=== PATIENT | male | born 1985 | race Caucasian/White ===

== ENCOUNTER 2024-12-02 07:40 | Outpatient (OUT) | payer BC, SELFPAY ==
--- NOTE | 2024-12-02 07:50 | US_ITS ---
[facility] [id number] Patient Name: XAVIER GUERRA MRN: [id number] date: 1985 Sex: M Assigned Patient Location: [place] Current Patient Location: US Accession/Order Number: [id number] Exam Date: 12/02/2024 07:51 Report Date: 12/02/2024 10:15 At the request of: MARLON REILLY Procedure: US right upper quadrant EXAMINATION: US right upper quadrant HISTORY: Elevated Liver Enzymes COMPARISON: No relevant comparison available. TECHNIQUE: Transabdominal evaluation of the right upper quadrant. FINDINGS: LIVER: Slightly prominent, 20.7 cm in length. Slight increased echogenicity suggestive of fatty infiltration.. Color Doppler demonstrates patent hepatic veins. PORTAL VEIN: Duplex Doppler demonstrates normal hepatopetal flow pattern with flow velocity averaging 27 cm/s. GALLBLADDER: Small amount of dense sludge versus fine granular stones layering within the gallbladder. No wall thickening or pericholecystic free fluid. Negative sonographic Love's sign. BILIARY: Dilated common bile duct between 8 and 11 mm. No appreciable stones or mass. PANCREAS: No visible mass, abnormal atrophy, or duct dilation. KIDNEY: No hydronephrosis. No visible mass or stones. Size: 11.4 x 6.5 x 5.6 cm US/US right upper quadrant IMPRESSION: 1. Cholelithiasis without acute cholecystitis. Fine granular stones versus dense sludge layering within the gallbladder. The common bile duct is abnormally dilated, but no visible stone or mass. 2. Negative sonographic Love's sign. Consider follow-up. Electronically authenticated by: CECILY EASTON Date: 12/02/2024 10:15
== END 2024-12-02 07:41 | disposition home or self-care (01) ==
PROVIDERS: PCP Nurse Practitioner; Visit Provider Nurse Practitioner
DX: R74.01 Elevation of levels of liver transaminase levels (principal); R74.02 Elevation of levels of lactic acid dehydrogenase [LDH]
CPT/HCPCS: 76705

== ENCOUNTER 2024-12-16 13:41 | Emergency (ER) | payer BC, SELFPAY ==
[2024-12-16 13:52] VITALS: BP 94/52; PULSE 103; TEMP 36.4; O2SAT 100; BMI 29.2
--- OUTSIDE RECORDS SUMMARY | 2024-12-16 13:57 | XMS_ITS | CCD ---
Author Organization [facility] Care Team Providers Care Tray Room Worker Name Role Phone REQUEST, NONE LISTED Unavailable Unavailable ALE BURNETT Unavailable Unavailable PAVLOCK, MAX Unavailable Unavailable PAVLOCK, MAX Unavailable Unavailable JORDAN, ALEX Unavailable Unavailable CECILY FUNEZ Unavailable Unavailable HAYKATHERINE Unavailable Unavailable PAVLOCK, MAX Unavailable Unavailable EVAN, ALBERTO Unavailable Unavailable EVAN, ALBERTO Unavailable Unavailable MISC, DOCTOR Unavailable Unavailable EVAN, ALBERTO Unavailable Unavailable EVAN, ALBERTO Unavailable Unavailable EVAN, ALBERTO Unavailable Unavailable SELF, REFERRED Unavailable Unavailable SELF, REFERRED Unavailable Unavailable UNKNOWN, PROVIDER Unavailable Unavailable PAVLOCK, MAX DALJIT Unavailable Unavailable SELF, REFERRED Unavailable Unavailable ANA, DANIS Unavailable Unavailable [place] Unavailable Unavailable UNKNOWN, PROVIDER Unavailable Unavailable EVAN, ALBERTO Unavailable Unavailable EVAN, ALBERTO Unavailable Unavailable SELF, REFERRED Unavailable Unavailable SELF, REFERRED Unavailable Unavailable LazarusNohelia Primary Care Physician Nohelia Qiu Attending Unavailable Lazarus, Nohelia Houston Attending Unavailable Lazarus, Nohelia Houston Attending Unavailable Lazarus, Nohelia Houston Attending Unavailable Lazarus, Nohelia Houston Admitting Unavailable Lazarus, Nohelia Houston Attending Unavailable Lazarus, Nohelia [place] Attending Unavailable Lazarus, Nohelia L Attending Unavailable Lazarus, Nohelia L Attending Unavailable Lazarus, Nohelia L Attending Unavailable Lazarus, Nohelia L Attending Unavailable Lazarus, Nohelia L Attending Unavailable Lazarus, Nohelia L Attending Unavailable Lazarus, Nohelia L Attending Unavailable Lazarus, Nohelia L Admitting Unavailable Lazarus, Nohelia L Attending Unavailable Lazarus, Nohelia L Attending Unavailable Lazarus, Nohelia L Admitting Unavailable Lazarus, Nohelia L Attending Unavailable Lazarus, Nohelia L Admitting Unavailable Mary Vázquez Attending Unavailable Mary Vázquez Attending Unavailable Allergies Allergy Classification Reported Allergen(s) Allergy Type Date of Onset Reaction(s) Facility (3 sources) Sulfonamides (Antibiotic) Drug allergy (disorder) 8 AOF [facility] Repository (3 sources) No Known Medication Allergies; Translations: [No Known Medication Allergies] Propensity to adverse reactions (disorder) [facility] Repository Medications Current Medications Medication Drug Class(es) Dates Sig (Normalized) Sig (Original) amoxicillin 875 mg oral tablet (1 source) Penicillin-class Antibacterial Start: 11-24-19 End: 12-01-19 take 1 tablet by mouth twice daily amoxicillin 875 mg Tab 875 mg = 1 tab(s), Oral, BID, X 7 day(s), # 14 tab(s), Refills(s) 0, Pharmacy: [facility]/pharmacy #[id number], 182, cm, 11/24/24 14:45:00 EST, Height/Length Dosing, 97.8, kg, 11/24/24 14:45:00 EST, Weight Dosing Start Date: 11/24/24 Stop Date: 12/01/24 Status: Ordered ciprofloxacin 3 mg/ml / dexamethasone 1 mg/ml otic suspension (1 source) Corticosteroid, Quinolone Antimicrobial Start: 11-25-19 End: 12-02-19 Ciprodex 0.3%-0.1% Susp-Otic 4 drop(s), Otic, BID for 7 day(s), 7.5 mL, Refill(s) 0, [facility]/pharmacy #[id number], 182, cm, 11/24/24 14:45:00 EST, Height/Length Dosing, 97.8, kg, 11/24/24 14:45:00 EST, Weight Dosing Start Date: 11/25/24 Stop Date: 12/02/24 Status: Ordered hydroCHLOROthiazide 12.5 mg oral capsule (1 source) Thiazide Diuretic Start: 11-24-19 take 1 capsule by mouth once daily as needed for edema hydrochlorothiazide 12.5 mg Cap 12.5 mg = 1 cap(s), Oral, Daily, PRN Edema, # 30 cap(s), Refills(s) 4, Pharmacy: [facility]/pharmacy #[id number], 182, cm, 08/11/24 13:17:00 EDT, Height/Length Dosing, 96.3, kg, 08/11/24 13:17:00 EDT, Weight Dosing Start Date: 11/24/24 Status: Ordered hydroCHLOROthiazide 25 mg / metoprolol tartrate 100 mg oral tablet (1 source) Thiazide Diuretic, beta-Adrenergic Caroline Start: 03-21-20 hydrochlorothiazide-me toprolol 25 mg-100 mg oral tablet 1 tab(s), Oral, BID, 60 tab(s), Refill(s) 2, [facility]/pharmacy #[id number], 182, cm, 03/21/24 13:11:00 EDT, Height/Length Dosing, 97, kg, 03/21/24 13:11:00 EDT, Weight Dosing Start Date: 03/21/24 Status: Ordered losartan potassium 100 mg oral tablet (2 sources) Angiotensin 2 Receptor Caroline Start: 05-21-20 End: 05-16-20 take 1 tablet by mouth once daily losartan 100 mg Tab 100 mg = 1 tab(s), Oral, Daily, X 90 day(s), # 90 tab(s), Refills(s) 3, [id number], cm, 05/21/24 17:12:00 EDT, Height/Length Dosing, 92.1, kg, 05/21/24 17:12:00 EDT, Weight Dosing Start Date: 05/21/24 Stop Date: 05/16/25 Status: Ordered Potassium Chloride (2 sources) Start: 11-26-19 take 1 tablet by mouth twice daily Potassium Chloride (Wka-Kktl-Fek M20) 20 mEq oral tablet, extended release TAKE 1 TABLET BY MOUTH TWICE A DAY Start Date: 11/26/24 Status: Ordered Start: 06-30-2024 take 1 tablet by dolly twice daily Klor-Con M20 oral tablet, extended release See Instructions, TAKE 1 TABLET BY MOUTH TWICE A DAY, # 180 tab(s), Refills(s) 1, Pharmacy: [facility] STORE [id number], 182, cm, 05/26/24 10:41:00 EDT, Height/Length Dosing, 93.6, kg, 05/26/24 10:41:00 EDT, Weight Dosing Start Date: 06/30/24 Status: Ordered Problems Problem Classification Problem Date Documented Date Episodic/Chronic Alcohol-related disorders (1 source) Alcohol abuse, uncomplicated; Translations: [ALCOHOL ABUSE, UNCOMPLICATED] Onset: 08-27-2018 Chronic Biliary tract disease (1 source) Acute cholecystitis; Translations: [ACUTE CHOLECYSTITIS] Onset: 09-02-2018 Episodic Cardiac dysrhythmias (8 sources) Supraventricular tachycardia; Translations: [SUPRAVENTRICULAR TACHYCARDIA] Onset: 09-03-2018 Chronic Cardiac dysrhythmias (4 sources) Palpitations; Translations: [Tachycardia, unspecified] Onset: 08-27-2018 Episodic Conduction disorders (5 sources) Pre-excitation syndrome; Translations: [Dlriv-Aekxvfjma-Zjdlt pattern] Onset: 08-27-2018 03-21-2024 Chronic Essential hypertension (3 sources) Hypertensive disorder 03-21-2024 Chronic Fever of unknown origin (1 source) Fever 08-11-2024 Episodic Fluid and electrolyte disorders (3 sources) Dehydration; Translations: [Hypokalemia] Onset: 09-02-2018 04-11-2024 Episodic Malaise and fatigue (3 sources) Fatigue 03-21-2024 Episodic Nausea and vomiting (1 source) Nausea and vomiting 08-11-2024 Episodic Other ear and sense organ disorders (1 source) Pain of ear structure 11-26-2024 Episodic Other liver diseases (1 source) Abnormal levels of other serum enzymes; Translations: [ABNORMAL LEVELS OTHER SERUM ENZYMES] Onset: 09-02-2018 Episodic Other liver diseases (2 sources) ALT (SGPT) level raised 04-11-2024 Episodic Other liver diseases (2 sources) Elevated liver enzymes level 04-11-2024 Episodic Other lower respiratory disease (3 sources) Dyspnea 03-21-2024 Episodic Other nervous system disorders (2 sources) Numbness of lower limb 08-06-2024 Episodic Other nervous system disorders (1 source) Numbness of upper limb 11-26-2024 Episodic Other nutritional; endocrine; and metabolic disorders (1 source) Body mass index 25-29 - overweight 08-11-2024 Episodic Other nutritional; endocrine; and metabolic disorders (1 source) Overweight in adulthood with body mass index of 25 or more but less than 30 08-11-2024 Episodic Other upper respiratory infections (1 source) Sinusitis 11-24-2024 Chronic Other upper respiratory infections (3 sources) Streptococcal sore throat; Translations: [Sore throat symptom] 05-26-2024 Episodic Otitis media and related conditions (3 sources) Otitis media of left ear; Translations: [Otitis media of right ear] 05-26-2024 Episodic Violette-; endo-; and myocarditis; cardiomyopathy (except that caused by tuberculosis or sexually transmitted disease) (1 source) Dilated cardiomyopathy; Translations: [DILATED CARDIOMYOPATHY] Onset: 09-02-2018 Chronic Residual codes; unclassified (3 sources) Current drinker 03-21-2024 Episodic Residual codes; unclassified (3 sources) Edema of lower extremity 03-21-2024 Episodic Residual codes; unclassified (1 source) Generalized aches and pains 08-11-2024 Episodic Residual codes; unclassified (1 source) Tobacco user 11-24-2024 Episodic Substance-related disorders (4 sources) Nicotine dependence, cigarettes, uncomplicated; Translations: [Cocaine abuse, uncomplicated] Onset: 08-27-2018 Chronic Unclassified (2 sources) Unknown / UNK(Unknown) Onset: 09-03-2018 Unclassified (3 sources) Patient encounter status 03-21-2024 Results Test Name Value Interpretation Reference Range Facil ity .Interpretation:on HCV Ab IA Ql Comment Invalid Interpretation Code [facility] Comment on above: Result Comment: Not infected with HCV unless early or acute infection is suspected (which may be delayed in an immunocompromised individual), or other evidence exists to indicate HCV infection. Performed at: [facility] [id number] PhD Donna Love Performed By: #### 2 [id number] #### [facility] [address] [place] [address] Acute Hepatitis A B C Panelo n 11-28-2024 HAV IgM IA Ql Negative Invalid Interpretation Code Negative [facility] Comment on above: Result Comment: A ne gative anti-HAV IgM result suggests no recent or current HAV infection. Performed By: #### 3 [id number] #### [facility] [address] [place] [address] HBV core IgM IA Ql Negative Invalid Interpretation Code Negative [facility] Comment on above: Performed By: #### 3 [id number] #### [facility] [address] [place] [address] HBV surface Ag IA Ql Negative Invalid Interpretation Code Negative [facility] Comment on above: Performed By: #### 3 [id number] #### [facility] [address] [place] [address] HCV IgG IA Ql Non-Reactive Invalid Interpretation Code Non Reactive [facility] Comment on above: Result Comment: Perf ormed at: [facility] [address] [id number] PhD Donna Love Performed By: #### 3 [id number] #### [facility] [address] [place] [address] CBC w/ Auto Diffon 5 Basophils/100 WBC (Bld) 0.5 % Normal 0.0-2.0 [facility] Comment on above: Performed By: #### 2 [id number] #### [facility] [address] [place] [address] Basophils/Leukocyt es Auto (Bld) [Pure # fraction] 0.0 E9/L Normal 0.0-0.2 [facility] Comment on above: Performed By: #### 2 [id number] #### [facility] [address] [place] [address] Eosinophils (Bld) [#/Vol] 0.2 E9/L Normal 0.0-0.5 [facility] Comment on above: Performed By: #### 2 [id number] #### [facility] [address] [place] [address] Eosinophils/100 WBC (Bld) 3.3 % Normal 0.0-8.0 [facility] Comment on above: Performed By: #### 2 [id number] #### [facility] [address] [place] [address] Erythrocyte distribution width (RBC) [Ratio] 14.3 % High 10.9-14.2 [facility] Comment on above: Performed By: #### 2 [id number] #### [facility] [address] [place] [address] Hematocrit (Bld) [Volume fraction] 36.8 % Low 37.7-49.0 [facility] Comment on above: Performed By: #### 2 [id number] #### [facility] [address] [place] [address] Hemoglobin (Bld) [Mass/Vol] 12.7 g/dL Low 13.5-17.5 [facility] Comment on above: Performed By: #### 2 [id number] #### [facility] [address] [place] [address] Lymphocytes (Bld) [#/Vol] 1.9 E9/L Normal 1.0-4.0 [facility] Comment on above: Performed By: #### 2 [id number] #### [facility] [address] [place] [address] Lymphocytes/100 WBC (Bld) 29.0 % Normal 14.0-50.0 [facility] Comment on above: Performed By: #### 2 [id number] #### [facility] [address] [place] [address] MCH (RBC) [Entitic mass] 35.7 pg High 27.0-34.0 [facility] Comment on above: Performed By: #### 2 [id number] #### [facility] [address] [place] [address] MCHC (RBC) [Mass/Vol] 34.6 g/dL Normal 31.4-36.0 [facility] Comment on above: Performed By: #### 2 [id number] #### [facility] [address] [place] [address] MCV (RBC) [Entitic vol] 103.3 fL High 80.0-100.0 [facility] Comment on above: Performed By: #### 2 [id number] #### [facility] [address] [place] [address] Monocytes (Bld) [#/Vol] 0.5 E9/L Normal 0.2-1.0 [facility] Comment on above: Performed By: #### 2 [id number] #### [facility] [address] [place] [address] Neutrophils (Bld) [#/Vol] 3.9 E9/L Normal 2.0-7.5 [facility] Comment on above: Performed By: #### 2 [id number] #### [facility] [address] [place] [address] Neutrophils/100 WBC (Bld) 59.3 % Normal 36.0-75.0 [facility] Comment on above: Performed By: #### 2 [id number] #### [facility] [address] [place] [address] Platelet mean volume (Bld) [Entitic vol] 9.4 fL Normal 6.4-10.8 [facility] Comment on above: Performed By: #### 2 [id number] #### [facility] [address] [place] [address] Platelets (Bld) [#/Vol] 186.0 E9/L Normal 150.0-500.0 [facility] Comment on above: Performed By: #### 2 [id number] #### [facility] [address] [place] [address] RBC (Bld) [#/Vol] 3.6 E12/L Low 4.3-5.9 [facility] Comment on above: Performed By: #### 2 [id number] #### [facility] [address] [place] [address] WBC corrected for nucl RBC Auto (Bld) [#/Vol] 6.5 E9/L Normal 4.0-11.0 [facility] Comment on above: Performed By: #### 2 [id number] #### [facility] [address] [place] [address] CHEMISTRYOrdered By: SYSTEM SYSTEM on 11-26-2024 Albumin [Mass/Vol] 3.0 g/dL Low 3.3 - 5.0 gm/dL R emisol Chem Albumin/Globulin [Mass ratio] 0.7 {ratio} Low 1.1 - 2.2 Remisol Chem ALP [Catalytic activity/Vol] 184 [iU]/d High 21 - 98 Int._Unit/L Remisol Chem ALT No additional P-5'-P [Catalytic activity/Vol] 50 [iU]/d High 6 - 46 Int._Unit/L Remisol Chem Anion gap [Moles/Vol] 13 mmol/L Normal 6 - 16 mEq/L Remisol Chem AST [Catalytic activity/Vol] 191 [iU]/d High 5 - 43 Int._Unit/L Remisol Chem Bilirubin [Mass/Vol] 6.3 mg/dL High 0.0 - 1.1 mg/dL Remisol Chem Calcium [Mass/Vol] 8.4 mg/dL Low 8.9 - 11.1 mg/dL Remisol Chem Chloride [Moles/Vol] 102 mmol/L Normal 101 - 111 mmol/L Remisol Chem CO2 [Moles/Vol] 25 mmol/L Normal 21 - 31 mmol/L Remis ol Chem Creatinine [Mass/Vol] 0.9 mg/dL Normal 0.5 - 1.3 mg/dL Remisol Chem eGFR 112 mL/min/1.73 m2 Normal >=59mL/min/1.73 m 2 Remisol Chem Globulin (S) [Mass/Vol] 4.6 g/dL High 1.4 - 4.0 gm/dL Remisol Chem Glucose [Mass/Vol] 100 mg/dL Normal 55 - 199 mg/dL Re misol Chem Potassium [Moles/Vol] 3.5 mmol/L Normal 3.5 - 5.3 mmol/L Remisol Chem Protein [Mass/Vol] 7.6 g/dL Normal 6.0 - 7.8 gm/dL R emisol Chem Sodium [Moles/Vol] 136 mmol/L Normal 135 - 145 mmol/L Remisol Chem Urea nitrogen [Mass/Vol] 8 mg/dL Normal 5 - 21 mg/dL Remisol Chem Urea nitrogen/Creatinin e [Mass ratio] 9 mg/mg Low 10 - 20 Remisol Chem CMPon 11-26-2024 Albumin [Mass/Vol] 3.0 g/dL Low 3.3-5.0 [facility] Comment on above: Performed By: #### 2 [id number] #### [facility] [address] [place] [address] Albumin/Globulin (S) [Mass conc ratio] 0.7 Low 1.1-2.2 [facility] Comment on above: Performed By: #### 2 [id number] #### [facility] [address] [place] [address] ALP [Catalytic activity/Vol] 184 Int._Unit/L High 21-98 [facility] Comment on above: Performed By: #### 2 [id number] #### [facility] [address] [place] [address] ALT No additional P-5'-P [Catalytic activity/Vol] 50 Int._Unit/L High 6-46 [facility] Comment on above: Performed By: #### 2 [id number] #### [facility] [address] [place] [address] Anion gap [Moles/Vol] 13 mmol/L Normal 6-16 [facility] Comment on above: Performed By: #### 2 [id number] #### [facility] [address] [place] [address] AST [Catalytic activity/Vol] 191 Int._Unit/L High 5-43 [facility] Comment on above: Performed By: #### 2 [id number] #### [facility] [address] [place] [address] Bilirubin [Mass/Vol] 6.3 mg/dL High 0.0-1.1 [facility] Comment on above: Performed By: #### 2 [id number] #### [facility] [address] [place] [address] Calcium [Mass/Vol] 8.4 mg/dL Low 8.9-11.1 [facility] Comment on above: Performed By: #### 2 [id number] #### [facility] [address] [place] [address] Chloride [Moles/Vol] 102 mmol/L Normal 101-111 [facility] Comment on above: Performed By: #### 2 [id number] #### [facility] [address] [place] [address] CO2 [Moles/Vol] 25 mmol/L Normal 21-31 [facility] Comment on above: Performed By: #### 2 [id number] #### [facility] [address] [place] [address] Creatinine [Mass/Vol] 0.9 mg/dL Normal 0.5-1.3 [facility] Comment on above: Performed By: #### 2 [id number] #### [facility] [address] [place] [address] Globulin (S) [Mass/Vol] 4.6 g/dL High 1.4-4.0 [facility] Comment on above: Performed By: #### 2 [id number] #### [facility] [address] [place] [address] Glucose [Mass/Vol] 100 mg/dL Normal 55-199 [facility] Comment on above: Performed By: #### 2 [id number] #### [facility] [address] [place] [address] Potassium [Moles/Vol] 3.5 mmol/L Normal 3.5-5.3 [facility] Comment on above: Performed By: #### 2 [id number] #### [facility] [address] [place] [address] Protein [Mass/Vol] 7.6 g/dL Normal 6.0-7.8 [facility] Comment on above: Performed By: #### 2 [id number] #### [facility] [address] [place] [address] Sodium [Moles/Vol] 136 mmol/L Normal 135-145 [facility] Comment on above: Performed By: #### 2 [id number] #### [facility] [address] [place] [address] Urea nitrogen [Mass/Vol] 8 mg/dL Normal 5-21 [facility] Comment on above: Performed By: #### 2 [id number] #### [facility] [address] [place] [address] Urea nitrogen/Creatinin e [Mass ratio] 9 No Units Low 10-20 [facility] Comment on above: Performed By: #### 2 [id number] #### [facility] [address] [place] [address] Family Medicine Office/Clini c Noteon 11-26-2024 Family Medicine Office/Clinic Note Family Medicine Office/Clinic Note Chief Complaint Sick Visit HPI Staff Pt presents today for several reasons. Has been having dark urine for about a month. Arm has been flaccid. Ears seem to be getting worse. Still abx. Rt is worse than Lt. Pt was just seen in our office 2 days ago and was given script for amoxicillin BID x7days. NEG Covid test at that time. Pt was given note for work, was to return to work today. History of Present Illness pt presents again today with worsening ear pain and dark urine for a couple weeks Review of Systems PHQ Score Initial Depression Screen Score: 0 SCORE Physical Exam Vitals & Measurements T: 36.8 ???C(Tympanic) HR: 96(Peripheral) RR: 18 BP: 162/96 SpO2: 96% HT: 72 in HT: 182 cm WT: 97.6 kg WT: 215.171 lb BMI: 29.47 General: alert, no acute distress ENMT: oral mucosa moist, no pharyngeal erythema or exudate, right TM membrane bulging and red Cardiovascular: regular rate and rhythm, normal peripheral perfusion Respiratory: Lungs CTA, respirations non labored Extremities: no deformity, no trauma Neurological: oriented x 4, LOC appropriate for age, CN II-XII intact, motor strength equal & normal bilaterally, speech normal Assessment/Plan 1. Ear pain (H92.09: Otalgia, unspecified ear) pt states right ear is still hurting. started amoxicillin 2 days ago. encouraged him to continue taking antibiotics and ear drops. will give Kenalog injection in office today. return in 2 weeks to check ear and go over lab work Ordered: Acute Hepatitis A B C Panel CBC w/ Auto Diff Comprehensive Metabolic Panel Mononucleosis Screen 2. Dark urine (R82.998: Other abnormal findings in urine) pt c/o dark urine for 3-4 weeks. pt states that he drinks a lot of water. u/a negative except for bili. but the color of the urine is tea colored Ordered: Acute Hepatitis A B C Panel CBC w/ Auto Diff Comprehensive Metabolic Panel Mononucleosis Screen Urnls Dip Stick Auto w/o Microscopy POC 31392 3. Elevated liver enzymes (R74.8: Abnormal levels of other serum enzymes) will check labs today. pt's scleras are yellow tinged. Ordered: Acute Hepatitis A B C Panel CBC w/ Auto Diff Comprehensive Metabolic Panel Influenza Type A&B POC 77656 Mononucleosis Screen 4. Left arm numbness (R20.0: Anesthesia of skin) pt apparently fell asleep in a weird position on top of boxes of ammo. He is a heavy drinker and it is assumed that he passed out. neuro assessment WNL. hoping kenalog will help decrease inflammation and ease the numbness of his left lower arm. also discussed it could be carpal tunnel. encouraged pt and to go to ER immediately if he gets any other neurologic symptoms. 5. BMI 29.0-29.9,adult (Z68.29: Body mass index [BMI] 29.0-29.9, adult) BMI education given Follow-up No qualifying data available Problem List/Past Medical History Ongoing Alcohol use BMI 29.0-29.9,adult Body aches Ear pain Elevated ALT measurement Elevated liver enzymes Fatigue Fever Hypertension Hypokalemia Left arm numbness Left otitis media Lower extremity edema Lower extremity numbness Nausea and vomiting in adult Otitis media, right Overweight (BMI 25.0-29.9) Screening for hyperlipidemia Shortness of breath Sinusitis Sore throat Strep throat Hgiil-Puoqzpgft-Nrqvq syndrome Historical No qualifying data Procedure/Surgical History Nicola Parkinson White syndrome. Medications amoxicillin 875 mg Tab, 875 mg= 1 tab(s), Oral, BID Ciprodex 0.3%-0.1% Susp-Otic, 4 drop(s), Otic, BID hydrochlorothiazide 12.5 mg Cap, 12.5 mg= 1 cap(s), Oral, Daily, PRN, 4 refills losartan 100 mg Tab, 100 mg= 1 tab(s), Oral, Daily, 3 refills Potassium Chloride (Klu-Zbfm-Ouf M20) 20 mEq oral tablet, extended release Allergies No Known Medication Allergies Social History Alcohol Current. Liquor. Daily., 11/24/2024 Tobacco 10 or more cigarettes (1/2 pack or more)/day in last 30 days Tobacco Use:. Never Smokeless Tobacco Use:. Cigarettes, Household tobacco concerns: No. Yes, 11/26/2024 Family History Heart murmur: Mother. Hypertension: Father. Hyperthyroidism: Mother. Immunizations Vaccine Date Status influenza virus vaccine, inactivated 08/28/2022 Recorded SARSCoV2 mRNA(jxtixqpih-shvw-q delio) vac 02/01/2022 Recorded SARS-CoV-2 (COVID-19) mRNA BNT-162b2 vax 09/02/2021 Recorded SARS-CoV-2 (COVID-19) mRNA BNT-162b2 vax 08/12/2021 Recorded Lab Results Ambulatory Point of Care Results Bilirubin Urine Dipstick: 1+ Small (11/26/24 10:46:00) Blood Urine Dipstick: Negative (11/26/24 10:46:00) Glucose Urine Dipstick: Negative (11/26/24 10:46:00) Ketones Urine Dipstick: Negative (11/26/24 10:46:00) Leukocytes Urine Dipstick: Negative (11/26/24 10:46:00) Nitrite Urine Dipstick: Negative (11/26/24 10:46:00) Protein Urine Dipstick: Negative (11/26/24 10:46:00) Specific [place] Urine Dipstick: 1.020 (11/26/24 10:46:00) Urine Appearance Urine (more content not included)... Normal [facility] Comment on above: Result Comment: Elec tronically Signed By: Nohelia Pena\.br\Date and Time Signed: 11/26/24 11:22 EST HEMATOLOGYOrdered By: SYSTEM SYSTEM on 11-26-2024 Basophils/100 WBC (Bld) 0.5 % Normal 0.0 - 2.0 % Remisol Heme Basophils/Leukocyt es Auto (Bld) [Pure # fraction] 0.0 E9/L Normal 0.0 - 0.2 E9/L Remisol Heme Eosinophils (Bld) [#/Vol] 0.2 E9/L Normal 0.0 - 0.5 E9/L Remisol Heme Eosinophils/100 WBC (Bld) 3.3 % Normal 0.0 - 8.0 % Remisol Heme Erythrocyte distribution width (RBC) [Ratio] 14.3 % High 10.9 - 14.2 % Remisol Heme Hematocrit (Bld) [Volume fraction] 36.8 % Low 37.7 - 49.0 % Remisol Heme Hemoglobin (Bld) [Mass/Vol] 12.7 g/dL Low 13.5 - 17.5 gm/dL Remisol Heme Lymphocytes (Bld) [#/Vol] 1.9 E9/L Normal 1.0 - 4.0 E9/L Remisol Heme Lymphocytes/100 WBC (Bld) 29.0 % Normal 14.0 - 50.0 % Remisol Heme MCH (RBC) [Entitic mass] 35.7 pg High 27.0 - 34.0 pg Remisol Heme MCHC (RBC) [Mass/Vol] 34.6 g/dL Normal 31.4 - 36.0 gm/dL Remisol Heme MCV (RBC) [Entitic vol] 103.3 fL High 80.0 - 100.0 fL Remisol Heme Monocytes (Bld) [#/Vol] 0.5 E9/L Normal 0.2 - 1.0 E9/L Remisol Heme Monocytes/100 WBC (Bld) 7.9 % Normal 4.0 - 14.0 % Remisol Heme Neutrophils (Bld) [#/Vol] 3.9 E9/L Normal 2.0 - 7.5 E9/L Remisol Heme Neutrophils/100 WBC (Bld) 59.3 % Normal 36.0 - 75.0 % Remisol Heme Platelet mean volume (Bld) [Entitic vol] 9.4 fL Normal 6.4 - 10.8 fL Remisol Heme Platelets (Bld) [#/Vol] 186.0 E9/L Normal 150.0 - 500.0 E9/L Remisol Heme RBC (Bld) [#/Vol] 3.6 E12/L Low 4.3 - 5.9 E12/L Re misol Heme WBC corrected for nucl RBC Auto (Bld) [#/Vol] 6.5 E9/L Normal 4.0 - 11.0 E9/L Remisol Heme Garvin Screenon 11-26-2024 Heterophile Ab LA Ql (S) Negative Normal Negative [facility] Comment on above: Performed By: #### 2 [id number] #### [facility] [address] [place] [address] SEROLOGYOrdered By: Leeanne Hayward on 11-26-2024 Heterophile Ab LA Ql (S) Negative (11/26/24 11:29 AM) Normal Negative [facility] eGFRon 11-26-2024 eGFR 112 mL/min/1.73 m2 Normal >=59 [facility] Comment on above: Performed By: #### 1 [id number] #### [facility] [address] [place] [address] Provider Letteron 11-25-2024 Provider Letter Provider Letter November 25, 2024 JAMES DEL RIO [address] [facility] [place] [address] : 1985 To Whom It May Concern, Please excuse above patient from work, due to medical Date of Illness: From: _ 11-24-24 To: _ 11-25-24 May Return to Work On:11-26-24 Restrictions: _ Comments: _ Sincerely, [address] [address] Normal [facility] Ambulatory Visit Summaryon 0 11-24-2024 Ambulatory Visit Summary Ambulatory Visit Summary NASEEM DEL RIOEL :1985 Visit Date:11/24/2024 Ambulatory Visit Instructions Your Care Team Attending Physician - Nohelia Pena Primary Care Physician - Nohelia Pena This Is Your Medications List hydrochlorothiazide (hydrochlorothiazide 12.5 mg Cap) losartan (losartan 100 mg Tab) ondansetron (ondansetron 4 mg Dis Tab) Procedures Performed Nicola Parkinson White syndrome. Discharge Vitals Temperature (Oral) 36.8 ???C Heart Rate (Peripheral) 124 Respiratory Rate 18 Blood Pressure 124/84 Height 182.0 cm Height 72 in Weight 97.8 kg Weight 215.612 lb BMI 29.53 Medications What How Much When Why Instructions New ondansetron (ondansetron 4 mg Dis Tab) 1 Tablets By Mouth Every 6 hours Unchanged hydrochlorothiazide (hydrochlorothiazide 12.5 mg Cap) 1 Capsules By Mouth Every day as needed for Edema Unchanged losartan (losartan 100 mg Tab) 1 Tablets By Mouth Every day Hypertension Hypokalemia Elevated liver enzymes Elevated ALT measurement BMI 28.0-28.9,adult Smoker Duration: 90 Days Allergies No Known Medication Allergies Problems Ongoing - Any problem that you are currently receiving treatment for. Alcohol use BMI 29.0-29.9,adult Body aches Elevated ALT measurement Elevated liver enzymes Fatigue Fever Hypertension Hypokalemia Left otitis media Lower extremity edema Lower extremity numbness Nausea and vomiting in adult Overweight (BMI 25.0-29.9) Screening for hyperlipidemia Shortness of breath Strep throat Zsvuh-Rslmxwggy-Mwqmp syndrome Patient Survey You may receive a survey via text or e-mail asking about your office visit. Please share your experience with us by completing your survey. We appreciate your feedback and thank you for choosing us for your care. Normal [facility] Family Medicine Office/Clini c Noteon 11-24-2024 Family Medicine Office/Clinic Note Family Medicine Office/Clinic Note HPI Staff James is a 39 year old male presenting with ear and throat pain Onset: started a month ago just getting worse Fevers: no Sinus congestion: yes Sneezing: yes Ear pain: YES right ear both Ear itching, popping, fullness, ringing, muffled hearing: nothing pressure popped when he yawned last night Ear drainage: no Swollen nodes: Sore throat: YES.. Ear pain worse with chewing: no Itching: no Difficulty hearing: yes Tried: OTC ear drops... didn't seem to help at all History of Present Illness pt presents today for sore throat and ear pain Review of Systems PHQ Score Initial Depression Screen Score: 0 SCORE Physical Exam Vitals & Measurements T: 36.8 ???C(Oral) HR: 124(Peripheral) RR: 18 BP: 124/84 SpO2: 99% HT: 72 in HT: 182.0 cm WT: 97.8 kg WT: 215.612 lb BMI: 29.53 General: alert, no acute distress ENMT: oral mucosa moist, no pharyngeal erythema or exudate Cardiovascular: regular rate and rhythm, normal peripheral perfusion Respiratory: Lungs CTA, respirations non labored Extremities: no deformity, no trauma Neurological: oriented x 4, LOC appropriate for age, CN II-XII intact, motor strength equal & normal bilaterally, speech normal Assessment/Plan 1. Otitis media, right (H66.91: Otitis media, unspecified, right ear) Right TM is red and very swollen. canal is also red. will treat with amoxicillin. covid test is negative in office today. RTC as needed 2. Sinusitis (J32.9: Chronic sinusitis, unspecified) bloody nasal drainage, sinus pressure 3. Sore throat (J02.9: Acute pharyngitis, unspecified) throat is red, no exudate noted. 4. BMI 29.0-29.9,adult (Z68.29: Body mass index [BMI] 29.0-29.9, adult) bmi education Orders: amoxicillin, 875 mg = 1 tab(s), Oral, BID, X 7 day(s), # 14 tab(s), Refills(s) 0, [id number], cm, 11/24/24 14:45:00 EST, Height/Length Dosing, 97.8, kg, 11/24/24 14:45:00 EST, Weight Dosing hydrochlorothiazide, 12.5 mg = 1 cap(s), Oral, Daily, PRN Edema, # 30 cap(s), Refills(s) 4, [id number] 182, cm, 08/11/24 13:17:00 EDT, Height/Length Dosing, 96.3, kg, 08/11/24 13:17:00 EDT, Weight Dosing ondansetron, 4 mg = 1 tab(s), Oral, q6hr, PRN Nausea/Vomiting, # 20 tab(s), Refills(s) 0, [id number] 182, cm, 08/11/24 13:17:00 EDT, Height/Length Dosing, 96.3, kg, 08/11/24 13:17:00 EDT, Weight Dosing Follow-up No qualifying data available Problem List/Past Medical History Ongoing Alcohol use BMI 29.0-29.9,adult Body aches Elevated ALT measurement Elevated liver enzymes Fatigue Fever Hypertension Hypokalemia Left otitis media Lower extremity edema Lower extremity numbness Nausea and vomiting in adult Otitis media, right Overweight (BMI 25.0-29.9) Screening for hyperlipidemia Shortness of breath Sinusitis Sore throat Strep throat Nbaum-Koyrirjbm-Inmqz syndrome Historical No qualifying data Procedure/Surgical History Nicola Parkinson White syndrome. Medications amoxicillin 875 mg Tab, 875 mg= 1 tab(s), Oral, BID hydrochlorothiazide 12.5 mg Cap, 12.5 mg= 1 cap(s), Oral, Daily, PRN, 4 refills losartan 100 mg Tab, 100 mg= 1 tab(s), Oral, Daily, 3 refills ondansetron 4 mg Dis Tab, 1 tab(s), Oral, q6hr Allergies No Known Medication Allergies Social History Alcohol Current. Liquor. Daily., 11/24/2024 Tobacco 10 or more cigarettes (1/2 pack or more)/day in last 30 days Tobacco Use:., 11/24/2024 Family History Heart murmur: Mother. Hypertension: Father. Hyperthyroidism: Mother. Immunizations Vaccine Date Status influenza virus vaccine, inactivated 08/28/2022 Recorded SARSCoV2 mRNA(qbqpaaunl-sbbm-x ucros) vac 02/01/2022 Recorded SARS-CoV-2 (COVID-19) mRNA BNT-162b2 vax 09/02/2021 Recorded SARS-CoV-2 (COVID-19) mRNA BNT-162b2 vax 08/12/[address] [facility] Comment on above: Result Comment: Elec tronically Signed By: Nohelia Pena\.br\Date and Time Signed: 11/24/24 15:05 EST Ambulatory Visit Summaryon 0 08-11-2024 Ambulatory Visit Summary Ambulatory Visit Summary JAMES DEL RIO :1985 Visit Date:08/11/2024 Ambulatory Visit Instructions Your Diagnosis Fever Nausea and vomiting in adult Your Care Team Attending Physician - Nohelia Pena Primary Care Physician - Nohelia Pena This Is Your Medications List losartan (losartan 100 mg Tab) Procedures Performed Nicola Parkinson White syndrome. Discharge Vitals Temperature (Temporal Artery) 36.6 ?C Heart Rate (Peripheral) 111 Respiratory Rate 16 Blood Pressure 138/84 Height 182 cm Height 72 in Weight 96.3 kg Weight 211.86 lb BMI 29.07 Medications What How Much When Why Instructions Unchanged losartan (losartan 100 mg Tab) 1 Tablets By Mouth Every day Hypertension Hypokalemia Elevated liver enzymes Elevated ALT measurement BMI 28.0-28.9,adult Smoker Duration: 90 Days Allergies No Known Medication Allergies Problems Ongoing - Any problem that you are currently receiving treatment for. Alcohol use Elevated ALT measurement Elevated liver enzymes Fatigue Fever Hypertension Hypokalemia Left otitis media Lower extremity edema Lower extremity numbness Nausea and vomiting in adult Screening for hyperlipidemia Shortness of breath Strep throat Rddlj-Zyuxpekcs-Rcvcg syndrome Patient Survey You may receive a survey via text or e-mail asking about your office visit. Please share your experience with us by completing your survey. We appreciate your feedback and thank you for choosing us for your care. 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 History of Present Illness pt presents today for nausea, vomiting and fever Review of Systems PHQ Score Initial Depression Screen Score: 0 SCORE Physical Exam Vitals & Measurements T: 36.6 ?C(Temporal Artery) HR: 111(Peripheral) RR: 16 BP: 138/84 SpO2: 97% HT: 72 in HT: 182 cm WT: 96.3 kg WT: 211.86 lb BMI: 29.07 General: alert, no acute distress ENMT: oral mucosa moist, no pharyngeal erythema or exudate Cardiovascular: regular rate and rhythm, normal peripheral perfusion Respiratory: Lungs CTA, respirations non labored Extremities: no deformity, no trauma Neurological: oriented x 4, LOC appropriate for age, CN II-XII intact, motor strength equal & normal bilaterally, speech normal sweating weak Assessment/Plan 1. Fever (R50.9: Fever, unspecified) pt woke up with temp of 103.7. took tylenol then motrin. during visit pt is profusely sweating from his fever breaking. keep saying it is hot in here. has not been able to eat at all today. will send tamiflu and zofran. encouraged him to stay hydrated. RTC as needed Ordered: ondansetron, 4 mg = 1 tab(s), Oral, q6hr, PRN Nausea/Vomiting, # 20 tab(s), Refills(s) 0, Pharmacy: [facility]/pharmacy #[id number], 182, cm, 08/11/24 13:17:00 EDT, Height/Length Dosing, 96.3, kg, 08/11/24 13:17:00 EDT, Weight Dosing oseltamivir, 75 mg = 1 cap(s), Oral, BID, for treatment, X 5 day(s), # 10 cap(s), Refills(s) 0, [id number], cm, 08/11/24 13:17:00 EDT, Height/Length Dosing, 96.3, kg, 08/11/24 13:17:00 EDT, Weight Dosing 2. Nausea and vomiting in adult (R11.2: Nausea with vomiting, unspecified) nausea and vomiting since this morning. will send zofran. pt encouraged to stay hydrated Ordered: ondansetron, 4 mg = 1 tab(s), Oral, q6hr, PRN Nausea/Vomiting, # 20 tab(s), Refills(s) 0, [id number] 182, cm, 08/11/24 13:17:00 EDT, Height/Length Dosing, 96.3, kg, 08/11/24 13:17:00 EDT, Weight Dosing oseltamivir, 75 mg = 1 cap(s), Oral, BID, for treatment, X 5 day(s), # 10 cap(s), Refills(s) 0, [id number] 182, cm, 08/11/24 13:17:00 EDT, Height/Length Dosing, 96.3, kg, 08/11/24 13:17:00 EDT, Weight Dosing 3. Body aches (R52: Pain, unspecified) rotate tylenol and mortrin Ordered: ondansetron, 4 mg = 1 tab(s), Oral, q6hr, PRN Nausea/Vomiting, # 20 tab(s), Refills(s) 0, [id number] 182, cm, 08/11/24 13:17:00 EDT, Height/Length Dosing, 96.3, kg, 08/11/24 13:17:00 EDT, Weight Dosing oseltamivir, 75 mg = 1 cap(s), Oral, BID, for treatment, X 5 day(s), # 10 cap(s), Refills(s) 0, Pharmacy: [facility]/pharmacy #[id number], 182, cm, 08/11/24 13:17:00 EDT, Height/Length Dosing, 96.3, kg, 08/11/24 13:17:00 EDT, Weight Dosing 4. BMI 29.0-29.9,adult (Z68.29: Body mass index [BMI] 29.0-29.9, adult) BMI education given 5. Smoker (F17.200: Nicotine dependence, unspecified, uncomplicated) consider not smoking 6. Overweight (BMI 25.0-29.9) (E66.3: Overweight) see above Orders: potassium chloride, See Instructions, TAKE 1 TABLET BY MOUTH TWICE A DAY, # 180 tab(s), Refills(s) 1, Pharmacy: [id number], 182, cm, 05/26/24 10:41:00 EDT, Height/Length Dosing, 93.6, kg, 05/26/24 10:41:00 EDT, Weight Dosing Follow-up No qualifying data available Problem List/Past Medical History Ongoing Alcohol use BMI 29.0-29.9,adult Body aches Elevated ALT measurement Elevated liver enzymes Fatigue Fever Hypertension Hypokalemia Left otitis media Lower extremity edema Lower extremity numbness Nausea and vomiting in adult Overweight (BMI 25.0-29.9) Screening for hyperlipidemia Shortness of breath Strep throat Wfjws-Bvbatwldm-Rxjji syndrome Historical No qualifying data Procedure/Surgical History Nicola Parkinson White syndrome. Medications losartan 100 mg Tab, 100 mg= 1 tab(s), Oral, Daily, 3 refills ondansetron 4 mg Dis Tab, 4 mg= 1 tab(s), Oral, q6hr, PRN Tamiflu 75 mg Cap, 75 mg= 1 cap(s), Oral, BID Allergies No Known Medication Allergies Social History Alcohol Current, Beer, Daily, Previous treatment: None., 03/21/2024 Tobacco 10 or more cigarettes (1/2 pack or more)/day in last 30 days Tobacco Use:. Never Smokeless Tobacco Use:. Cigarettes, Previous treatment: None. Ready to change: No. Household tobacco concerns: No. Yes, 08/11/2024 Family History Heart murmur: Mother. Hypertension: Father. Hyperthyroidism: Mother. Immunizations Vaccine Date Status influenza virus vaccine, inactivated 08/28/2022 Recorded SARSCoV2 mRNA(el kebede) vac 02/01/2022 Recorded SARS-CoV-2 (COVID-19) mRNA BNT-162b2 vax 09/02/2021 Recorded SARS-CoV-2 (COVID-19) mRNA BNT-162b2 vax 08/12/[address] [facility] Comment on above: Result Comment: Elec tronically Signed By: Nohelia Pena.dionicio\Date and Time Signed: 08/11/24 14:12 EDT Family Medicine Office/Clini c Noteon 08-08-2024 Family Medicine Office/Clinic Note Family Medicine Office/Clinic Note HPI Staff James is a 39 year old male presenting with unable to feel his feet most and feels like his left big toenail is going to fall off If he lays down feet go numb He is wondering if it is the Losartan History of Present Illness pt presents today with c/o feeling numbness in his feet, fungus on left big toe Review of Systems PHQ Score Initial Depression Screen Score: 0 SCORE Physical Exam Vitals & Measurements T: 36.1 ?C(Temporal Artery) HR: 80(Peripheral) RR: 20 BP: 128/84 SpO2: 96% HT: 72 in HT: 182.0 cm WT: 95.2 kg WT: 209.44 lb BMI: 28.74 General: alert, no acute distress ENMT: oral mucosa moist, no pharyngeal erythema or exudate Cardiovascular: regular rate and rhythm, normal peripheral perfusion Respiratory: Lungs CTA, respirations non labored Extremities: no deformity, no trauma Neurological: oriented x 4, LOC appropriate for age, CN II-XII intact, motor strength equal & normal bilaterally, speech normal decreased sensation of left toe only, no swelling of feet, color is normal. pulses are normal Assessment/Plan 1. Hypertension (I10: Essential (primary) hypertension) BP at goal today. pt and myself are very excited about this. RTC 6 months . will check potassium today. if normal will d/c potassium Ordered: Comprehensive Metabolic Panel eGFR 2. Lower extremity numbness (R20.0: Anesthesia of skin) offered EMG pt declines at this time. pt feels this is from the losartan. Ordered: Comprehensive Metabolic Panel eGFR 3. Elevated liver enzymes (R74.8: Abnormal levels of other serum enzymes) CMP repeated today 4. Smoker (F17.200: Nicotine dependence, unspecified, uncomplicated) consider not smoking Ordered: Comprehensive Metabolic Panel eGFR 5. BMI 28.0-28.9,adult (Z68.28: Body mass index [BMI] 28.0-28.9, adult) BMI ecuation Ordered: Comprehensive Metabolic Panel eGFR 6. Excess weight (E66.3: Overweight) see above Ordered: Comprehensive Metabolic Panel eGFR Follow-up No qualifying data available Problem List/Past Medical History Ongoing Alcohol use Elevated ALT measurement Elevated liver enzymes Fatigue Hypertension Hypokalemia Left otitis media Lower extremity edema Lower extremity numbness Screening for hyperlipidemia Shortness of breath Strep throat Ebdxr-Kigbsmtrz-Mczjh syndrome Historical No qualifying data Procedure/Surgical History Nicola Parkinson White syndrome. Medications Klor-Con M20 oral tablet, extended release, See Instructions losartan 100 mg Tab, 100 mg= 1 tab(s), Oral, Daily, 3 refills Allergies No Known Medication Allergies Social History Alcohol Current, Beer, Daily, Previous treatment: None., 03/21/2024 Tobacco 10 or more cigarettes (1/2 pack or more)/day in last 30 days Tobacco Use:. Never Smokeless Tobacco Use:. Cigarettes, Previous treatment: None. Ready to change: No. Household tobacco concerns: No., 08/06/2024 Family History Heart murmur: Mother. Hypertension: Father. Hyperthyroidism: Mother. Immunizations Vaccine Date Status influenza virus vaccine, inactivated 08/28/2022 Recorded SARSCoV2 mRNA(el kebede) vac 02/01/2022 Recorded SARS-CoV-2 (COVID-19) mRNA BNT-162b2 vax 09/02/2021 Recorded SARS-CoV-2 (COVID-19) mRNA BNT-162b2 vax 08/12/2021 Recorded Normal [facility] Comment on above: Result Comment: Elec tronically Signed By: Nohelia Pena\eduarda\Date and Time Signed: 08/08/24 12:55 EDT CMPon 08-07-2024 Albumin [Mass/Vol] 4.3 g/dL Normal 3.3-5.0 [facility] Comment on above: Performed By: #### 2 [id number] #### [facility] [address] [place] [address] Albumin/Globulin (S) [Mass conc ratio] 1.2 Normal 1.1-2.2 [facility] Comment on above: Performed By: #### 2 [id number] #### [facility] [address] [place] [address] ALP [Catalytic activity/Vol] 102 Int._Unit/L High 21-98 [facility] Comment on above: Performed By: #### 2 [id number] #### [facility] [address] [place] [address] ALT No additional P-5'-P [Catalytic activity/Vol] 96 Int._Unit/L High 6-46 [facility] Comment on above: Performed By: #### 2 [id number] #### [facility] [address] [place] [address] Anion gap [Moles/Vol] 12 mmol/L Normal 6-16 [facility] Comment on above: Performed By: #### 2 [id number] #### [facility] [address] [place] [address] AST [Catalytic activity/Vol] 173 Int._Unit/L High 5-43 [facility] Comment on above: Performed By: #### 2 [id number] #### [facility] [address] [place] [address] Bilirubin [Mass/Vol] 2.1 mg/dL High 0.0-1.1 [facility] Comment on above: Performed By: #### 2 [id number] #### [facility] [address] [place] [address] Calcium [Mass/Vol] 9.4 mg/dL Normal 8.9-11.1 [facility] Comment on above: Performed By: #### 2 [id number] #### [facility] [address] [place] [address] Chloride [Moles/Vol] 100 mmol/L Low 101-111 [facility] Comment on above: Performed By: #### 2 [id number] #### [facility] [address] [place] [address] CO2 [Moles/Vol] 27 mmol/L Normal 21-31 [facility] Comment on above: Performed By: #### 2 [id number] #### [facility] [address] [place] [address] Creatinine [Mass/Vol] 0.9 mg/dL Normal 0.5-1.3 [facility] Comment on above: Performed By: #### 2 [id number] #### [facility] [address] [place] [address] Globulin (S) [Mass/Vol] 3.6 g/dL Normal 1.4-4.0 [facility] Comment on above: Performed By: #### 2 [id number] #### [facility] [address] [place] [address] Glucose [Mass/Vol] 100 mg/dL Normal 55-199 [facility] Comment on above: Performed By: #### 2 [id number] #### [facility] [address] [place] [address] Potassium [Moles/Vol] 4.0 mmol/L Normal 3.5-5.3 [facility] Comment on above: Performed By: #### 2 [id number] #### [facility] [address] [place] [address] Protein [Mass/Vol] 7.9 g/dL High 6.0-7.8 [facility] Comment on above: Performed By: #### 2 [id number] #### [facility] [address] [place] [address] Sodium [Moles/Vol] 135 mmol/L Normal 135-145 [facility] Comment on above: Performed By: #### 2 [id number] #### [facility] [address] [place] [address] Urea nitrogen [Mass/Vol] 7 mg/dL Normal 5-21 [facility] Comment on above: Performed By: #### 2 [id number] #### [facility] [address] [place] [address] Urea nitrogen/Creatinin e [Mass ratio] 8 No Units Low 10-20 [facility] Comment on above: Performed By: #### 2 [id number] #### [facility] [address] [place] [address] eGFRon 08-07-2024 eGFR 112 mL/min/1.73 m2 Normal >=59 [facility] Comment on above: Performed By: #### 1 [id number] #### [facility] [address] [place] [address] Ambulatory Visit Summaryon 0 05-26-2024 Ambulatory Visit Summary Ambulatory Visit Summary JAMES DEL RIO :1985 Visit Date:05/26/2024 Ambulatory Visit Instructions Your Diagnosis Left otitis media Strep throat BMI 37.0-37.9, adult Heavy smoker Alcohol use Your Care Team Attending Physician - Nohelia Pena Primary Care Physician - Nohelia Pena This Is Your Medications List amoxicillin (amoxicillin 875 mg Tab) losartan (losartan 100 mg Tab) potassium chloride (Potassium Chloride (Tak-Wyjb-Nac M20) 20 mEq oral tablet, extended release) Procedures Performed Nicola Parkinson White syndrome. Discharge Vitals Temperature (Tympanic) 37.1 ?C Heart Rate (Peripheral) 132 Respiratory Rate 18 Blood Pressure 152/90 Height 182.0 cm Height 72 in Weight 93.6 kg Weight 205.92 lb BMI 28.26 What to do next Scheduled Follow-Up Appointments Sunday 3:40 PM EDT With: Nohelia Pena Where: [facility] [place] Normal [facility] Family Medicine Office/Clini c Noteon 05-26-2024 Family Medicine Office/Clinic Note Family Medicine Office/Clinic Note HPI Staff James is a 39 year old presenting for acute sick visit C/O: Duration: 3 days Body aches: yes Chills: no Fatigue: yes Cough: yes Sore throat: yes Fever: no Headache: yes Nasal congestion: no Loss of taste: no Loss of smell: no Eye itching/watering: no Sneezing: no SOB: no Remedies tried: Tylenol, day quill, Amoxicillin they had left over 1 tablet , pt states back of throat if full of white spots and states if i swab him he will throw up. c/o of ear pain with swallowing History of Present Illness pt presents today with sore throat Review of Systems PHQ Score Initial Depression Screen Score: 0 SCORE Physical Exam Vitals & Measurements T: 37.1 ?C(Tympanic) HR: 132(Peripheral) RR: 18 BP: 152/90 SpO2: 94% HT: 72 in HT: 182.0 cm WT: 93.6 kg WT: 205.92 lb BMI: 28.26 General: alert, no acute distress ENMT: oral mucosa moist, no pharyngeal erythema or exudate Cardiovascular: regular rate and rhythm, normal peripheral perfusion Respiratory: Lungs CTA, respirations non labored Extremities: no deformity, no trauma Neurological: oriented x 4, LOC appropriate for age, CN II-XII intact, motor strength equal & normal bilaterally, speech normal exudate noted on both tonsils, throat is red, Left TM red and full of fluid Assessment/Plan 1. Left otitis media (H66.92: Otitis media, unspecified, left ear) left TM red and bulging with fluid. Ordered: amoxicillin, 875 mg = 1 tab(s), Oral, BID, X 10 day(s), # 20 tab(s), Refills(s) 0, Pharmacy: [facility]/pharmacy #[id number], 182, cm, 05/26/24 10:41:00 EDT, Height/Length Dosing, 93.6, kg, 05/26/24 10:41:00 EDT, Weight Dosing 2. Strep throat (J02.0: Streptococcal pharyngitis) exudate noted on both tonsils, tonsils red and swollen. amoxicillin sent Ordered: amoxicillin, 875 mg = 1 tab(s), Oral, BID, X 10 day(s), # 20 tab(s), Refills(s) 0, Pharmacy: [facility]/pharmacy #[id number], 182, cm, 05/26/24 10:41:00 EDT, Height/Length Dosing, 93.6, kg, 05/26/24 10:41:00 EDT, Weight Dosing 3. BMI 37.0-37.9, adult (Z68.37: Body mass index [BMI] 37.0-37.9, adult) BMI education given Ordered: amoxicillin, 875 mg = 1 tab(s), Oral, BID, X 10 day(s), # 20 tab(s), Refills(s) 0, Pharmacy: [facility]/pharmacy #[id number], 182, cm, 05/26/24 10:41:00 EDT, Height/Length Dosing, 93.6, kg, 05/26/24 10:41:00 EDT, Weight Dosing 4. Heavy smoker (F17.200: Nicotine dependence, unspecified, uncomplicated) consider not smoking Ordered: amoxicillin, 875 mg = 1 tab(s), Oral, BID, X 10 day(s), # 20 tab(s), Refills(s) 0, [id number], cm, 05/26/24 10:41:00 EDT, Height/Length Dosing, 93.6, kg, 05/26/24 10:41:00 EDT, Weight Dosing 5. Alcohol use (Z78.9: Other specified health status) consider not drinking Ordered: amoxicillin, 875 mg = 1 tab(s), Oral, BID, X 10 day(s), # 20 tab(s), Refills(s) 0, [id number], cm, 05/26/24 10:41:00 EDT, Height/Length Dosing, 93.6, kg, 05/26/24 10:41:00 EDT, Weight Dosing Follow-up No qualifying data available Problem List/Past Medical History Ongoing Alcohol use Elevated ALT measurement Elevated liver enzymes Fatigue Hypertension Hypokalemia Left otitis media Lower extremity edema Screening for hyperlipidemia Shortness of breath Strep throat Rehry-Jacwmwdxm-Mugsn syndrome Historical No qualifying data Procedure/Surgical History Nicola Parkinson White syndrome. Medications amoxicillin 875 mg Tab, 875 mg= 1 tab(s), Oral, BID losartan 100 mg Tab, 100 mg= 1 tab(s), Oral, Daily, 3 refills Potassium Chloride (Kcf-Fsxl-Lsz M20) 20 mEq oral tablet, extended release, 20 mEq= 1 tab(s), Oral, Daily, 1 refills Allergies No Known Medication Allergies Social History Alcohol Current, Beer, Daily, Previous treatment: None., 03/21/2024 Tobacco 10 or more cigarettes (1/2 pack or more)/day in last 30 days Tobacco Use:. Cigarettes, Previous treatment: None. Ready to change: No. Household tobacco concerns: No., 05/21/2024 Family History Heart murmur: Mother. Hypertension: Father. Hyperthyroidism: Mother. Immunizations Vaccine Date Status influenza virus vaccine, inactivated 08/28/2022 Recorded SARSCoV2 mRNA(ohkyuqecl-zpcz-z ucros) vac 02/01/2022 Recorded SARS-CoV-2 (COVID-19) mRNA BNT-162b2 vax 09/02/2021 Recorded SARS-CoV-2 (COVID-19) mRNA BNT-162b2 vax 08/12/[address] [facility] Comment on above: Result Comment: Elec tronically Signed By: Nohelia Pena\.br\Date and Time Signed: 05/26/24 11:29 EDT Family Medicine Office/Clini c Noteon 05-21-2024 Family Medicine Office/Clinic Note Family Medicine Office/Clinic Note HPI Staff James is a 39 year old male presenting for 2 week follow up SAUD 05/05/24 Lower extremity edema/HTN started HCTZ Continues to have swelling in his feet, he did stop taking the HCTZ due to not feeling well and would be completely out of it within an hour. History of Present Illness pt presents today for follow up on BP and LE swelling Review of Systems PHQ Score Initial Depression Screen Score: 0 SCORE Physical Exam Vitals & Measurements HR: 126(Peripheral) RR: 18 BP: 130/86 SpO2: 99% HT: 72 in HT: 182.0 cm WT: 92.1 kg WT: 202.62 lb BMI: 27.8 General: alert, no acute distress ENMT: oral mucosa moist, no pharyngeal erythema or exudate Cardiovascular: regular rate and rhythm, normal peripheral perfusion Respiratory: Lungs CTA, respirations non labored Extremities: no deformity, no trauma Neurological: oriented x 4, LOC appropriate for age, CN II-XII intact, motor strength equal & normal bilaterally, speech normal Assessment/Plan 1. Hypertension (I10: Essential (primary) hypertension) BP at goal today. will keep losartan dose the same. RTC 3 months Ordered: hydrochlorothiazide, 12.5 mg = 1 cap(s), Oral, Daily, # 30 cap(s), Refills(s) 1, [id number], cm, 05/05/24 15:29:00 EDT, Height/Length Dosing, 93, kg, 05/05/24 15:29:00 EDT, Weight Dosing losartan, 100 mg = 1 tab(s), Oral, Daily, X 90 day(s), # 90 tab(s), Refills(s) 3, [id number] 182, cm, 05/21/24 17:12:00 EDT, Height/Length Dosing, 92.1, kg, 05/21/24 17:12:00 EDT, Weight Dosing losartan, 100 mg = 1 tab(s), Oral, Daily, # 30 tab(s), Refills(s) 1, [id number] 182, cm, 04/11/24 13:50:00 EDT, Height/Length Dosing, 92.8, kg, 04/11/24 13:50:00 EDT, Weight Dosing potassium chloride, 20 mEq = 1 tab(s), Oral, Daily, # 60 tab(s), Refills(s) 1, [id number] 182, cm, 04/11/24 13:50:00 EDT, Height/Length Dosing, 92.8, kg, 04/11/24 13:50:00 EDT, Weight Dosing 2. Lower extremity edema (R60.0: Localized edema) pt is not taking HCTZ he does not like how it makes him feel. swelling is not bad today. will take it only as needed if swelling worsens again. Ordered: hydrochlorothiazide, 12.5 mg = 1 cap(s), Oral, Daily, # 30 cap(s), Refills(s) 1, [id number] 182, cm, 05/05/24 15:29:00 EDT, Height/Length Dosing, 93, kg, 05/05/24 15:29:00 EDT, Weight Dosing 3. Hypokalemia (E87.6: Hypokalemia) continue potassium Ordered: losartan, 100 mg = 1 tab(s), Oral, Daily, X 90 day(s), # 90 tab(s), Refills(s) 3, [id number] 182, cm, 05/21/24 17:12:00 EDT, Height/Length Dosing, 92.1, kg, 05/21/24 17:12:00 EDT, Weight Dosing losartan, 100 mg = 1 tab(s), Oral, Daily, # 30 tab(s), Refills(s) 1, [id number] 182, cm, 04/11/24 13:50:00 EDT, Height/Length Dosing, 92.8, kg, 04/11/24 13:50:00 EDT, Weight Dosing potassium chloride, 20 mEq = 1 tab(s), Oral, Daily, # 60 tab(s), Refills(s) 1, [id number] 182, cm, 04/11/24 13:50:00 EDT, Height/Length Dosing, 92.8, kg, 04/11/24 13:50:00 EDT, Weight Dosing 4. BMI 27.0-27.9,adult (Z68.27: Body mass index [BMI] 27.0-27.9, adult) BMI education 5. Smoker (F17.200: Nicotine dependence, unspecified, uncomplicated) consider not smoking Ordered: losartan, 100 mg = 1 tab(s), Oral, Daily, X 90 day(s), # 90 tab(s), Refills(s) 3, [id number] 182, cm, 05/21/24 17:12:00 EDT, Height/Length Dosing, 92.1, kg, 05/21/24 17:12:00 EDT, Weight Dosing losartan, 100 mg = 1 tab(s), Oral, Daily, # 30 tab(s), Refills(s) 1, [id number] 182, cm, 04/11/24 13:50:00 EDT, Height/Length Dosing, 92.8, kg, 04/11/24 13:50:00 EDT, Weight Dosing potassium chloride, 20 mEq = 1 tab(s), Oral, Daily, # 60 tab(s), Refills(s) 1, [id number] 182, cm, 04/11/24 13:50:00 EDT, Height/Length Dosing, 92.8, kg, 04/11/24 13:50:00 EDT, Weight Dosing Follow-up No qualifying data available Problem List/Past Medical History Ongoing Alcohol use Elevated ALT measurement Elevated liver enzymes Fatigue Hypertension Hypokalemia Lower extremity edema Screening for hyperlipidemia Shortness of breath Mxzjo-Wbjstjlrz-Gfopk syndrome Historical No qualifying data Procedure/Surgical History Nicola Parkinson White syndrome. Medications losartan 100 mg Tab, 100 mg= 1 tab(s), Oral, Daily, 3 refills Potassium Chloride (Dqu-Lrcl-Lim M20) 20 mEq oral tablet, extended release, 20 mEq= 1 tab(s), Oral, Daily, 1 refills Allergies No Known Medication Allergies Social History Alcohol Current, Beer, Daily, Previous treatment: None., 03/21/2024 Tobacco 10 or more cigarettes (1/2 pack or more)/day in last 30 days Tobacco Use:. Cigarettes, Previous treatment: None. Ready to change: No. Household tobacco concerns: No., 05/21/2024 Family History Heart murmur: Mother. Hypertension: Father. Hyperthyroidism: Mother. Immunizations Vaccine Date S (more content not included)... Normal [facility] Comment on above: Result Comment: Elec tronically Signed By: Nohelia Pena\.br\Date and Time Signed: 05/21/24 17:39 EDT Ambulatory Visit Summaryon 0 05-05-2024 Ambulatory Visit Summary JAMES DEL RIO :1985 Visit Date:05/05/2024 Ambulatory Visit Instructions Your Diagnosis Lower extremity edema Hypertension BMI 28.0-28.9,adult Alcohol use Your Care Team Attending Physician - Nohelia Pena Primary Care Physician - Nohelia Pena This Is Your Medications List hydrochlorothiazide (hydrochlorothiazide 12.5 mg Cap) losartan (losartan 100 mg Tab) potassium chloride (Potassium Chloride (Rqu-Bhsv-Iep M20) 20 mEq oral tablet, extended release) Procedures Performed Nicola Parkinson White syndrome. Discharge Vitals Heart Rate (Peripheral) 110 Respiratory Rate 18 Blood Pressure 148/96 Height 182.0 cm Height 72 in Weight 93.05 kg Weight 204.71 lb BMI 28.09 What to do next Scheduled Follow-Up Appointments Sunday 3:00 PM EDT With: Nohelia Pena Where: [facility] [address] [place] [address]- \.br\ Medications\.br\ What How Much When Why Instructions\.br\ New hydrochlorothiazide (hydrochlorothiazide 12.5 mg Cap) 1 Capsules By Mouth Every day Lower extremity edema Hypertension BMI 28.0-28.9,adult Alcohol use Refills: 1 Pickup at [facility]/pharmacy #[id number]\.br\ Unchanged losartan (losartan 100 mg Tab) 1 Tablets By Mouth Every day Hypertension Hypokalemia Elevated liver enzymes Elevated ALT measurement BMI 28.0-28.9,adult Smoker\.br\ Unchanged potassium chloride (Potassium Chloride (Psi-Iabe-Uzs M20) 20 mEq oral tablet, extended release) 1 Tablets By Mouth 2 times a day Hypertension Hypokalemia Elevated liver enzymes Elevated ALT measurement BMI 28.0-28.9,adult Smoker\.br\ Pharmacy Information\.br\ [facility]/pharmacy #[id number]: [address], [place] [id number] [phone]\.br\ Allergies\.br\ No Known Medication Allergies\.br\ Problems\.br\ Ongoing - Any problem that you are currently receiving treatment for.\.br\ Alcohol use\.br\ Elevated ALT measurement\.br\ Elevated liver enzymes\.br\ Fatigue\.br\ Hypertension\.br\ Hypokalemia\.br\ Lower extremity edema\.br\ Screening for hyperlipidemia\.br\ Shortness of breath\.br\ Onngn-Uyyjulwdt-Zvht e syndrome\.br\ Patient Survey\.br\ You may receive a survey via text or e-mail asking about your office visit. Please share your experience with us by completing your survey. We appreciate your feedback and thank you for choosing us for your care.\.br\ \.br\ [facility] Family Medicine Office/Clini c Noteon 05-05-2024 Family Medicine Office/Clinic Note HPI Staff Ramirez is a 39 year old male presenting for acute visit Onset: 1 week ago Location: BLE Characteristics: Retaining fluid Questions/Concerns: Pt blood pressures continue to run high at home 180's/90's, within the last 2-3 days he has noticed his vision will have black spots and unable to see and eyes are very sensitive to light. Pt did go and see eye doctor Sunday. History of Present Illness pt presents today with lower leg swelling Review of Systems PHQ Score Initial Depression Screen Score: 0 SCORE Physical Exam Vitals & Measurements HR: 110(Peripheral) RR: 18 BP: 148/96 HT: 72 in HT: 182.0 cm WT: 93.05 kg WT: 204.71 lb BMI: 28.09 General: alert, no acute distress ENMT: oral mucosa moist, no pharyngeal erythema or exudate Cardiovascular: regular rate and rhythm, normal peripheral perfusion Respiratory: Lungs CTA, respirations non labored Extremities: no deformity, no trauma Neurological: oriented x 4, LOC appropriate for age, CN II-XII intact, motor strength equal & normal bilaterally, speech normal Assessment/Plan 1. Lower extremity edema (R60.0: Localized edema) will start HCTZ 12.5mg. stressed the importance of taking potassium. pt and girlfriend verbalize understanding. pt works outside in the heat. encouraged him to drink plenty of water and elevate feet when he gets home. RTC 2 weeks Ordered: hydrochlorothiazide, 12.5 mg = 1 cap(s), Oral, Daily, # 30 cap(s), Refills(s) 1, Pharmacy: [facility]/pharmacy #[id number], 182, cm, 05/05/24 15:29:00 EDT, Height/Length Dosing, 93, kg, 05/05/24 15:29:00 EDT, Weight Dosing 2. Hypertension (I10: Essential (primary) hypertension) BP running high at home still. he didn't remember his meds the last 2 days. Ordered: hydrochlorothiazide, 12.5 mg = 1 cap(s), Oral, Daily, # 30 cap(s), Refills(s) 1, Pharmacy: [facility]/pharmacy #[id number], 182, cm, 05/05/24 15:29:00 EDT, Height/Length Dosing, 93, kg, 05/05/24 15:29:00 EDT, Weight Dosing hydrochlorothiazide-m etoprolol, 1 tab(s), Oral, BID, 60 tab(s), Refill(s) 2, [facility]/pharmacy #[id number], 182, cm, 03/21/24 13:11:00 EDT, Height/Length Dosing, 97, kg, 03/21/24 13:11:00 EDT, Weight Dosing 3. BMI 28.0-28.9,adult (Z68.28: Body mass index [BMI] 28.0-28.9, adult) BMI education given Ordered: hydrochlorothiazide, 12.5 mg = 1 cap(s), Oral, Daily, # 30 cap(s), Refills(s) 1, Pharmacy: [facility]/pharmacy #[id number], 182, cm, 05/05/24 15:29:00 EDT, Height/Length Dosing, 93, kg, 05/05/24 15:29:00 EDT, Weight Dosing 4. Alcohol use (Z78.9: Other specified health status) consider decreasing alcohol intake Ordered: hydrochlorothiazide, 12.5 mg = 1 cap(s), Oral, Daily, # 30 cap(s), Refills(s) 1, Pharmacy: [facility]/pharmacy #[id number], 182, cm, 05/05/24 15:29:00 EDT, Height/Length Dosing, 93, kg, 05/05/24 15:29:00 EDT, Weight Dosing Follow-up No qualifying data available Problem List/Past Medical History Ongoing Alcohol use Elevated ALT measurement Elevated liver enzymes Fatigue Hypertension Hypokalemia Lower extremity edema Screening for hyperlipidemia Shortness of breath Hliro-Taceczxbl-Uyrvw syndrome Historical No qualifying data Procedure/Surgical History Nicola Parkinson White syndrome. Medications hydrochlorothiazide 12.5 mg Cap, 12.5 mg= 1 cap(s), Oral, Daily, 1 refills losartan 100 mg Tab, 100 mg= 1 tab(s), Oral, Daily, 1 refills, Not taking: pt has forgot to take his medicine the last 2 days Potassium Chloride (Rco-Dtdp-Aoj M20) 20 mEq oral tablet, extended release, 20 mEq= 1 tab(s), Oral, BID, 1 refills, Not taking Allergies No Known Medication Allergies Social History Alcohol Current, Beer, Daily, Previous treatment: None., 03/21/2024 Tobacco 10 or more cigarettes (1/2 pack or more)/day in last 30 days Tobacco Use:. Cigarettes, Previous treatment: None. Ready to change: No. Household tobacco concerns: No., 05/05/2024 Family History Heart murmur: Mother. Hypertension: Father. Hyperthyroidism: Mother. Immunizations Vaccine Date Status influenza virus vaccine, inactivated 08/28/2022 Recorded SARSCoV2 mRNA(el kebede) vac 02/01/2022 Recorded SARS-CoV-2 (COVID-19) mRNA BNT-162b2 vax 09/02/2021 Recorded SARS-CoV-2 (COVID-19) mRNA BNT-162b2 vax 08/12/[address] [facility] Comment on above: Result Comment: Elec tronically Signed By: Nohelia Pena\.br\Date and Time Signed: 05/05/24 15:50 EDT Family Medicine Office/Clini c Noteon 04-11-2024 Family Medicine Office/Clinic Note HPI Staff James is a 38 year old male presenting for 3 week follow up SAUD 03/21/24 HTN started Metoprolol-HCTZ Patient is here for follow up on hypertension. How often are you checking your blood pressure? 135/77 What are your average readings? _ Pt would like to change medication having numbness, tingling in fingers and legs, getting light headed and dizzy also unable to get an erection History of Present Illness pt presents today for BP follow up Review of Systems PHQ Score Initial Depression Screen Score: 0 SCORE Physical Exam Vitals & Measurements HR: 86(Peripheral) RR: 18 BP: 140/92 SpO2: 99% HT: 72 in HT: 182.0 cm WT: 92.8 kg WT: 204.16 lb BMI: 28.02 General: alert, no acute distress ENMT: oral mucosa moist, no pharyngeal erythema or exudate Cardiovascular: regular rate and rhythm, normal peripheral perfusion Respiratory: Lungs CTA, respirations non labored Extremities: no deformity, no trauma Neurological: oriented x 4, LOC appropriate for age, CN II-XII intact, motor strength equal & normal bilaterally, speech normal Assessment/Plan 1. Hypertension (I10: Essential (primary) hypertension) BP much improved. swelling in feet is also improved. but pt is having spells of dizziness, ED, muscle cramps. will stop HCTZ/metoprolol and start Losartan. continue checking BP. RTC 4 weeks Ordered: losartan, 100 mg = 1 tab(s), Oral, Daily, # 30 tab(s), Refills(s) 1, [id number] 182, cm, 04/11/24 13:50:00 EDT, Height/Length Dosing, 92.8, kg, 04/11/24 13:50:00 EDT, Weight Dosing potassium chloride, 20 mEq = 1 tab(s), Oral, BID, # 60 tab(s), Refills(s) 1, [id number] 182, cm, 04/11/24 13:50:00 EDT, Height/Length Dosing, 92.8, kg, 04/11/24 13:50:00 EDT, Weight Dosing 2. Hypokalemia (E87.6: Hypokalemia) will start potassium Ordered: losartan, 100 mg = 1 tab(s), Oral, Daily, # 30 tab(s), Refills(s) 1, [id number] 182, cm, 04/11/24 13:50:00 EDT, Height/Length Dosing, 92.8, kg, 04/11/24 13:50:00 EDT, Weight Dosing potassium chloride, 20 mEq = 1 tab(s), Oral, BID, # 60 tab(s), Refills(s) 1, [id number] 182, cm, 04/11/24 13:50:00 EDT, Height/Length Dosing, 92.8, kg, 04/11/24 13:50:00 EDT, Weight Dosing 3. Elevated liver enzymes (R74.8: Abnormal levels of other serum enzymes) discussed decreasing alcohol consumption Ordered: losartan, 100 mg = 1 tab(s), Oral, Daily, # 30 tab(s), Refills(s) 1, [id number] 182, cm, 04/11/24 13:50:00 EDT, Height/Length Dosing, 92.8, kg, 04/11/24 13:50:00 EDT, Weight Dosing potassium chloride, 20 mEq = 1 tab(s), Oral, BID, # 60 tab(s), Refills(s) 1, [id number] 182, cm, 04/11/24 13:50:00 EDT, Height/Length Dosing, 92.8, kg, 04/11/24 13:50:00 EDT, Weight Dosing 5. BMI 28.0-28.9,adult (Z68.28: Body mass index [BMI] 28.0-28.9, adult) BMI education complete Ordered: losartan, 100 mg = 1 tab(s), Oral, Daily, # 30 tab(s), Refills(s) 1, [id number] 182, cm, 04/11/24 13:50:00 EDT, Height/Length Dosing, 92.8, kg, 04/11/24 13:50:00 EDT, Weight Dosing potassium chloride, 20 mEq = 1 tab(s), Oral, BID, # 60 tab(s), Refills(s) 1, [id number] 182, cm, 04/11/24 13:50:00 EDT, Height/Length Dosing, 92.8, kg, 04/11/24 13:50:00 EDT, Weight Dosing 6. Smoker (F17.200: Nicotine dependence, unspecified, uncomplicated) consider not smoking Ordered: losartan, 100 mg = 1 tab(s), Oral, Daily, # 30 tab(s), Refills(s) 1, [id number] 182, cm, 04/11/24 13:50:00 EDT, Height/Length Dosing, 92.8, kg, 04/11/24 13:50:00 EDT, Weight Dosing potassium chloride, 20 mEq = 1 tab(s), Oral, BID, # 60 tab(s), Refills(s) 1, [id number] 182, cm, 04/11/24 13:50:00 EDT, Height/Length Dosing, 92.8, kg, 04/11/24 13:50:00 EDT, Weight Dosing Follow-up No qualifying data available Patient Education Hypertension, Adult Alcoholic Liver Disease, Ugac-dp-Lpun Problem List/Past Medical History Ongoing Alcohol use Elevated ALT measurement Elevated liver enzymes Fatigue Hypertension Hypokalemia Lower extremity edema Screening for hyperlipidemia Shortness of breath Zgcdd-Vebbcflhn-Jpjwg syndrome Historical No qualifying data Procedure/Surgical History Nicola Parkinson White syndrome. Medications hydrochlorothiazide-m etoprolol 25 mg-100 mg oral tablet, 1 tab(s), Oral, BID, 2 refills losartan 100 mg Tab, 100 mg= 1 tab(s), Oral, Daily, 1 refills Potassium Chloride (Ztl-Pjcu-Gsk M20) 20 mEq oral tablet, extended release, 20 mEq= 1 tab(s), Oral, BID, 1 refills Allergies No Known Medication Allergies Social History Alcohol Current, Beer, Daily, Previous treatment: None., 03/21/2024 Tobacco 10 or more cigarettes (1/2 pack or more)/day in last 30 days Tobacco Use:. Cigarettes, Previous treatment: None. Ready to change: No. Household tobacco concerns: No., 04/11/2024 Family History Heart murmur: Mother. Hypertension: Fa (more content not included)... Normal [facility] Comment on above: Result Comment: Elec tronically Signed By: Nohelia Pena\.br\Date and Time Signed: 04/11/24 14:12 EDT Patient Educationon 04-11-20 Patient Education Cardiovascular Hypertension, Adult High blood pressure (hypertension) is when the force of blood pumping through the arteries is too strong. The arteries are the blood vessels that carry blood from the heart throughout the body. Hypertension forces the heart to work harder to pump blood and may cause arteries to become narrow or stiff. Untreated or uncontrolled hypertension can lead to a heart attack, heart failure, a stroke, kidney disease, and other problems. A blood pressure reading consists of a higher number over a lower number. Ideally, your blood pressure should be below 120/80. The first ( top ) number is called the systolic pressure. It is a measure of the pressure in your arteries as your heart beats. The second ( bottom ) number is called the diastolic pressure. It is a measure of the pressure in your arteries as the heart relaxes. What are the causes? The exact cause of this condition is not known. There are some conditions that result in high blood pressure. What increases the risk? Certain factors may make you more likely to develop high blood pressure. Some of these risk factors are under your control, including: ? Smoking. ? Not getting enough exercise or physical activity. ? Being overweight. ? Having too much fat, sugar, calories, or salt (sodium) in your diet. ? Drinking too much alcohol. Other risk factors include: ? Having a personal history of heart disease, diabetes, high cholesterol, or kidney disease. ? Stress. ? Having a family history of high blood pressure and high cholesterol. ? Having obstructive sleep apnea. ? Age. The risk increases with age. What are the signs or symptoms? High blood pressure may not cause symptoms. Very high blood pressure (hypertensive crisis) may cause: ? Headache. ? Fast or irregular heartbeats (palpitations). ? Shortness of breath. ? Nosebleed. ? Nausea and vomiting. ? Vision changes. ? Severe chest pain, dizziness, and seizures. How is this diagnosed? This condition is diagnosed by measuring your blood pressure while you are seated, with your arm resting on a flat surface, your legs uncrossed, and your feet flat on the floor. The cuff of the blood pressure monitor will be placed directly against the skin of your upper arm at the level of your heart. Blood pressure should be measured at least twice using the same arm. Certain conditions can cause a difference in blood pressure between your right and left arms. If you have a high blood pressure reading during one visit or you have normal blood pressure with other risk factors, you may be asked to: ? Return on a different day to have your blood pressure checked again. ? Monitor your blood pressure at home for 1 week or longer. If you are diagnosed with hypertension, you may have other blood or imaging tests to help your health care provider understand your overall risk for other conditions. How is this treated? This condition is treated by making healthy lifestyle changes, such as eating healthy foods, exercising more, and reducing your alcohol intake. You may be referred for counseling on a healthy diet and physical activity. Your health care provider may prescribe medicine if lifestyle changes are not enough to get your blood pressure under control and if: ? Your systolic blood pressure is above 130. ? Your diastolic blood pressure is above 80. Your personal target blood pressure may vary depending on your medical conditions, your age, and other factors. Follow these instructions at home: Eating and drinking ? Eat a diet that is high in fiber and potassium, and low in sodium, added sugar, and fat. An example of this eating plan is called the DASH diet. DASH stands for Dietary Approaches to Stop Hypertension. To eat this way: ? Eat plenty of fresh fruits and vegetables. Try to fill one half of your plate at each meal with fruits and vegetables. ? Eat whole grains, such as whole-wheat pasta, brown rice, or whole-grain bread. Fill about one fourth of your plate with whole grains. ? Eat or drink low-fat dairy products, such as skim milk or low-fat yogurt. ? Avoid fatty cuts of meat, processed or cured meats, and poultry with skin. Fill about one fourth of your plate with lean proteins, such as fish, chicken without skin, beans, eggs, or tofu. ? Avoid pre-made and processed foods. These tend to be higher in sodium, added sugar, and fat. ? Reduce your daily sodium intake. Many people with hypertension should eat less than 1,500 mg of sodium a day. ? Do not drink alcohol if: ? Your health care provider tells you not to drink. ? You are , may be , or are planning to become . ? If you drink alcohol: ? Limit how much you have to: ? 0?1 drink a day for women. ? 0?2 drinks a day for men. ? Know how much alcohol is in your drink. In the [place] one drink equals one 12 oz bottle of beer (355 mL), one 5 oz glass of wine (148 mL), or one 1? oz glass (more content not included)... Normal [facility] Ambulatory Visit Summaryon 0 03-21-2024 Ambulatory Visit Summary JAMES DEL RIO :1985 Visit Date:03/21/2024 Ambulatory Visit Instructions Your Diagnosis Hypertension Screening for hyperlipidemia Fatigue Shortness of breath Alcohol use Your Care Team Attending Physician - Nohelia Pena Primary Care Physician - Nohelia Pena This Is Your Medications List hydrochlorothiazide-m etoprolol (hydrochlorothiazide- metoprolol 25 mg-100 mg oral tablet) Procedures Performed Nicola Parkinson White syndrome. Discharge Vitals Temperature (Temporal Artery) 36.8 ?C Heart Rate (Peripheral) 108 Respiratory Rate 16 Blood Pressure 180/118 Height 182 cm Height 72 in Weight 97.0 kg Weight 213.4 lb BMI 29.28 What to do next Scheduled Follow-Up Appointments Sunday 1:40 PM EDT With: Nohelia Pena Where: [facility] [place] Normal [facility] CBC w/ Auto Diffon 4 Basophils/100 WBC (Bld) 0.2 % Normal 0.0-2.0 [facility] Comment on above: Performed By: #### 1 [id number], 5060825, 1080181, 5148720, 9427761 ####[address] [address] Basophils/Leukocyt es Auto (Bld) [Pure # fraction] 0.0 E9/L Normal 0.0-0.2 [facility] Comment on above: Performed By: #### 1 3159429, 3988921, 0707223, 4326481, 2813101 ####[address] [address] Eosinophils (Bld) [#/Vol] 0.2 E9/L Normal 0.0-0.5 [facility] Comment on above: Performed By: #### 1 5757938, 0284256, 1010127, 5353219, 1091604 ####[address] [address] Eosinophils/100 WBC (Bld) 4.3 % Normal 0.0-8.0 [facility] Comment on above: Performed By: #### 1 0026350, 2671189, 2110458, 8937944, 7366620 ####[address] [address] Erythrocyte distribution width (RBC) [Ratio] 13.7 % Normal 10.9-14.2 [facility] Comment on above: Performed By: #### 1 2734235, 5131018, 8351732, 0751813, 4406278 ####[address] [address] Hematocrit (Bld) [Volume fraction] 46.0 % Normal 37.7-49.0 [facility] Comment on above: Performed By: #### 1 0888779, 9178333, 0416877, 6712101, 1368546 ####[address] [address] Hemoglobin (Bld) [Mass/Vol] 15.2 g/dL Normal 13.5-17.5 [facility] Comment on above: Performed By: #### 1 9475408, 8439281, 5495676, 3937860, 2294648 ####[facility] [address] [place] [address] Lymphocytes (Bld) [#/Vol] 1.6 E9/L Normal 1.0-4.0 [facility] Comment on above: Performed By: #### 1 8960810, 0009196, 0590511, 9676019, 3210046 ####[address] [place] [address] Lymphocytes/100 WBC (Bld) 29.2 % Normal 14.0-50.0 [facility] Comment on above: Performed By: #### 1 4587360, 3990774, 1727458, 2210296, 2297642 ####[address] [address] MCH (RBC) [Entitic mass] 36.3 pg High 27.0-34.0 [facility] Comment on above: Performed By: #### 1 5738216, 4142692, 5187342, 6803412, 4487558 ####[address] [address] MCHC (RBC) [Mass/Vol] 33.1 g/dL Normal 31.4-36.0 [facility] Comment on above: Performed By: #### 1 4772435, 9968794, 8038588, 7975677, 0355750 ####[facility] [address] [place] [address] MCV (RBC) [Entitic vol] 109.6 fL High 80.0-100.0 [facility] Comment on above: Performed By: #### 1 6272694, 5570628, 6332730, 6150440, 0759538 ####[address] [place] [address] Monocytes (Bld) [#/Vol] 0.6 E9/L Normal 0.2-1.0 [facility] Comment on above: Performed By: #### 1 0494430, 8352563, 2331181, 1084703, 2312014 ####[address] [place] [address] Neutrophils (Bld) [#/Vol] 3.0 E9/L Normal 2.0-7.5 [facility] Comment on above: Performed By: #### 1 5963997, 6860493, 1408840, 8967499, 9026727 ####[facility] [address] [place] [address] Neutrophils/100 WBC (Bld) 55.7 % Normal 36.0-75.0 [facility] Comment on above: Performed By: #### 1 6658206, 5308927, 7388914, 1158185, 0103726 ####[address] [address] Platelet 213.0 E9/L Normal 150.0-500.0 [facility] Comment on above: Performed By: #### 1 4965228, 0980648, 2828980, 9067886, 4884294 ####[facility] [address] [place] [address] Platelet mean volume (Bld) [Entitic vol] 8.2 fL Normal 6.4-10.8 [facility] Comment on above: Performed By: #### 1 0063211, 6881621, 8755673, 0964646, 7992202 ####[facility] [address] [place] [address] RBC (Bld) [#/Vol] 4.2 E12/L Low 4.3-5.9 [facility] Comment on above: Performed By: #### 1 8145964, 8457279, 1989580, 5207980, 4783928 ####[facility] [address] [place] [address] WBC corrected for nucl RBC Auto (Bld) [#/Vol] 5.3 E9/L Normal 4.0-11.0 [facility] Comment on above: Performed By: #### 1 9177213, 5116640, 3856728, 3119566, 6258844 ####[facility] [address] [place] [address] CHEMISTRYOrdered By: Jose shore on 03-21-2024 Albumin [Mass/Vol] 4.3 g/dL Normal 3.3 - 5.0 gm/dL R emisol Chem Albumin/Globulin [Mass ratio] 1.2 {ratio} Normal 1.1 - 2.2 Rem[facility] Chem ALP [Catalytic activity/Vol] 125 [iU]/d High 21 - 98 Int._Unit/L Remisol Chem ALT No additional P-5'-P [Catalytic activity/Vol] 115 [iU]/d High 6 - 46 Int._Unit/L [facility]isol Chem Anion gap [Moles/Vol] 13 mmol/L Normal 6 - 16 mEq/L [facility] AST [Catalytic activity/Vol] 192 [iU]/d High 5 - 43 Int._Unit/L [facility] Chem Bilirubin [Mass/Vol] 2.4 mg/dL High 0.0 - 1.1 mg/dL [facility] Calcium [Mass/Vol] 8.9 mg/dL Normal 8.9 - 11.1 mg/dL [facility] Chloride [Moles/Vol] 99 mmol/L Low 101 - 111 mmol/L [facility] Cholesterol [Mass/Vol] 184 mg/dL Normal 120 - 200 mg/dL [facility] Cholesterol in HDL [Mass/Vol] 36 mg/dL Invalid Interpretation Code [facility] Comment on above: Result Comment: '>= 60 LOW RISK' '<= 40 HIGH RISK' Cholesterol in LDL [Mass/Vol] 155 mg/dL High <=129mg/dL [facility] Cholesterol in VLDL [Mass/Vol] 15 mg/dL Normal 7 - 40 mg/dL [facility] CO2 [Moles/Vol] 27 mmol/L Normal 21 - 31 mmol/L Remis ol Chem Globulin (S) [Mass/Vol] 3.5 g/dL Normal 1.4 - 4.0 gm/dL [facility] Glucose [Mass/Vol] 91 mg/dL Normal 55 - 199 mg/dL Re misol Chem Potassium [Moles/Vol] 3.3 mmol/L Low 3.5 - 5.3 mmol/L Remisol Chem Protein [Mass/Vol] 7.8 g/dL Normal 6.0 - 7.8 gm/dL R emisol Chem Sodium [Moles/Vol] 136 mmol/L Normal 135 - 145 mmol/L [facility] Chem Triglyceride [Mass/Vol] 76 mg/dL Normal <=149mg/dL Rem[facility] Chem TSH Qn 1.72 m[IU]/L Normal 0.34 - 5.60 mcIU/mL Rem isol Chem Urea nitrogen [Mass/Vol] 8 mg/dL Normal 5 - 21 mg/dL [facility] CHEMISTRYOrdered By: SYSTEM SYSTEM on 03-21-2024 Creatinine [Mass/Vol] 0.7 mg/dL Normal 0.5 - 1.3 mg/dL [facility] Chem eGFR 121 mL/min/1.73 m2 Normal >=59mL/min/1.73 m 2 [facility] Urea nitrogen/Creatinin e [Mass ratio] 11 mg/mg Normal 10 - 20 [facility] Chem CMPon 03-21-2024 Creatinine [Mass/Vol] 0.7 mg/dL Normal 0.5-1.3 [facility] Comment on above: Performed By: #### 1 9106703, 0227853, 6499156, 6360464, 8664036 ####[facility] [address] [place] [address] Urea nitrogen/Creatinin e [Mass ratio] 11 No Units Normal 10-20 [facility] Comment on above: Performed By: #### 1 5139154, 9869448, 9322423, 5370393, 1453965 ####[facility] [address] [place] [address] Albumin [Mass/Vol] 4.3 g/dL Normal 3.3-5.0 [facility] Comment on above: Performed By: #### 1 2416860, 9059329, 5640900, 7225814, 8112705 ####[facility] [address] [place] [address] Albumin/Globulin (S) [Mass conc ratio] 1.2 Normal 1.1-2.2 [facility] Comment on above: Performed By: #### 1 3814890, 8357822, 8722901, 4548130, 8232138 ####[facility] [address] [place] [address] ALP [Catalytic activity/Vol] 125 Int._Unit/L High 21-98 [facility] Comment on above: Performed By: #### 1 9469959, 1689404, 9064133, 0296110, 1193367 ####[facility] [address] [place] [address] ALT No additional P-5'-P [Catalytic activity/Vol] 115 Int._Unit/L High 6-46 [facility] Comment on above: Performed By: #### 1 4749574, 3218645, 2268663, 0538571, 9001189 ####[facility] [address] [place] [address] Anion gap [Moles/Vol] 13 mmol/L Normal 6-16 [facility] Comment on above: Performed By: #### 1 0715053, 8867566, 6533658, 7441739, 5899254 ####[address] [place] [address] AST [Catalytic activity/Vol] 192 Int._Unit/L High 5-43 [facility] Comment on above: Performed By: #### 1 5556625, 0649800, 9771412, 8390142, 3796420 ####[address] [place] [address] Bilirubin [Mass/Vol] 2.4 mg/dL High 0.0-1.1 [facility] Comment on above: Performed By: #### 1 1955746, 8082892, 3017746, 9616441, 0268707 ####[facility] [address] [place] [address] Calcium [Mass/Vol] 8.9 mg/dL Normal 8.9-11.1 [facility] Comment on above: Performed By: #### 1 6130721, 5785111, 1122939, 1338661, 2154829 ####[facility] [address] [place] [address] Chloride [Moles/Vol] 99 mmol/L Low 101-111 [facility] Comment on above: Performed By: #### 1 8590289, 6316501, 2469308, 2413214, 9798026 ####[facility] [address] [place] [address] CO2 [Moles/Vol] 27 mmol/L Normal 21-31 [facility] Comment on above: Performed By: #### 1 8559389, 7273857, 3562431, 9931977, 7154289 ####[facility] [address] [place] [address] Globulin (S) [Mass/Vol] 3.5 g/dL Normal 1.4-4.0 [facility] Comment on above: Performed By: #### 1 3454348, 0159555, 3787690, 0126725, 0100380 ####[facility] [address] [place] [address] Glucose [Mass/Vol] 91 mg/dL Normal 55-199 [facility] Comment on above: Performed By: #### 1 3139310, 6283284, 0403719, 3772759, 9073360 ####[facility] [address] [place] [address] Potassium [Moles/Vol] 3.3 mmol/L Low 3.5-5.3 [facility] Comment on above: Performed By: #### 1 5959128, 7308141, 8723534, 0161687, 9338600 ####[facility] [address] [place] [address] Protein [Mass/Vol] 7.8 g/dL Normal 6.0-7.8 [facility] Comment on above: Performed By: #### 1 1713824, 3429916, 8339059, 0225237, 1969619 ####[facility] [address] [place] [address] Sodium [Moles/Vol] 136 mmol/L Normal 135-145 [facility] Comment on above: Performed By: #### 1 5201184, 4904324, 4347433, 4896410, 5782274 ####[facility] [address] [place] [address] Urea nitrogen [Mass/Vol] 8 mg/dL Normal 5-21 [facility] Comment on above: Performed By: #### 1 0440987, 1581291, 8230228, 7484837, 2813109 ####[facility] [address] [place] [address] Family Medicine Office/Clini c Noteon 03-21-2024 Family Medicine Office/Clinic Note Chief Complaint Establish care. HPI Staff Patient presents to establish care and HTN: Establish Care: History: Last provider: House Any recent labs: None Health Maintenance UTD: Colonoscopy: Never PSA: Never Acute: Current issues/complaints: High blood pressure. Patient is here for follow up on hypertension. How often are you checking your blood pressure? Sometimes What are your average readings? Really high Do you have any of the following symptoms? Chest Pain? no Palpitations? Yes TAYLOR/SOB? Yes Headache? no Peripheral Edema? Yes Light Headedness? No Yearly BMP: _ Refill needed?: _ History of Present Illness pt presents today for high blood pressure Review of Systems PHQ Score Initial Depression Screen Score: 0 SCORE Physical Exam Vitals & Measurements T: 36.8 ?C(Temporal Artery) HR: 108(Peripheral) RR: 16 BP: 170/120 SpO2: 97% HT: 72 in HT: 182 cm WT: 97.0 kg WT: 213.4 lb BMI: 29.28 General: alert, no acute distress ENMT: oral mucosa moist, no pharyngeal erythema or exudate Cardiovascular: regular rate and rhythm, normal peripheral perfusion Respiratory: Lungs CTA, respirations non labored Extremities: no deformity, no trauma Neurological: oriented x 4, LOC appropriate for age, CN II-XII intact, motor strength equal & normal bilaterally, speech normal Assessment/Plan 1. Hypertension (I10: Essential (primary) hypertension) BP is extremely high today. his girlfriend made him come to this appointment today. at start of visit patient is not really wanting to talk. girlfriend does most of the talking. but he finally opened up and talked half way through visit. his 80 year old neighbor make him check his blood pressure. it is reported that it is always 180-200/100's every time they take it. pt is extremely tired, has headaches and gets short of breath. will start on hctz and metoprolol. will check labs today. RTC 3 weeks. Ordered: hydrochlorothiazide-m etoprolol, 1 tab(s), Oral, BID, 60 tab(s), Refill(s) 2, [id number], 182, cm, 03/21/24 13:11:00 EDT, Height/Length Dosing, 97, kg, 03/21/24 13:11:00 EDT, Weight Dosing CBC w/ Auto Diff Comprehensive Metabolic Panel Lab Specimen Collect [address] Lipid Panel Thyroid Stimulating Hormone 2. Screening for hyperlipidemia (Z13.220: Encounter for screening for lipoid disorders) lipid panel in office today Ordered: hydrochlorothiazide-m etoprolol, 1 tab(s), Oral, BID, 60 tab(s), Refill(s) 2, [facility], 182, cm, 03/21/24 13:11:00 EDT, Height/Length Dosing, 97, kg, 03/21/24 13:11:00 EDT, Weight Dosing CBC w/ Auto Diff Comprehensive Metabolic Panel Lab Specimen Collect [id number] Lipid Panel Thyroid Stimulating Hormone 3. Fatigue (R53.83: Other fatigue) pt and his girlfriend admits that he just does not have the energy that he used to. he tires out pretty easily. 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 pt never followed up with cardiology after that. Ordered: hydrochlorothiazide-m etoprolol, 1 tab(s), Oral, BID, 60 tab(s), Refill(s) 2, [facility], 182, cm, 03/21/24 13:11:00 EDT, Height/Length Dosing, 97, kg, 03/21/24 13:11:00 EDT, Weight Dosing CBC w/ Auto Diff Comprehensive Metabolic Panel Lipid Panel Thyroid Stimulating Hormone 4. Shortness of breath (R06.02: Shortness of breath) pt is a heavy smoking. encouraged him to slow down Ordered: hydrochlorothiazide-m etoprolol, 1 tab(s), Oral, BID, 60 tab(s), Refill(s) 2, [facility], 182, cm, 03/21/24 13:11:00 EDT, Height/Length Dosing, 97, kg, 03/21/24 13:11:00 EDT, Weight Dosing CBC w/ Auto Diff Comprehensive Metabolic Panel Lipid Panel Thyroid Stimulating Hormone 5. Alcohol use (Z78.9: Other specified health status) pt is a heavy drinker. and has no desire to stop at this time. 6. Lower extremity edema (R60.0: Localized edema) feet slightly swollen no pitting noted today 7. 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 still has tachycardia. never had follow up with cardiology. Follow-up No qualifying data available Problem List/Past Medical History Ongoing Alcohol use Fatigue Hypertension Lower extremity edema Screening for hyperlipidemia Shortness of breath Wssfq-Ltbxghxud-Fpxvo syndrome Historical No qualifying data Procedure/Surgical History Nicola Parkinson White syndrome. Medications hydrochlorothiazide-m etoprolol 25 mg-100 mg oral tablet, 1 tab(s), Oral, BID, 2 refills Allergies No Known Medication Allergies Social History Alcohol Current, Beer, Daily, Previous treatment: None., 03/21/2024 Tobacco 10 or more cigarettes (1/2 pack or more)/day in last 30 days Tobacco Use:. Cigarettes, Previous treatment: None., 03/21/2024 Family History Heart murmur: Mother. Hypertension: Father. Hyperthyroidism: Mother. Immunizations Vaccine Date Status influenza virus vaccine, inactivated 08/28/2022 Recorded SARSCoV2 mRNA(toziname (more content not included)... Normal [facility] Comment on above: Result Comment: Elec tronically Signed By: Nohelia Pena\.br\Date and Time Signed: 03/21/24 14:45 EDT Formson 03-21-2024 Forms [id number] .[id number] [facility] HEMATOLOGYOrdered By: SYSTEM SYSTEM on 03-21-2024 Basophils/100 WBC (Bld) 0.2 % Normal 0.0 - 2.0 % Remisol Heme Basophils/Leukocyt es Auto (Bld) [Pure # fraction] 0.0 E9/L Normal 0.0 - 0.2 E9/L Remisol Heme Eosinophils (Bld) [#/Vol] 0.2 E9/L Normal 0.0 - 0.5 E9/L Remisol Heme Eosinophils/100 WBC (Bld) 4.3 % Normal 0.0 - 8.0 % Remisol Heme Erythrocyte distribution width (RBC) [Ratio] 13.7 % Normal 10.9 - 14.2 % Remisol Heme Hematocrit (Bld) [Volume fraction] 46.0 % Normal 37.7 - 49.0 % Remisol Heme Hemoglobin (Bld) [Mass/Vol] 15.2 g/dL Normal 13.5 - 17.5 gm/dL Remisol Heme Lymphocytes (Bld) [#/Vol] 1.6 E9/L Normal 1.0 - 4.0 E9/L Remisol Heme Lymphocytes/100 WBC (Bld) 29.2 % Normal 14.0 - 50.0 % Remisol Heme MCH (RBC) [Entitic mass] 36.3 pg High 27.0 - 34.0 pg Remisol Heme MCHC (RBC) [Mass/Vol] 33.1 g/dL Normal 31.4 - 36.0 gm/dL Remisol Heme MCV (RBC) [Entitic vol] 109.6 fL High 80.0 - 100.0 fL Remisol Heme Monocytes (Bld) [#/Vol] 0.6 E9/L Normal 0.2 - 1.0 E9/L Remisol Heme Monocytes/100 WBC (Bld) 10.6 % Normal 4.0 - 14.0 % Remisol Heme Neutrophils (Bld) [#/Vol] 3.0 E9/L Normal 2.0 - 7.5 E9/L Remisol Heme Neutrophils/100 WBC (Bld) 55.7 % Normal 36.0 - 75.0 % Remisol Heme Platelet 213.0 E9/L Normal 150.0 - 500.0 E9/L Remiso l Heme Platelet mean volume (Bld) [Entitic vol] 8.2 fL Normal 6.4 - 10.8 fL Remisol Heme RBC (Bld) [#/Vol] 4.2 E12/L Low 4.3 - 5.9 E12/L Re misol Heme WBC corrected for nucl RBC Auto (Bld) [#/Vol] 5.3 E9/L Normal 4.0 - 11.0 E9/L Remisol Heme Lipid Panelon 03-21-2024 Cholesterol [Mass/Vol] 184 mg/dL Normal 120-200 [facility] Comment on above: Performed By: #### 1 4155475, 1261074, 5381393, 4369712, 5908300 ####[facility] [address] [place] [address] Cholesterol in HDL [Mass/Vol] 36 mg/dL Invalid Interpretation Code [facility] Comment on above: Result Comment: '>= 60 LOW RISK' '<= 40 HIGH RISK' Performed By: #### 1 8941685, 8261186, 4315104, 5377328, 6855558 ####[facility] [address] [place] [address] Cholesterol in LDL [Mass/Vol] 155 mg/dL High <=129 [facility] Comment on above: Performed By: #### 1 7810024, 2834446, 1881067, 2445656, 1337250 ####[facility] [address] [place] [address] Cholesterol in VLDL [Mass/Vol] 15 mg/dL Normal 7-40 [facility] Comment on above: Performed By: #### 1 3715943, 5920287, 1619225, 5688507, 9648999 ####[facility] [address] [place] [address] Triglyceride [Mass/Vol] 76 mg/dL Normal <=149 [facility] Comment on above: Performed By: #### 1 9183666, 9841563, 7626379, 4900163, 3084448 ####[facility] [address] [place] [address] TSHon 03-21-2024 TSH Qn 1.72 m[IU]/L Normal 0.34-5.60 [facility] Comment on above: Performed By: #### 1 7748034, 8517821, 8936325, 9443690, 7459159 ####[facility] [address] [place] [address] eGFRon 03-21-2024 eGFR 121 mL/min/1.73 m2 Normal >=59 [facility] Comment on above: Order Comment: Order added by Discern Expert. Performed By: #### 1 4917694, 7576365, 6729185, 1460113, 6234471 ####[facility] [address] [place] [address] Cardiovascular Lab Reporton 10-24-2018 Cardiovascular Lab Report [facility] Patient Name: Eliane,[facility] James MR #: [id number] of Physician: Kali Cedeno M.D.Division of Service Date: 10/23/2018Cardiology Birthdate: 1985Adult Cardiovascular Room #: 3AB [id number] [facility]oken[address] [place], [place] [address]Kvfyz Fax Cardiovascular Laboratory ReportINDICATION: James Del Rio is a 33-year-old man with supraventriculararrhy thmia. He is undergoing catheter ablation by Dr. Alberto Martell. I wascalled to do a transseptal puncture in order to gain access to the leftatrium to perform left-sided arrhythmia ablation. Note that the patienthad been consented for the procedure prior to the start of the ablationprocedure, in particular the consent included transeptal puncture.PROCEDURE:1. Intracardiac echocardiography.2. Successful transseptal puncture performed.METHOD: The patient was on the medical lab specialist electrophysiology table. He hadaccess sheath placed in the right common femoral vein. I usedmicropuncture technique to gain additional venous access in the left commonfemoral vein and an 11-[place] x [address] sheath was advanced. AnAcuNav intracardiac echocardiography catheter was advanced through thatsheath to the right atrium and used to perform intracardiacechocardi ography for identification of the atrial septum.I exchanged the 8-[place] venous sheath in the right common femoral vein tothe SL-1 transseptal sheath over a wire and the sheath was advanced to thesuperior vena cava. The BRK1 transseptal needle was advanced through thesheath. The assembly was brought out back to the interatrial septum.Tenting of the interatrial septum was confirmed by intracardiacechocardi ography and fluoroscopy was performed to confirm adequateposition. The puncture was performed. Position in the left atrium wasconfirmed by intracardiac echocardiography and measurement of pressure inthe left atrium as well as measurement of blood saturation. Thetransseptal sheath was then advanced over the dilator. The needle wasretracted and the dilator and needle were removed. The transseptal sheathwas advanced in the left atrium. Additional confirmation of position inthe left atrium was performed using pressure measurement, measurement ofblood saturation, and intracardiac echocardiography. At this point, theprocedure continued with Dr. Alberto Martell to perform left-sided arrhythmiaablation. There was no evidence of pericardial effusion by intracardiacechocardi ography after the transseptal sheath, the patient was given fullheparinization to target and ACT of around 300.Electronically Signed by:Kali Cedeno M.D. 11/03/2018 07:00 A Geo jesusita Cedeno M.D.Date Dict: 10/23/2018/06:27 P/Kali Cedeno M.D.Date Trans: 10/24/2018 05:58 A/zairaoDN_JN:[id number]: Alberto Martell M.D. [address] [place] [address] Mailstop 1118 [facility] [address] Normal [facility] Cardiovascular Lab Report [facility] MR #: [id number] of Physician: Alberto Martell M.D.Medicine Service Date: 10/23/2018Division of Birthdate: 1985Cardiology Room #: 3AB [id number] CardiovascularServicMartha [place] [address] [place] [phone] Fax Cardiovascular Laboratory ReportELECTROPHYSIOLO GIC STUDY AND CATHETER ABLATION REPORT .INDICATIO NS FOR ELECTROPHYSIOLOGIC STUDY: The patient is a 50-bpnx-ntccvcajqrqz, who has recurrent episodes of supraventricular tachycardia atrates of 220 bpm.. His EKG shows delta wave activity indicating thepresence of an accessory pathway.DESCRIPTION OF PROCEDURE: After written informed consent was obtained, hewas brought to the electrophysiology laboratory in the fasting state. Theright and left groins were prepped and draped in the usual manner. A 1%Xylocaine solution infiltrated for local anesthesia. Utilizingpercutaneous technique, the right and left femoral veins were cannulatedunder fluoroscopic guidance. Catheters were advanced _to the level of thehigh right atrium across the tricuspid valve to the HIS bundle position andthe right ventricular apex in the coronary sinus. Spontaneous intervalswere measured and programmed electrical stimulation was performed. Thisdelineated the presence of left-sided accessory pathway. a transseptalpuncture was then performed. Thereafter a steerable ablation catheterpositioned across the atrial septum into the left atrium. 3-dimensionalnonconta ct and contact mapping.was employed to localize the position of theaccessory pathway. Then after a single radiofrequency ablative lesionaccessory pathway was destroyed and there were no inducible arrhythmias.This was considered a successful outcome the catheters were removed andhemostasis obtained by direct pressure over the puncture site areas.Conscious sedation was maintained throughout the case with intravenousmidazolam and fentanyl. He was returned to the holding area in stablehemodynamic condition.Results of electrophysiologic study: See enclosed data sheetsFINAL IMPRESSIONS:1. palpitations and near syncope..2. Supraventricular tachycardia.3. 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 comprehensive electrophysiologic study with coronary sinus catheters and induction.5. Successful catheter ablation as above.6. fluoroscopy7. Conscious sedation.Alberto Martell M.D.[facility] [employer] Flight Mechanicphysician gynecologist and PediatricsDirector: Cardiac Electrophysiology ProgrammElecparkview health y Signed by:Alberto Martell M.D. 11/15/2018 09:32 A Ponce Martell M.D.Date Dict: 10/23/2018/06:56 PJulio César Martell M.D.Date Trans: 10/24/2018 03:38 A/ChinN_JN:[id number] Normal [facility] CBC AUTO DIFFon 10-21-2018 Basophils Auto #/vol (Bld) 0.1 103/ul Normal 0.0-0.1 [facility] Comment on above: Performed By: #### C NEIL CROWLEY ####[facility] Qmvwdzcjwh4864 [place] [address]Gerken Jennifer Basophils/100 WBC Auto (Bld) 1.5 % Normal 0.2-2.0 [facility] Comment on above: Performed By: #### C CARLINE, NEIL ####[facility] Eoraw[address] [place], [place] [address]Gerken Jennifer Eosinophils Auto #/vol (Bld) 0.3 103/ul Normal 0.0-0.7 [facility] Comment on above: Performed By: #### C NEIL CROWLEY ####[facility] [address] [place], [place] [address]Gerken Jennifer Eosinophils/100 WBC Auto (Bld) 4.9 % Normal 0.9-7.0 [facility] Comment on above: Performed By: #### C CARLINE, CMADM ####[facility] [address] [place], [place] [address]Gerken Jennifer Erythrocyte distribution width Auto Ratio (RBC) 14.7 % Normal 11.0-15.0 [facility] Comment on above: Performed By: #### C CARLINE, CMASTEFANIE ####[facility] [address] [place], [place] [address]Gerken Jennifer Hematocrit Auto Volume Fraction (Bld) 47.9 % Normal 42.0-54.0 [facility] Comment on above: Performed By: #### C CARLINE, NEIL ####[facility] Fyspx[address] [place], [place] [address]Gerken Jennifer Hemoglobin mass conc (Bld) 16.0 g/dL Normal 14.0-18.0 [facility] Comment on above: Performed By: #### C CARLINE, CMADM ####[facility] Jxeirzgdbw5142 [address] Jennifer IG # 0.07 10e3/ul Critically high 0.00-0.03 [facility] Comment on above: Performed By: #### C CARLINE, CMADM ####[facility] Ctsshekcmd[address] Jennifer IG % 1.3 % Critically high 0.0-0.5 [facility] Comment on above: Performed By: #### C CARLINE, CMADM ####[facility] [address] [place] [address] Jennifer Lymphocytes Auto #/vol (Bld) 1.2 103/ul Normal 1.2-3.8 [facility] Comment on above: Performed By: #### C CARLINE, CMADM ####[facility] Xps[address] [place] [address] Jennifer Lymphocytes/100 WBC Auto (Bld) 21.8 % Normal 20.5-60.0 [facility] Comment on above: Performed By: #### C CARLINE, JORDONDM ####[facility] Wej[address] [place] [address] Jennifer MANUAL DIFF REQ NO Normal [facility] Comment on above: Performed By: #### C CARLINE, CMADM ####[facility] [address] [place] [address] Jennifer MCH Auto Entitic mass (RBC) 29.3 pg Normal 25.9-34.0 [facility] Comment on above: Performed By: #### C CARLINE, CMADM ####[facility] L[address] [place] [address] Jennifer MCHC Auto mass conc (RBC) 33.4 g/dL Normal 29.9-35.2 [facility] Comment on above: Performed By: #### C CARLINE, CMADM ####[facility] [address]osp[address] [place] [address] Jennifer MCV Auto Entitic volume (RBC) 87.7 fL Normal 80.0-94.0 [facility] Comment on above: Performed By: #### C CARLINE, NEIL ####[facility] Scsunfxjeb4100 [place], [place] [address]Cqfedi Jennifer Monocytes Auto #/vol (Bld) 0.6 103/ul Normal 0.3-0.8 [facility] Comment on above: Performed By: #### C CARLINE, CMADM ####[facility] [address] [place], [place] [address]Gerken Jennifer Monocytes/100 WBC Auto (Bld) 11.6 % Normal 1.7-12.0 [facility] Comment on above: Performed By: #### C CARLINE, CMASTEFANIE ####[facility] Ax[address] [place], [place] [address]Gerken Jennifer Neutrophils Auto #/vol (Bld) 3.1 103/ul Normal 1.4-6.5 [facility] Comment on above: Performed By: #### C CARLINE, NEIL ####[facility] Yuojgtan[address] [place], [place] [address]Gerken Jennifer Neutrophils/100 WBC Auto (Bld) 58.9 % Normal 43.0-75.0 [facility] Comment on above: Performed By: #### C CARLINE, CMADM ####[facility] [address] [place] [address]Njdcfy Jennifer Platelet mean volume Auto Entitic volume (Bld) 9.2 fL Critically low 9.5-13.5 [facility] Comment on above: Performed By: #### C CARLINE, CMADM ####[facility] [address] [place] [address]Vvyibb Jennifer Platelets Auto #/vol (Bld) 376 103/ul Normal 150-450 [facility] Comment on above: Performed By: #### C CARLINE, CMADM ####[facility] [address] [place] [address]Eqmydm Jennifer RBC Auto #/vol (Bld) 5.46 106/ul Normal 4.70-6.10 [facility] Comment on above: Performed By: #### C CARLINE, CMADM ####[facility] Jffatcfidi[address] Jennifer WBC Auto #/vol (Bld) 5.3 103/ul Normal 4.0-11.0 [facility] Comment on above: Performed By: #### C CARLINE, CMADM ####[facility] Rslnpawywi[address] Jennifer PROF CHEM 8 (BAS METB)on Anion gap 3 molar conc 12.0 mmol/L Normal [facility] Comment on above: Performed By: #### C CARLINE, CMADM ####[facility] [address] [place] [address] Jennifer Calcium mass conc 9.1 mg/dL Normal 8.4-10.2 [facility] Comment on above: Performed By: #### C CARLINE, CMADM ####[facility] [address] [place] [address] Jennifer Chloride molar conc 103 mmol/L Normal 98-107 [facility] Comment on above: Performed By: #### C CARLINE, CMADM ####[facility] [address] [place] [address] Jennifer CO2 molar conc 28.7 mmol/L Normal 22.0-30.0 [facility] Comment on above: Performed By: #### C CARLINE, CMADM ####[facility] [address] [place] [address] Jennifer Creatinine mass conc 0.97 mg/dL Normal 0.66-1.25 [facility] Comment on above: Performed By: #### C CARLINE, CMADM ####[facility] Neeym[address]cnw[address] Jennifer EGFR-AF SALVADOREAN >60 Normal >=60 [facility] Comment on above: Performed By: #### C CARLINE, CMADM ####[facility] [address] [place] [address] Jennifer EGFR-NON AF SALVADOREAN >60 Normal >=60 [facility] Comment on above: Performed By: #### C MP, CMADM ####[facility] S[address]jfcunt[address]57 [place], [place] [address]Rkdzqu Jennifer Glucose mass conc 106 mg/dL Normal 74-106 [facility] Comment on above: Performed By: #### C MP, CMADM ####[facility] B[address]xfzmcfz3905 [place], [place] [address]Vcsbyz Jennifer Potassium molar conc 3.7 mmol/L Normal 3.4-5.0 [facility] Comment on above: Performed By: #### C MP, CMADM ####[facility] Ixmhdpzzhs3308 [place], [place] [address]Azcsur Jennifer Sodium molar conc 140 mmol/L Normal 137-145 [facility] Comment on above: Performed By: #### C MP, CMADM ####[facility] Wjuczcgmuo6214 [place], [place] [address]Biuroa Jennifer Urea nitrogen mass conc 9.0 mg/dL Normal 9.0-20.0 [facility] Comment on above: Performed By: #### C MP, CMADM ####[facility] Ehzdmostio8571 [place], [place] [address]Tymiew Jennifer Urea nitrogen/Creatinin e mass ratio 9.3 mg/mg Normal [facility] Comment on above: Performed By: #### C MP, CMADM ####[facility] Opl[address]qvsmlp4937 [place], [place] [address]Qsfymg Jennifer Cardiovascular Lab Reporton 08-30-2018 Cardiovascular Lab Report [facility] James MR #: [id number] of Physician: Kali Cedeno M.D.Division of Service Date: 08/30/2018Cardiology Birthdate: 1985Adult Cardiovascular Room #: 5CD [id number] [place], [place] [address]Ehqmr Fax Cardiovascular Laboratory ReportINDICATION: James Del Rio is a 33-year-old man, who was admitted withcholecystitis. He was found to have severely reduced left ventricularsystolic function. 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 He was transferred to our center for further management. Hisfollowup echocardiogram showed normalization of his left ventricularsystolic function. He was planned to undergo a stress echocardiogramtoday, however, his baseline images showed again recurrence of his leftventricular systolic dysfunction. Therefore, he was referred for coronaryangiogram.PRO CEDURE: Bilateral selective coronary angiography from the right radialaccess.METHOD: Procedure was explained to the patient with risks and benefits.He signed informed consent. He was brought to medical lab specialist in a fasting state.The right wrist area was prepped and draped in usual fashion. Tato's testwas favorable. Access in the right radial artery was obtained usingmicropuncture technique, a 6-New Zealander x 11 cm Hydrophilic sheath wasadvanced. Verapamil was given through the sheath and heparin wasadministered intravenously. Bilateral selective coronary angiography wasthen performed using a 6-New Zealander Agustin radial catheter. Catheter wasremoved. Access sheath was removed and a compression dressing applied forhemostasis. He tolerated the procedure well. He was transferred back tohis room.TOTAL FLUORO TIME: 3.22 minutes.TOTAL AIR KERMA: 437 mGy.TOTAL CONTRAST VOLUME: 30 mL.HEMODYNAMICS: AO 117/82, mean 100.CORONARY ANGIOGRAPHY: This is a right dominant circulation.Left main. This arises from left coronary cusp. It trifurcates into leftanterior descending, ramus and circumflex vessels. The left main is freeof disease.Left anterior descending: This is angiographically normal.Ramus vessel. This is angiographically normal.Circumflex vessel. This is angiographically normal.Right coronary artery. This arises from the right aortic cusp. It is alarge and dominant vessel. It is angiographically normal.SUMMARY OF FINDINGS: Normal coronary angiogram.RECOMMENDAT IONS: Medical therapy for systolic heart failure and furtherrecommendation s per inpatient Cardiology service.Electronicall y Signed by:Kali Cedeno M.D. 08/31/2018 11:26 P Geo e Miller Cedeno M.D.Date Dict: 08/30/2018/10:19 Shubham/Kali Cedeno M.D.Date Trans: 08/30/2018 09:25 P/mmoDN_JN:[id number]: Ralf Matthews D.O. 1[address] [facility] [address] Normal [facility] LIVER BATTERYon 08-30-2018 Albumin mass conc 3.8 g/dL Normal 3.5-5.7 [facility] Comment on above: Order Comment: No: D o not add to previous draw Performed By: #### 1 0054 ####[facility] [place] [address], [facility] ALKALINE PHOSPH 32 IU/L Low 34-104 [facility] Comment on above: Order Comment: No: D o not add to previous draw Performed By: #### 1 0054 ####[facility] [place] [address], [place] ALT enzyme act/vol 629 U/L Critically high 7-52 T he [facility] Comment on above: Order Comment: No: D o not add to previous draw Performed By: #### 1 0054 ####[facility] [place] [address], [place] AST enzyme act/vol 257 U/L High 13-39 [facility] Comment on above: Order Comment: No: D o not add to previous draw Performed By: #### 1 0054 ####[facility] [place] [address], [place] Bilirubin mass conc 0.8 mg/dL Normal 0.3-1.0 [facility] Comment on above: Order Comment: No: D o not add to previous draw Performed By: #### 1 0054 ####[facility] [place] [address], [place] Bilirubin.direct mass conc 0.2 mg/dL Normal 0.0-0.2 [facility] Comment on above: Order Comment: No: D o not add to previous draw Performed By: #### 1 0054 ####[address] Protein mass conc 6.6 g/dL Normal 6.0-8.3 [facility] Comment on above: Order Comment: No: D o not add to previous draw Performed By: #### 1 0054 ####[address] NM HIDA GALLBLADDER WITH EJE CTION FRACTIONon 08-29-2018 NM HIDA GALLBLADDER WITH EJECTION FRACTION [facility] Hikdvxyjy[address] [place], [place] [address] Patient Name: JAMES DEL RIO : 1985Sex: MAge: Race: WhiteMRN: [id number]. Location: [id number] Status: IVisit #: [id number] Date: 08/28/2018 12:15:00 PMCompleted Date: 08/29/2018 03:24 PMRequesting Provider: EDWINA COLE Attending Provider: MICHELLE PELAYO Report Copy To: Signs & Symptoms: OTHERHistory: Patient history not availableComments: R/O Acute/chronic CholecystitisExam: NM HIDA GALLBLADDER WITH EJECTION FRACTIONAccession #: [id number] NM HIDA GALLBLADDER WITH EJECTION FRACTION 08/29/2018 3:24 PM EDT SIGNS AND SYMPTOMS: OTHER TECHNOLOGIST COMMENTS: RUQ pain 8.03 mCi Tc99m Mebrofenin with 8 oz boost plus to obtain EF QUESTION FOR THE RADIOLOGIST: R/O Acute/chronic Cholecystitis PROTOCOL: COMPARISON: None. RADIOPHARMACEUTICAL: CHOLETEC, 8.03 Millicuries, Intravenous FINDINGS: Prompt accumulation of radionuclide is noted in the liver parenchyma.Activity is seen in the biliary tree and small bowel within 20 minutes.Activity is present in the gallbladder within 30 minutes.CCK was administered 1 hour after injection of radionuclide.The gallbladder ejection fraction was calculated at 82%. IMPRESSION: Normal biliary scan with normal ejection fraction ruling against both cholecystitis and gallbladder dyskinesia. Electronically signed by:Lexi Calderon. Transcribed by: [id number], User Resident: Electronically Signed by: LEXI CALDERON @ 08/29/2018 04:22 PM Normal [facility] Comment on above: Order Comment: No: D o not add to previous draw BASIC METABOLIC PANELon 10-1 Calcium mass conc 8.3 mg/dL Low 8.6-10.3 [facility] Comment on above: Order Comment: No: D o not add to previous draw Performed By: #### 5 0103 ####[facility] [place] [address], [facility] Chloride molar conc 101 mmol/L Normal 98-107 [facility] Comment on above: Order Comment: No: D o not add to previous draw Performed By: #### 5 0103 ####[facility] [place] [address], [facility] CO2 molar conc 26 mmol/L Normal 21-31 [facility] Comment on above: Order Comment: No: D o not add to previous draw Performed By: #### 5 0103 ####[facility] [place] [address], [facility] Creatinine mass conc 1.01 mg/dL Normal 0.70-1.30 [facility] Comment on above: Order Comment: No: D o not add to previous draw Performed By: #### 5 0103 ####[facility] [place] [address], [facility] GFR/1.73 sq M predicted among blacks MDRD vol rate/area (S/P/Bld) mL/min/{1.73_m2} Normal >60 [facility] Comment on above: Order Comment: No: D o not add to previous draw Performed By: #### 5 0103 ####[facility] [place] [address], [facility] GFR/1.73 sq M predicted among non-blacks MDRD vol rate/area (S/P/Bld) mL/min/{1.73_m2} Normal >60 [facility] Comment on above: Order Comment: No: D o not add to previous draw Performed By: #### 5 0103 ####[facility] [facility] [address], [facility] Glucose mass conc 82 mg/dL Normal 70-100 [facility] Comment on above: Order Comment: No: D o not add to previous draw Performed By: #### 5 0103 ####[facility] [facility] [address], [facility] Potassium molar conc 4.1 mmol/L Normal 3.5-5.1 [facility] Comment on above: Order Comment: No: D o not add to previous draw Performed By: #### 5 0103 ####[facility] [place] [address], [facility] Sodium molar conc 133 mmol/L Low 136-145 [facility] Comment on above: Order Comment: No: D o not add to previous draw Performed By: #### 5 0103 ####[facility] [facility] [address], [facility] Urea nitrogen mass conc 10 mg/dL Normal 7-25 [facility] Comment on above: Order Comment: No: D o not add to previous draw Performed By: #### 5 3 ####[facility] CBC W/DIFFon 08-28-2018 ABS BASOPHILS 0.1 10*3/uL Normal 0.0-0.2 [facility] Comment on above: Order Comment: No: D o not add to previous draw Performed By: #### 5 0103 ####[facility] ABS IMM GRANS 0.0 10*3/uL Normal 0.0-0.2 [facility] Comment on above: Order Comment: No: D o not add to previous draw Performed By: #### 5 0103 ####[address] ABS NEUTROPHILS 8.6 10*3/uL High 1.6-7.6 [facility] Comment on above: Order Comment: No: D o not add to previous draw Performed By: #### 5 0103 ####[facility] Basophils Auto #/vol (Bld) 0.6 % Normal 0.0-1.0 [facility] Comment on above: Order Comment: No: D o not add to previous draw Performed By: #### 5 0103 ####[facility] [place] [address] Eosinophils Auto #/vol (Bld) 0.4 10*3/uL Normal 0.0-0.5 [facility] Comment on above: Order Comment: No: D o not add to previous draw Performed By: #### 5 0103 ####[facility] Eosinophils/100 WBC Auto (Bld) 3.5 % Normal 0.0-6.0 [facility] Comment on above: Order Comment: No: D o not add to previous draw Performed By: #### 5 0103 ####[facility] [facility].[address] Erythrocyte distribution width Auto Ratio (RBC) 13.4 % Normal 11.5-15.0 [facility] Comment on above: Order Comment: No: D o not add to previous draw Performed By: #### 5 0103 ####[facility] [facility].[address] Hematocrit Auto Volume Fraction (Bld) 44.5 % Normal 39.0-50.0 [facility] Comment on above: Order Comment: No: D o not add to previous draw Performed By: #### 5 3 ####[place] [address] [address] Hemoglobin mass conc (Bld) 15.2 g/dL Normal 13.0-17.0 [facility] Comment on above: Order Comment: No: D o not add to previous draw Performed By: #### 5 0103 ####[facility] IMMATURE GRANS 0.4 % Normal 0.0-1.0 [facility] Comment on above: Order Comment: No: D o not add to previous draw Performed By: #### 5 3 ####[place] [address] [facility].[address] Lymphocytes Auto #/vol (Bld) 0.9 10*3/uL Low 1.2-4.0 [facility] Comment on above: Order Comment: No: D o not add to previous draw Performed By: #### 5 0103 ####[facility] [facility].[address] Lymphocytes/100 WBC Auto (Bld) 8.7 % Low 20.0-45.0 [facility] Comment on above: Order Comment: No: D o not add to previous draw Performed By: #### 5 0103 ####[facility] [facility].[address] MCH Auto Entitic mass (RBC) 30.0 pg Normal 27.0-33.0 [facility] Comment on above: Order Comment: No: D o not add to previous draw Performed By: #### 5 0103 ####[facility] [facility].[address] MCHC Auto mass conc (RBC) 34.2 g/dL Normal 32.0-35.0 [facility] Comment on above: Order Comment: No: D o not add to previous draw Performed By: #### 5 0103 ####[facility] MCV Auto Entitic volume (RBC) 87.9 fL Normal 82.0-98.0 [facility] Comment on above: Order Comment: No: D o not add to previous draw Performed By: #### 5 3 ####[facility] [facility].[address] Monocytes Auto #/vol (Bld) 0.8 10*3/uL Normal 0.1-1.0 [facility] Comment on above: Order Comment: No: D o not add to previous draw Performed By: #### 5 3 ####[facility] [facility].[address] MONOS 7.4 % Normal 5.0-12.0 [facility] Comment on above: Order Comment: No: D o not add to previous draw Performed By: #### 5 3 ####[facility] [facility].[address] Neutrophils/100 WBC Auto (Bld) 79.4 % High 40.0-72.0 [facility] Comment on above: Order Comment: No: D o not add to previous draw Performed By: #### 5 3 ####[facility] [place] [address] [place] [address], [place] Nucleated RBC/100 WBC Ratio (Bld) 0 % Normal 0-0 [facility] Comment on above: Order Comment: No: D o not add to previous draw Performed By: #### 5 0103 ####[facility] [place] [address], [facility] PLAT CNT 203 10*3/uL Normal 150-400 [facility] Comment on above: Order Comment: No: D o not add to previous draw Performed By: #### 5 0103 ####[facility] [place] [address], [facility] RBC Auto #/vol (Bld) 5.06 10*6/uL Normal 4.20-5.70 [facility] Comment on above: Order Comment: No: D o not add to previous draw Performed By: #### 5 0103 ####[facility] [place] [address], [facility] WBC Auto #/vol (Bld) 10.78 10*3/uL High 4.00-10.60 [facility] Comment on above: Order Comment: No: D o not add to previous draw Performed By: #### 5 0103 ####[facility] [place] [address], [facility] LACTATE BLOODon 08-28-2018 Lactate molar conc 0.9 mmol/L Normal .5-2.2 [facility] Comment on above: Order Comment: No: D o not add to previous draw Performed By: #### 5 0103 ####[facility] [place] [address], [facility] MAGNESIUM BLOODon 08-28-2018 Magnesium mass conc 2.0 mg/dL Normal 1.9-2.7 [facility] Comment on above: Order Comment: No: D o not add to previous draw Performed By: #### 5 0103 ####[facility] [place] [address], [facility] PHOSPHORUS BLOODon 8 Phosphate mass conc 2.3 mg/dL Low 2.5-5.0 [facility] Comment on above: Order Comment: No: D o not add to previous draw Performed By: #### 5 0103 ####[facility] [place] [address], [facility] TROPONIN-Ion 08-28-2018 Troponin I.cardiac mass conc 0.01 ng/mL Normal 0.00-0.04 [facility] Comment on above: Order Comment: No: D o not add to previous draw Result Comment: REFE RENCE RANGES: 0.00 - 0.04 ng/ml NORMAL 0.05 - 0.50 ng/ml INDETERMINATE > 0.50 ng/ml CONSISTENT WITH AN M.I. Performed By: #### 5 0103 ####[facility] Troponin I.cardiac mass conc 0.02 ng/mL Normal 0.00-0.04 [facility] Comment on above: Result Comment: REFE RENCE RANGES: 0.00 - 0.04 ng/ml NORMAL 0.05 - 0.50 ng/ml INDETERMINATE > 0.50 ng/ml CONSISTENT WITH AN M.I. Performed By: #### 5 0103 ####[facility] Troponin I.cardiac mass conc 0.03 ng/mL Normal 0.00-0.04 [facility] Comment on above: Order Comment: No: D o not add to previous draw Result Comment: REFE RENCE RANGES: 0.00 - 0.04 ng/ml NORMAL 0.05 - 0.50 ng/ml INDETERMINATE > 0.50 ng/ml CONSISTENT WITH AN M.I. Performed By: #### 5 0103 ####[facility] *BLOOD CULTUREon 08-27-2018 Bacteria identified in Blood by Culture Clinical Report: (D) Specimen: BLOOD CULTURE Collected: 08/27/2018 20:56 Status: Final Last Updated: 09/02/2018 07:55 CULT RES (Final) No Growth Day 5 Normal [facility] Comment on above: Performed By: #### 5 0103 ####[facility] Performed By: #### 1 0054 ####[facility] [facility] [address], [facility] AMYLASEon 08-27-2018 Amylase enzyme act/vol 50 U/L Normal 31-110 [facility] Comment on above: Performed By: #### A FABIO SAMUEL ####[facility] By[address] [place], [place] [address]Syxnod Karen BASIC METABOLIC PANELon Calcium mass conc 8.3 mg/dL Low 8.6-10.3 [facility] Comment on above: Order Comment: No: D o not add to previous draw Performed By: #### 0 0071, 09135, 04229, 95681, 07563, 63791 ####[facility] [facility] [address], [facility] Chloride molar conc 100 mmol/L Normal 98-107 [facility] Comment on above: Order Comment: No: D o not add to previous draw Performed By: #### 0 0071, 97572, 22901, 90962, 17594, 42817 ####[facility] [place] [address], [facility] CO2 molar conc 26 mmol/L Normal 21-31 [facility] Comment on above: Order Comment: No: D o not add to previous draw Performed By: #### 0 0071, 67503, 01880, 91279, 03266, 01110 ####[facility] [place] [address], [facility] Creatinine mass conc 1.01 mg/dL Normal 0.70-1.30 [facility] Comment on above: Order Comment: No: D o not add to previous draw Performed By: #### 0 0071, 60167, 84224, 63564, 07877, 57463 ####[facility] [place] [address], [facility] GFR/1.73 sq M predicted among blacks MDRD vol rate/area (S/P/Bld) mL/min/{1.73_m2} Normal >60 [facility] Comment on above: Order Comment: No: D o not add to previous draw Performed By: #### 0 0071, 80342, 12194, 43710, 81218, 41269 ####[facility] [place] [address], [facility] GFR/1.73 sq M predicted among non-blacks MDRD vol rate/area (S/P/Bld) mL/min/{1.73_m2} Normal >60 [facility] Comment on above: Order Comment: No: D o not add to previous draw Performed By: #### 0 0071, 55386, 31029, 93997, 94796, 82391 ####[facility] [place] [address], [facility] Glucose mass conc 85 mg/dL Normal 70-100 [facility] Comment on above: Order Comment: No: D o not add to previous draw Performed By: #### 0 0071, 81575, 96470, 75586, 28244, 30162 ####[facility] [place] [address], [facility] Potassium molar conc 3.7 mmol/L Normal 3.5-5.1 [facility] Comment on above: Order Comment: No: D o not add to previous draw Performed By: #### 0 0071, 57664, 28347, 08035, 95938, 50947 ####[facility] [place] [address], [facility] Sodium molar conc 135 mmol/L Low 136-145 [facility] Comment on above: Order Comment: No: D o not add to previous draw Performed By: #### 0 0071, 41340, 35378, 43022, 17038, 80814 ####[facility] [place] [address], [facility] Urea nitrogen mass conc 11 mg/dL Normal 7-25 [facility] Comment on above: Order Comment: No: D o not add to previous draw Performed By: #### 0 0071, 68322, 33856, 74577, 26784, 18478 ####[facility] BILIRUBIN CONJUGATED (DIRECT )on 08-27-2018 BILI, CONJUGATED 0.6 mg/dL Critically high 0.0-0.3 [facility] Comment on above: Result Comment: TEST REPEATED, CRITICAL VALUE VERIFIED Performed By: #### C NEIL CROWLEY ####[facility] Ltyt[address] [place] [address] Jennifer CARDIAC ALE 3-6-9on 018 CK enzyme act/vol 270 U/L Critically high 55-170 Th e [facility] Comment on above: Result Comment: TEST REPEATED, CRITICAL VALUE VERIFIED Performed By: #### C NEIL CROWLEY ####[facility] [address] [place] [address] Jennifer CK.MB mass conc 2.42 ng/mL Critically high <=2.37 [facility] Comment on above: Result Comment: TEST REPEATED, CRITICAL VALUE VERIFIED Performed By: #### C NEIL CROWLEY ####[facility] [address] [place] [address] Jennifer INR Coag RelTime (Bld) SEE BELOW Normal [facility] Comment on above: Result Comment: <0.0 34 ng/ml NEGATIVE 0.034-0.119 INDETERMINATE 0.120 AMI CUT OFF Performed By: #### C NEIL CROWLEY ####[facility] Q[address] [place] [address] Jennifer TROP 0.078 ng/mL Critically high <=0.034 [facility] Comment on above: Result Comment: TEST REPEATED, CRITICAL VALUE VERIFIED Performed By: #### C CARLINE, CMADM ####[facility] [address] [place] [id number] Jennifer CK enzyme act/vol 292 U/L Critically high 55-170 Th [facility] Comment on above: Result Comment: TEST REPEATED CRITICAL VALUE VERIFIED Performed By: #### C CARLINE, CMADM ####[facility] V[address] Jennifer CK.MB mass conc 3.00 ng/mL Critically high <=2.37 [facility] Comment on above: Result Comment: TEST REPEATED CRITICAL VALUE VERIFIED Performed By: #### C CARLINE, NEIL ####[facility] [address] [place] [address] Jennifer INR Coag RelTime (Bld) SEE BELOW Normal [facility] Comment on above: Result Comment: <0.0 34 ng/ml NEGATIVE 0.034-0.119 INDETERMINATE 0.120 AMI CUT OFF Performed By: #### C NEIL CROWLEY ####[facility] [address] [place] [address] Jennifer TROP 0.103 ng/mL Critically high <=0.034 [facility] Comment on above: Result Comment: TEST REPEATED CRITICAL VALUE VERIFIED Performed By: #### C CARLINE, NEIL ####[facility] [address] [place] [address] Jennifer CK enzyme act/vol 288 U/L Critically high 55-170 Th [facility] Comment on above: Result Comment: TEST REPEATED, CRITICAL VALUE VERIFIED Performed By: #### C MREP ####[facility] [address] [place] [address] Jennifer CK.MB mass conc 2.67 ng/mL Critically high <=2.37 [facility] Comment on above: Result Comment: TEST REPEATED, CRITICAL VALUE VERIFIED Performed By: #### C MREP ####[facility] [address] [place] [address] Jennifer INR Coag RelTime (Bld) SEE BELOW Normal [facility] Comment on above: Result Comment: <0.0 34 ng/ml NEGATIVE 0.034-0.119 INDETERMINATE 0.120 AMI CUT OFF Performed By: #### C MREP ####[facility] Nazhosciqo40[address] Jennifer TROP 0.094 ng/mL Critically high <=0.034 [facility] Comment on above: Result Comment: TEST REPEATED, CRITICAL VALUE VERIFIED Performed By: #### C MREP ####[facility] Ymlfaydtra[address] Jennifer CARDIAC ALE ADMITon 018 CK enzyme act/vol 333 U/L Critically high 55-170 Th e [facility] Comment on above: Performed By: #### C NEIL CROWLEY ####[facility] [address] [place] [address] Jennifer CK.MB mass conc 2.85 ng/mL Critically high <=2.37 [facility] Comment on above: Performed By: #### C NEIL CROWLEY ####[facility] Hipbug[address] [place] [address] Jennifer INR Coag RelTime (Bld) SEE BELOW Normal [facility] Comment on above: Result Comment: <0.0 34 ng/ml NEGATIVE 0.034-0.119 INDETERMINATE 0.120 AMI CUT OFF Performed By: #### C NEIL CROWLEY ####[facility] [address] [place] [address] Jennifer ONEIDA 98.0 ng/mL Normal <=121.0 [facility] Comment on above: Performed By: #### C NEIL CROWLEY ####[facility] Qkjudwlmrv[address] Jennifer TROP 0.109 ng/mL Critically high <=0.034 [facility] Comment on above: Performed By: #### C NEIL CROWLEY ####[facility] Jmbtqem[address] Jennifer CBC AUTO DIFFon 08-27-2018 Basophils Auto #/vol (Bld) 0.1 103/ul Normal 0.0-0.1 [facility] Comment on above: Performed By: #### C BC ####[facility] Q[address] [place] [address] Jennifer Basophils/100 WBC Auto (Bld) 0.5 % Normal 0.2-2.0 [facility] Comment on above: Performed By: #### C BC ####[facility] [address] [place] [address] Jennifer Eosinophils Auto #/vol (Bld) 0.2 103/ul Normal 0.0-0.7 [facility] Comment on above: Performed By: #### C BC ####[facility] Ps[address] [place] [address] Jennifer Eosinophils/100 WBC Auto (Bld) 1.3 % Normal 0.9-7.0 [facility] Comment on above: Performed By: #### C BC ####[facility] V[address] [place] [address] Jennifer Erythrocyte distribution width Auto Ratio (RBC) 13.5 % Normal 11.0-15.0 [facility] Comment on above: Performed By: #### C BC ####[facility] Yax[address] [place] [address] Jennifer Hematocrit Auto Volume Fraction (Bld) 49.4 % Normal 42.0-54.0 [facility] Comment on above: Performed By: #### C BC ####[facility] [address] [place] [address] Jennifer Hemoglobin mass conc (Bld) 16.6 g/dL Normal 14.0-18.0 [facility] Comment on above: Performed By: #### C BC ####[facility] [address] [place] [address] Jennifer IG # 0.04 10e3/ul Critically high 0.00-0.03 [facility] Comment on above: Performed By: #### C BC ####[facility] O[address] [place] [address] Jennifer IG % 0.3 % Normal 0.0-0.5 [facility] Comment on above: Performed By: #### C BC ####[facility] Ujhfeeijfr2699 [address] Jennifer Lymphocytes Auto #/vol (Bld) 1.8 103/ul Normal 1.2-3.8 [facility] Comment on above: Performed By: #### C BC ####[facility] F[address] [place], [place] [address] Jennifer Lymphocytes/100 WBC Auto (Bld) 13.8 % Critically low 20.5-60.0 [facility] Comment on above: Performed By: #### C BC ####[facility] Clxeqmundu[address] [place] [address] Jennifer MANUAL DIFF REQ NO Normal [facility] Comment on above: Performed By: #### C BC ####[facility] Okufacplrc[address] [place] [address] Jennifer MCH Auto Entitic mass (RBC) 30.2 pg Normal 25.9-34.0 [facility] Comment on above: Performed By: #### C BC ####[facility] N[address] [place] [address] Jennifer MCHC Auto mass conc (RBC) 33.6 g/dL Normal 29.9-35.2 [facility] Comment on above: Performed By: #### C BC ####[facility] [address] [place] [address] Jennifer MCV Auto Entitic volume (RBC) 89.8 fL Normal 80.0-94.0 [facility] Comment on above: Performed By: #### C BC ####[facility] E[address] [place], [place] [address] Jennifer Monocytes Auto #/vol (Bld) 1.0 103/ul Critically high 0.3-0.8 [facility] Comment on above: Performed By: #### C BC ####[facility] A[address]sw[address] [place], [place] [address] Jennifer Monocytes/100 WBC Auto (Bld) 7.7 % Normal 1.7-12.0 [facility] Comment on above: Performed By: #### C BC ####[facility] [address] [place] [id number] Rodriguez Neutrophils Auto #/vol (Bld) 9.9 103/ul Critically high 1.4-6.5 [facility] Comment on above: Performed By: #### C BC ####[facility] [address] [place] [address]Mendez Dangen Neutrophils/100 WBC Auto (Bld) 76.4 % Critically high 43.0-75.0 [facility] Comment on above: Performed By: #### C BC ####[facility] [address] [place], [place] [address]Mendez Rodriguez Platelet mean volume Auto Entitic volume (Bld) 9.7 fL Normal 9.5-13.5 [facility] Comment on above: Performed By: #### C BC ####[facility] V[address] [place], [place] [address]Mendez Rodriguez Platelets Auto #/vol (Bld) 243 103/ul Normal 150-450 [facility] Comment on above: Performed By: #### C BC ####[facility] [address] [place], [place] [address]Mendez Dangen RBC Auto #/vol (Bld) 5.50 106/ul Normal 4.70-6.10 [facility] Comment on above: Performed By: #### C BC ####[facility] J[address] [place], [place] [address]Mendez Rodriguez WBC Auto #/vol (Bld) 13.0 103/ul Critically high 4.0-11.0 [facility] Comment on above: Performed By: #### C BC ####[facility] V[address] [place], [place] [address]Mendez Rodriguez CBC W/DIFFon 08-27-2018 ABS BASOPHILS 0.1 10*3/uL Normal 0.0-0.2 [facility] Comment on above: Performed By: #### 5 0103 ####[facility] ABS IMM GRANS 0.1 10*3/uL Normal 0.0-0.2 [facility] Comment on above: Performed By: #### 5 0103 ####[facility] ABS NEUTROPHILS 9.5 10*3/uL High 1.6-7.6 [facility] Comment on above: Performed By: #### 5 0103 ####[facility] Basophils Auto #/vol (Bld) 0.7 % Normal 0.0-1.0 [facility] Comment on above: Performed By: #### 5 0103 ####[address] Eosinophils Auto #/vol (Bld) 0.3 10*3/uL Normal 0.0-0.5 [facility] Comment on above: Performed By: #### 5 0103 ####[place] [address] [address] Eosinophils/100 WBC Auto (Bld) 2.5 % Normal 0.0-6.0 [facility] Comment on above: Performed By: #### 5 0103 ####[facility] Erythrocyte distribution width Auto Ratio (RBC) 13.3 % Normal 11.5-15.0 [facility] Comment on above: Performed By: #### 5 0103 ####[address] Hematocrit Auto Volume Fraction (Bld) 45.6 % Normal 39.0-50.0 [facility] Comment on above: Performed By: #### 5 0103 ####[address] [place] [address], [place] Hemoglobin mass conc (Bld) 15.7 g/dL Normal 13.0-17.0 [facility] Comment on above: Performed By: #### 5 0103 ####[facility] IMMATURE GRANS 0.5 % Normal 0.0-1.0 [facility] Comment on above: Performed By: #### 5 0103 ####[facility] Lymphocytes Auto #/vol (Bld) 1.5 10*3/uL Normal 1.2-4.0 [facility] Comment on above: Performed By: #### 5 3 ####[address] Lymphocytes/100 WBC Auto (Bld) 12.6 % Low 20.0-45.0 [facility] Comment on above: Performed By: #### 5 3 ####[place] [address] MCH Auto Entitic mass (RBC) 30.1 pg Normal 27.0-33.0 [facility] Comment on above: Performed By: #### 5 3 ####[facility] MCHC Auto mass conc (RBC) 34.4 g/dL Normal 32.0-35.0 [facility] Comment on above: Performed By: #### 5 3 ####[place] [address] MCV Auto Entitic volume (RBC) 87.4 fL Normal 82.0-98.0 [facility] Comment on above: Performed By: #### 5 3 ####[facility] Monocytes Auto #/vol (Bld) 0.8 10*3/uL Normal 0.1-1.0 [facility] Comment on above: Performed By: #### 5 0103 ####[facility] [place] [address], [facility] MONOS 6.2 % Normal 5.0-12.0 [facility] Comment on above: Performed By: #### 5 0103 ####[facility] [place] [address], [facility] Neutrophils/100 WBC Auto (Bld) 77.5 % High 40.0-72.0 [facility] Comment on above: Performed By: #### 5 102 ####[facility] [facility] Nucleated RBC/100 WBC Ratio (Bld) 0 % Normal 0-0 [facility] Comment on above: Performed By: #### 5 102 ####[facility]3000 [place] [address], [facility] PLAT CNT 224 10*3/uL Normal 150-400 [facility] Comment on above: Performed By: #### 5 102 ####[facility] [facility] RBC Auto #/vol (Bld) 5.22 10*6/uL Normal 4.20-5.70 [facility] Comment on above: Performed By: #### 3 ####[facility] [facility] [place] [address], [facility] WBC Auto #/vol (Bld) 12.18 10*3/uL High 4.00-10.60 [facility] Comment on above: Performed By: #### 102 ####[facility] CONSULTATIONon 08-27-2018 CONSULTATION Alex Ortega DO on 08/30/2018 08:10 AM EDT IFC Signed and Approved by: DR ALEX ORTEGA 08/30/2018 08:10:00 Normal [facility] CT ABD/PELVIS W CONon 2017 CT ABD/PELVIS W CON [address] [place] [address] Patient: JAMES DEL RIO Exam Date: 08/27/2018DOB: 1985 Gender:M : DR KATHERINE CABRERA . Admission #: [id number] : Order #: [id number] HERE TO VIEW EXAM RADIOLOGY REPORT PROCEDURE: CT ABDOMEN AND PELVIS WITH CONTRAST COMPARISON: None. INDICATIONS: Acute right upper quadrant pain, epigastric pain, elevated liver enzymes TECHNIQUE: CT images were created with IV contrast. Axial, Coronal, and Sagittal images. DOSE: 1257mGycm; 100cc Omnipaque 300 FINDINGS: LUNG BASES: No visible pulmonary or pleural disease. LIVER: No enlargement, atrophy, abnormal density, or significant focal lesion. BILIARY: Abnormal gallbladder wall thickening, 7 mm. No visible stones or abnormal duct dilation. Small amount of free fluid.PANCREAS: No lesion, fluid collection, ductal dilatation, or atrophy. SPLEEN: No enlargement or focal lesion. ADRENALS: No mass or enlargement. KIDNEYS: No mass, obstruction, or calcification. BOWEL/MESENTERY: No visible mass, obstruction, or bowel wall thickening. AORTA/VASCULAR: No aneurysm or dissection. RETROPERITONEUM: No mass or adenopathy. LYMPH NODES: No adenopathy. URINARY BLADDER: No visible focal wall thickening, lesion, or calculus. PELVIC ORGANS: No visible mass. Pelvic organs appropriate for patient age. ABDOMINAL WALL: No mass or hernia. BONES: No bony lesion or fracture. OTHER: Negative. CONCLUSION: 1. Acute cholecystitis. No visible stones or abnormal duct dilation. Normal-appearing pancreas. Dictated by: Cecily Funez M.D. on 08/27/2018 at 11:03 Approved by: Cecily Funez M.D. on 08/27/2018 at 11:10 Normal [facility] ECHOCARDIO M/2D COMPLETEon 1 ECHOCARDIO M/2D COMPLETE [address] [place] [address] Patient: JAMES DEL RIO Exam Date: 08/27/2018DOB: 1985 Gender:M : DR ALEX ORTEGA Admission #: [id number] : RALF Franki MATTHEWS Order #: [id number] HERE TO VIEW EXAM ECHOCARDIOGRAM REPORT PROCEDURE: CARDIO PULMONARY ECHOCARDIO M/2D COMP INDICATIONS: WPW COMPARISON: None. DESCRIPTION: COMPLETE ECHOCARDIOGRAM Real-time transthoracic echocardiography with 2D, M-mode, spectral and color flow Doppler performed. QUALITY: Technical quality was good. LEFT VENTRICLE: Mild dilatation. Mild concentric left ventricular hypertrophy. D-shaped septum is seen; consistent with right ventricular pressure and/or volume overload. LV EF: Moderately reduced left ventricular ejection fraction, (35-40%). Global hypokinesis. DIASTOLIC: Normal diastolic function. ATRIAL SEPTUM: Intact atrial septum. LEFT ATRIUM: Normal chamber size. RIGHT ATRIUM: Normal chamber size. RIGHT VENTRICLE: Appears enlarged with reduced systolic function. TRICUSPID VALVE: Normal mobility and thickness. Moderate regurgitation. Mildly elevated right ventricular systolic pressure MITRAL VALVE: Normal mobility and thickness. No evidence of mitral valve stenosis. There is no mitral annular calcification. Mild to moderate mitral regurgitation. AORTIC VALVE: Normal aortic valve. No visible sclerosis. Normal leaflet mobility. No evidence of aortic valve stenosis. AORTIC ROOT: Normal diameter and appearance. PULMONIC VALVE: Normal thickness and mobility. No stenosis. Trace regurgitation. PERICARDIUM: No evidence of pericardial effusion. IVC: Mild dilatation. PLEURA: No evidence of pleural effusion. CONCLUSION: Global left ventricular systolic function is moderately reduced. Ejection fraction is 35-40%. D-shaped septum is seen; consistent with right ventricular pressure and/or volume overload. The right ventricle is enlarged with reduced systolic function. Moderate tricuspid regurgitation. Mild elevated right ventricular systolic pressure. Qcnh-jp-suhwcjdi mitral regurgitation. Adult Echocardiography Procedure ReportLeft Ventricle LVEDD (3.7 - 5.6 cm): 5.23 cmLVESD (2.2 - 4.0 cm): 4.66 cmLVIVS thickness (0.6 - 1.2 cm): 1.32 cmLVPW thickness (0.5 - 1.0 cm): 1.28 cme': 8.33 cm/sE - e': 7.50LVOT Area (cm2): 3.80 uf2Iazu Velocity (LVOT): 59.40 cm/sMean Velocity (LVOT): 42.90 cm/sLVOT Diameter 2.20 cmLeft Ventricular Ejection Fraction: 23.70 %Left Ventricular Ejection Fraction (A2C): 38 %Left Ventricular Ejection Fraction (A4C): 35 %Left Atrium Left Atrium Systolic Dimension: 2.60 cmLeft Atrium Systolic Area(A4C): 17.70 lk7Fsst Atrium Systolic Volume(A4C): 24621 fh8Xtfckq Valve MV E to A Ratio: 1.50Mitral Valve A-Wave Peak Velocity: 38.00 cm/sMitral Valve E-Wave Peak Velocity: 61.20 cm/sMitral Valve A-Wave Peak Velocity: 41.00 cm/sMitral Valve E-Wave Peak Velocity: 62.20 cm/sDeceleration Time: 154 msRight Ventricle RV Peak Systolic Pressure: 40 mm[Hg]Aorta AO Root Diam: 3.30 cmAortic Valve Peak Velocity (Antegrade Flow): 103.00 cm/sAoV Area (Peak Gunnar): 2.32 cm2AoV Area (VTI): 2.41 nb2Nmyplp Valve Cusp Separation: 2.50 cmPeak Velocity(Antegrade Flow): 106.00 cm/sPeak Gradient(Antegrade Flow): 4 mm[Hg]Mean Velocity(Antegrade Flow): 77.50 cm/sMean Gradient(Antegrade Flow): 3 mm[Hg], 3 mm[Hg]Velocity Time Integral: 17.00 cmTricuspid Valve Peak Velocity (Regurgitant Flow): 214.00 cm/sPeak Velocity: 51.90 cm/sPulmonic Valve Mean Gradient: 2 mm[Hg]Mean Velocity: 57.20 cm/sPeak Velocity: 92.00 cm/sPeak Gradient: 3 mm[Hg]Right Atrium Right Atrium Systolic Pressure: 10 mm[Hg] Dictated by: Tarik Guadarrama M.D. on 08/28/2018 at 08:45 Approved by: Tarik Guadarrama M.D. on 08/28/2018 at 08:56 Normal [facility] ETHANOL (D ALC)on 08-27-20 18 ALC NOTE NOTE: 80 mg/dl is th e legal limit for a blood alcohol level Normal [facility] Comment on above: Performed By: #### E TH ####[facility] [address] [place], [place] [address]Oktrkm Jennifer Ethanol mass conc mg/dL Normal [facility] Comment on above: Performed By: #### E TH ####[facility] [address] [place], [place] [address]Auwevr Jennifer LACTATE BLOODon 08-27-2018 Lactate molar conc 1.0 mmol/L Normal .5-2.2 [facility] Comment on above: Order Comment: No: D o not add to previous draw Performed By: #### 1 0054 ####[facility] [place] [address], [facility] LIPASEon 08-27-2018 Lipase enzyme act/vol 178.0 U/L Normal 23.0-300.0 [facility] Comment on above: Performed By: #### A MY, LIPA ####[facility] [address] [place] [address]Gerken Jennifer LIPASE BLOODon 08-27-2018 Lipase enzyme act/vol 20 Units/L Normal 11-82 [facility] Comment on above: Performed By: #### 0 0071, 39972, 72377, 74436, 37651, 50406 ####[facility] [place] [address], [facility] LIVER BATTERYon 08-27-2018 Albumin mass conc 3.6 g/dL Normal 3.5-5.7 [facility] Comment on above: Performed By: #### 0 0071, 87164, 07674, 59453, 81266, 31665 ####[facility] [place] [address], [facility] ALKALINE PHOSPH 32 IU/L Low 34-104 [facility] Comment on above: Performed By: #### 0 0071, 17867, 16845, 08017, 38310, 93744 ####[facility] [place] [address], [facility] ALT enzyme act/vol 789 U/L Critically high 7-52 T he [facility] Comment on above: Performed By: #### 0 0071, 48605, 92435, 25821, 95795, 25759 ####[facility] AST enzyme act/vol 753 U/L High 13-39 [facility] Comment on above: Performed By: #### 0 0071, 42335, 06810, 07292, 69225, 20187 ####[facility] [place] [address], [facility] Bilirubin mass conc 2.2 mg/dL High 0.3-1.0 [facility] Comment on above: Performed By: #### 0 0071, 58649, 04866, 70833, 01935, 39646 ####[facility] Bilirubin.direct mass conc 0.5 mg/dL High 0.0-0.2 [facility] Comment on above: Performed By: #### 0 0071, 52282, 50193, 61835, 10882, 21397 ####[facility] [facility] [address], [facility] Protein mass conc 6.0 g/dL Normal 6.0-8.3 [facility] Comment on above: Performed By: #### 0 0071, 01072, 83980, 19161, 51922, 05397 ####[facility] [place] [address], [facility] MAGNESIUM BLOODon 08-27-2018 Magnesium mass conc 1.6 mg/dL Low 1.9-2.7 [facility] Comment on above: Order Comment: No: D o not add to previous draw Performed By: #### 0 0071, 52945, 72803, 49762, 95606, 79359 ####[facility] [place] [address], [facility] PHOSPHORUS BLOODon 8 Phosphate mass conc 3.6 mg/dL Normal 2.5-5.0 [facility] Comment on above: Order Comment: No: D o not add to previous draw Performed By: #### 0 0071, 78752, 45326, 55830, 99546, 38133 ####[facility] PORTABLE CHEST 1 VIEWon PORTABLE CHEST 1 VIEW [facility] E[address]rq[address] [place] [id number] Patient Name: JAMES DEL RIO : 1985Sex: MAge: Race: WhiteMRN: [id number]. Location: [id number] Status: IVisit #: [id number] Date: 08/27/2018 8:50:00 PMCompleted Date: 08/27/2018 09:20 PMRequesting Provider: GAETANO LEACH Attending Provider: MICHELLE PELAYO Report Copy To: Signs & Symptoms: Acute Respiratory DistressHistory: Patient history not availableComments: R/O AspirationExam: PORTABLE CHEST 1 VIEWAccession #: [id number] POR TABLE CHEST 1 VIEW 08/27/2018 9:20 PM EDT SIGNS AND SYMPTOMS: Acute Respiratory Distress TECHNOLOGIST COMMENTS: Left side chest pain. QUESTION FOR THE RADIOLOGIST: R/O Aspiration PROTOCOL: AP(PA) view was obtained. COMPARISON: None FINDINGS: Frontal view of the chest revealed magnified cardiac silhouette by the frontal technique. Lungs and costophrenic recesses are clear. Trachea is in the midline. Bony skeleton appears intact. There is no evidence of free air under the diaphragm. Contrast material is seen in the splenic flexure likely from prior GI study IMPRESSION: No evidence of acute cardiopulmonary pathology. Electronically signed by:Odalys Simpson. Transcribed by: [email or web address], User Resident: Electronically Signed by: ODALYS SIMPSON @ 08/28/2018 09:34 AM Normal [facility] Comment on above: Order Comment: R/O A spiration PROCALCITONINon 08-27-2018 Protein mass conc 0.08 ng/mL Normal 0.00-0.[address] [facility] Comment on above: Order Comment: No: D o not add to previous draw Result Comment: Susp ected Lower Respiratory Tract Infection:0.1-0.25ng/mL- Low likelihood for bacterial infection;Antibioticsdiscouraged.*>0.25ng/mL- Increased likelihood bacterial infection;Antibioticsencouraged. Suspected Sepsis: Strongly consider initiating antibiotics in allunstable patients.0.1-0.5ng/mL- Low likelihood for sepsis; Antibiotics discouraged.*>0.5ng/mL- Increased likelihood sepsis; Antibiotics encouraged.>2.0ng/mL- High risk of sepsis/septic shock; Antibiotics stronglyencouraged. *Recommend retesting PCT within 6-12hours if clinically indicated andinitial PCT<0.5ng/mL Performed By: #### 3 2598 ####[facility] PROF 14(COMP METB)on 018 Albumin mass conc 4.0 g/dL Normal 3.5-5.0 [facility] Comment on above: Performed By: #### C CARLINE, NEIL ####[facility] [address] [place], [place] [address]Nxpffl Jennifer Albumin/Globulin mass ratio 1.3 {ratio} Normal [facility] Comment on above: Performed By: #### C CARLINE, NEIL ####[facility] [address] [place], [place] [address]Ibujxb Ejnnifer ALP enzyme act/vol 47 U/L Normal 38-126 [facility] Comment on above: Performed By: #### C CARLINE, NELI ####[facility] [address] [place], [place] [address]Laejpm Jennifer ALT enzyme act/vol 1777 U/L Critically high 21-72 [facility] [place] [facility] Comment on above: Result Comment: test repeated, critical value verified Performed By: #### C CARLINE, NEIL ####[facility] [address] [place], [place] [address]Noijpm Jennifer Anion gap 3 molar conc 12.8 mmol/L Normal [facility] Comment on above: Performed By: #### C CARLINE, NEIL ####[facility] [address] [place], [place] [address]Bvhipa Jennifer AST enzyme act/vol 2222 U/L Critically high 17-59 [facility] [place] [facility] Comment on above: Result Comment: TEST REPEATED, CRITICAL VALUE VERIFIED Performed By: #### C NEIL CROWLEY ####[facility] [address] [place], [place] [address]Wccngd Jennifer Bilirubin Ql (U) 3.3 mg/dL Critically high 0.2-1.3 [facility] Comment on above: Performed By: #### C CARLINE, NEIL ####[facility] [address] [place], [place] [address]Egukbv Jennifer Calcium mass conc 8.8 mg/dL Normal 8.4-10.2 [facility] Comment on above: Performed By: #### C CARLINE, CMADM ####[facility] [address] [place], [place] [address]Lkyisl Jennifer Chloride molar conc 97 mmol/L Critically low 98-107 [facility] Comment on above: Performed By: #### C CARLINE, CMADM ####[facility] [address] [place] [address]Gerken Jennifer CO2 molar conc 29.5 mmol/L Normal 22.0-30.0 [facility] Comment on above: Performed By: #### C CARLINE, CMADM ####[facility] [address] [place] [address]Gerken Jennifer Creatinine mass conc 1.60 mg/dL Critically high 0.66-1.25 [facility] Comment on above: Performed By: #### C CARLINE, CMADM ####[facility] [address] [place] [address]Gerken Jennifer EGFR-AF SALVADOREAN >60 Normal >=60 [facility] Comment on above: Performed By: #### C CARLINE, CMADM ####[facility] [address] [place] [address]Gerken Jennifer EGFR-NON AF SALVADOREAN 50 mL/min/1.73m2 Critically low >=60 [facility] Comment on above: Performed By: #### C CARLINE, CMADM ####[facility] [address] [place] [address]Gerken Jennifer Globulin Calculated mass conc (S) 3.1 g/dL Normal [facility] Comment on above: Performed By: #### C CARLINE, CMADM ####[facility] [address] [place] [address]Gerken Jennifer Glucose mass conc 124 mg/dL Critically high 74-106 [facility] Comment on above: Performed By: #### C CARLINE, CMADM ####[facility] [address] [place] [address]Gerken Jennifer Potassium molar conc 4.3 mmol/L Normal 3.4-5.0 [facility] Comment on above: Performed By: #### C CARLINE, CMADM ####[facility] [address] [place], [place] [address]Zmrdmk Jennifer Protein mass conc 7.1 g/dL Normal 6.1-8.2 [facility] Comment on above: Performed By: #### C CARLINE, CMADM ####[facility] [address] [place], [place] [address]Txmrbp Jennifer Sodium molar conc 135 mmol/L Critically low 137-145 [facility] Comment on above: Performed By: #### C CARLINE, CMADM ####[facility] [address] [place], [place] [address]Ctmwqm Jennifer Urea nitrogen mass conc 17.0 mg/dL Normal 9.0-20.0 [facility] Comment on above: Performed By: #### C CARLINE, CMADM ####[facility] [address] [place], [place] [address]Deujlm Jennifer Urea nitrogen/Creatinin e mass ratio 10.6 mg/mg Normal [facility] Comment on above: Performed By: #### C CARLINE, CMADM ####[facility] [address] [place], [place] [address]Jfqdyd Jennifer TOX PANEL URINEon 08-27-2018 50 THC Negative Normal NEGATIVE [facility] Comment on above: Order Comment: No: D o not add to previous draw Performed By: #### 3 1079 ####[facility] [place] [address], [facility] BARBITURATES Negative Normal NEGATIVE [facility] Comment on above: Order Comment: No: D o not add to previous draw Performed By: #### 3 1079 ####[facility] [place] [address], [place] BENZODIAZEPINES Negative Normal NEGATIVE [facility] Comment on above: Order Comment: No: D o not add to previous draw Performed By: #### 3 1079 ####[facility] [place] [address], [facility] COCAINE Negative Normal NEGATIVE [facility] Comment on above: Order Comment: No: D o not add to previous draw Performed By: #### 3 1079 ####[facility] [place] [address], [facility] METHADONE Negative Normal NEGATIVE [facility] Comment on above: Order Comment: No: D o not add to previous draw Performed By: #### 3 1079 ####[facility] [facility] [address], [facility] MONO AMPHET Negative Normal NEGATIVE [facility] Comment on above: Order Comment: No: D o not add to previous draw Performed By: #### 3 1079 ####[facility] [facility] [address], [facility] OPIATES Negative Normal NEGATIVE [facility] Comment on above: Order Comment: No: D o not add to previous draw Performed By: #### 3 1079 ####[facility] [facility].[address] PHENCYCLIDINE Negative Normal NEGATIVE [facility] Comment on above: Order Comment: No: D o not add to previous draw Performed By: #### 3 1079 ####[facility] [place] [address], [facility] Protein mass conc Negative Normal NEGATIVE [facility] Comment on above: Order Comment: No: D o not add to previous draw Performed By: #### 3 1079 ####[facility] [facility].[address] TRICYCLICS Negative Normal NEGATIVE [facility] Comment on above: Order Comment: No: D o not add to previous draw Performed By: #### 3 1079 ####[facility] [facility].[address] TROPONIN-Ion 08-27-2018 Troponin I.cardiac mass conc 0.04 ng/mL Normal 0.00-0.04 [facility] Comment on above: Order Comment: No: D o not add to previous draw Result Comment: REFE RENCE RANGES: 0.00 - 0.04 ng/ml NORMAL 0.05 - 0.50 ng/ml INDETERMINATE > 0.50 ng/ml CONSISTENT WITH AN M.I. Performed By: #### 0 0071, 44343, 92065, 99409, 61816, 41056 ####[facility] US GALLBLADDERon 08-27-2018 US GALLBLADDER [address] [place] [address] Patient: JAMES DEL RIO Exam Date: 08/27/2018DOB: 1985 Gender:M : DR KATHERINE CABRERA . Admission #: [id number] : Order #: [id number] HERE TO VIEW EXAM RADIOLOGY REPORT PROCEDURE: ULTRASOUND GALLBLADDER COMPARISON: None. INDICATIONS: Acute loss of appetite; acute nausea, vomiting, and right upper quadrant pain TECHNIQUE: Sonographic evaluation of the right upper quadrant of the abdomen was performed. FINDINGS:GALLBLADDER: Positive sonographic Love's sign. Thickened wall up to 6 mm. Pericholecystic fluid and stranding.BILIARY: No abnormal dilatation or stones. Maximum common bile duct diameter: 5 mm. PANCREAS: Normal. No visible mass, abnormal atrophy, or ductal dilatation. OTHER: None. CONCLUSION: 1. Acalculous acute versus chronic cholecystitis. DICTATED BY: CECILY FUNEZ M.D. ON 08/27/2018 AT 08:21 APPROVED BY: CECILY FUNEZ M.D. ON 08/27/2018 AT 08:22 Normal [facility] XR CHEST 1 Von 08-27-2018 XR CHEST 1 V [address] [place] [address] Patient: JAMES DEL RIO Exam Date: 08/27/2018DOB: 1985 Gender:M : DR ALE BURNETT Admission #: [id number] : Order #: [id number] HERE TO VIEW EXAM RADIOLOGY REPORT PROCEDURE: RADIOGRAPH CHEST 1 VIEW COMPARISON: None. INDICATIONS: Acute cough and weakness FINDINGS: LUNGS: No significant pulmonary parenchymal abnormalities. VASCULATURE: No increased pulmonary vasculature. PLEURA: No pneumothorax, effusion, or pleural thickening. CARDIAC: No cardiomegaly or cardiac silhouette abnormality. MEDIASTINUM: No visible mass or adenopathy. BONES: No fracture or visible bone lesion. OTHER: Negative. CONCLUSION: 1. No acute cardiopulmonary process. Dictated by: Cecily Funez M.D. on 08/27/2018 at 08:11 Approved by: Cecily Funez M.D. on 08/27/2018 at 08:12 [facility] Encounters Encounter Date Encounter Type Care Provider Facility Start: 12-31-2024 ambulatory Mohbarneyd Luis Armando Vázquez Faci lity:[facility] Start: 12-15-2024 ambulatory Mary Vázquez Faci lity:[facility] Start: 11-28-2024 ambulatory Mohbarneyd Gurpreet Facilit y:[facility] Start: 11-26-2024 End: 11-26-2024 Lab Drop off Nohelia L Lazarus [facility] Start: 11-26-2024 End: 11-26-2024 ambulatory Nohelia L Lazarus Facility:[facility] Start: 11-24-2024 End: 11-24-2024 ambulatory Nohelia L Lazarus Facility:[facility] Start: 08-27-2024 ambulatory Nohelia L Lazarus Facility: [facility] Start: 08-11-2024 End: 08-11-2024 ambulatory Nohelia L Lazarus Facility:[facility] Start: 08-06-2024 End: 08-06-2024 Lab Drop off Nohelia L Lazarus [facility] Start: 08-06-2024 End: 08-06-2024 ambulatory Nohelia L Lazarus [facility] Start: 05-26-2024 End: 05-26-2024 ambulatory Nohelia L Lazarus Facility:[facility] Start: 05-21-2024 End: 05-21-2024 ambulatory Nohelia L Lazarus Facility:[facility] Start: 05-09-2024 End: 05-09-2024 ambulatory Nohelia L Lazarus Facility[facility] Start: 05-05-2024 End: 05-05-2024 ambulatory Nohelia L Lazarus Facility:[facility] Start: 04-11-2024 End: 04-11-2024 ambulatory Nohelia L Lazarus Facility:[facility] Start: 03-21-2024 End: 03-21-2024 Lab Drop off Nohelia L Lazarus [facility] Start: 03-21-2024 End: 03-21-2024 ambulatory Nohelia L Lazarus [facility] Start: 03-17-2024 ambulatory Nohelia Lazarus Facility:[facility] Start: 10-23-2018 End: 10-24-2018 Patient encounter procedure ALBERTO EVAN Facility:[facility] Start: 10-21-2018 End: 10-22-2018 Patient encounter procedure ALBERTO EVAN Facility: Start: 09-03-2018 End: 09-04-2018 Patient encounter procedure ALBERTO EVAN Facility:[facility] Start: 08-27-2018 End: 08-30-2018 Evaluation and management of inpatient PROVIDER UNKNOWN Facility:[facility] Start: 08-27-2018 End: 08-27-2018 Evaluation and management of inpatient NONE LISTED REQUEST Facility: Procedures Date Procedure Procedure Detail Performing Clinician Start: 08-30-2018 FLUOROSCOPY OF MULTI PLE CORONARY ARTERIES USING OTH CONTRAST KALI Petersen-ParkinsonJv burgos pattern (disorder) Nohelia Lazarus Immunizations Immunization Date Immunization Notes Care Provider Fa cili 08-28-2022 influenza virus vaccine, unspecified formulation Nohelia Lazarus [facility] 02-01-2022 SARS-CoV-2 mRNA (kdcvrttagya-zbnf-ysath se) vaccine Nohelia Lazarus [facility] 09-02-2021 SARS-CoV-2 (COVID-19 ) mRNA BNT-162b2 vax Nohelia Lazarus [facility] 08-12-2021 SARS-CoV-2 (COVID-19 ) mRNA BNT-162b2 jean carlos Qiu [facility] Payers Date Payer Category Payer Unknown [id number] 2.16.84 [id number] 1985 Unknown [id number] 2.16.84 0.1.360571.3.579.2.593 1985 Unknown [id number] 2.16.8 40.1.684824.3.579.2.647 1985 Unknown [id number] 2.16.8 40.1.905549.3.579.2.647 1985 Unknown [id number] 2.16.8 40.1.794092.3.579.2.647 1985 Unknown [id number] 2.16.8 40.1.315498.3.579.2.727 1985 Unknown [id number] 2.16.8 40.1.276376.3.579.2.727 1985 Unknown [id number] 2.16.8 40.1.563301.3.579.2.727 1985 Unknown [id number] 2.16.8 40.1.405833.3.579.2.727 1986 Unknown [id number] 2.16.8 40.1.118573.3.579.2.727 1986 Unknown [id number] 2.16.8 40.1.097871.3.579.2.727 1985 Unknown [id number] 2.16.8 40.1.209802.3.579.2.727 1985 Unknown [id number] 2.16.8 40.1.413949.3.579.2.727 1986 Unknown [id number] 2.16.8 40.1.616376.3.579.2.727 1986 Unknown [id number] 2.16.8 40.1.255404.3.579.2.727 1985 Unknown [id number] 2.16.8 40.1.088176.3.579.2.727 1985 Unknown [id number] 2.16.8 40.1.603625.3.579.2.727 1985 Unknown [id number] 2.16.8 [id number] 1985 Unknown [id number] 2.16.8 [id number] 1985 Unknown [id number] 2.16.8 [id number] 1985 Unknown [id number] 2.16.8 [id number] 1985 Unknown [id number] 2.16.8 [id number] 1958 Unknown [id number] Social History Date Type Detail Facility Start: 03-21-2024 End: 11-26-2024 Tobacco smoking status Heavy tobacco smoker (finding) [facility] Sex Assigned At Male [facility] Tobacco smoking status Never [facility] Evaluation + Plan note 11-26-2024 Note Date & Type Note Facility 11-26-2024 Evaluation + Plan note Diagnostic Tests PendingAcute Hepatitis A B C Panel 11/26/24 [facility] Evaluation + Plan note 08-06-2024 Note Date & Type Note Facility 08-06-2024 Evaluation + Plan note Diagnostic Tests PendingComprehensive Metabolic Panel 08/06/24 [facility] Evaluation + Plan note Note Date & Type Note Facility Evaluation + Plan note Future Appointments Appointment Date:04/11/2024 01:40:00 PM Scheduled Provider:Nohelia Pena Location:[facility] Appointment Type:[facility] Hospital course Narrative Note Date & Type Note Facility Hospital course Narrative No data available for this section [facility] Hospital Discharge instructions Note Date & Type Note Facility Hospital Discharge instructions No data available for this section [facility] Progress note Note Date & Type Note Facility Progress note No data available for this section [facility] Summary Purpose Family History No Family History Records FoundNo Family History Records Found No data available for this section No Family History Records Found No data available for this section No data available for this section No Family History Records FoundNo Family History Records FoundNo Family History Records FoundNo Family History Records FoundNo Family History Records FoundNo Family History Records FoundNo Family History Records FoundNo Family History Records Found Advance Directives No Advanced Directives Records FoundNo Advanced Directives Records FoundNo Advanced Directives Records FoundNo Advanced Directives Records FoundNo Advanced Directives Records FoundNo Advanced Directives Records FoundNo Advanced Directives Records FoundNo Advanced Directives Records FoundNo Advanced Directives Records FoundNo Advanced Directives Records FoundNo Advanced Directives Records Found Hospital Course Note [id number] Admitted: 08/27/2018 Discharged: 08/30/2018 Date of : 1985 Physician: Danis Martinez MD DISCHARGE SUMMARYPRIMARY CARE PHYSICIAN: None.CONSULTING PHYSICIAN:[facility]. [facility]. [facility].FINAL DIAGNOSES:1. Tachycardia with Kvwrh-Gqlkpcgql-Vudos changes on EKG. Evaluated by Cardiology with status post cardiac catheterization, negative for any obstructive coronary artery disease with low EF.2. Alcohol abuse, not in withdrawal now.3. Elevated LFTs related to alcohol abuse.4. Abdominal pain, resolved.HOSPITAL COURSE: This is a 33-year-old male with past medical history ofheavy alcohol abuse/polysubstance abuse who came to the hospital withnausea, vomiting, dizziness, lightheadedness. On EKG, initial evaluationrevealed Eaodr-Btgmqcwxs-Qdync syndrome, so the patient was admitted toICU, started on alcohol withdrawal protocol. Initial evaluation alsorevealed elevated LFTs. The (more content not included)... Additional Source Comments (unrecognized sect ion and content) No Status Records FoundNo Status Records FoundNo Status Records FoundNo Status Records FoundNo Status Records FoundNo Status Records FoundNo Status Records FoundNo Status Records FoundNo Status Records FoundNo Status Records FoundNo Status Records Found INFORMATION SOURCE (unrecogn ized section and content) DATE CREATED AUTHOR 10/29/2018 [facility] DATE CREATED AUTHOR AUTHOR'S ORGANIZ ATION 11/16/[address] [facility] DATE CREATED AUTHOR AUTHOR'S ORGANIZ ATION 08/10/2024 [facility] DATE CREATED AUTHOR AUTHOR'S ORGANIZ ATION 11/30/2024 [facility] DATE CREATED AUTHOR AUTHOR'S ORGANIZ ATION 12/01/2024 [facility] DATE CREATED AUTHOR AUTHOR'S ORGANIZ ATION 12/02/2024 [facility] DATE CREATED AUTHOR AUTHOR'S ORGANIZ ATION 12/03/2024 [facility] DATE CREATED AUTHOR AUTHOR'S ORGANIZ ATION 12/15/2024 [facility] Patient Care team informatio n (unrecognized section and content) Personnel Name: Nohelia Pena Address: Address: [address] [place] [address]- Personnel Name: Nohelia Pena Address: Address: [address] [place] [address]- Personnel Name: Nohelia Pena Address: Address: [address] [place] [address]- FOR RECORDS PERTAINING TO PATIENTS WHO ARE OR HAVE BEEN ENROLLED IN A CHEMICAL DEPENDENCY/SUBSTANCEABUSE PROGRAM, SOME INFORMATION MAY BE OMITTED. This clinical summary was aggregated from multiple sources. Caution should be exercised in using it in the provision of clinical care. This summary normalizes information from multiple sources, and as a consequence, information in this document may materially change the coding, format and clinical context of patient data. In addition, data may be omitted in some cases. CLINICAL DECISIONS SHOULD BE BASED ON THE PRIMARY CLINICAL RECORDS. [facility] [id number] [facility]. provides no warranty or guarantee of the accuracy or completeness of information in this document.
--- NOTE | 2024-12-16 14:04 | ECG_ITS ---
[facility] Test Date: 2024-12-16 Pat Name: XAVIER GUERRA Department: Room: - Gender: Male Health Information Director: : 1985 Requested By: Order Number: [id number] Reading MD: BABAR LOVE Measurements Intervals Olivia Rate: 83 P: 58 KS: 146 QRS: 48 QRSD: 94 T: 73 QT: 384 QTc: 424 Interpretive Statements 1100 Sinus rhythm 1102 Sinus arrhythmia 9110 normal ECG Compared to ECG 08/27/2018 12:37:20 Left ventricular hypertrophy no longer present Early repolarization no longer present Electronically Signed On 12-16-2024 19:51:07 EST by BABAR LOVE
--- NOTE | 2024-12-16 14:06 | ED.GENADUL1 ---
HPI HPI - General Adult General Chief complaint: Abdominal Pain Stated complaint: WEAKNESS - SENT BY DR REILLY Time Seen by Provider: 12/16/24 13:48 Source: patient and family History of Present Illness HPI narrative: Patient is a 39-year-old male who presents to the emergency department accompanied by his significant other for evaluation of a variety of complaints. They were referred over from the primary care office where the patient was seen just prior to arrival and had a near syncopal episode on standing. Patient has been vomiting for the last 3 days. Significant other states he has had intermittent nosebleeds for the last several weeks. In the last 3 days as he is vomiting, they have noted dark tarry emesis. Primary care provider was not sure if he may be vomiting up old blood from the nosebleeds or if he may be internally bleeding . He reports a fever of 101.0 Fahrenheit yesterday. He has also had cough, congestion and bodyaches. He reports epigastric abdominal pain that is not severe at this time. He denies diarrhea. He is a regular drinker of alcohol, he states he last drank about 8 hours ago and typically drinks at least half of a fifth of liquor daily. He had an outpatient gallbladder ultrasound showing gallbladder sludge/cholelithiasis with a dilated common bile duct, negative Love sign and no evidence of stones in the bile duct. Per family, the patient is being scheduled for a HIDA scan. Per primary care provider, the patient was scheduled for a GI appointment yesterday which they canceled. Related Data Home Medications ?Medication ?Instructions ?Recorded ?Confirmed hydrochlorothiazide 12.5 mg capsule 12.5 mg PO DAILY PRN edema 12/16/24 12/16/24 losartan 100 mg tablet 100 mg PO DAILY 12/16/24 12/16/24 potassium chloride 20 mEq 20 meq PO BID 12/16/24 12/16/24 tablet,extended release(part/cryst) Previous Rx's ?Medication ?Instructions ?Recorded ondansetron 4 mg disintegrating 4 mg PO Q6H PRN nausea and 12/16/24 tablet vomiting #12 tabs pantoprazole 40 mg tablet,delayed 40 mg PO DAILY #7 tabs 12/16/24 release (Protonix) Allergies Allergy/AdvReac Type Severity Reaction Status Date / Time No Known Drug Allergies Allergy Verified 12/16/24 13:58 Opioid HPI Opioid Management Most Recent Opioid Data: No Data to Display Review of Systems ROS Constitutional Reports: fever and chills Ears, nose, mouth, and throat Reports: nasal congestion and nose bleeds; Denies: throat pain Cardiovascular Denies: chest pain Respiratory Reports: cough; Denies: shortness of breath Gastrointestinal Reports: abdominal pain, nausea and vomiting; Denies: diarrhea Musculoskeletal Denies: back pain Integumentary/Breast Denies: rash Neurological Denies: numbness in extremities or weakness in extremities Hematologic/Lymphatic Denies: easy bruising or easy bleeding PFSH PFS Social History Little interest or pleasure in doing things: not at all Feeling down, depressed, or hopeless: not at all Exam Narrative Exam Narrative: Gen.: Awake, alert, in no distress Head: Normocephalic, atraumatic ENT: Moist mucous membranes, scleral icterus Respiratory: No respiratory distress, lungs clear bilaterally Cardio: Regular rate and rhythm Gastrointestinal: Abdomen is soft, nondistended and minimally tender to palpation in the epigastrium with no guarding or rebound Extremities: Moves extremities equally Psych: Normal mood and affect Neuro: No focal neuro deficit Skin: Warm, dry, intact; jaundice noted Constitutional Vital Signs, click to edit/add: Last Vital Signs Temp 97.6 F 12/16/24 13:52 Pulse 84 12/16/24 15:39 Resp 12/16/24 15:39 BP 130/64 12/16/24 15:39 Pulse Ox 98 12/16/24 15:39 O2 Del Method Room Air 12/16/24 13:52 Course Vital Signs Vital signs: Vital Signs Temperature 97.6 F 12/16/24 13:52 Pulse Rate 103 H 12/16/24 13:52 Respiratory Rate 12/16/24 13:52 Blood Pressure 94/52 12/16/24 13:52 Pulse Oximetry 100 12/16/24 13:52 Oxygen Delivery Method Room Air 12/16/24 13:52 Temperature 97.6 F 12/16/24 13:52 Pulse Rate 84 12/16/24 15:39 Respiratory Rate 20 12/16/24 15:39 Blood Pressure 130/64 12/16/24 15:39 Pulse Oximetry 98 12/16/24 15:39 Oxygen Delivery Method Room Air 12/16/24 13:52 Medical Decision Making MDM Narrative Medical decision making narrative: Patient was medicated with IV Zofran, Protonix and fluids. He is hemodynamically stable with vital signs improved after fluid administration. He had no appreciable ascites on abdominal exam. Laboratory studies show anemia, elevated INR, elevated bilirubin and stable mildly elevated LFTs. Chest x-ray is unremarkable and CT of the abdomen and pelvis shows the patient has cirrhosis. I discussed the case with Dr. Ronquillo for GI at [facility], he is familiar with the patient and recommended close follow-up with PCP and close GI follow-up if the patient is not willing to stay in the hospital. He is adamant that he does not need to be admitted and family is in agreement with treatment plan for outpatient management and close follow-up. He is placed on Zofran, Protonix. He had no episodes of emesis or coffee-ground emesis in the ER. He had no nosebleeds or active bleeding. He is hemodynamically stable with improved vital signs at discharge. In no distress on reevaluation by attending physician. SHARED APC VISIT, PHYSICIAN ATTESTATION: [id number] I performed a substantive part of the MDM during the patient?s E/M visit. I personally evaluated and examined the patient. I personally made or approved the documented management plan and acknowledge its risk of complications. Medical Records Medical records reviewed: Yes I reviewed the patient's medical records Lab Data Lab results reviewed: Yes I reviewed the patient's lab results Labs: Lab Results 12/16/24 12/16/24 Range/Units 14:11 14:15 WBC 13.0 H (4.0-11.0) 10^3/uL RBC 3.06 L (4.70-6.10) 10^6/uL Hgb 10.6 L (14.0-18.0) g/dL Hct 31.7 L (42.0-54.0) % MCV 103.6 H (80.0-94.0) fL MCH 34.6 H (25.9-34.0) pg MCHC 33.4 (29.9-35.2) g/dL RDW 13.2 (11.0-15.0) % Plt Count 239 (150-450) 10^3/uL MPV 10.5 (9.5-13.5) fL Neut % (Auto) 68.9 (43.0-75.0) % Lymph % (Auto) 17.2 L (20.5-60.0) % [place] % (Auto) 10.9 (1.7-12.0) % Eos % (Auto) 1.3 (0.9-7.0) % Baso % (Auto) 1.2 (0.2-2.0) % Neut # (Auto) 9.0 H (1.4-6.5) 10^3/uL Lymph # (Auto) 2.2 (1.2-3.8) 10^3/uL [place] # (Auto) 1.4 H (0.3-0.8) 10^3/uL Eos # (Auto) 0.2 (0.0-0.7) 10^3/uL Baso # (Auto) 0.2 H (0.0-0.1) 10^3/uL Abs Immat Gran (auto) 0.07 H (0.00-0.03) 10^3/uL Imm/Tot Granulo (auto) 0.5 (0.0-0.5) % PT 16.1 H (9.0-11.6) sec INR 1.59 APTT 31.0 (22.3-36.2) sec VBG pH 7.465 H (7.330-7.430) VBG pCO2 35.5 L (40.0-52.0) mmHg Sodium 132 L (136-145) mmol/L Potassium 4.2 (3.5-5.1) mmol/L Chloride 97 L (98-107) mmol/L Carbon Dioxide 28.0 (21.0-32.0) mmol/L Anion Gap 11.2 BUN 47.0 H (7.0-18.0) mg/dL Creatinine 1.53 H (0.70-1.30) mg/dL Est GFR ( Amer) >60 (>=60 mL/min/1.73m^2) Est GFR (Non-Af Amer) 51 L (>=60 mL/min/1.73m^2) BUN/Creatinine Ratio 30.7 Glucose 123 H (74-106) mg/dL Lactate 3.2 H* (0.4-2.0) mmol/L Calcium 8.6 (8.5-10.1) mg/dL Total Bilirubin 6.2 H (0.2-1.0) mg/dL Direct Bilirubin 2.4 H* (0.0-0.2) mg/dL AST 127 H (15-37) U/L ALT 59 (16-63) U/L Alkaline Phosphatase 127 H (46-116) U/L Troponin I High Sens 43.5 (4.0-76.1) pg/mL Total Protein 7.0 (6.4-8.2) g/dL Albumin 2.5 L (3.4-5.0) g/dL Globulin 4.5 g/dL Albumin/Globulin Ratio 0.6 Lipase 43.0 (16.0-77.0) U/L Ethanol Quant <3 mg/dL Influenza Type A Ag Negative Influenza Type B Ag Negative SARS-CoV-2 Ag (CV2AG) Negative (NEGATIVE) Blood Type O Positive Antibody Screen Negative Imaging Data CT scan - abdomen: Attestation: I have reviewed the pertinent imaging results. Radiologist's impression: ITS Impressions Abdomen/Pelvis CT 12/16/24 14:13 IMPRESSION: 1. No acute abnormality in the abdomen or pelvis. 2. Cirrhotic liver. No ascites. 3. Few low-density subcentimeter hepatic cysts. Electronically authenticated by: LORETA ASHBY Date: 12/16/2024 15:29 Chest X-Ray 12/16/24 14:13 IMPRESSION: No acute abnormality identified. Electronically authenticated by: Nadege HUMPHRIES Date: 12/16/2024 15:28 ECG Data Attestation: I personally reviewed and interpreted this ECG as follows: (Normal sinus rhythm at a rate of 83 with sinus arrhythmia, no acute ST elevation or ectopy. EKG reviewed by attending physician) Discharge Plan Discharge Chief Complaint: Abdominal Pain Clinical Impression: Abdominal pain, Nausea & vomiting, Acute on chronic alcoholic liver disease Patient Disposition: Home, Self-Care Time of Disposition Decision: 16:10 Condition: Good Prescriptions / Home Meds: New pantoprazole [Protonix] 40 mg tablet,delayed release (DR/EC) 40 mg PO DAILY Qty: 7 0RF ondansetron 4 mg tablet,disintegrating 4 mg PO Q6H PRN (Reason: nausea and vomiting) Qty: 12 0RF No Action potassium chloride 20 mEq tablet,ER particles/crystals 20 meq PO BID hydrochlorothiazide 12.5 mg capsule 12.5 mg PO DAILY PRN (Reason: edema) losartan 100 mg tablet 100 mg PO DAILY Print Language: Portuguese Instructions: Cirrhosis of the Liver (ED), Acute Nausea and Vomiting (ED) Additional Instructions: Please follow up with Dr. Ronquillo or other GI specialist at [facility] Referrals: MARLON REILLY [Primary Care Provider] - 1 week
--- NOTE | 2024-12-16 14:13 | XR_ITS ---
The [place] [id number] Patient Name: XAVIER GUERRA MRN: [id number] date: 1985 Sex: M Assigned Patient Location: ER Current Patient Location: ER Accession/Order Number: [id number] Exam Date: 12/16/2024 14:45 Report Date: 12/16/2024 15:28 At the request of: RAFAEL MCDONOUGH Procedure: XR chest 1V ONE-VIEW CHEST RADIOGRAPH, 12/16/2024 2:45 PM EST COMPARISON: None CLINICAL HISTORY: Weakness/weakness with nosebleeds on and off for 2 weeks. Vomiting blood yesterday. Complaint of fever, chills, temperature of 100 with congestion and right-sided abdominal pain. FINDINGS: No acute cardiopulmonary disease. No pulmonary edema, pneumothorax, or pleural effusion. Normal heart size. No acute osseous abnormality. XR/XR chest 1V IMPRESSION: No acute abnormality identified. Electronically authenticated by: Nadege HUMPHRIES Date: 12/16/2024 15:28
--- NOTE | 2024-12-16 14:13 | CT_ITS ---
[address] [address] Patient Name: XAVIER GUERRA MRN: [id number] date: 1985 Sex: M Assigned Patient Location: ER Current Patient Location: ER Accession/Order Number: [id number] Exam Date: 12/16/2024 14:51 Report Date: 12/16/2024 15:29 At the request of: RAFAEL MCDONOUGH Procedure: CT abdomen pelvis w con CT ABDOMEN/PELVIS WITH IV CONTRAST. INDICATION: Vomiting, abdominal pain. COMPARISON: There are no other studies available for comparison. TECHNIQUE: Contiguous axial images were obtained from the lung bases to the pelvic floor following the intravenous administration of contrast. Coronal and sagittal reformations are provided. FINDINGS: LOWER LUNGS: Clear. LIVER/BILIARY TREE: There is an 8 mm low-density lesion in the inferior right hepatic lobe. There is also a 7 mm low-density cystic lesion in the dome of the liver. No intrahepatic ductal dilatation. Cirrhotic liver. GALLBLADDER: Distended gallbladder. No radiopaque stone. CBD: Normal CBD. SPLEEN: Normal in size. PANCREAS: No acute findings. No peripancreatic fluid or inflammation. No pancreatic duct dilatation. No discrete mass. ADRENALS: Normal. KIDNEYS: No hydronephrosis. No radiopaque calculus. STOMACH AND BOWEL: Stomach is unremarkable. No dilated bowel loops. No bowel wall thickening. APPENDIX: Visualized portions appear unremarkable. PERITONEAL CAVITY: No fluid. No fat stranding. ABDOMINAL WALL: No subcutaneous stranding. No subcutaneous fluid collection. LYMPH NODES: There is a mildly enlarged periportal lymph node measuring 1.17 m in short axis, which is nonspecific. ABDOMINAL AORTA: No aneurysm. PELVIS: No acute abnormality. MUSCULOSKELETAL: No acute osseous abnormality. CT/CT abdomen pelvis w con IMPRESSION: 1. No acute abnormality in the abdomen or pelvis. 2. Cirrhotic liver. No ascites. 3. Few low-density subcentimeter hepatic cysts. Electronically authenticated by: LORETA ASHBY Date: 12/16/2024 15:29
[2024-12-16] MEDS: 0.9 % SODIUM CHLORIDE 1,000 ML 999 ML IV (14:29)
[2024-12-16] MEDS: ONDANSETRON PF 4 MG/2 ML VIAL IV (14:30)
[2024-12-16] MEDS: PANTOPRAZOLE SODIUM 40 MG VIAL IV (14:32)
[2024-12-16 14:36] LABS: Basophils Absolute Auto 0.2 10^3/uL (0.0-0.1); Basophils Percent Auto 1.2 % (0.2-2.0); Eosinophils Absolute Auto 0.2 10^3/uL (0.0-0.7); Eosinophils Percent Auto 1.3 % (0.9-7.0); Hematocrit 31.7 % (42.0-54.0); Hemoglobin 10.6 g/dL (14.0-18.0); Immature Granulocytes Abs Auto 0.07 10^3/uL (0.00-0.03); Immature Granulocytes Pct Auto 0.5 % (0.0-0.5); Lymphocytes Absolute Auto 2.2 10^3/uL (1.2-3.8); Lymphocytes Percent Auto 17.2 % (20.5-60.0); Mean Corpuscular HGB Conc 33.4 g/dL (29.9-35.2); Mean Corpuscular Hemoglobin 34.6 pg (25.9-34.0); Mean Corpuscular Volume 103.6 fL (80.0-94.0); Mean Platelet Volume 10.5 fL (9.5-13.5); Monocytes Absolute Auto 1.4 10^3/uL (0.3-0.8); Monocytes Percent Auto 10.9 % (1.7-12.0); Neutrophils Percent Auto 68.9 % (43.0-75.0); Platelet Count 239 10^3/uL (150-450); Red Blood Count 3.06 10^6/uL (4.70-6.10); Red Cell Distribution Width 13.2 % (11.0-15.0)
[2024-12-16 14:37] LABS: PCO2 VBG 35.5 mmHg (40.0-52.0); pH VBG 7.465 (7.330-7.430)
[2024-12-16 14:41] LABS: Influenza Virus A Antigen Negative; Influenza Virus B Antigen Negative; Internal Control Within Normal Limits; SARS-CoV-2 Ag NEGATIVE (NEGATIVE)
--- NOTE | 2024-12-16 14:46 | PC.NURSE ---
pt to imaging via wheelchair at this time.
[2024-12-16 14:49] LABS: Ethanol <3 mg/dL; INR 1.59; Prothrombin Time 16.1 sec (9.0-11.6)
[2024-12-16 14:56] LABS: Troponin I High Sensitivity 43.5 pg/mL (4.0-76.1)
[2024-12-16 15:08] LABS: Alanine Aminotransferase 59 U/L (16-63); Albumin Globulin Ratio 0.6; Albumin Level 2.5 g/dL (3.4-5.0); Alkaline Phosphatase 127 U/L (46-116); Anion Gap 11.2; Aspartate Amino Transferase 127 U/L (15-37); BUN Creatinine Ratio 30.7; Bilirubin Total 6.2 mg/dL (0.2-1.0); Calcium 8.6 mg/dL (8.5-10.1); Chloride 97 mmol/L (98-107); Estimated GFR (African America >60 (>=60 mL/min/1.73m^2); Estimated GFR (Non-African Ame 51 (>=60 mL/min/1.73m^2); Globulin 4.5 g/dL; Glucose 123 mg/dL (74-106); Potassium 4.2 mmol/L (3.5-5.1); Sodium 132 mmol/L (136-145)
[2024-12-16 15:11] LABS: Bilirubin Direct 2.4 mg/dL (0.0-0.2); Lactate/Lactic Acid 3.2 mmol/L (0.4-2.0)
[2024-12-16 15:39] VITALS: BP 130/64; PULSE 84; O2SAT 98
== END 2024-12-16 16:26 | disposition home or self-care (01) ==
PROVIDERS: Physician Assistant; Emergency Provider Emergency Medicine; PCP Nurse Practitioner
DX: K70.30 Alcoholic cirrhosis of liver without ascites (principal); R10.9 Unspecified abdominal pain; R11.2 Nausea with vomiting, unspecified
CPT/HCPCS: 36415; 71045; 74177; 80048; 80053; 80076; 80307; 80320; 81001; 82800; 83605; 83690; 84484; 85025; 85610; 85730; 86850; 86900; 86901; 87040; 87804; 87811; 93005; 96361; 96374; 96375; 99285; J2405; Q9967

== ENCOUNTER 2025-07-02 04:40 | Emergency (ER) | payer BC, SELFPAY ==
[2025-07-02] VITALS (36 sets, daily range): BP systolic 97–129; BP diastolic 50–70; PULSE 49–80; TEMP 36.4; O2SAT 92–100; BMI 269.8
--- OUTSIDE RECORDS SUMMARY | 2025-07-02 04:53 | XMS_ITS | CCD ---
Author Organization [facility] Care Team Providers Care Machine Stapler Name Role Phone REQUEST, NONE LISTED Unavailable Unavailable ALE BURNETT Unavailable Unavailable PAVLOCK, MAX Unavailable Unavailable PAVLOCK, MAX Unavailable Unavailable ALEX ORTEGA Unavailable Unavailable CECILY FUNEZ Unavailable Unavailable KATHERINE CABRERA Unavailable Unavailable PAVLOCK, MAX Unavailable Unavailable EVAN, ALBERTO Unavailable Unavailable EVAN, ALBERTO Unavailable Unavailable MISC, DOCTOR Unavailable Unavailable EVAN, ALBERTO Unavailable Unavailable EVAN, ALBERTO Unavailable Unavailable EVAN, ALBERTO Unavailable Unavailable SELF, REFERRED Unavailable Unavailable SELF, REFERRED Unavailable Unavailable UNKNOWN, PROVIDER Unavailable Unavailable PAVLOCK, MAX DALJIT Unavailable Unavailable SELF, REFERRED Unavailable Unavailable ANA, DANIS Unavailable Unavailable DC Unavailable Unavailable UNKNOWN, PROVIDER Unavailable Unavailable EVAN, [...] Attending Unavailable Lazarus, Nohelia Houston Admitting Unavailable Mary Vázquez Attending Unavailable Mouchli, Mohamad A. Admitting Unavailable Unavailable Primary Care Provider Unavailabl e Mary Vázquez A. Attending Unavailable Lazarus, Nohelia L Attending Unavailable Lazarus, Nohelia L Attending Unavailable Lazarus, Nohelia L Attending Unavailable Margo Vázquezd A. Attending Unavailable MouchLoida donaldamad A. Admitting Unavailable MouchLoida donaldamad A. Attending Unavailable MoMargo rubiod A. Attending Unavailable Margo Vázquezd A. Attending Unavailable MoLoida rubioamad A. Admitting Unavailable MouchLoida donaldamad A. Attending Unavailable MouchliLoidaamad A. Admitting Unavailable MoLoida rubioamad A. Attending Unavailable Loida Vázquezamad A. Admitting Unavailable Lazarus, BUMPER OPERATOR Nohelia L Attending Unavailable Lazarus, BUMPER OPERATOR Nohelia L Attending Unavailable Lazarus, BUMPER OPERATOR Nohelia L Attending Unavailable Lazarus, BUMPER OPERATOR Nohelia L Attending Unavailable Allergies Allergy Classification Reported Allergen(s) Allergy Type Date of Onset Reaction(s) Facility (3 sources) Sulfonamides (Antibiotic) Drug allergy (disorder) 8 [facility] Repository (5 sources) No Known Medication Allergies; Translations: [No Known Medication Allergies] Propensity to adverse reactions (disorder) [facility] Repository (7 sources) Sulfonamides (Antibiotic) Drug Allergy 8 Unknown [facility] Medications Current Medications Medication Drug Class(es) Dates Sig (Normalized) Sig (Original) amoxicillin 875 mg oral tablet (1 source) Penicillin-class Antibacterial Start: 11-24-2024 End: 12-01-2024 take 1 tablet by mouth twice daily amoxicillin 875 mg Tab 875 mg = 1 tab(s), Oral, BID, X 7 day(s), # 14 tab(s), Refills(s) 0, Pharmacy: [facility]/pharmacy #[id number], 182, cm, 11/24/24 14:45:00 EST, Height/Length Dosing, 97.8, kg, 11/24/24 14:45:00 EST, Weight Dosing Start Date: 11/24/24 Stop Date: 12/01/24 Status: Ordered amoxicillin 875 mg / clavulanate 125 mg oral tablet (3 sources) Penicillin-class Antibacterial Start: 12-29-2024 End: 01-28-2025 take 1 tablet by mouth every twelve hours Augmentin 875 mg oral tablet = 1 tab(s), Oral, q12hr, X 30 day(s), # 60 tab(s), Refills(s) 0, Pharmacy: [facility]/pharmacy #[id number], 182, cm, 12/29/24 15:38:00 EST, Height/Length Dosing, 94.5, kg, 12/29/24 15:38:00 EST, Weight Dosing Start Date: 12/29/24 Stop Date: 01/28/25 Status: Ordered 24 hr amphetamine aspartate 6.25 mg / amphetamine sulfate 6.25 mg / dextroamphetamine saccharate 6.25 mg / dextroamphetamine sulfate 6.25 mg extended release oral capsule (8 sources) Central Nervous System Stimulant Start: 12-29-2024 Adderall 10 mg oral tablet 10 mg, 1 tab(s), Oral, Noon, 30 tab(s), Refill(s) 0, [facility]/pharmacy #[id number], 182, cm, 12/29/24 15:38:00 EST, Height/Length Dosing, 94.5, kg, 12/29/24 15:38:00 EST, Weight Dosing Start Date: 12/29/24 Status: Ordered Start: 12-29-2024 Adderall XR 25 mg oral capsule, extended release 25 mg, 1 cap(s), Oral, qAM, 30 cap(s), Refill(s) 0, [facility]/pharmacy #[id number], 182, cm, 12/29/24 15:38:00 EST, Height/Length Dosing, 94.5, kg, 12/29/24 15:38:00 EST, Weight Dosing Start Date: 12/29/24 Status: Ordered ciprofloxacin 3 mg/ml / dexamethasone 1 mg/ml otic suspension (1 source) Corticosteroid, Quinolone Antimicrobial Start: 11-25-2024 End: 12-02-2024 Ciprodex 0.3%-0.1% Susp-Otic 4 drop(s), Otic, BID for 7 day(s), 7.5 mL, Refill(s) 0, [facility]/pharmacy #[id number], 182, cm, 11/24/24 14:45:00 EST, Height/Length Dosing, 97.8, kg, 11/24/24 14:45:00 EST, Weight Dosing Start Date: 11/25/24 Stop Date: 12/02/24 Status: Ordered hydroCHLOROthiazide 12.5 mg oral capsule (6 sources) Thiazide Diuretic Start: 11-24-2024 take 1 capsule by mouth once daily as needed for edema hydrochlorothiazide 12.5 mg Cap 12.5 mg = 1 cap(s), Oral, Daily, PRN Edema, # 30 cap(s), Refills(s) 4, [id number], cm, 08/11/24 13:17:00 EDT, Height/Length Dosing, 96.3, kg, 08/11/24 13:17:00 EDT, Weight Dosing Start Date: 11/24/24 Status: Ordered hydroCHLOROthiazide 25 mg / metoprolol tartrate 100 mg oral tablet (1 source) Thiazide Diuretic, beta-Adrenergic Petra Start: 03-21-2024 hydrochlorothiazide-me toprolol 25 mg-100 mg oral tablet 1 tab(s), Oral, BID, 60 tab(s), [facility](s) 2[id number], cm, 03/21/24 13:11:00 EDT, Height/Length Dosing, 97, kg, 03/21/24 13:11:00 EDT, Weight Dosing Start Date: 03/21/24 Status: Ordered losartan potassium 100 mg oral tablet (7 sources) Angiotensin 2 Receptor Petra Start: 05-21-2024 End: 05-16-2025 take 1 tablet by mouth once daily losartan 100 mg Tab 100 mg = 1 tab(s), Oral, Daily, X 90 day(s), # 90 tab(s), Refills(s) 3, [id number], cm, 05/21/24 17:12:00 EDT, Height/Length Dosing, 92.1, kg, 05/21/24 17:12:00 EDT, Weight Dosing Start Date: 05/21/24 Stop Date: 05/16/25 Status: Ordered Potassium Chloride (4 sources) Start: 01-22-2025 take 1 tablet by mouth twice daily Potassium Chloride (Sil-Fske-Jxv M20) 20 mEq oral tablet, extended release See Instructions, TAKE 1 TABLET BY MOUTH TWICE A DAY, # 60 tab(s), Refills(s) 5, Pharmacy: [facility] STORE [id number], 182, cm, 12/31/24 14:39:00 EST, Height/Length Dosing, 92.8, kg, 12/31/24 14:39:00 EST, Weight Dosing Start Date: 01/22/25 Status: Ordered Start: 11-26-2024 take 1 tablet by dolly th twice daily Potassium Chloride (Lcm-Pfmj-Gdk M20) 20 mEq oral tablet, extended release TAKE 1 TABLET BY MOUTH TWICE A DAY Start Date: 11/26/24 Status: Ordered Start: 06-30-2024 take 1 tablet by dolly th twice daily Klor-Con M20 oral tablet, extended release See Instructions, TAKE 1 TABLET BY MOUTH TWICE A DAY, # 180 tab(s), Refills(s) 1, Pharmacy: [id number], 182, cm, 05/26/24 10:41:00 EDT, Height/Length Dosing, 93.6, kg, 05/26/24 10:41:00 EDT, Weight Dosing Start Date: 06/30/24 Status: Ordered Problems Problem Classification Problem Date Documented Date Episodic/Chronic Alcohol-related disorders (4 sources) Alcohol abuse, uncomplicated; Translations: [Portal cirrhosis] Onset: 08-27-2018 01-15-2025 Chronic Attention-deficit, conduct, and disruptive behavior disorders (4 sources) Attention deficit hyperactivity disorder 12-29-2024 Chronic Biliary tract disease (5 sources) Disorder of biliary tract; Translations: [Other specified diseases of biliary tract] Onset: 12-31-2024 Chronic Biliary tract disease (6 sources) Acute cholecystitis; Translations: [Cholelithiasis without obstruction] Onset: 09-02-2018 Episodic Cardiac dysrhythmias (8 sources) Supraventricular tachycardia; Translations: [SUPRAVENTRICULAR TACHYCARDIA] Onset: 09-03-2018 Chronic Cardiac dysrhythmias (4 sources) Palpitations; Translations: [Tachycardia, unspecified] Onset: 08-27-2018 Episodic Conduction disorders (10 sources) Pre-excitation syndrome; Translations: [Edinv-Lrutzzssp-Vqged pattern] Onset: 08-27-2018 03-21-2024 Chronic Essential hypertension (8 sources) Hypertensive disorder 03-21-2024 Chronic Fever of unknown origin (6 sources) Fever 08-11-2024 Episodic Fluid and electrolyte disorders (8 sources) Dehydration; Translations: [Hypokalemia] Onset: 09-02-2018 04-11-2024 Episodic Headache; including migraine (4 sources) Headache 12-29-2024 Episodic Malaise and fatigue (8 sources) Fatigue 03-21-2024 Episodic Nausea and vomiting (10 sources) Nausea and vomiting; Translations: [Vomiting] 08-11-2024 Episodic Other ear and sense organ disorders (6 sources) Pain of ear structure 11-26-2024 Episodic Other eye disorders (5 sources) Scleral icterus 11-27-2024 Episodic Other liver diseases (5 sources) Cirrhosis of liver; Translations: [Unspecified cirrhosis of liver] Onset: 12-31-2024 Chronic Other liver diseases (1 source) Portal cirrhosis 01-15-2025 Chronic Other liver diseases (1 source) Abnormal levels of other serum enzymes; Translations: [ABNORMAL LEVELS OTHER SERUM ENZYMES] Onset: 09-02-2018 Episodic Other liver diseases (7 sources) ALT (SGPT) level raised 04-11-2024 Episodic Other liver diseases (7 sources) Elevated liver enzymes level 04-11-2024 Episodic Other liver diseases (1 source) Enzyme level - finding; Translations: [Abnormal levels of other serum enzymes] Onset: 12-30-2024 Episodic Other liver diseases (4 sources) Jaundice 12-16-2024 Episodic Other lower respiratory disease (8 sources) Dyspnea 03-21-2024 Episodic Other nervous system disorders (7 sources) Numbness of lower limb 08-06-2024 Episodic Other nervous system disorders (6 sources) Numbness of upper limb 11-26-2024 Episodic Other nutritional; endocrine; and metabolic disorders (6 sources) Body mass index 25-29 - overweight 08-11-2024 Episodic Other nutritional; endocrine; and metabolic disorders (6 sources) Overweight in adulthood with body mass index of 25 or more but less than 30 08-11-2024 Episodic Other nutritional; endocrine; and metabolic disorders (4 sources) Weight loss 12-16-2024 Episodic Other upper respiratory infections (6 sources) Sinusitis 11-24-2024 Chronic Other upper respiratory infections (13 sources) Streptococcal sore throat; Translations: [Sore throat symptom] 05-26-2024 Episodic Otitis media and related conditions (13 sources) Otitis media of left ear; Translations: [Otitis media of right ear] 05-26-2024 Episodic Violette-; endo-; and myocarditis; cardiomyopathy (except that caused by tuberculosis or sexually transmitted disease) (1 source) Dilated cardiomyopathy; Translations: [DILATED CARDIOMYOPATHY] Onset: 09-02-2018 Chronic Residual codes; unclassified (1 source) Awaiting transplantation of liver; Translations: [Awaiting organ transplant status] 01-30-2025 Chronic Residual codes; unclassified (8 sources) Current drinker 03-21-2024 Episodic Residual codes; unclassified (8 sources) Edema of lower extremity 03-21-2024 Episodic Residual codes; unclassified (6 sources) Generalized aches and pains 08-11-2024 Episodic Residual codes; unclassified (6 sources) Tobacco user 11-24-2024 Episodic Residual codes; unclassified (1 source) H/O: Disorder; Translations: [Personal history of other specified conditions] Onset: 12-31-2024 Episodic Residual codes; unclassified (1 source) Pain, unspecified; Translations: [Pain, unspecified] Onset: 02-03-2025 Episodic Substance-related disorders (4 sources) Nicotine dependence, cigarettes, uncomplicated; Translations: [Cocaine abuse, uncomplicated] Onset: 08-27-2018 Chronic Syncope (4 sources) Syncope 12-16-2024 Episodic Unclassified (2 sources) Unknown / UNK(Unknown) Onset: 09-03-2018 Unclassified (8 sources) Patient encounter status 03-21-2024 Unclassified (4 sources) History of clinical finding in subject 12-31-2024 Unclassified (1 source) Awaiting transplantation of liver 02-02-2025 Results Test Name Value Interpretation Reference Range Facil ity Family Medicine Office/Clini c Noteon 06-17-2025 Family Medicine Office/Clinic Note Family Medicine Office/Clinic Note HPI Staff pt presents today for 3 month med check ADHD will update me agreement today UDS up to date Has been on Adderall Sleeping well: yes Eating habits: Eating well, maintaining weight Side effects: Focused at home: Concerns/complaints: None OARRS reviewed with no concerns Last med refill: 06/12/25 Urine drug screen complete: yes 03/25/25 Medication agreement utd: yes Date: needs updated today History of Present Illness pt presents today for 3 mnth med check Review of Systems PHQ Score Initial Depression Screen Score: 0 SCORE Physical Exam Vitals & Measurements T: 36.5 ???C(Temporal Artery) HR: 76(Peripheral) RR: 18 BP: 116/68 SpO2: 100% HT: 182.0 cm HT: 72 in WT: 90.0 kg WT: 198.416 lb BMI: 27.17 General: alert, no acute distress ENMT: oral mucosa moist, no pharyngeal erythema or exudate Cardiovascular: regular rate and rhythm, normal peripheral perfusion Respiratory: Lungs CTA, respirations non labored Extremities: no deformity, no trauma Neurological: oriented x 4, LOC appropriate for age, CN II-XII intact, motor strength equal & normal bilaterally, speech normal Assessment/Plan 1. ADHD (F90.9: Attention-deficit hyperactivity disorder, unspecified type) pt presents today for 3 month med check. doing well on current dose. all questions answered. med agreement up to date as well as UDS.RTC 3 months 2. Tobacco use (Z72.0: Tobacco use) consider not smoking 3. BMI 27.0-27.9,adult (Z68.27: Body mass index [BMI] 27.0-27.9, adult) BMI education given 4. Overweight (BMI 25.0-29.9) (E66.3: Overweight) see above Follow-up No qualifying data available Problem List/Past Medical History Ongoing ADHD Alcohol use Body aches Cholelithiasis Cirrhosis of liver Common bile duct dilation Ear pain Elevated ALT measurement Elevated liver enzymes Fatigue Fever Headache History of alcohol use Hypertension Hypokalemia Jaundice Left arm numbness Left otitis media Lower extremity edema Lower extremity numbness Nausea and vomiting in adult Otitis media, right Right knee pain Screening for hyperlipidemia Shortness of breath Sinusitis Sore throat Strep throat Syncope Vomiting Weight loss Aohgo-Jyrlncfyz-Cpfy e syndrome Yellow eyes Historical No qualifying data Procedure/Surgical History Nicola Parkinson White syndrome. Medications Adderall 10 mg oral tablet, 10 mg= 1 tab(s), Oral, Noon Adderall XR 25 mg oral capsule, extended release, 25 mg= 1 cap(s), Oral, qAM hydrochlorothiazide 12.5 mg Cap, 12.5 mg= 1 cap(s), Oral, Daily, PRN losartan 100 mg Tab, 100 mg= 1 tab(s), Oral, Daily, 3 refills Potassium Chloride (Wml-Thfp-Egp M20) 20 mEq oral tablet, extended release, See Instructions Allergies No Known Medication Allergies Social History Alcohol Current. Liquor. Daily., 11/24/2024 Substance Abuse Never., 12/11/2024 Tobacco 10 or more cigarettes (1/2 pack or more)/day in last 30 days Tobacco Use:. Never Smokeless Tobacco Use:. Cigarettes, Household tobacco concerns: No. Yes, 06/17/2025 Family History Heart murmur: Mother. Hypertension: Father. Hyperthyroidism: Mother. Immunizations Vaccine Date Status Comments influenza virus vaccine, inactivated - Not Given Patient Refuses influenza virus vaccine, inactivated 08/28/2022 Recorded SARSCoV2 mRNA(tozinamer-kenn- sucros) vac 02/01/2022 Recorded SARS-CoV-2 (COVID-19) mRNA BNT-162b2 vax 09/02/2021 Recorded SARS-CoV-2 (COVID-19) mRNA BNT-162b2 vax 08/12/[address] [facility] Comment on above: Result Comment: Elec tronically Signed By: Nohelia Pena\.br\Date and Time Signed: 06/17/25 16:34 EDT Family Medicine Office/Clini c Noteon 05-27-2025 Family Medicine Office/Clinic Note Family Medicine Office/Clinic Note HPI Staff Patient is presenting for right knee pain Pain characteristics: Pain location: Right knee Intensity:_ Onset: Medication used: History of Present Illness pt presents today for right knee pain Review of Systems PHQ Score Initial Depression Screen Score: 0 SCORE Physical Exam Vitals & Measurements T: 36.5 ???C(Temporal Artery) HR: 78(Peripheral) RR: 20 BP: 130/84 SpO2: 99% HT: 72 in HT: 182.0 cm WT: 94.8 kg WT: 208.998 lb BMI: 28.62 General: alert, no acute distress ENMT: oral mucosa moist, no pharyngeal erythema or exudate Cardiovascular: regular rate and rhythm, normal peripheral perfusion Respiratory: Lungs CTA, respirations non labored Extremities: no deformity, no trauma Neurological: oriented x 4, LOC appropriate for age, CN II-XII intact, motor strength equal & normal bilaterally, speech normal tenderness of right medial aspect of knee Assessment/Plan 1. Right knee pain (M25.561: Pain in right knee) pt is c/o worsening right knee pain. it will swell up, be very painful and sometimes he feels like it gives out on him. no swelling noted today, but he does have some tenderness on medial aspect of right knee. will give 40mg Kenalog in office today. will order x ray. pt was provided at home exercises to do. RTC 6 weeks. if no improvement will order MRI Ordered: triamcinolone, 40 mg = 1 mL, Injection, IntraARTICULAR, Once, Stop date 05/27/25 14:28:00 EDT, Routine, Start date 05/27/25 14:28:00 EDT, 05/27/25 14:28:00 EDT XR Knee Complete 4+ Views Right 2. BMI 28.0-28.9,adult (Z68.28: Body mass index [BMI] 28.0-28.9, adult) BMI education 3. Tobacco use (Z72.0: Tobacco use) consider not smoking Follow-up No qualifying data available Problem List/Past Medical History Ongoing ADHD Alcohol use BMI 28.0-28.9,adult Body aches Cholelithiasis Cirrhosis of liver Common bile duct dilation Ear pain Elevated ALT measurement Elevated liver enzymes Fatigue Fever Headache History of alcohol use Hypertension Hypokalemia Jaundice Left arm numbness Left otitis media Lower extremity edema Lower extremity numbness Nausea and vomiting in adult Otitis media, right Right knee pain Screening for hyperlipidemia Shortness of breath Sinusitis Sore throat Strep throat Syncope Vomiting Weight loss Nlmbw-Tffripnpi-Mmre e syndrome Yellow eyes Historical No qualifying data Procedure/Surgical History Nicola Parkinson White syndrome. Medications Adderall 10 mg oral tablet, 10 mg= 1 tab(s), Oral, Noon Adderall XR 25 mg oral capsule, extended release, 25 mg= 1 cap(s), Oral, qAM hydrochlorothiazide 12.5 mg Cap, 12.5 mg= 1 cap(s), Oral, Daily, PRN, 4 refills losartan 100 mg Tab, 100 mg= 1 tab(s), Oral, Daily, 3 refills Potassium Chloride (Mtz-Sanh-Qsv M20) 20 mEq oral tablet, extended release, See Instructions Allergies No Known Medication Allergies Social History Alcohol Current. Liquor. Daily., 11/24/2024 Substance Abuse Never., 12/11/2024 Tobacco 10 or more cigarettes (1/2 pack or more)/day in last 30 days Tobacco Use:. Never Smokeless Tobacco Use:. Cigarettes, Household tobacco concerns: No. Yes, 05/27/2025 Family History Heart murmur: Mother. Hypertension: Father. Hyperthyroidism: Mother. Immunizations Vaccine Date Status Comments influenza virus vaccine, inactivated - Not Given Patient Refuses influenza virus vaccine, inactivated 08/28/2022 Recorded SARSCoV2 mRNA(tochinamer-kenn- sucros) vac 02/01/2022 Recorded SARS-CoV-2 (COVID-19) mRNA BNT-162b2 vax 09/02/2021 Recorded SARS-CoV-2 (COVID-19) mRNA BNT-162b2 vax 08/12/[address] [facility] Comment on above: Result Comment: Elec tronically Signed By: Nohelia Pena\.dionicio\Date and Time Signed: 05/27/25 15:42 EDT CNPNon 04-09-2025 CNPN Telephone ([facility]) CHARLIEJAMES ([id number]) 1985 M Date Time Provider Department 04/09/25 YULI TODD [facility] During your visit today, we recorded the following information about you: Yuli Todd RN 04/09/2025 10:47 AM Signed Attempted to call pt's again for f/u to see if he was still interested in coming to [facility] for txp evaluation. I left her a vm to return my call to let me know interest. Will send letter to pt as well. If I do not hear back by 04/17/25, will close referral. Yuli Todd RN Allergies As of Date: 04/09/2025 Noted Allergy Reaction SULFA (SULFONAMIDE ANTIBIOTICS) 08/28/2018 16 - Unknown Date Reviewed: Never Reviewed Reason for Visit: Follow Up [171] Cmt: unable to reach Problem List As Of Date: 04/09/2025 (None) Letter Text Encounter Status:Closed by YULI TODD on 04/09/25 [facility] 04-01-2025 CNPN Telephone ([facility]) JAMES DEL RIO ([id number]) 1985 M Date Time Provider Department 04/01/25 YULI TODD [facility] During your visit today, we recorded the following information about you: Yuli Todd RN 04/01/2025 11:07 AM Signed Call to pt's to f/u if pt wants to come to [facility] for eval. Had to leave a message with my contact information for return call. Yuli Todd RN Allergies As of Date: 04/01/2025 Noted Allergy Reaction SULFA (SULFONAMIDE ANTIBIOTICS) 08/28/2018 16 - Unknown Date Reviewed: Never Reviewed Reason for Visit: Follow Up [171] Problem List As Of Date: 04/01/2025 (None) Encounter Status:Closed by YULI TODD on 04/01/25 [facility] Family Medicine Office/Clini c Noteon 03-25-2025 Family Medicine Office/Clinic Note Family Medicine Office/Clinic Note Chief Complaint 3m follow up HPI Staff 3m follow up Has been on adderall Sleeping well: yes Eating habits: Eating well, maintaining weight Side effects: _ Focused at home: _ Concerns/complaints: None OARRS reviewed with no concerns Last med refill: _03/06/25 Urine drug screen complete: no DUE TODAY Medication agreement utd: yes Date: 12/29/24 [facility] given abx for ear pain. Possible referral to ENT if no improvement. Nurtec samples also given at [facility] for tx of headaches. Has quit drinking alcohol since [facility]. Has been following up with [facility] for cirrhosis. Is currently on Liver transplant list with [facility]. History of Present Illness pt presents today for 3 month med check Review of Systems PHQ Score Initial Depression Screen Score: 0 SCORE Physical Exam Vitals & Measurements T: 36.9 ???C(Tympanic) HR: 104(Peripheral) RR: 18 BP: 138/82 SpO2: 98% HT: 72 in HT: 182 cm WT: 94.8 kg WT: 208.998 lb BMI: 28.62 General: alert, no acute distress ENMT: oral mucosa moist, no pharyngeal erythema or exudate Cardiovascular: regular rate and rhythm, normal peripheral perfusion Respiratory: Lungs CTA, respirations non labored Extremities: no deformity, no trauma Neurological: oriented x 4, LOC appropriate for age, CN II-XII intact, motor strength equal & normal bilaterally, speech normal Assessment/Plan 1. ADHD (F90.9: Attention-deficit hyperactivity disorder, unspecified type) pt presents today for 3 month follow up. pt is doing well on current dose. medication agreement up to date. UDS obtained today. RTC 3 months Ordered: Drug Screen POC 44225 2. BMI 28.0-28.9,adult (Z68.28: Body mass index [BMI] 28.0-28.9, adult) BMI education 3. Overweight (BMI 25.0-29.9) (E66.3: Overweight) see above 4. Tobacco use (Z72.0: Tobacco use) consider not smoking Follow-up No qualifying data available Problem List/Past Medical History Ongoing ADHD Alcohol use BMI 28.0-28.9,adult Body aches Cholelithiasis Cirrhosis of liver Common bile duct dilation Ear pain Elevated ALT measurement Elevated liver enzymes Fatigue Fever Headache History of alcohol use Hypertension Hypokalemia Jaundice Left arm numbness Left otitis media Lower extremity edema Lower extremity numbness Nausea and vomiting in adult Otitis media, right Overweight (BMI 25.0-29.9) Screening for hyperlipidemia Shortness of breath Sinusitis Sore throat Strep throat Syncope Vomiting Weight loss Tjhnm-Ejdifqeip-Wpfj e syndrome Yellow eyes Historical No qualifying data Procedure/Surgical History Nicola Parkinson White syndrome. Medications Adderall 10 mg oral tablet, 10 mg= 1 tab(s), Oral, Noon Adderall XR 25 mg oral capsule, extended release, 25 mg= 1 cap(s), Oral, qAM hydrochlorothiazide 12.5 mg Cap, 12.5 mg= 1 cap(s), Oral, Daily, PRN, 4 refills losartan 100 mg Tab, 100 mg= 1 tab(s), Oral, Daily, 3 refills Potassium Chloride (Hlv-Ygdm-Vpp M20) 20 mEq oral tablet, extended release, See Instructions Allergies No Known Medication Allergies Social History Alcohol Current. Liquor. Daily., 11/24/2024 Substance Abuse Never., 12/11/2024 Tobacco 10 or more cigarettes (1/2 pack or more)/day in last 30 days Tobacco Use:. Never Smokeless Tobacco Use:. Cigarettes, Household tobacco concerns: No. Yes, 03/25/2025 Family History Heart murmur: Mother. Hypertension: Father. Hyperthyroidism: Mother. Immunizations Vaccine Date Status Comments influenza virus vaccine, inactivated - Not Given Patient Refuses influenza virus vaccine, inactivated 08/28/2022 Recorded SARSCoV2 mRNA(tozinamer-kenn- sucros) vac 02/01/2022 Recorded SARS-CoV-2 (COVID-19) mRNA BNT-162b2 vax 09/02/2021 Recorded SARS-CoV-2 (COVID-19) mRNA BNT-162b2 vax 08/12/2021 Recorded Lab Results Ambulatory Point of Care Results Cocaine Result: Negative (03/25/25 16:30:00) Amphetamines Result: Positive (03/25/25 16:30:00) Barbiturates Result: Negative (03/25/25 16:30:00) MDMA Result: Negative (03/25/25 16:30:00) Methadone Result: Negative (03/25/25 16:30:00) Opiates Result: Negative (03/25/25 16:30:00) Oxycodone Result: Negative (03/25/25 16:30:00) Phencyclidine (PCP) Result: Negative (03/25/25 16:30:00) Tricyclic Antidepressants Result: Negative (03/25/25 16:30:00) Benzodiazepines Quant: Negative (03/25/25 16:30:00) THC Result POC: Negative (03/25/25 16:30:00) Normal [facility] Comment on above: Result Comment: Elec tronically Signed By: Nohelia Pena\.br\Date and Time Signed: 03/25/25 18:02 EDT Naveed 03-18-2025 FANTASMAN Telephone (TXCTMN) JAMES DEL RIO ([id number]) 1985 M Date Time Provider Department 03/18/25 YULI TODDMN During your visit today, we recorded the following information about you: Yuli Todd RN 03/18/2025 1:03 PM Signed I called pt's , she states that they want to wait until after next set of labs to see if the MELD goes down. She states it went from 25 to 16 so they aren't sure if he will still need to come if it goes down further. He is getting labs beginning of March (03/25/25). She will call me back after labs to let me know decision. Yuli Todd RN Allergies As of Date: 03/18/2025 Noted Allergy Reaction SULFA (SULFONAMIDE ANTIBIOTICS) 08/28/2018 16 - Unknown Date Reviewed: Never Reviewed Reason for Visit: Referral - Liver Txp [[id number]] Follow Up [171] Problem List As Of Date: 03/18/2025 (None) Encounter Status:Closed by YULI TODD on 03/18/25 [facility] 03-09-2025 CNPN Telephone (TXCTMN) JAMES DEL RIO ([id number]) 1985 M Date Time Provider Department 03/09/25 MADI LEONARD TXCTMN During your visit today, we recorded the following information about you: Madi Leonard RN 03/09/2025 11:37 AM Signed I called patient again today for consent and to see if he was coming to appt on Sun. Had to leave message. I asked that he call our office back to confirm. Allergies As of Date: 03/09/2025 Noted Allergy Reaction SULFA (SULFONAMIDE ANTIBIOTICS) 08/28/2018 16 - Unknown Date Reviewed: Never Reviewed Reason for Visit: Patient Update [1234] Problem List As Of Date: 03/09/2025 (None) Encounter Status:Closed by [facility] Telephone (TXCTMN) JAMES DEL RIO ([id number]) 1985 Date Time Provider Department 03/05/25 MADI LEONARD TXCTMN During your visit today, we recorded the following information about you: Madi Leonard, RN 03/09/2025 11:40 AM Signed I called patient to consent him for his liver evaluation that was starting the following week. His answered- patient was in the background on the phone with someone else. She stated he couldn't talk and she didn't even know if he was going to come to [facility] next week- she will have him call me back. Allergies As of Date: 03/05/2025 Noted Allergy Reaction SULFA (SULFONAMIDE ANTIBIOTICS) 08/28/2018 16 - Unknown Date Reviewed: Never Reviewed Reason for Visit: Patient Update [1234] Problem List As Of Date: 03/05/2025 (None) Encounter Status:Closed by MADI LEONARD on 03/09/25 [facility]IO ([id number]) 1985 M Date Time Provider Department 03/04/25 LIVER TXP COORDINATOR TXCTMN During your visit today, we recorded the following information about you: Job Ledbetter II 03/04/2025 11:25 AM Signed Called patient regarding liver transplant evaluation appointment reminder, left message on voicemail Allergies As of Date: 03/04/2025 Noted Allergy Reaction SULFA (SULFONAMIDE ANTIBIOTICS) 08/28/2018 16 - Unknown Date Reviewed: Never Reviewed Reason for Visit: Reminder Call [0116] Liver Eval [[id number]] Problem List As Of Date: 03/04/2025 (None) Encounter Status:Closed by JOB LEDBETTER II on 03/04/25 [facility] 02-16-2025 CNPN Telephone (TXCTMN) JAMES DEL RIO ([id number]) 1985 M Date Time Provider Department 02/16/25 YULI TODD TXCTMN During your visit today, we recorded the following information about you: Yuli Todd RN 02/16/2025 1:56 PM Signed swathi code , pt had not signed up. I sent another email for him to sign up and also called his to let her know that another link was sent, had to leave for her. Yuli Todd RN Allergies As of Date: 02/16/2025 Noted Allergy Reaction SULFA (SULFONAMIDE ANTIBIOTICS) 08/28/2018 16 - Unknown Date Reviewed: Never Reviewed Reason for Visit: Follow Up [171] Cmt: brandiet Problem List As Of Date: 02/16/2025 (None) Encounter Status:Closed by YULI TODD on 02/16/25 [facility] AFP.tumor marker [Mass/Vol] 5.7 ng/mL Invalid Interpretation Code 0.0-6.9 [facility] Comment on above: Result Comment: [employer] Electrochemiluminescence Immunoassay (ECLIA) Values obtained with different assay methods or kits cannot be used interchangeably. Results cannot be interpreted as absolute evidence of the presence or absence of malignant disease. This test is not interpretable in females. Performed at: [facility] [id number] PhD Donna Love Performed By: #### 2 [id number] #### [facility] [address] [place] [address] Ambulatory Visit Summaryon 0 01-28-2025 Ambulatory Visit Summary Ambulatory Visit Summary JAMES DEL RIO :1985 Visit Date:01/28/2025 Ambulatory Visit Instructions Your Diagnosis Elevated liver enzymes Cirrhosis of liver Common bile duct dilation Cholelithiasis Tobacco use History of alcohol use Your Care Team Attending Physician - Gurpreet MCKNIGHT, Mary Durán Primary Care Physician - Nohelia Pena This Is Your Medications List Contact prescribing physician if questions or concerns amoxicillin-clavulan ate (Augmentin 875 mg oral tablet) amphetamine-dextroam phetamine (Adderall 10 mg oral tablet) amphetamine-dextroam phetamine (Adderall XR 25 mg oral capsule, extended release) hydrochlorothiazide (hydrochlorothiazide 12.5 mg Cap) losartan (losartan 100 mg Tab) potassium chloride (Potassium Chloride (Ing-Xyhk-Gze M20) 20 mEq oral tablet, extended release) Procedures Performed Nicola Parkinson White syndrome. Discharge Vitals Respiratory Rate 14 Height 182 cm Height 72 in Weight 93 kg Weight 205.03 lb BMI 28.08 What to do next Scheduled Follow-Up Appointments Sunday. 2024 4:00 PM EDT With: Nohelia Pena Where: [place] [id number]- You Need to Complete the Following Alpha Fetoprotein Tumor Marker, Blood, Routine collect, *Est. 01/28/25 +/- 28 day(s), Order for future visit, Lab Collect, Elevated liver enzymes Cirrhosis of liver Common bile duct dilation Cholelithiasis, Print Label By Order Location Alpha Fetoprotein Tumor Marker, Blood, Routine collect, *Est. 07/31/25 +/- 28 day(s), Order for future visit, Lab Collect, Elevated liver enzymes Cirrhosis of liver Common bile duct dilation Cholelithiasis, Print Label By Order Location CBC w/ Auto Diff, Blood, Routine collect, *Est. 01/28/25 +/- 28 day(s), Order for future visit, Lab Collect, Elevated liver enzymes Cirrhosis of liver Common bile duct dilation Cholelithiasis, Print Label By Order Location CBC w/ Auto Diff, Blood, Routine collect, *Est. 07/31/25 +/- 28 day(s), Order for future visit, Lab Collect, Elevated liver enzymes Cirrhosis of liver Common bile duct dilation Cholelithiasis, Print Label By Order Location Comprehensive Metabolic Panel, Blood, Routine collect, *Est. 01/28/25 +/- 28 day(s), Order for future visit, Lab Collect, Elevated liver enzymes Cirrhosis of liver Common bile duct dilation Cholelithiasis, Print Label By Order Location Comprehensive Metabolic Panel, Blood, Routine collect, *Est. 07/31/25 +/- 28 day(s), Order for future visit, Lab Collect, Elevated liver enzymes Cirrhosis of liver Common bile duct dilation Cholelithiasis, Print Label By Order Location PT, Blood, Routine collect, *Est. 01/28/25 +/- 28 day(s), Order for future visit, Lab Collect, Elevated liver enzymes Cirrhosis of liver Common bile duct dilation Cholelithiasis, Print Label By Order Location PT, Blood, Routine collect, *Est. 07/31/25 +/- 28 day(s), Order for future visit, Lab Collect, Elevated liver enzymes Cirrhosis of liver Common bile duct dilation Cholelithiasis, Print Label By Order Location Medications What How Much When Why Instructions Unchanged amoxicillin-clavulan ate (Augmentin 875 mg oral tablet) 1 Tablets By Mouth Every 12 hours Ear pain Headache ADHD BMI 28.0-28.9,adult Smoker Duration: 30 Days Contact prescribing physician if questions or concerns Unchanged amphetamine-dextroam phetamine (Adderall 10 mg oral tablet) 1 Tablets By Mouth At noon Ear pain Headache ADHD BMI 28.0-28.9,adult Smoker Contact prescribing physician if questions or concerns Unchanged amphetamine-dextroam phetamine (Adderall XR 25 mg oral capsule, extended release) 1 Capsules By Mouth Once a day (in the morning) Ear pain Headache ADHD BMI 28.0-28.9,adult Smoker Contact prescribing physician if questions or concerns Unchanged hydrochlorothiazide (hydrochlorothiazide 12.5 mg Cap) 1 Capsules By Mouth Every day as needed for Edema Contact prescribing physician if questions or concerns Unchanged losartan (losartan 100 mg Tab) 1 Tablets By Mouth Every day Hypertension Hypokalemia Elevated liver enzymes Elevated ALT measurement BMI 28.0-28.9,adult Smoker Duration: 90 Days Contact prescribing physician if questions or concerns Unchanged potassium chloride (Potassium Chloride (Goa-Vntd-Hyb M20) 20 mEq oral tablet, extended release) See instructions TAKE 1 TABLET BY MOUTH TWICE A DAY Contact prescribing physician if questions or concerns Allergies No Known Medication Allergies Problems Ongoing - Any problem that you are currently receiving treatment for. ADHD Alcohol use BMI 29.0-29.9,adult Body aches Cholelithiasis Cirrhosis of liver Common bile duct dilation Ear pain Elevated ALT measurement Elevated liver enzymes Fatigue Fever Headache History of alcohol use Hypertension Hypokalemia Jaundice Left arm numbne (more content not included)... Normal [facility] CBC w/ Auto Diffon 5 Basophils/100 WBC (Bld) 2.4 % High 0.0-2.0 [facility] Comment on above: Performed By: #### 2 [id number] #### [facility] [address] [place] [address] Basophils/Leukocyte s Auto (Bld) [Pure # fraction] 0.2 E9/L Normal 0.0-0.2 [facility] Comment on above: Performed By: #### 2 [id number] #### [facility] [address] [place] [address] Eosinophils (Bld) [#/Vol] 0.3 E9/L Normal 0.0-0.5 [facility] Comment on above: Performed By: #### 2 [id number] #### [facility] [address] [place] [address] Eosinophils/100 WBC (Bld) 5.3 % Normal 0.0-8.0 [facility] Comment on above: Performed By: #### 2 [id number] #### [facility] [address] [place] [address] Erythrocyte distribution width (RBC) [Ratio] 13.1 % Normal 10.9-14.2 [facility] Comment on above: Performed By: #### 2 [id number] #### [facility] [address] [place] [address] Hematocrit (Bld) [Volume fraction] 32.5 % Low 37.7-49.0 [facility] Comment on above: Performed By: #### 2 [id number] #### [facility] [address] [place] [address] Hemoglobin (Bld) [Mass/Vol] 11.3 g/dL Low 13.5-17.5 [facility] Comment on above: Performed By: #### 2 [id number] #### [facility] [address] [place] [address] Lymphocytes (Bld) [#/Vol] 2.0 E9/L Normal 1.0-4.0 [facility] Comment on above: Performed By: #### 2 [id number] #### [facility] [address] [place] [address] Lymphocytes/100 WBC (Bld) 30.8 % Normal 14.0-50.0 [facility] Comment on above: Performed By: #### 2 [id number] #### [facility] [address] [place] [address] MCH (RBC) [Entitic mass] 34.1 pg High 27.0-34.0 [facility] Comment on above: Performed By: #### 2 [id number] #### [facility] [address] [place] [address] MCHC (RBC) [Mass/Vol] 34.8 g/dL Normal 31.4-36.0 [facility] Comment on above: Performed By: #### 2 [id number] #### [facility] [address] [place] [address] MCV (RBC) [Entitic vol] 97.9 fL Normal 80.0-100.0 [facility] Comment on above: Performed By: #### 2 [id number] #### [facility] [address] [place] [address] Monocytes (Bld) [#/Vol] 0.9 E9/L Normal 0.2-1.0 [facility] Comment on above: Performed By: #### 2 [id number] #### [facility] [address] [place] [address] Neutrophils (Bld) [#/Vol] 3.1 E9/L Normal 2.0-7.5 [facility] Comment on above: Performed By: #### 2 [id number] #### [facility] [address] [place] [address] Neutrophils/100 WBC (Bld) 48.0 % Normal 36.0-75.0 [facility] Comment on above: Performed By: #### 2 [id number] #### [facility] [address] [place] [address] Platelet 197.0 E9/L Normal 150.0-500.0 [facility] Comment on above: Performed By: #### 2 [id number] #### [facility] [address] [place] [address] Platelet mean volume (Bld) [Entitic vol] 8.0 fL Normal 6.4-10.8 [facility] Comment on above: Performed By: #### 2 [id number] #### [facility] [address] [place] [address] RBC (Bld) [#/Vol] 3.3 E12/L Low 4.3-5.9 [facility] Comment on above: Performed By: #### 2 [id number] #### [facility] [address] [place] [address] WBC corrected for nucl RBC Auto (Bld) [#/Vol] 6.4 E9/L Normal 4.0-11.0 [facility] Comment on above: Performed By: #### 2 [id number] #### [facility] [address] [place] [address] CHEMISTRYOrdered By: SYSTEM SYSTEM on 01-28-2025 Albumin [Mass/Vol] 3.6 g/dL Normal 3.3 - 5.0 gm/dL R emisol Chem Albumin/Globulin [Mass ratio] 0.9 {ratio} Low 1.1 - 2.2 Remisol Chem ALP [Catalytic activity/Vol] 77 [iU]/d Normal 21 - 98 Int._Unit/L Remisol Chem ALT No additional P-5'-P [Catalytic activity/Vol] 45 [iU]/d Normal 6 - 46 Int._Unit/L Remisol Chem Anion gap [Moles/Vol] 9 mmol/L Normal 6 - 16 mEq/L Remisol Chem AST [Catalytic activity/Vol] 68 [iU]/d High 5 - 43 Int._Unit/L Remisol Chem Bilirubin [Mass/Vol] 2.2 mg/dL High 0.0 - 1.1 mg/dL Remisol Chem Calcium [Mass/Vol] 9.5 mg/dL Normal 8.9 - 11.1 mg/dL Remisol Chem Chloride [Moles/Vol] 103 mmol/L Normal 101 - 111 mmol/L Remisol Chem CO2 [Moles/Vol] 25 mmol/L Normal 21 - 31 mmol/L Remis ol Chem Creatinine [Mass/Vol] 0.9 mg/dL Normal 0.5 - 1.3 mg/dL Remisol Chem eGFR 112 mL/min/1.73 m2 Normal >=59mL/min/1.73 m 2 Remisol Chem Globulin (S) [Mass/Vol] 3.9 g/dL Normal 1.4 - 4.0 gm/dL Remisol Chem Glucose [Mass/Vol] 98 mg/dL Normal 55 - 199 mg/dL Re misol Chem Potassium [Moles/Vol] 4.2 mmol/L Normal 3.5 - 5.3 mmol/L Remisol Chem Protein [Mass/Vol] 7.5 g/dL Normal 6.0 - 7.8 gm/dL R emisol Chem Sodium [Moles/Vol] 133 mmol/L Low 135 - 145 mmol/L Remisol Chem Urea nitrogen [Mass/Vol] 13 mg/dL Normal 5 - 21 mg/dL Remisol Chem Urea nitrogen/Creatinine [Mass ratio] 14 mg/mg Normal 10 - 20 Remisol Chem CMPon 01-28-2025 Albumin [Mass/Vol] 3.6 g/dL Normal 3.3-5.0 [facility] Comment on above: Performed By: #### 2 [id number] #### [facility] [address] [place] [address] Albumin/Globulin (S) [Mass conc ratio] 0.9 Low 1.1-2.2 [facility] Comment on above: Performed By: #### 2 [id number] #### [facility] [address] [place] [address] ALP [Catalytic activity/Vol] 77 Int._Unit/L Normal 21-98 [facility] Comment on above: Performed By: #### 2 [id number] #### [facility] [address] [place] [address] ALT No additional P-5'-P [Catalytic activity/Vol] 45 Int._Unit/L Normal 6-46 [facility] Comment on above: Performed By: #### 2 [id number] #### [facility] [address] [place] [address] Anion gap [Moles/Vol] 9 mmol/L Normal 6-16 [facility] Comment on above: Performed By: #### 2 [id number] #### [facility] [address] [place] [address] AST [Catalytic activity/Vol] 68 Int._Unit/L High 5-43 [facility] Comment on above: Performed By: #### 2 [id number] #### [facility] [address] [place] [address] Bilirubin [Mass/Vol] 2.2 mg/dL High 0.0-1.1 [facility] Comment on above: Performed By: #### 2 [id number] #### [facility] [address] [place] [address] Calcium [Mass/Vol] 9.5 mg/dL Normal 8.9-11.1 [facility] Comment on above: Performed By: #### 2 [id number] #### [facility] [address] [place] [address] Chloride [Moles/Vol] 103 mmol/L Normal 101-111 [facility] Comment on above: Performed By: #### 2 [id number] #### [facility] [address] [place] [address] CO2 [Moles/Vol] 25 mmol/L Normal 21-31 [facility] Comment on above: Performed By: #### 2 [id number] #### [facility] [address] [place] [address] Creatinine [Mass/Vol] 0.9 mg/dL Normal 0.5-1.3 [facility] Comment on above: Performed By: #### 2 [id number] #### [facility] [address] [place] [address] Globulin (S) [Mass/Vol] 3.9 g/dL Normal 1.4-4.0 [facility] Comment on above: Performed By: #### 2 [id number] #### [facility] [address] [place] [address] Glucose [Mass/Vol] 98 mg/dL Normal 55-199 [facility] Comment on above: Performed By: #### 2 [id number] #### [facility] [address] [place] [address] Potassium [Moles/Vol] 4.2 mmol/L Normal 3.5-5.3 [facility] Comment on above: Performed By: #### 2 [id number] #### [facility] [address] [place] [address] Protein [Mass/Vol] 7.5 g/dL Normal 6.0-7.8 [facility] Comment on above: Performed By: #### 2 [id number] #### [facility] [address] [place] [address] Sodium [Moles/Vol] 133 mmol/L Low 135-145 [facility] Comment on above: Performed By: #### 2 [id number] #### [facility] [address] [place] [address] Urea nitrogen [Mass/Vol] 13 mg/dL Normal 5-21 [facility] Comment on above: Performed By: #### 2 [id number] #### [facility] [address] [place] [address] Urea nitrogen/Creatinine [Mass ratio] 14 No Units Normal 10-20 [facility] Comment on above: Performed By: #### 2 [id number] #### [facility] [address] [place] [address] COAGULATIONOrdered By: Sandy Smith on 01-28-2025 INR Coag (PPP) [Relative time] 1.60 {INR} Invalid Interpretation Code [facility] Auto Coag Comment on above: Interpretive Data: I NR results are specifically intended to assess patients stabilized on long-term Anticoagulation therapy suggested INR s Less Intensive Anticoagulation 2.0 3.0 Conventional Range 3.0 4.5 PT Coag (PPP) [Time] 18.0 s High 9.4 - 12.5 second(s) [facility] Auto Coag Comment on above: Interpretive Data: 1 5 days - 4 weeks 1 - 5 months 6 -11 months 1-5 years 6-10 years 11 -17 years Mean: 11.2 (9.5-12.6) Mean: 11.0 (9.7-12.8) Mean: 11.0 (9.8-13.0) Mean: 11.3 (9.9-13.4) Mean: 11.7 (10.0-14.6) Mean: 11.8 (10.0 - 14.1) Pediatric Reference ranges were obtained from a study by Dez Tejeda et al. prepared from 1437 samples obtained at 7 different centers using the same coagulation reagent and instrumentation as [facility]. Currently there are no coagulation studies available worldwide for children to 14 days, and no normal ranges. Gastroenterology Office/Clin ic Noteon 01-28-2025 Gastroenterology Office/Clinic Note Gastroenterology Office/Clinic Note Chief Complaint 4 week follow up HPI Staff EST, 39 year old male who presents today for a 4 week follow up. -MELD SCORE 3.0 25- based off of 12/16/24 labs Last visit w/ Dr Vázquez History of Present illness PT with hx of alcohol abuse for 20 years now with cirrhosis he is not interested in endoscopy some confusion and fatigue quit drinking 2 weeks ago Assessment/Plan 1. Elevated liver enzymes (R74.8: Abnormal levels of other serum enzymes) 2. Cirrhosis of liver (K74.60: Unspecified cirrhosis of liver) 3. History of alcohol use (Z87.898: Personal history of other specified conditions) 4. Common bile duct dilation (K83.8: Other specified diseases of biliary tract) 5. Cholelithiasis (K80.20: Calculus of gallbladder without cholecystitis without obstruction) Schedule MRCP to evaluate cholelithiasis and significantly dilated common bile duct Obtain celiac panel, panel, AMA,, hepatitis A IgG levels, alpha-1 antitrypsin, iron studies, and ceruloplasmin Advised to drink 2 to 3 cups of medium roast coffee every day Advised to stick to Mediterranean diet Congratulated on quitting drinking Refer to PCP for hepatitis A and hepatitis B vaccines after obtaining titers Patient declining EGD and colonoscopy for now MRCP 01/09/25 IMPRESSION: POSSIBLE GALLBLADDER SLUDGE AND/OR TINY GALLSTONES VERSUS ARTIFACT. Laboratory Results CBC CMP PT PTT Basophil Absolute: 0 E9/L (11/26/24) A/G Ratio: 0.7 Low (11/26/24) INR: 1.46 (12/31/24) PTT: 44.2 second(s) High (12/31/24) Basophil Auto: 0.5 % (11/26/24) AGAP: 13 mEq/L (11/26/24) PT: 16.4 second(s) High (12/31/24) Eos Absolute: 0.2 E9/L (11/26/24) Albumin Lvl: 3 gm/dL Low (11/26/24) Eos Auto: 3.3 % (11/26/24) Alk Phos: 184 Int._Unit/L High (11/26/24) Hct: 36.8 % Low (11/26/24) ALT: 50 Int._Unit/L High (11/26/24) HGB: 12.7 gm/dL Low (11/26/24) AST: 191 Int._Unit/L High (11/26/24) Lymph Absolute: 1.9 E9/L (11/26/24) Bili Total: 6.3 mg/dL High (11/26/24) Lymph Auto: 29 % (11/26/24) BUN: 8 mg/dL (11/26/24) MCH: 35.7 pg High (11/26/24) BUN/Creat Ratio: 9 Low (11/26/24) MCHC: 34.6 gm/dL (11/26/24) Calcium Lvl: 8.4 mg/dL Low (11/26/24) MCV: 103.3 fL High (11/26/24) Chloride: 102 mmol/L (11/26/24) [place] Absolute: 0.5 E9/L (11/26/24) CO2: 25 mmol/L (11/26/24) [place] Auto: 7.9 % (11/26/24) Creatinine: 0.9 mg/dL (11/26/24) MPV: 9.4 fL (11/26/24) Globulin: 4.6 gm/dL High (11/26/24) Neutro Absolute: 3.9 E9/L (11/26/24) Glucose Lvl: 100 mg/dL (11/26/24) Neutro Auto: 59.3 % (11/26/24) Potassium Lvl: 3.5 mmol/L (11/26/24) Platelet: 186 E9/L (11/26/24) Sodium Lvl: 136 mmol/L (11/26/24) RBC: 3.6 E12/L Low (11/26/24) Total Protein: 7.6 gm/dL (11/26/24) RDW: 14.3 % High (11/26/24) WBC: 6.5 E9/L (11/26/24) Liver Studies A-1-AT: 236 High (12/31/24) AMA Ab Scr: <20.0 (12/31/24) ASHOK Direct: Negative (12/31/24) Ceruloplasmin: 23.9 (12/31/24) Ferritin Lvl: 335 ng/mL (12/31/24) HCV Ab: Non Reactive (11/26/24) Hep A Ab: Negative (12/31/24) Hep A IgM: Negative (11/26/24) Hep B Core IgM: Negative (11/26/24) Hep Bs Ag: Negative (11/26/24) Iron: 68 mcg/dL (12/31/24) SMA Scr: 15 (12/31/24) TIBC: 245 mcg/dL Low (12/31/24) Celiac Panel IgA Quant: 1252 High (12/31/24) t-Transglutaminase IgA: 2 (12/31/24) Vitamin D 25 Hydroxy: 19.4 ng/mL Low (12/31/24 15:34:00) MELD Lab Values Event Name Event Result Date/Time INR 1.46 12/31/24 Creatinine 0.9 mg/dL 11/26/24 Sodium Lvl 136 mmol/L 11/26/24 Albumin Lvl 3 gm/dL Low 11/26/24 Bili Total 6.3 mg/dL High 11/26/24 Review of Systems PHQ Score Initial Depression Screen Score: 0 SCORE All systems reviewed, negative except as mentioned above Physical Exam Vitals & Measurements RR: 14 HT: 72 in HT: 182 cm WT: 93 kg WT: 205.03 lb BMI: 28.08 I have reviewed HPI staff note, most recent labs and imaging, I agree with the above documentation with the following additions/exceptions : PT is doing well Quit drinking but he is still smoking Contacted the liver transplant office but he has not met them yet General: alert, no acute distress HEENT: atraumatic normocephalic Cardiovascular: regular rate and rhythm, normal peripheral perfusion Respiratory: Lungs CTA, respirations non labored Extremities: no deformity, no trauma Abdomen: Benign, soft, nontender nondistended Assessment/Plan 1. Elevated liver enzymes (R74.8: Abnormal levels of other serum enzymes) Ordered: Alpha Fetoprotein Tumor Marker Alpha Fetoprotein Tumor Marker CBC w/ Auto Diff CBC w/ Auto Diff Comprehensive Metabolic Panel Comprehensive Metabolic Panel PT PT 2. Cirrhosis of liver (K74.60: Unspecified cirrhosis of liver) Ordered: Alpha Fetoprotein Tumor Marker Alpha Fetoprotein Tumor Marker CBC w/ Auto Diff CBC w/ Auto Diff Comp (more content not included)... Normal [facility] Comment on above: Result Comment: Elec tronically Signed By: Gurpreet MCKNIGHT, Mary Durán\.br\Date and Time Signed: 01/28/25 15:23 EDT HEMATOLOGYOrdered By: SYSTEM SYSTEM on 01-28-2025 Basophils/100 WBC (Bld) 2.4 % High 0.0 - 2.0 % Remisol Heme Basophils/Leukocyte s Auto (Bld) [Pure # fraction] 0.2 E9/L Normal 0.0 - 0.2 E9/L Remisol Heme Eosinophils (Bld) [#/Vol] 0.3 E9/L Normal 0.0 - 0.5 E9/L Remisol Heme Eosinophils/100 WBC (Bld) 5.3 % Normal 0.0 - 8.0 % Remisol Heme Erythrocyte distribution width (RBC) [Ratio] 13.1 % Normal 10.9 - 14.2 % Remisol Heme Hematocrit (Bld) [Volume fraction] 32.5 % Low 37.7 - 49.0 % Remisol Heme Hemoglobin (Bld) [Mass/Vol] 11.3 g/dL Low 13.5 - 17.5 gm/dL Remisol Heme Lymphocytes (Bld) [#/Vol] 2.0 E9/L Normal 1.0 - 4.0 E9/L Remisol Heme Lymphocytes/100 WBC (Bld) 30.8 % Normal 14.0 - 50.0 % Remisol Heme MCH (RBC) [Entitic mass] 34.1 pg High 27.0 - 34.0 pg Remisol Heme MCHC (RBC) [Mass/Vol] 34.8 g/dL Normal 31.4 - 36.0 gm/dL Remisol Heme MCV (RBC) [Entitic vol] 97.9 fL Normal 80.0 - 100.0 fL Remisol Heme Monocytes (Bld) [#/Vol] 0.9 E9/L Normal 0.2 - 1.0 E9/L Remisol Heme Monocytes/100 WBC (Bld) 13.5 % Normal 4.0 - 14.0 % Remisol Heme Neutrophils (Bld) [#/Vol] 3.1 E9/L Normal 2.0 - 7.5 E9/L Remisol Heme Neutrophils/100 WBC (Bld) 48.0 % Normal 36.0 - 75.0 % Remisol Heme Platelet 197.0 E9/L Normal 150.0 - 500.0 E9/L Remiso l Heme Platelet mean volume (Bld) [Entitic vol] 8.0 fL Normal 6.4 - 10.8 fL Remisol Heme RBC (Bld) [#/Vol] 3.3 E12/L Low 4.3 - 5.9 E12/L Re misol Heme WBC corrected for nucl RBC Auto (Bld) [#/Vol] 6.4 E9/L Normal 4.0 - 11.0 E9/L Remisol Heme PTon 01-28-2025 INR Coag (PPP) [Relative time] 1.60 {INR} Invalid Interpretation Code [facility] Comment on above: Result Comment: INR results are specifically intended to assess patients stabilized on long-term Anticoagulation therapy suggested INR???s ???Less Intensive Anticoagulation??? 2.0 ??? 3.0 Conventional Range 3.0 ??? 4.5 Performed By: #### 2 [id number] #### [facility] [address] [place] [address] PT Coag (PPP) [Time] 18.0 second(s) High 9.4-12.5 [facility] Comment on above: Result Comment: 15 d ays - 4 weeks 1 - 5 months 6 -11 months 1- 5 years 6-10 years 11 -17 years Mean: 11.2 (9.5-12.6) Mean: 11.0 (9.7-12.8) Mean: 11.0 (9.8-13.0) Mean: 11.3 (9.9-13.4) Mean: 11.7 (10.0-14.6) Mean: 11.8 (10.0 - 14.1) Pediatric Reference ranges were obtained from a study by Dez Tejeda et al. prepared from 1437 samples obtained at 7 different centers using the same coagulation reagent and instrumentation as [facility]. Currently there are no coagulation studies available worldwide for children to 14 days, and no normal ranges. Performed By: #### 2 [id number] #### [facility] [address] [place] [address] eGFRon 01-28-2025 eGFR 112 mL/min/1.73 m2 Normal >=59 [facility] Comment on above: Performed By: #### 1 [id number] #### [facility] [address] [place] [address] Naveed 01-26-2025 CNPN Telephone (TXCTMN) JAMES DEL RIO ([id number]) 1985 M Date Time Provider Department 01/26/25 YULI TODD TXCTMN During your visit today, we recorded the following information about you: Yuli Todd, RN 01/30/2025 4:36 PM Signed [facility] Liver Transplant Medical Intake This is a 39 year old male with ETOH cirrhosis referred for OLT evaluation by Dr. Vázquez. MELD: 25 (pt's states MELD is down to 16) Was the pt declined at another transplant center due to cardiovascular disease: N/A Pt has a PCP: Yes Liver Biopsy: no Complications of liver disease: Jaundice, LE edema, and Fatigue Cardiac History / Cardiac Surgical History: Yes, Htn, SVT, Ejegn-Webpfpltf-Mpcn e Syndrome Pertinent Health History: Kidney: None Last Cr: 0.9 Last eGFR: 112 (if GFR <40 get Cystatin C and nephrology consult) Dialysis? no Pulmonary: None Neuro: None Cancer: None Psych: None Other pertinent history: Yes, Afptu-Ciihrnihr-Iiki e Syndrome Medications: Beta Petra: No Pharmacy updated in [facility] if beta petra needed: Yes Anticoagulation: no Patient taking pain meds: no If yes, does pt follow with pain management? N/A ALLERGIES Not on File Substance History: Smoking: Yes - Amount: <1/2 PPD, # of years: 15-20, Last use: current Cough: No Hoarseness: No ETOH: Yes: Last Drink: 6 weeks-fireball 1/2 gallon Q2 days, Rehab: AA many yrs I advised pt to abstain from alcohol: Yes I advised pt to enroll in a chemical dependency program: Yes Drugs: Yes: Last Use: MJ-20+ yrs ago, cocaine 8yrs ago, Rehab: No I advised pt to abstain from drug use: Yes I advised pt to enroll in a chemical dependency program: No Comments: Yes, states that he will not go to rehab MARCELINA Madera Amy, RN 01/27/2025 4:23 PM Signed Did not receive a call back from pt's yesterday. I called again today and had to leave a vm. Only 1 number listed and no MyChart. Will await a return call. MARCELINA Madera Amy, RN 01/30/2025 4:36 PM Signed I spoke with Spouse and obtained all necessary information. Partial eval will be scheduled due to recent ETOH (6 wks ago) and downtrending MELD. Spouse instructed to review liver transplant information online at [email or web address] or paper information sent to pt and to have someone accompany them to appointments. All questions answered. Contact information provided and advised to call our office with any questions/concerns or schedule changes. Information sent for him to sign up for mychart. Will schedule partial eval to include class, lab, hepatology and SW. Dr. Solares on 03/11/25 1pm along with lab. Zoom education class: 03/05/25 Yuli Todd RN Allergies As of Date: 01/26/2025 Noted Allergy Reaction SULFA (SULFONAMIDE ANTIBIOTICS) 08/28/2018 16 - Unknown Date Reviewed: Never Reviewed Reason for Visit: Referral - Liver Txp [[id number]] Cmt: Intake Primary Visit Diagnosis:Alcoholic cirrhosis of liver without ascites (HCC) [K70.30] Other Visit Diagnosis:Liver transplant candidate [Z76.82] Order(s):PHOSPHATIDY LETHANOL (PETH) [SQPETH] Order #: [id number] FUTURE COMPLETE BLOOD COUNT AND DIFFERENTIAL [SQCBCDIF] Order #: [id number] FUTURE PROTHROMBIN TIME [SQPT] Order #: [id number] FUTURE TOXICOLOGY SCREEN, ROUTINE URINE [SQUTOX2] Order #: [id number] FUTURE TOXICOLOGY PANEL BLD [SQTOXP] Order #: [id number] FUTURE BASIC METABOLIC PANEL [SQBMP] Order #: [id number] FUTURE HEPATIC FUNCTION PNL [SQHFP] Order #: [id number] FUTURE CONSULT TO HEPATOLOGY [9962901] Order #: [id number]: 1 FUTURE LIVER TRANSPLANT EVALUATION APPOINTMENT(NOT FOR USE REFERRAL FOR ORGAN TRANSPLANT) [4354127] Order #: [id number]: 1 FUTURE LIVER TRANSPLANT EVALUATION APPOINTMENT(NOT FOR USE REFERRAL FOR ORGAN TRANSPLANT) [0733964] Order #: [id number]: 1 Problem List As Of Date: 01/26/2025 (None) Encounter Status:Closed by YULI TODD on 02/04/25 [facility] CNCOon 01-23-2025 CNCO Letter Text [facility] CNPNon 01-15-2025 CNPN Telephone (TXCTMN) JAMES DEL RIO ([id number]) 1985 M Date Time Provider Department 01/15/25 LIVER TXP COORDINATOR TXCTMN During your visit today, we recorded the following information about you: Job Ledbetter II 01/15/2025 11:48 AM Signed LIVER TRANSPLANT REFERRAL James Del Rio [id number] Diagnosis: ETOH MELD Na: 25 (Check EPIC labs and Care Everywhere to calculate the MELD Score. Look for a CMP [Total Bilirubin/Albumin/Cr eatinine, Sodium] and the INR. If unable to calculate the MELD notify the Intake Txp Coordinator.) If MELD is >/= 25, please route to Intake Txp Coordinators (Leighton) with high priority and send to immediately. Patient's Age: 39 (If the patient is 73 yrs or older, route this referral to the Intake Txp Coord, Leighton, to review) Is pt being referred for Special Access Clinic? No (Special Access Clinic referrals will only come via fax specifying that this is a special access patient) -IF YES, ROUTE TO TXP COORDINATOR YULI Todd Who is referring the patient for transplant? Dr. Mary Thorpe MD: Mary Vázquez PCP: Yes - Name: Nohelia Qiu Is the pt on dialysis? No Is the pt referred for dual organ? NO Are you willing to accept blood product transfusion during surgery if needed? Yes. If NO, explain why and route referral to intake coordinators (Yuli and Jayleen). Ale as QB, do not send to FC until approved by coordinators Request records/images stat including having the patient fax over the advanced directive form with the blood product information if Jehovah Witness How long does it take you to drive to [facility]? 1 hour Who will accompany you to your transplant evaluation? spouse Have you ever been evaluated for liver transplant? No Do you have a potential living donor? No OUT OF STATE MEDICAID PATIENTS: APC - run the Medicaid through [facility] to determine if the coverage is Out of Network (OON) with [facility]. If the Medicaid is OON, inform the patient that their PCP will need to send a referral to the Out of State Medicaid for a Transplant Evaluation. Have you been seen at another Transplant Center that was in-network with your Out of State (OOS) Medicaid and denied a Transplant Evaluation? No Has your PCP sent in a referral for transplant to your (OOS) Medicaid director of casework? No If the patient has Medicare A/B as their primary insurance please ask the patient for their secondary insurance coverage. MyCHART Is the patient signed up for MyChart? No - Obtain their email address AND send MyChart sign up information: Email address: [email or web address] (ENSURE THAT RECORDS ARE OBTAINED FROM REFERRING PHYSICIAN OFFICE) Have you ever been seen by: -Cardiology? no -Nephrology? no -Psychiatry? no Care Everywhere: List the facilities that records have been requested from [facility] Be sure to obtain consent from pt to obtain records in care everywhere if it is required [facility]: List the facilities or physicians that records have been requested from Khoa Nguyen Provide a list of facilities where image requests have been made from [facility] yes (If imaging records are available in Care Everywhere, still request the outside images via [facility]) A nurse will call for medical intake: -who should she call (Name/relationship to pt)? Spouse - Mayte -what phone number? [phone] Phone number to office provided to pt: Yes Additional Comments about patient/evaluation: n/a Yuli Mederos II, RN 01/26/2025 3:17 PM Signed Spoke with pt's , she is driving at work. She will call me back when she gets home from work at 4pm today. Yuli Todd RN Allergies As of Date: 01/15/2025 (Not on File) Date Reviewed: Never Reviewed Reason for Visit: Referral - Liver Txp [[id number]] Problem List As Of Date: 01/15/2025 (None) Encounter Status:Closed by JOB LEDBETTER II on 01/15/25 Normal [facility] MRI Cholangiogram Pancreatog olga (mrcp)on 01-11-2025 MRI Cholangiogram Pancreatography (mrcp) Exam Date/Time: 01/09/2025 20:02 EST Reason for Exam: R74.8;Biliary obstruction Report IMPRESSION: POSSIBLE GALLBLADDER SLUDGE AND/OR TINY GALLSTONES VERSUS ARTIFACT. EXAMINATION: MRI Cholangiogram Pancreatography (mrcp) HISTORY: Biliary obstruction. Elevated liver function tests. COMPARISON: None available TECHNIQUE: Multiplanar multisequence MRI of the abdomen was performed without contrast including 2-D and 3-D MRCP imaging. FINDINGS: Normal contour and signal of the liver. No liver lesions identified. The liver is enlarged measuring approximately 20 cm in craniocaudal length. No intrahepatic biliary dilatation. The common bile duct is normal in course and caliber measuring approximately 5-6 mm in diameter. No filling defects identified within the common bile duct. Subtle signal abnormality within the neck of the gallbladder is nonspecific and may be artifactual or may represent tiny gallstones or gallbladder sludge. The gallbladder is physiologically distended. No gallbladder wall thickening or pericholecystic fluid. The spleen, stomach, pancreas, adrenal glands, and kidneys demonstrate no overt abnormality on the sequences obtained. No upper abdominal lymphadenopathy or free fluid. No bone lesion identified. Ordering Provider: Mary Vázquez FINAL REPORT Dictated: 01/11/2025 9:29 am Lexi Yuen DO Signed (Electronic Signature): 01/11/2025 9:29 am Signed by: Lxei Yuen DO Transcribed by: NISHA Technologist: RUBÉN Amaya [facility] AFPon 01-02-2025 AFP.tumor marker [Mass/Vol] 6.4 ng/mL Invalid Interpretation Code 0.0-6.9 [facility] Comment on above: Result Comment: [employer] Electrochemiluminescence Immunoassay (ECLIA) Values obtained with different assay methods or kits cannot be used interchangeably. Results cannot be interpreted as absolute evidence of the presence or absence of malignant disease. This test is not interpretable in females. Performed at: [facility] [id number] PhD Donna Love Performed By: #### 2 [id number] #### [facility] [address] [place] [address] AMA Ab Scron 01-02-2025 Mitochondria M2 IgG Qn (S) <20.0 Invalid Interpretation Code 0.0-20.0 [facility] Comment on above: Result Comment: Nega tive 0.0 - 20.0 Equivocal 20.1 - 24.9 Positive >24.9 Mitochondrial (M2) Antibodies are found in 90-96% of patients with primary biliary cirrhosis. Performed at: [address] [id number] PhD Donna Love Performed By: #### 1 [id number] #### [facility] [address] [place] [address] ASHOK w/Reflex if POSon 2024 Nuclear Ab Ql (S) Negative Invalid Interpretation Code Negative [facility] Comment on above: Result Comment: Perf ormed at: [address] [id number] PhD Donna Love Performed By: #### 1 [id number] #### [facility] [address] [place] [address] Alpha 1 Antitrpon 01-02-2025 Alpha 1 antitrypsin [Mass/Vol] 236 mg/dL High 95-164 [facility] Comment on above: Result Comment: Perf ormed at: [address] [id number] PhD Donna Love Performed By: #### 1 [id number] #### [facility] [address] [place] [address] Ceruloplasminon 01-02-2025 Ceruloplasmin [Mass/Vol] 23.9 mg/dL Invalid Interpretation Code 16.0-31.0 [facility] Comment on above: Result Comment: Perf ormed at: [address] [id number] PhD Donna Love Performed By: #### 1 [id number] #### [facility] [address] [place] [address] Hep Bs Abon 01-02-2025 HBV surface Ab Ql (S) Non-Reactive Invalid Interpretation Code [facility] Comment on above: Result Comment: Non Reactive: Not immune to HBV infection. Equivocal: Unable to determine if anti-HBs is present at levels consistent with immunity. Reactive: Anti-HBs concentration detected at greater than 10 mIU/mL. Individual is considered to be immune to infection with HBV. Performed at: [address] [id number] PhD Donna Love Performed By: #### 2 [id number] #### [facility] [address] [place] [address] Hepatitis A Virus (HAV) Anti body, Totalon 01-02-2025 HAV Ab IA Ql (S) Negative Invalid Interpretation Code Negative [facility] Comment on above: Result Comment: Comm ent: The HAV total antibody assay detects both IgG and IgM but does not differentiate between them. A negative result suggests susceptibility to infection. A positive result could be due to vaccination, previously resolved infection or active infection. Testing for HAV IgM should be performed if active HAV infection is suspected. [facility] offers profiles that will automatically reflex positive HAV total antibody results to IgM (e.g., panel #[id number] HAV Antibody w/ Rfx). Performed at: [address] [id number] PhD Donna Love Performed By: #### 1 [id number] #### [facility] [address] [place] [address] IgA, Quant.on 01-02-2025 IgA [Mass/Vol] 1252 mg/dL High 90-386 [facility] Comment on above: Result Comment: Resu lts confirmed on dilution. Performed at: [address] [id number] PhD Donna Love Performed By: #### 1 [id number] #### [facility] [address] [place] [address] IgG, Quant.on 01-02-2025 IgG [Mass/Vol] 1537 mg/dL Invalid Interpretation Code [id number] [facility] Comment on above: Result Comment: Perf ormed at: [address] [id number] PhD Donna Love Performed By: #### 1 [id number] #### [facility] [address] [place] [address] Smooth Muscle Abon Actin smooth muscle IgG Qn (S) 15 unit(s) Invalid Interpretation Code 0-19 [facility] Comment on above: Result Comment: Nega tive 0 - 19 Weak positive 20 - 30 Moderate to strong positive >30 Actin Antibodies are found in 52-85% of patients with autoimmune hepatitis or chronic active hepatitis and in 22% of patients with primary biliary cirrhosis. Performed at: [address] [id number] PhD Donna Love Performed By: #### 1 [id number] #### [facility] [address] [place] [address] T-TG IGAon 01-02-2025 tTG IgA Qn (S) 2 unit/mL Invalid Interpretation Code 0-3 [facility] Comment on above: Result Comment: Nega tive 0 - 3 Weak Positive 4 - 10 Positive >10 Tissue Transglutaminase (tTG) has been identified as the endomysial antigen. Studies have demonstr- ated that endomysial IgA antibodies have over 99% specificity for gluten sensitive enteropathy. Performed at: [address] [id number] PhD Donna Love Performed By: #### 1 [id number] #### [facility] [address] [place] [address] Ambulatory Visit Summaryon 0 - Ambulatory Visit Summary Ambulatory Visit Summary JAMES DEL RIO :1985 Visit Date:12/31/2024 Ambulatory Visit Instructions Your Diagnosis Elevated liver enzymes Cirrhosis of liver History of alcohol use Common bile duct dilation Cholelithiasis Your Care Team Attending Physician - Mary Vázquez MD Primary Care Physician - Nohelia Pena This Is Your Medications List Contact prescribing physician if questions or concerns amoxicillin-clavulan ate (Augmentin 875 mg oral tablet) amphetamine-dextroam phetamine (Adderall 10 mg oral tablet) amphetamine-dextroam phetamine (Adderall XR 25 mg oral capsule, extended release) hydrochlorothiazide (hydrochlorothiazide 12.5 mg Cap) losartan (losartan 100 mg Tab) Procedures Performed Nicola Parkinson White syndrome. Discharge Vitals Heart Rate (Peripheral) 112 Blood Pressure 108/61 Height 182 cm Height 72 in Weight 92.8 kg Weight 204.589 lb BMI 28.02 What to do next Scheduled Follow-Up Appointments Sunday 2:45 PM EDT With: Gurpreet MCKNIGHT, Mary Durán Where: [facility] [address] [facility] [place] [address] [place] [phone]- Sunday 4:40 PM EDT With: Nohelia Pena Where: [address] [address]- You Need to Complete the Following MRI Cholangiogram Pancreatography (mrcp), 12/31/24, Routine, Order for Future Visit, Transport Mode: Ambulatory, Reason: Biliary obstruction, No, No, Elevated liver enzymes Cirrhosis of liver History of alcohol use Common bile duct dilation Cholelithiasis, pp_set_radiology_sub specialt... Medications What How Much When Why Instructions Unchanged amoxicillin-clavulan ate (Augmentin 875 mg oral tablet) 1 Tablets By Mouth Every 12 hours Ear pain Headache ADHD BMI 28.0-28.9,adult Smoker Duration: 30 Days Contact prescribing physician if questions or concerns Unchanged amphetamine-dextroam phetamine (Adderall 10 mg oral tablet) 1 Tablets By Mouth At noon Ear pain Headache ADHD BMI 28.0-28.9,adult Smoker Contact prescribing physician if questions or concerns Unchanged amphetamine-dextroam phetamine (Adderall XR 25 mg oral capsule, extended release) 1 Capsules By Mouth Once a day (in the morning) Ear pain Headache ADHD BMI 28.0-28.9,adult Smoker Contact prescribing physician if questions or concerns Unchanged hydrochlorothiazide (hydrochlorothiazide 12.5 mg Cap) 1 Capsules By Mouth Every day as needed for Edema Contact prescribing physician if questions or concerns Unchanged losartan (losartan 100 mg Tab) 1 Tablets By Mouth Every day Hypertension Hypokalemia Elevated liver enzymes Elevated ALT measurement BMI 28.0-28.9,adult Smoker Duration: 90 Days Contact prescribing physician if questions or concerns Medications and Immunizations Administered Not Given influenza virus vaccine, inactivated, Patient Refuses Allergies No Known Medication Allergies Problems Ongoing - Any problem that you are currently receiving treatment for. ADHD Alcohol use BMI 29.0-29.9,adult Body aches Cholelithiasis Cirrhosis of liver Common bile duct dilation Ear pain Elevated ALT measurement Elevated liver enzymes Fatigue Fever Headache History of alcohol use Hypertension Hypokalemia Jaundice Left arm numbness Left otitis media Lower extremity edema Lower extremity numbness Nausea and vomiting in adult Otitis media, right Overweight (BMI 25.0-29.9) Screening for hyperlipidemia Shortness of breath Sinusitis Sore throat Strep throat Syncope Vomiting Weight loss Bzdlu-Rvwjcwwpq-Ltuy e syndrome Yellow eyes Patient Survey You may receive a survey via text or e-mail asking about your office visit. Please share your experience with us by completing your survey. We appreciate your feedback and thank you for choosing us for your care. Normal [facility] CHEMISTRYOrdered By: SYSTEM SYSTEM on 12-31-2024 25-hydroxyvitamin D3 [Mass/Vol] 19.4 ng/mL Low 30.0 - 100.0 ng/mL Remisol Chem Ferritin [Mass/Vol] 335 ng/mL Normal 24 - 336 ng/mL R emisol Chem Iron [Mass/Vol] 68 ug/dL Normal 35 - 153 mcg/dL Donald karolyn Chem Iron binding capacity [Mass/Vol] 245 ug/dL Low 250 - 400 mcg/dL Remisol Chem Transferrin [Mass/Vol] 175 mg/dL Low 200 - 370 mg/dL Remisol Chem COAGULATIONOrdered By: Tim Mackey on 12-31-2024 aPTT Coag (PPP) [Time] 44.2 s High 25.1 - 36.5 second(s) [facility] Auto Coag Comment on above: Interpretive Data: Olivia ramos 15 days - 4 weeks 1 - 5 months 6 - 11 months 1 - 5 years 6 - 10 years 11 - 17 years PTT Mean: 35.4 (27.6-45.6) Mean: 33.5 (24.8-40.7) Mean: 32.4 (25.1-40.7) Mean: 31.6 (24.0-39.2) Mean: 31.6 (26.9-38.7) Mean: 31.0 (24.6-38.4) Pediatric Reference ranges were obtained from a study by jackeline Headley alEmily prepared from 1437 samples obtained at 7 different centers using the same coagulation reagent and instrumentation as [facility]. Currently there are no coagulation studies available worldwide for children to 14 days, and no normal ranges. Heparin therapeutic range (represented by Anti-Factor Xa activity of 0.2 - 0.4 U/mL) corresponds to PTT of 56.6 - 109.0 sec. INR Coag (PPP) [Relative time] 1.46 {INR} Invalid Interpretation Code [facility] Comment on above: Interpretive Data: I NR results are specifically intended to assess patients stabilized on long-term Anticoagulation therapy suggested INR s Less Intensive Anticoagulation 2.0 3.0 Conventional Range 3.0 4.5 PT Coag (PPP) [Time] 16.4 s High 9.4 - 12.5 second(s) [facility] Comment on above: Interpretive Data: 1 5 days - 4 weeks 1 - 5 months 6 -11 months 1-5 years 6-10 years 11 -17 years Mean: 11.2 (9.5-12.6) Mean: 11.0 (9.7-12.8) Mean: 11.0 (9.8-13.0) Mean: 11.3 (9.9-13.4) Mean: 11.7 (10.0-14.6) Mean: 11.8 (10.0 - 14.1) Pediatric Reference ranges were obtained from a study by jackeline Headley al. prepared from 1437 samples obtained at 7 different centers using the same coagulation reagent and instrumentation as [facility]. Currently there are no coagulation studies available worldwide for children to 14 days, and no normal ranges. Ferritinon 12-31-2024 Ferritin [Mass/Vol] 335 ng/mL Normal 24-336 [facility] Comment on above: Performed By: #### 2 [id number] #### [facility] [address] [place] [address] Gastroenterology Office/Clin ic Noteon 12-31-2024 Gastroenterology Office/Clinic Note Gastroenterology Office/Clinic Note Chief Complaint Elevated liver enzymes HPI Staff New- Patient is a(n) 39 year old male who was referred by YUNG Mojica for elevated liver enzymes. Alcohol use? Yes Fhx of liver disease? No Denies blood thinners. Denies GLP-1 agonists. US RUQ 12/02/24 IMPRESSION: 1. Cholelithiasis without acute cholecystitis. Fine granular stones versus dense sludge layering within the gallbladder. The common bile duct is abnormally dilated, but no visible stone or mass. 2. Negative sonographic Love's sign. Consider follow-up. CT abd/pel w 12/16/24 IMPRESSION: 1. No acute abnormality in the abdomen or pelvis. 2. Cirrhotic liver. No ascites. 3. Few low-density subcentimeter hepatic cysts. Labs 12/16/24 WBC: 13.0 High RBC: 3.06 Low Hgb: 10.6 Low Hematocrit: 31.7 Low MCV: 103.6 High MCH: 34.6 High MCHC: 33.4 Red Cell Distribution Width: 13.2 Platelet: 239 MPV: 10.5 Neutrophils %: 68.9 Lymphocytes %: 17.2 Low Monocytes %: 10.9 Eosinophils %: 1.3 Basophils %: 1.2 Immature Granulocytes %: 0.5 Neutrophils Abs: 9.0 High Lymphocytes Abs: 2.2 Monocytes Abs: 1.4 High Eosinophils Abs: 0.2 Basophils Abs: 0.2 High Immature Granulocytes Abs: 0.07 High Sodium: 132 Low Potassium: 4.2 Chloride: 97 Low Carbon Dioxide: 28.0 Anion Gap: 11.2 Glucose: 123 High BUN: 47.0 High Creatinine: 1.53 High Estimated GFR ( Rosina: >60 Estimated GFR (Non- Annel: 51 Low BUN Creatinine Ratio: 30.7 Calcium: 8.6 Bilirubin Total: 6.2 High Bilirubin Direct: 2.4 High Alert Aspartate Amino Transferase: 127 High Alanine Aminotransferase: 59 Alkaline Phosphatase: 127 High Total Protein: 7.0 Albumin Level: 2.5 Low Globulin: 4.5 Albumin Globulin Ratio: 0.6 Lipase: 43.0 Liver Studies HCV Ab: Non Reactive (11/26/24) Hep A IgM: Negative (11/26/24) Hep B Core IgM: Negative (11/26/24) Hep Bs Ag: Negative (11/26/24) Review of Systems PHQ Score Initial Depression Screen Score: 0 SCORE All systems reviewed, negative except as mentioned above Physical Exam Vitals & Measurements HR: 112(Peripheral) BP: 108/61 HT: 72 in HT: 182 cm WT: 92.8 kg WT: 204.589 lb BMI: 28.02 I have reviewed HPI staff note, most recent labs and imaging, I agree with the above documentation with the following additions/exceptions : PT with hx of alcohol abuse for 20 years now with cirrhosis he is not interested in endoscopy some confusion and fatigue quit drinking 2 weeks ago General: alert, no acute distress, jaundice HEENT: atraumatic normocephalic Cardiovascular: regular rate and rhythm, normal peripheral perfusion Respiratory: Lungs CTA, respirations non labored Extremities: no deformity, no trauma Abdomen: Benign, soft, nontender nondistended All systems reviewed, negative except as mentioned above Assessment/Plan 1. Elevated liver enzymes (R74.8: Abnormal levels of other serum enzymes) Ordered: Alpha Fetoprotein Tumor Marker Obaig-0-Rygdvqxuwuy ASHOK w/Reflex if POS Antimitochondrial Antibody, Quantitative Ceruloplasmin Ferritin Hepatitis A Virus (HAV) Antibody, Total Hepatitis B Surface Antibody IgA, Quant. IgG, Quant. Iron Level MRI Cholangiogram Pancreatography (mrcp) Smooth Muscle Antibody Screen t-Transglutaminase IgA TIBC Calculated Vitamin D 25 Hydroxy 2. Cirrhosis of liver (K74.60: Unspecified cirrhosis of liver) Ordered: Alpha Fetoprotein Tumor Marker Kbqwj-0-Cobiklwmari ASHOK w/Reflex if POS Antimitochondrial Antibody, Quantitative Ceruloplasmin Ferritin Hepatitis A Virus (HAV) Antibody, Total Hepatitis B Surface Antibody IgA, Quant. IgG, Quant. Iron Level MRI Cholangiogram Pancreatography (mrcp) Smooth Muscle Antibody Screen t-Transglutaminase IgA TIBC Calculated Vitamin D 25 Hydroxy 3. History of alcohol use (Z87.898: Personal history of other specified conditions) Ordered: Alpha Fetoprotein Tumor Marker Ypmhq-9-Zzisrdxblkv ASHOK w/Reflex if POS Antimitochondrial Antibody, Quantitative Ceruloplasmin Ferritin Hepatitis A Virus (HAV) Antibody, Total Hepatitis B Surface Antibody IgA, Quant. IgG, Quant. Iron Level MRI Cholangiogram Pancreatography (mrcp) Smooth Muscle Antibody Screen t-Transglutaminase IgA TIBC Calculated Vitamin D 25 Hydroxy 4. Common bile duct dilation (K83.8: Other specified diseases of biliary tract) Ordered: Alpha Fetoprotein Tumor Marker Nuffz-2-Iyipsdbsopm ASHOK w/Reflex if POS Antimitochondrial Antibody, Quantitative Ceruloplasmin Ferritin Hepatitis A Virus (HAV) Antibody, Total Hepatitis B Surface Antibody IgA, Quant. IgG, Quant. Iron Level MRI Cholangiogram Pancreatography (mrcp) Smooth Muscle Antibody Screen t-Transglutaminase IgA TIBC Calculated Vitamin D 25 Hydroxy 5. Cholelithiasis (K80.20: Calculus of gallbladder without cholecystitis without obstruction) Ordered: Alpha Fetoprotein Tumor (more content not included)... Normal [facility] Comment on above: Result Comment: Elec tronically Signed By: Gurpreet MCKNIGHT, Mayr Durán\.br\Date and Time Signed: 12/31/24 15:15 EST Ironon 12-31-2024 Iron [Mass/Vol] 68 microgram/dL Normal 35-153 [facility] Comment on above: Performed By: #### 2 [id number] #### [facility] [address] [place] [address] PT & PTTon 12-31-2024 aPTT Coag (PPP) [Time] 44.2 second(s) High 25.1-36.5 [facility] Comment on above: Result Comment: Para meter 15 days - 4 weeks 1 - 5 months 6 - 11 months 1 - 5 years 6 - 10 years 11 - 17 years PTT Mean: 35.4 (27.6-45.6) Mean: 33.5 (24.8-40.7) Mean: 32.4 (25.1-40.7) Mean: 31.6 (24.0-39.2) Mean: 31.6 (26.9-38.7) Mean: 31.0 (24.6-38.4) Pediatric Reference ranges were obtained from a study by Dez Tejeda et al. prepared from 1437 samples obtained at 7 different centers using the same coagulation reagent and instrumentation as [facility]. Currently there are no coagulation studies available worldwide for children to 14 days, and no normal ranges. Heparin therapeutic range (represented by Anti-Factor Xa activity of 0.2 - 0.4 U/mL) corresponds to PTT of 56.6 - 109.0 sec. Performed By: #### 1 [id number] #### [facility] [address] [place] [address] INR Coag (PPP) [Relative time] 1.46 {INR} Invalid Interpretation Code [facility] Comment on above: Result Comment: INR results are specifically intended to assess patients stabilized on long-term Anticoagulation therapy suggested INR???s ???Less Intensive Anticoagulation??? 2.0 ??? 3.0 Conventional Range 3.0 ??? 4.5 Performed By: #### 1 [id number] #### [facility] [address] [place] [address] PT Coag (PPP) [Time] 16.4 second(s) High 9.4-12.5 [facility] Comment on above: Result Comment: 15 d ays - 4 weeks 1 - 5 months 6 -11 months 1- 5 years 6-10 years 11 -17 years Mean: 11.2 (9.5-12.6) Mean: 11.0 (9.7-12.8) Mean: 11.0 (9.8-13.0) Mean: 11.3 (9.9-13.4) Mean: 11.7 (10.0-14.6) Mean: 11.8 (10.0 - 14.1) Pediatric Reference ranges were obtained from a study by Dez Tejeda et al. prepared from 1437 samples obtained at 7 different centers using the same coagulation reagent and instrumentation as [facility]. Currently there are no coagulation studies available worldwide for children to 14 days, and no normal ranges. Performed By: #### 1 [id number] #### [facility] [address] [place] [address] TIBC Calculatedon 12-31-2024 Iron binding capacity [Mass/Vol] 245 microgram/dL Low 250-400 [facility] Comment on above: Performed By: #### 1 [id number] #### [facility] [address] [place] [address] Transferrin [Mass/Vol] 175 mg/dL Low 200-370 [facility] Comment on above: Performed By: #### 1 [id number] #### [facility] [address] [place] [address] Vitamin D 25 Hydroxyon 12-31 25-hydroxyvitamin D3 [Mass/Vol] 19.4 ng/mL Low 30.0-100.0 [facility] Comment on above: Performed By: #### 5 [id number] #### [facility] [address] [place] [address] Family Medicine Office/Clini c Noteon 12-30-2024 Family Medicine Office/Clinic Note Family Medicine Office/Clinic Note HPI Staff James is a 39 year old male presenting for acute visit Onset: 1 day ago Fevers: no Sinus congestion: yes Sneezing: yes Ear pain: bilateral Ear itching, popping, fullness, ringing, muffled hearing: pain Ear drainage: no Swollen nodes: Sore throat: yes Ear pain worse with chewing: no Itching: no Difficulty hearing: no Headache, light is bothering him OTC: Excedrin migraine Swelling bilateral feet, took HCTZ this morning at 1am he forgot to take it before bed. History of Present Illness pt presents today for ear pain, headache, vision disturbances Review of Systems PHQ Score Initial Depression Screen Score: 0 SCORE Physical Exam Vitals & Measurements T: 37.4 ???C(Tympanic) HR: 68(Peripheral) RR: 18 BP: 106/62 SpO2: 95% HT: 72 in HT: 182.0 cm WT: 94.50 kg WT: 208.337 lb BMI: 28.53 General: alert, no acute distress ENMT: oral mucosa moist, no pharyngeal erythema or exudate Cardiovascular: regular rate and rhythm, normal peripheral perfusion Respiratory: Lungs CTA, respirations non labored Extremities: no deformity, no trauma Neurological: oriented x 4, LOC appropriate for age, CN II-XII intact, motor strength equal & normal bilaterally, speech normal Assessment/Plan 1. Ear pain (H92.09: Otalgia, unspecified ear) right OM noted on exam. pt still having bloody noses. will treat with Augmentin for 1 month. if no improvement after 1 month of treatment will send to ENT Ordered: amoxicillin-clavulan ate, = 1 tab(s), Oral, q12hr, X 30 day(s), # 60 tab(s), Refills(s) 0, Pharmacy: [id number], 182, cm, 12/29/24 15:38:00 EST, Height/Length Dosing, 94.5, kg, 12/29/24 15:38:00 EST, Weight Dosing amphetamine-dextroam phetamine, 10 mg, 1 tab(s), Oral, Noon, 30 tab(s), Refill(s) 0, [id number], 182, cm, 12/29/24 15:38:00 EST, Height/Length Dosing, 94.5, kg, 12/29/24 15:38:00 EST, Weight Dosing amphetamine-dextroam phetamine, 25 mg, 1 cap(s), Oral, qAM, 30 cap(s), Refill(s) 0, [id number], 182, cm, 12/29/24 15:38:00 EST, Height/Length Dosing, 94.5, kg, 12/29/24 15:38:00 EST, Weight Dosing 2. Headache (R51.9: Headache, unspecified) pt having severe migraine with light and sound sensitivity. 1 box of [facility] provided with directions Ordered: amoxicillin-clavulan ate, = 1 tab(s), Oral, q12hr, X 30 day(s), # 60 tab(s), Refills(s) 0, Pharmacy: [id number], 182, cm, 12/29/24 15:38:00 EST, Height/Length Dosing, 94.5, kg, 12/29/24 15:38:00 EST, Weight Dosing amphetamine-dextroam phetamine, 10 mg, 1 tab(s), Oral, Noon, 30 tab(s), Refill(s) 0, [id number], 182, cm, 12/29/24 15:38:00 EST, Height/Length Dosing, 94.5, kg, 12/29/24 15:38:00 EST, Weight Dosing amphetamine-dextroam phetamine, 25 mg, 1 cap(s), Oral, qAM, 30 cap(s), Refill(s) 0, [id number], 182, cm, 12/29/24 15:38:00 EST, Height/Length Dosing, 94.5, kg, 12/29/24 15:38:00 EST, Weight Dosing 3. ADHD (F90.9: Attention-deficit hyperactivity disorder, unspecified type) pt has been taking adderall off the streets for years. with his BP better controlled will send prescription for it. medication agreement updated. will do drug screen at next visit. 3 months Ordered: amoxicillin-clavulan ate, = 1 tab(s), Oral, q12hr, X 30 day(s), # 60 tab(s), Refills(s) 0, Pharmacy: [facility] #[id number], 182, cm, 12/29/24 15:38:00 EST, Height/Length Dosing, 94.5, kg, 12/29/24 15:38:00 EST, Weight Dosing amphetamine-dextroam phetamine, 10 mg, 1 tab(s), Oral, Noon, 30 tab(s), Refill(s) 0, [id number], 182, cm, 12/29/24 15:38:00 EST, Height/Length Dosing, 94.5, kg, 12/29/24 15:38:00 EST, Weight Dosing amphetamine-dextroam phetamine, 25 mg, 1 cap(s), Oral, qAM, 30 cap(s), Refill(s) 0, [id number], 182, cm, 12/29/24 15:38:00 EST, Height/Length Dosing, 94.5, kg, 12/29/24 15:38:00 EST, Weight Dosing 4. BMI 28.0-28.9,adult (Z68.28: Body mass index [BMI] 28.0-28.9, adult) BMI education Ordered: amoxicillin-clavulan ate, = 1 tab(s), Oral, q12hr, X 30 day(s), # 60 tab(s), Refills(s) 0, Pharmacy: [facility]/pharmacy #[id number], 182, cm, 12/29/24 15:38:00 EST, Height/Length Dosing, 94.5, kg, 12/29/24 15:38:00 EST, Weight Dosing amphetamine-dextroam phetamine, 10 mg, 1 tab(s), Oral, Noon, 30 tab(s), Refill(s) 0, [facility]/pharmacy #[id number], 182, cm, 12/29/24 15:38:00 EST, Height/Length Dosing, 94.5, kg, 12/29/24 15:38:00 EST, Weight Dosing amphetamine-dextroam phetamine, 25 mg, 1 cap(s), Oral, qAM, 30 cap(s), Refill(s) 0, [id number], 182, cm, 12/29/24 15:38:00 EST, Height/Length Dosing, 94.5, kg, 12/29/24 15:38:00 EST, Weight Dosing 5. Smoker (F17.200: Nicotine dependence, unspecified, uncomplicated) consider not smoking Ordered: amoxicillin-clavulan ate, = 1 tab(s), Oral, q12hr, X 30 day(s), # 60 tab(s), Refills(s) 0, Pharmacy: [facility]/pharmacy #[id number], 182, cm, 12/29/24 15:38:00 EST, Height/Length Dosing, 94.5, kg, 12/29/24 15:38:00 EST, Weight Dosing amphetamine-dextroam phetamine, 10 mg, 1 tab(s), Oral, Noon, 30 tab (more content not included)... Normal [facility] Comment on above: Result Comment: Elec tronically Signed By: Nohelia Pena\.br\Date and Time Signed: 12/30/24 08:44 EST Ambulatory Visit Summaryon 0 12-16-2024 Ambulatory Visit Summary Ambulatory Visit Summary JAMES DEL RIO :1985 Visit Date:12/16/2024 Ambulatory Visit Instructions Your Diagnosis Nausea Epistaxis BMI 27.0-27.9,adult Smoker Your Care Team Attending Physician - Nohelia Pena Primary Care Physician - Nohelia Pena This Is Your Medications List hydrochlorothiazide (hydrochlorothiazide 12.5 mg Cap) losartan (losartan 100 mg Tab) potassium chloride (Potassium Chloride (Rqj-Xydi-Oee M20) 20 mEq oral tablet, extended release) Procedures Performed Nicola Parkinson White syndrome. Discharge Vitals Temperature (Tympanic) 36.8 ???C Heart Rate (Peripheral) 92 Respiratory Rate 18 Blood Pressure 118/62 Height 182.0 cm Height 72 in Weight 90.65 kg Weight 199.849 lb BMI 27.37 What to do next Scheduled Follow-Up Appointments Sunday 2:00 PM EST With: Gurpreet MCKNIGHT, Mary Durán Where: [facility] [address] [place], [place] [id number]- Medications What How Much When Why Instructions Unchanged hydrochlorothiazide (hydrochlorothiazide 12.5 mg Cap) 1 Capsules By Mouth Every day as needed for Edema Unchanged losartan (losartan 100 mg Tab) 1 Tablets By Mouth Every day Hypertension Hypokalemia Elevated liver enzymes Elevated ALT measurement BMI 28.0-28.9,adult Smoker Duration: 90 Days Unchanged potassium chloride (Potassium Chloride (Ktx-Kgiz-Poj M20) 20 mEq oral tablet, extended release) TAKE 1 TABLET BY MOUTH TWICE A DAY Allergies No Known Medication Allergies Problems Ongoing - Any problem that you are currently receiving treatment for. Alcohol use BMI 29.0-29.9,adult Body aches Ear pain Elevated ALT measurement Elevated liver enzymes Fatigue Fever Hypertension Hypokalemia Left arm numbness Left otitis media Lower extremity edema Lower extremity numbness Nausea and vomiting in adult Otitis media, right Overweight (BMI 25.0-29.9) Screening for hyperlipidemia Shortness of breath Sinusitis Sore throat Strep throat Vtqdd-Wdtdwqxwz-Clso e syndrome Yellow eyes Patient Survey You may receive a survey via text or e-mail asking about your office visit. Please share your experience with us by completing your survey. We appreciate your feedback and thank you for choosing us for your care. Normal [facility] Family Medicine Office/Clini c Noteon 12-16-2024 Family Medicine Office/Clinic Note Family Medicine Office/Clinic Note HPI Staff James is a 39 year old female presenting vomiting and nose bleeds Onset: 1 days ago Vomiting and diarrhea having fevers, hot and cold flashes, bloody noses, vomiting is dark brown. Pale, dizzy light headed, unsteady on his feet. History of Present Illness pt presents today with c/o vomiting, fever, weakness, bloody noses Review of Systems PHQ Score Initial Depression Screen Score: 0 SCORE Physical Exam Vitals & Measurements T: 36.8 ???C(Tympanic) HR: 92(Peripheral) RR: 18 BP: 118/62 HT: 72 in HT: 182.0 cm WT: 90.65 kg WT: 199.849 lb BMI: 27.37 General: alert, no acute distress ENMT: oral mucosa moist, no pharyngeal erythema or exudate Cardiovascular: regular rate and rhythm, normal peripheral perfusion Respiratory: Lungs CTA, respirations non labored Extremities: no deformity, no trauma Neurological: oriented x 4, LOC appropriate for age, CN II-XII intact, motor strength equal & normal bilaterally, speech normal skin: jaundice, sweaty GI: vomiting brown fluid Assessment/Plan 1. Vomiting (R11.10: Vomiting, unspecified) pt presents today c/o vomiting, fever, weakness, dizziness. pt is weak, slightly confused and continue to vomit through entire visit. strongly started urging him to go to the ER and he continues to refuse to go. discussed risks if he does not get treatment. pt starts to sweat profusely, says I am not go to the hospital and tries to stand up and eyes roll back into his head. and he falls to the chair. I was going to call 911 but he said I don't want an ambulance bill, I will go. I am concerned that he is dehydrated, that his gallbladder may be worsening, he is very jaundice, he is vomiting brown (I understand this could be from the bloody noses, but could also have upper GI bleed) I have been seeing him for a year and he is not himself. I am very concerned about his well being and again encouraged his girlfriend to take him to ER immediately. I later received a phone call from ER questioning why I sent him. I voiced all of the above concerns. reviewed the most recent labs I had on him. informed them I referred to GI but he did not keep his appointment. 2. Epistaxis (R04.0: Epistaxis) has been having bloody noses for a week, BP is actually low today. 3. Jaundice (R17: Unspecified jaundice) patient skin is yellow. pt was referred to GI for further evaluation of liver. he had elevated liver enzymes and abnormal u/s of liver and gallbladder. pt canceled his appointment yesterday. I encouraged them to keep the next scheduled appointment. 4. Syncope (R55: Syncope and collapse) pt breaks out in a sweat and stands up and says I need to go outside it is so hot in here. he then stands up, his eyes roll back in his head and he falls to the chair. I was going to call 911 but he stood back up and said no do not do that. I will go to ER now. he stumbled out of the room and down the hallway. 5. Weight loss (R63.4: Abnormal weight loss) pt has also lost 16 pounds in 20 days 6. BMI 27.0-27.9,adult (Z68.27: Body mass index [BMI] 27.0-27.9, adult) BMI education given 7. Smoker (F17.200: Nicotine dependence, unspecified, uncomplicated) consider not smoking Follow-up No qualifying data available Problem List/Past Medical History Ongoing Alcohol use BMI 29.0-29.9,adult Body aches Ear pain Elevated ALT measurement Elevated liver enzymes Fatigue Fever Hypertension Hypokalemia Jaundice Left arm numbness Left otitis media Lower extremity edema Lower extremity numbness Nausea and vomiting in adult Otitis media, right Overweight (BMI 25.0-29.9) Screening for hyperlipidemia Shortness of breath Sinusitis Sore throat Strep throat Syncope Vomiting Weight loss Tblir-Ngnvqsjsk-Eulq e syndrome Yellow eyes Historical No qualifying data Procedure/Surgical History Nicola Parkinson White syndrome. Medications hydrochlorothiazide 12.5 mg Cap, 12.5 mg= 1 cap(s), Oral, Daily, PRN, 4 refills losartan 100 mg Tab, 100 mg= 1 tab(s), Oral, Daily, 3 refills Potassium Chloride (Xdi-Rkoz-Hgh M20) 20 mEq oral tablet, extended release, Not taking Allergies No Known Medication Allergies Social History Alcohol Current. Liquor. Daily., 11/24/2024 Substance Abuse Never., 12/11/2024 Tobacco 10 or more cigarettes (1/2 pack or more)/day in last 30 days Tobacco Use:. Never Smokeless Tobacco Use:. Cigarettes, Household tobacco concerns: No. Yes, 11/26/2024 Family History Heart murmur: Mother. Hypertension: Father. Hyperthyroidism: Mother. Immunizations Vaccine Date Status influenza virus vaccine, inactivated 08/28/2022 Recorded SARSCoV2 mRNA(tozinamer-kenn- sucros) vac 02/01/2022 Recorded SARS-CoV-2 (COVID-19) mRNA BNT-162b2 vax 09/02/2021 Recorded SARS-CoV-2 (COVID-19) mRNA BNT-162b2 vax 08/12/2021 Recorded Normal [facility] Comment on above: Result Comment: Elec tronically Signed By: Nohelia Pena\Date and Time Signed: 12/16/24 15:05 EST .Interpretation:on 5 HCV Ab IA Ql Comment Invalid Interpretation Code [facility] Comment on above: Result Comment: Not infected with HCV unless early or acute infection is suspected (which may be delayed in an immunocompromised individual), or other evidence exists to indicate HCV infection. Performed at: [facility] [id number] PhD Donna Love Performed By: #### 2 [id number] #### [facility] [address] [place] [address] Acute Hepatitis A B C Panelo n 11-28-2024 HAV IgM IA Ql Negative Invalid Interpretation Code Negative [facility] Comment on above: Result Comment: A ne gative anti-HAV IgM result suggests no recent or current HAV infection. Performed By: #### 3 [id number] #### [facility] [address] [place], [place] [id number] HBV core IgM IA Ql Negative Invalid Interpretation Code Negative [facility] Comment on above: Performed By: #### 3 [id number] #### [facility] [address] [place] [address] HBV surface Ag IA Ql Negative Invalid Interpretation Code Negative [facility] Comment on above: Performed By: #### 3 [id number] #### [facility] [address] [place] [address] HCV IgG IA Ql Non-Reactive Invalid Interpretation Code Non Reactive [facility] Comment on above: Result Comment: Perf ormed at: [facility] [address] [place] [address] [id number] PhD Donna Love Performed By: #### 3 [id number] #### [facility] [address] [place] [address] CBC w/ Auto Diffon 5 Basophils/100 WBC (Bld) 0.5 % Normal 0.0-2.0 [facility] Comment on above: Performed By: #### 2 [id number] #### [facility] [address] [place] [address] Basophils/Leukocyte s Auto (Bld) [Pure # fraction] 0.0 E9/L Normal 0.0-0.2 [facility] Comment on above: Performed By: #### 2 [id number] #### [facility] [address] [place] [address] Eosinophils (Bld) [#/Vol] 0.2 E9/L Normal 0.0-0.5 [facility] Comment on above: Performed By: #### 2 [id number] #### [facility] [address] [place] [address] Eosinophils/100 WBC (Bld) 3.3 % Normal 0.0-8.0 [facility] Comment on above: Performed By: #### 2 [id number] #### [facility] [address] [place] [address] Erythrocyte distribution width (RBC) [Ratio] 14.3 % High 10.9-14.2 [facility] Comment on above: Performed By: #### 2 [id number] #### [facility] [address] [place] [address] Hematocrit (Bld) [Volume fraction] 36.8 % Low 37.7-49.0 [facility] Comment on above: Performed By: #### 2 [id number] #### [facility] [address] [place] [address] Hemoglobin (Bld) [Mass/Vol] 12.7 g/dL Low 13.5-17.5 [facility] Comment on above: Performed By: #### 2 [id number] #### [facility] [address] [place] [address] Lymphocytes (Bld) [#/Vol] 1.9 E9/L Normal 1.0-4.0 [facility] Comment on above: Performed By: #### 2 [id number] #### [facility] [address] [place] [address] Lymphocytes/100 WBC (Bld) 29.0 % Normal 14.0-50.0 [facility] Comment on above: Performed By: #### 2 [id number] #### [facility] [address] [place] [address] MCH (RBC) [Entitic mass] 35.7 pg High 27.0-34.0 [facility] Comment on above: Performed By: #### 2 [id number] #### [facility] [address] [place] [address] MCHC (RBC) [Mass/Vol] 34.6 g/dL Normal 31.4-36.0 [facility] Comment on above: Performed By: #### 2 [id number] #### [facility] [address] [place] [address] MCV (RBC) [Entitic vol] 103.3 fL High 80.0-100.0 [facility] Comment on above: Performed By: #### 2 [id number] #### [facility] [address] [place] [address] Monocytes (Bld) [#/Vol] 0.5 E9/L Normal 0.2-1.0 [facility] Comment on above: Performed By: #### 2 [id number] #### [facility] [address] [place] [address] Neutrophils (Bld) [#/Vol] 3.9 E9/L Normal 2.0-7.5 [facility] Comment on above: Performed By: #### 2 [id number] #### [facility] [address] [place] [address] Neutrophils/100 WBC (Bld) 59.3 % Normal 36.0-75.0 [facility] Comment on above: Performed By: #### 2 [id number] #### [facility] [address] [place] [address] [place] [address] Platelet mean volume (Bld) [Entitic vol] 9.4 fL Normal 6.4-10.8 [facility] Comment on above: Performed By: #### 2 [id number] #### [facility] [address] [place] [address] Platelets (Bld) [#/Vol] 186.0 E9/L Normal 150.0-500.0 [facility] Comment on above: Performed By: #### 2 [id number] #### [facility] [address] [place] [address] RBC (Bld) [#/Vol] 3.6 E12/L Low 4.3-5.9 [facility] Comment on above: Performed By: #### 2 [id number] #### [facility] [address] [place] [address] WBC corrected for nucl RBC Auto (Bld) [#/Vol] 6.5 E9/L Normal 4.0-11.0 [facility] Comment on above: Performed By: #### 2 [id number] #### [facility] [address] [place] [address] CHEMISTRYOrdered By: SYSTEM SYSTEM on 11-26-2024 Albumin [...] 5 - 21 mg/dL Remisol Chem Urea nitrogen/Creatinine [Mass ratio] 9 mg/mg Low 10 - 20 Remisol Chem CMPon 11-26-2024 Albumin [Mass/Vol] 3.0 g/dL Low 3.3-5.0 [facility] Comment on above: Performed By: #### 2 [id number] #### [facility] [address] [place] [address] Albumin/Globulin (S) [Mass conc ratio] 0.7 Low 1.1-2.2 [facility] Comment on above: Performed By: #### 2 [id number] #### [facility] [address] [place] [address] ALP [Catalytic activity/Vol] 184 Int._Unit/L High 21-98 [facility] Comment on above: Performed By: #### 2 [id number] #### [facility] [address] [place] [address] ALT No additional P-5'-P [Catalytic activity/Vol] 50 Int._Unit/L High 6-46 [facility] Comment on above: Performed By: #### 2 [id number] #### [facility] [address] [place] [address] Anion gap [Moles/Vol] 13 mmol/L Normal 6-16 [facility] Comment on above: Performed By: #### 2 [id number] #### [facility] [address] [place] [address] AST [Catalytic activity/Vol] 191 Int._Unit/L High 5-43 [facility] Comment on above: Performed By: #### 2 [id number] #### [facility] [address] [place] [address] Bilirubin [Mass/Vol] 6.3 mg/dL High 0.0-1.1 [facility] Comment on above: Performed By: #### 2 [id number] #### [facility] [address] [place] [address] Calcium [Mass/Vol] 8.4 mg/dL Low 8.9-11.1 [facility] Comment on above: Performed By: #### 2 [id number] #### [facility] [address] [place] [address] Chloride [Moles/Vol] 102 mmol/L Normal 101-111 [facility] Comment on above: Performed By: #### 2 [id number] #### [facility] [address] [place] [address] CO2 [Moles/Vol] 25 mmol/L Normal 21-31 [facility] Comment on above: Performed By: #### 2 [id number] #### [facility] [address] [place] [address] Creatinine [Mass/Vol] 0.9 mg/dL Normal 0.5-1.3 [facility] Comment on above: Performed By: #### 2 145687 #### [facility] [address] [place] [address] Globulin (S) [Mass/Vol] 4.6 g/dL High 1.4-4.0 [facility] Comment on above: Performed By: #### 2 [id number] #### [facility] [address] [place] [address] Glucose [Mass/Vol] 100 mg/dL Normal 55-199 [facility] Comment on above: Performed By: #### 2 [id number] #### [facility] [address] [place] [address] Potassium [Moles/Vol] 3.5 mmol/L Normal 3.5-5.3 [facility] Comment on above: Performed By: #### 2 [id number] #### [facility] [address] [place] [address] Protein [Mass/Vol] 7.6 g/dL Normal 6.0-7.8 [facility] Comment on above: Performed By: #### 2 281558 #### [facility] [address] [place] [address] Sodium [Moles/Vol] 136 mmol/L Normal 135-145 [facility] Comment on above: Performed By: #### 2 [id number] #### [facility] [address] [place] [address] Urea nitrogen [Mass/Vol] 8 mg/dL Normal 5-21 [facility] Comment on above: Performed By: #### 2 [id number] #### [facility] [address] [place] [address] Urea nitrogen/Creatinine [Mass ratio] 9 No Units Low 10-20 [facility] Comment on above: Performed By: #### 2 [id number] #### [facility] [address] [place] [address] Family Medicine Office/Clini c Noteon 11-26-2024 Family [...] Urnls Dip Stick Auto w/o Microscopy POC 73055 3. Elevated liver enzymes (R74.8: Abnormal levels of other serum enzymes) will check labs today. pt's scleras are yellow tinged. Ordered: Acute Hepatitis A B C Panel CBC w/ Auto Diff Comprehensive Metabolic Panel Influenza Type A&B POC 91284 Mononucleosis Screen 4. Left arm numbness (R20.0: [...] of breath Sinusitis Sore throat Strep throat Bqsgm-Hudvjynnl-Dume e syndrome Historical No qualifying data Procedure/Surgical History Nicola Parkinson White syndrome. Medications amoxicillin 875 mg Tab, 875 mg= 1 tab(s), Oral, BID Ciprodex 0.3%-0.1% Susp-Otic, 4 drop(s), Otic, BID hydrochlorothiazide 12.5 mg Cap, 12.5 mg= 1 cap(s), Oral, Daily, PRN, 4 refills losartan 100 mg Tab, 100 mg= 1 tab(s), Oral, Daily, 3 refills Potassium Chloride (Ron-Dkld-Ojk M20) 20 mEq oral tablet, extended release [...] influenza virus vaccine, inactivated 08/28/2022 Recorded SARSCoV2 mRNA(tojune-kenn- sucros) vac 02/01/2022 Recorded SARS-CoV-2 (COVID-19) mRNA BNT-162b2 [...] Protein Urine Dipstick: Negative (11/26/24 10:46:00) Specific [place] Urine Dipstick: 1.020 (11/26/24 10:46:00) Urine Appearance Urine (more content not included)... Normal [facility] Comment on above: Result Comment: Elec tronically Signed By: Nohelia Pena\.br\Date and Time Signed: 11/26/24 11:22 EST HEMATOLOGYOrdered By: SYSTEM SYSTEM on 11-26-2024 Basophils/100 WBC (Bld) 0.5 % Normal 0.0 - 2.0 % Remisol Heme Basophils/Leukocyte s Auto (Bld) [Pure # fraction] 0.0 E9/L [...] Normal 4.0 - 11.0 E9/L Remisol Heme [place] Screenon 11-26-2024 Heterophile Ab LA Ql (S) Negative Normal Negative [facility] Comment on above: Performed By: #### 2 [id number] #### [facility] [address] [place] [address] SEROLOGYOrdered By: Leeanne Hayward on 11-26-2024 Heterophile Ab LA Ql (S) Negative (11/26/24 11:29 AM) Normal Negative [facility] Sero eGFRon 11-26-2024 eGFR 112 mL/min/1.73 m2 Normal >=59 [facility] Comment on above: Performed By: #### 1 [id number] #### [facility] [address] [place] [address] Provider Letteron 11-25-2024 Provider Letter Provider Letter November 25, 2024 [place] [address] : 1985 To Whom It May Concern, Please excuse above patient from work, due to medical Date of Illness: From: _ 11-24-24 To: _ 11-25-24 May Return to Work On:11-26-24 Restrictions: _ Comments: _ Sincerely, [facility] [place] [address] [place] [address] [facility] Ambulatory Visit Summaryon 0 11-24-2024 Ambulatory Visit Summary Ambulatory Visit Summary JAMES DEL RIO :1985 Visit Date:11/24/2024 Ambulatory Visit Instructions Your [...] for hyperlipidemia Shortness of breath Strep throat Jerix-Rszrrkolg-Fxsi e syndrome Patient Survey You may receive a survey via text or e-mail asking about your office visit. Please share your experience with us by completing your survey. We appreciate your feedback and thank you for choosing us for your care. Jose Luis Couch [facility] Medicine Office/Clini c Noteon 11-24-2024 Family Medicine [...] day(s), # 14 tab(s), Refills(s) 0, [id number], cm, 11/24/24 14:45:00 EST, Height/Length Dosing, 97.8, kg, 11/24/24 14:45:00 EST, Weight Dosing hydrochlorothiazide, 12.5 mg = 1 cap(s), Oral, Daily, PRN Edema, # 30 cap(s), Refills(s) 4, [id number], cm, 08/11/24 13:17:00 EDT, Height/Length Dosing, 96.3, kg, 08/11/24 13:17:00 EDT, Weight Dosing ondansetron, 4 mg = 1 tab(s), Oral, q6hr, PRN Nausea/Vomiting, # 20 tab(s), Refills(s) 0, [id number], cm, 08/11/24 13:17:00 EDT, Height/Length [...] of breath Sinusitis Sore throat Strep throat Ngtug-Ggqzpuiuq-Izbo e syndrome Historical No qualifying data Procedure/Surgical History [...] influenza virus vaccine, inactivated 08/28/2022 Recorded SARSCoV2 mRNA(tozinamer-kenn- sucros) vac 02/01/2022 Recorded SARS-CoV-2 (COVID-19) mRNA BNT-162b2 vax 09/02/2021 Recorded SARS-CoV-2 (COVID-19) mRNA BNT-162b2 vax 08/12/2021 Recorded Normal [facility] Comment on above: Result Comment: Elec tronically [...] for hyperlipidemia Shortness of breath Strep throat Obkjf-Kfaroucqp-Dsfr e syndrome Patient Survey You may receive a survey via text or e-mail asking about your office visit. Please share your experience with us by completing your survey. We appreciate your feedback and thank you for choosing us for your care. Normal [facility] Family Medicine Office/Clini c Noteon 08-11-2024 Family [...] Nausea/Vomiting, # 20 tab(s), Refills(s) 0, Pharmacy: [facility]/pharmacy #[id number], 182, cm, 08/11/24 13:17:00 EDT, Height/Length Dosing, 96.3, kg, 08/11/24 13:17:00 EDT, Weight Dosing oseltamivir, 75 mg = 1 cap(s), Oral, BID, for treatment, X 5 day(s), # 10 cap(s), Refills(s) 0, Pharmacy: [id number], 182, cm, 08/11/24 13:17:00 EDT, Height/Length Dosing, 96.3, kg, 08/11/24 13:17:00 EDT, Weight Dosing 2. Nausea and vomiting in adult (R11.2: Nausea with vomiting, unspecified) nausea and vomiting since this morning. will send zofran. pt encouraged to stay hydrated Ordered: ondansetron, 4 mg = 1 tab(s), Oral, q6hr, PRN Nausea/Vomiting, # 20 tab(s), Refills(s) 0, [id number], cm, 08/11/24 13:17:00 EDT, Height/Length Dosing, 96.3, kg, 08/11/24 13:17:00 EDT, Weight Dosing oseltamivir, 75 mg = 1 cap(s), Oral, BID, for treatment, X 5 day(s), # 10 cap(s), Refills(s) 0, Pharmacy: [facility]/pharmacy #[id number], 182, cm, 08/11/24 13:17:00 EDT, Height/Length Dosing, 96.3, kg, 08/11/24 13:17:00 EDT, Weight Dosing 3. Body aches (R52: Pain, unspecified) rotate tylenol and mortrin Ordered: ondansetron, 4 mg = 1 tab(s), Oral, q6hr, PRN Nausea/Vomiting, # 20 tab(s), Refills(s) 0, [id number], cm, 08/11/24 13:17:00 EDT, Height/Length Dosing, 96.3, kg, 08/11/24 13:17:00 EDT, Weight Dosing oseltamivir, 75 mg = 1 cap(s), Oral, BID, for treatment, X 5 day(s), # 10 cap(s), Refills(s) 0, Pharmacy: [facility]/pharmacy #[id number], 182, cm, 08/11/24 13:17:00 EDT, Height/Length [...] DAY, # 180 tab(s), Refills(s) 1, Pharmacy: [id number], 182, cm, 05/26/24 10:41:00 EDT, Height/Length Dosing, [...] for hyperlipidemia Shortness of breath Strep throat Rhwbn-Eejcmxzic-Czvn e syndrome Historical No qualifying data Procedure/Surgical History [...] influenza virus vaccine, inactivated 08/28/2022 Recorded SARSCoV2 mRNA(tozinamer-kenn- sucros) vac 02/01/2022 Recorded SARS-CoV-2 (COVID-19) mRNA BNT-162b2 vax 09/02/2021 Recorded SARS-CoV-2 (COVID-19) mRNA BNT-162b2 vax 08/12/2021 Recorded Normal [facility] Comment on above: Result Comment: Elec tronically Signed By: Lazarus BARRAGAN, Nohelia Houston\.br\Date and Time Signed: 08/11/24 14:12 EDT Family [...] for hyperlipidemia Shortness of breath Strep throat Pefvn-Qjpfaaaoa-Guhq e syndrome Historical No qualifying data Procedure/Surgical History [...] influenza virus vaccine, inactivated 08/28/2022 Recorded SARSCoV2 mRNA(tozicherryer-kenn- sucros) vac 02/01/2022 Recorded SARS-CoV-2 (COVID-19) mRNA BNT-162b2 vax 09/02/2021 Recorded SARS-CoV-2 (COVID-19) mRNA BNT-162b2 vax 08/12/2021 Recorded Normal [facility] Comment on above: Result Comment: Elec tronically Signed By: Nohelia Pena\.dionicio\Date and Time Signed: 08/08/24 12:55 EDT CMPon 08-07-2024 Albumin [Mass/Vol] 4.3 g/dL Normal 3.3-5.0 [facility] Comment on above: Performed By: #### 2 [id number] #### [facility] [address] [place] [address] Albumin/Globulin (S) [Mass conc ratio] 1.2 Normal 1.1-2.2 [facility] Comment on above: Performed By: #### 2 [id number] #### [facility] [address] [place] [address] ALP [Catalytic activity/Vol] 102 Int._Unit/L High 21-98 [facility] Comment on above: Performed By: #### 2 [id number] #### [facility] [address] [place] [address] ALT No additional P-5'-P [Catalytic activity/Vol] 96 Int._Unit/L High 6-46 [facility] Comment on above: Performed By: #### 2 [id number] #### [facility] [address] [place] [address] Anion gap [Moles/Vol] 12 mmol/L Normal 6-16 [facility] Comment on above: Performed By: #### 2 [id number] #### [facility] [address] [place] [address] AST [Catalytic activity/Vol] 173 Int._Unit/L High 5-43 [facility] Comment on above: Performed By: #### 2 [id number] #### [facility] [address] [place] [address] Bilirubin [Mass/Vol] 2.1 mg/dL High 0.0-1.1 [facility] Comment on above: Performed By: #### 2 [id number] #### [facility] [address] [place] [address] Calcium [Mass/Vol] 9.4 mg/dL Normal 8.9-11.1 [facility] Comment on above: Performed By: #### 2 [id number] #### [facility] [address] [place] [address] Chloride [Moles/Vol] 100 mmol/L Low 101-111 [facility] Comment on above: Performed By: #### 2 [id number] #### [facility] [address] [place] [address] CO2 [Moles/Vol] 27 mmol/L Normal 21-31 [facility] Comment on above: Performed By: #### 2 [id number] #### [facility] [address] [place] [address] Creatinine [Mass/Vol] 0.9 mg/dL Normal 0.5-1.3 [facility] Comment on above: Performed By: #### 2 [id number] #### [facility] [address] [place] [address] Globulin (S) [Mass/Vol] 3.6 g/dL Normal 1.4-4.0 [facility] Comment on above: Performed By: #### 2 [id number] #### [facility] [address] [place] [address] Glucose [Mass/Vol] 100 mg/dL Normal 55-199 [facility] Comment on above: Performed By: #### 2 [id number] #### [facility] [address] [place] [address] Potassium [Moles/Vol] 4.0 mmol/L Normal 3.5-5.3 [facility] Comment on above: Performed By: #### 2 [id number] #### [facility] [address] [place] [address] Protein [Mass/Vol] 7.9 g/dL High 6.0-7.8 [facility] Comment on above: Performed By: #### 2 [id number] #### [facility] [address] [place] [address] Sodium [Moles/Vol] 135 mmol/L Normal 135-145 [facility] Comment on above: Performed By: #### 2 [id number] #### [facility] [address] [place] [address] Urea nitrogen [Mass/Vol] 7 mg/dL Normal 5-21 [facility] Comment on above: Performed By: #### 2 [id number] #### [facility] [address] [place] [address] Urea nitrogen/Creatinine [Mass ratio] 8 No Units Low 10-20 [facility] Comment on above: Performed By: #### 2 [id number] #### [facility] [address] [place] [address] eGFRon 08-07-2024 eGFR 112 mL/min/1.73 m2 Normal >=59 [facility] Comment on above: Performed By: #### 1 [id number] #### [facility] [address] [place] [address] Ambulatory Visit Summaryon 0 05-26-2024 Ambulatory Visit [...] 100 mg Tab) potassium chloride (Potassium Chloride (Fga-Pdmx-Gyl M20) 20 mEq oral tablet, extended release) Procedures Performed Nicola Parkinson White syndrome. Discharge Vitals Temperature (Tympanic) 37.1 ?C Heart Rate (Peripheral) 132 Respiratory Rate 18 Blood Pressure 152/90 Height 182.0 cm Height 72 in Weight 93.6 kg Weight 205.92 lb BMI 28.26 What to do next Scheduled Follow-Up Appointments Sunday 3:40 PM EDT With: Nohelia Pean Where: [facility] [place] Normal [facility] Family Medicine Office/Clini c Noteon 05-26-2024 Family [...] day(s), # 20 tab(s), Refills(s) 0, Pharmacy: [facility]/pharmacy #[id number], 182, cm, 05/26/24 10:41:00 EDT, Height/Length Dosing, 93.6, kg, 05/26/24 10:41:00 EDT, Weight Dosing 2. Strep throat (J02.0: Streptococcal pharyngitis) exudate noted on both tonsils, tonsils red and swollen. amoxicillin sent Ordered: amoxicillin, 875 mg = 1 tab(s), Oral, BID, X 10 day(s), # 20 tab(s), Refills(s) 0, [id number], 182, cm, 05/26/24 10:41:00 EDT, Height/Length Dosing, 93.6, kg, 05/26/24 10:41:00 EDT, Weight Dosing 3. BMI 37.0-37.9, adult (Z68.37: Body mass index [BMI] 37.0-37.9, adult) BMI education given Ordered: amoxicillin, 875 mg = 1 tab(s), Oral, BID, X 10 day(s), # 20 tab(s), Refills(s) 0, Pharmacy: [id number], 182, cm, 05/26/24 10:41:00 EDT, Height/Length Dosing, 93.6, kg, 05/26/24 10:41:00 EDT, Weight Dosing 4. Heavy smoker (F17.200: Nicotine dependence, unspecified, uncomplicated) consider not smoking Ordered: amoxicillin, 875 mg = 1 tab(s), Oral, BID, X 10 day(s), # 20 tab(s), Refills(s) 0, Pharmacy: [facility]/pharmacy #[id number], 182, cm, 05/26/24 10:41:00 EDT, Height/Length Dosing, 93.6, kg, 05/26/24 10:41:00 EDT, Weight Dosing 5. Alcohol use (Z78.9: Other specified health status) consider not drinking Ordered: amoxicillin, 875 mg = 1 tab(s), Oral, BID, X 10 day(s), # 20 tab(s), Refills(s) 0, Pharmacy: [facility]/pharmacy #[id number], 182, cm, 05/26/24 10:41:00 EDT, Height/Length Dosing, 93.6, kg, 05/26/24 10:41:00 EDT, Weight Dosing Follow-up No qualifying data available Problem List/Past Medical History Ongoing Alcohol use Elevated ALT measurement Elevated liver enzymes Fatigue Hypertension Hypokalemia Left otitis media Lower extremity edema Screening for hyperlipidemia Shortness of breath Strep throat Medua-Jpqmhovwe-Awjz e syndrome Historical No qualifying data Procedure/Surgical History Nicola Parkinson White syndrome. Medications amoxicillin 875 mg Tab, 875 mg= 1 tab(s), Oral, BID losartan 100 mg Tab, 100 mg= 1 tab(s), Oral, Daily, 3 refills Potassium Chloride (Gzt-Nhlw-Fmu M20) 20 mEq oral tablet, extended release, [...] influenza virus vaccine, inactivated 08/28/2022 Recorded SARSCoV2 mRNA(tozinamer-kenn- sucros) vac 02/01/2022 Recorded SARS-CoV-2 (COVID-19) mRNA BNT-162b2 vax 09/02/2021 Recorded SARS-CoV-2 (COVID-19) mRNA BNT-162b2 vax 08/12/[address] [facility] Comment on above: Result Comment: Elec tronically [...] Daily, # 30 cap(s), Refills(s) 1, Pharmacy: [id number], 182, cm, 05/05/24 15:29:00 EDT, Height/Length Dosing, 93, kg, 05/05/24 15:29:00 EDT, Weight Dosing losartan, 100 mg = 1 tab(s), Oral, Daily, X 90 day(s), # 90 tab(s), Refills(s) 3, Pharmacy: [id number], 182, cm, 05/21/24 17:12:00 EDT, Height/Length Dosing, 92.1, kg, 05/21/24 17:12:00 EDT, Weight Dosing losartan, 100 mg = 1 tab(s), Oral, Daily, # 30 tab(s), Refills(s) 1, [id number], cm, 04/11/24 13:50:00 EDT, Height/Length Dosing, 92.8, kg, 04/11/24 13:50:00 EDT, Weight Dosing potassium chloride, 20 mEq = 1 tab(s), Oral, Daily, # 60 tab(s), Refills(s) 1, [id number], cm, 04/11/24 13:50:00 EDT, Height/Length [...] Daily, # 30 cap(s), Refills(s) 1, [id number], cm, 05/05/24 15:29:00 EDT, Height/Length Dosing, 93, kg, 05/05/24 15:29:00 EDT, Weight Dosing 3. Hypokalemia (E87.6: Hypokalemia) continue potassium Ordered: losartan, 100 mg = 1 tab(s), Oral, Daily, X 90 day(s), # 90 tab(s), Refills(s) 3, [id number], cm, 05/21/24 17:12:00 EDT, Height/Length Dosing, 92.1, kg, 05/21/24 17:12:00 EDT, Weight Dosing losartan, 100 mg = 1 tab(s), Oral, Daily, # 30 tab(s), Refills(s) 1, [id number] 182, cm, 04/11/24 13:50:00 EDT, Height/Length Dosing, 92.8, kg, 04/11/24 13:50:00 EDT, Weight Dosing potassium chloride, 20 mEq = 1 tab(s), Oral, Daily, # 60 tab(s), Refills(s) 1, [id number] 182, cm, 04/11/24 13:50:00 EDT, Height/Length Dosing, 92.8, kg, 04/11/24 13:50:00 EDT, Weight Dosing 4. BMI 27.0-27.9,adult (Z68.27: Body mass index [BMI] 27.0-27.9, adult) BMI education 5. Smoker (F17.200: Nicotine dependence, unspecified, uncomplicated) consider not smoking Ordered: losartan, 100 mg = 1 tab(s), Oral, Daily, X 90 day(s), # 90 tab(s), Refills(s) 3, [id number] 182, cm, 05/21/24 17:12:00 EDT, Height/Length Dosing, 92.1, kg, 05/21/24 17:12:00 EDT, Weight Dosing losartan, 100 mg = 1 tab(s), Oral, Daily, # 30 tab(s), Refills(s) 1, [id number] 182, cm, 04/11/24 13:50:00 EDT, Height/Length Dosing, 92.8, kg, 04/11/24 13:50:00 EDT, Weight Dosing potassium chloride, 20 mEq = 1 tab(s), Oral, Daily, # 60 tab(s), Refills(s) 1, [id number] 182, cm, 04/11/24 13:50:00 EDT, Height/Length Dosing, 92.8, kg, 04/11/24 13:50:00 EDT, Weight Dosing Follow-up No qualifying data available Problem List/Past Medical History Ongoing Alcohol use Elevated ALT measurement Elevated liver enzymes Fatigue Hypertension Hypokalemia Lower extremity edema Screening for hyperlipidemia Shortness of breath Hjmyq-Yorhjhgmz-Sppe e syndrome Historical No qualifying data Procedure/Surgical History Nicola Parkinson White syndrome. Medications losartan 100 mg Tab, 100 mg= 1 tab(s), Oral, Daily, 3 refills Potassium Chloride (Rqv-Azwr-Dmv M20) 20 mEq oral tablet, extended release, [...] Date S (more content not included)... Normal [facility] Comment on above: Result Comment: Elec tronically [...] 100 mg Tab) potassium chloride (Potassium Chloride (Zsn-Xyvq-Scn M20) 20 mEq oral tablet, extended release) Procedures Performed Nicola Parkinson White syndrome. Discharge Vitals Heart Rate (Peripheral) 110 Respiratory Rate 18 Blood Pressure 148/96 Height 182.0 cm Height 72 in Weight 93.05 kg Weight 204.71 lb BMI 28.09 What to do next Scheduled Follow-Up Appointments Sunday 3:00 PM EDT With: Nohelia Pena Where: [facility] Normal [address] [id number] \.br\ Medications\.br\ What How Much When Why Instructions\.br\ New hydrochlorothiazide (hydrochlorothiazide 12.5 mg Cap) 1 Capsules By Mouth Every day Lower extremity edema Hypertension BMI 28.0-28.9,adult Alcohol use Refills: 1 Pickup at [facility]/pharmacy #[id number]\.br\ Unchanged losartan (losartan 100 mg Tab) 1 Tablets By Mouth Every day Hypertension Hypokalemia Elevated liver enzymes Elevated ALT measurement BMI 28.0-28.9,adult Smoker\.br\ Unchanged potassium chloride (Potassium Chloride (Oqh-Putl-Eli M20) 20 mEq oral tablet, extended release) 1 Tablets By Mouth 2 times a day Hypertension Hypokalemia Elevated liver enzymes Elevated ALT measurement BMI 28.0-28.9,adult Smoker\.br\ Pharmacy Information\.br\ [facility]/pharmacy #[id number]: [address], [place] [id number] [phone]\.br\ Allergies\.br\ No Known Medication Allergies\.br\ Problems\.br\ Ongoing - Any problem that you are currently receiving treatment for.\.br\ Alcohol use\.br\ Elevated ALT measurement\.br\ Elevated liver enzymes\.br\ Fatigue\.br\ Hypertension\.br\ Hypokalemia\.br\ Lower extremity edema\.br\ Screening for hyperlipidemia\.br\ Shortness of breath\.br\ Iadum-Ypwkdmrxo-Wbyo e syndrome\.br\ Patient Survey\.br\ You may receive a survey via text or e-mail asking about your office visit. Please share your experience with us by completing your survey. We appreciate your feedback and thank you for choosing us for your care.\.br\ \.br\ [facility] Family Medicine Office/Clini c Noteon 05-05-2024 Family Medicine Office/Clinic Note HPI Staff James [...] Daily, # 30 cap(s), Refills(s) 1, [id number] 182, cm, 05/05/24 15:29:00 EDT, Height/Length Dosing, 93, kg, 05/05/24 15:29:00 EDT, Weight Dosing 2. Hypertension (I10: Essential (primary) hypertension) BP running high at home still. he didn't remember his meds the last 2 days. Ordered: hydrochlorothiazide, 12.5 mg = 1 cap(s), Oral, Daily, # 30 cap(s), Refills(s) 1, Pharmacy: [facility]/pharmacy #[id number], 182, cm, 05/05/24 15:29:00 EDT, Height/Length Dosing, 93, kg, 05/05/24 15:29:00 EDT, Weight Dosing hydrochlorothiazide- metoprolol, 1 tab(s), Oral, BID, 60 tab(s), Refill(s) 2, [facility], cm, 03/21/24 13:11:00 EDT, Height/Length Dosing, 97, kg, 03/21/24 13:11:00 EDT, Weight Dosing 3. BMI 28.0-28.9,adult (Z68.28: Body mass index [BMI] 28.0-28.9, adult) BMI education given Ordered: hydrochlorothiazide, 12.5 mg = 1 cap(s), Oral, Daily, # 30 cap(s), Refills(s) 1, Pharmacy: [facility]/pharmacy #[id number], 182, cm, 05/05/24 15:29:00 EDT, Height/Length Dosing, 93, kg, 05/05/24 15:29:00 EDT, Weight Dosing 4. Alcohol use (Z78.9: Other specified health status) consider decreasing alcohol intake Ordered: hydrochlorothiazide, 12.5 mg = 1 cap(s), Oral, Daily, # 30 cap(s), Refills(s) 1, Pharmacy: [facility]/pharmacy #[id number], 182, cm, 05/05/24 15:29:00 EDT, Height/Length Dosing, 93, kg, 05/05/24 15:29:00 EDT, Weight Dosing Follow-up No qualifying data available Problem List/Past Medical History Ongoing Alcohol use Elevated ALT measurement Elevated liver enzymes Fatigue Hypertension Hypokalemia Lower extremity edema Screening for hyperlipidemia Shortness of breath Jwjxi-Exqklrswh-Ioti e syndrome Historical No qualifying data Procedure/Surgical History Nicola Parkinson White syndrome. Medications hydrochlorothiazide 12.5 mg Cap, 12.5 mg= 1 cap(s), Oral, Daily, 1 refills losartan 100 mg Tab, 100 mg= 1 tab(s), Oral, Daily, 1 refills, Not taking: pt has forgot to take his medicine the last 2 days Potassium Chloride (Qho-Pxog-Ffe M20) 20 mEq oral tablet, extended release, [...] influenza virus vaccine, inactivated 08/28/2022 Recorded SARSCoV2 mRNA(tosmither-kenn- sucros) vac 02/01/2022 Recorded SARS-CoV-2 (COVID-19) mRNA BNT-162b2 vax 09/02/2021 Recorded SARS-CoV-2 (COVID-19) mRNA BNT-162b2 vax 08/12/[address] [facility] Comment on above: Result Comment: Elec tronically Signed By: Nohelia Pena\Date and Time Signed: 05/05/24 15:50 EDT Family [...] Daily, # 30 tab(s), Refills(s) 1, Pharmacy: [id number], 182, cm, 04/11/24 13:50:00 EDT, Height/Length Dosing, 92.8, kg, 04/11/24 13:50:00 EDT, Weight Dosing potassium chloride, 20 mEq = 1 tab(s), Oral, BID, # 60 tab(s), Refills(s) 1, Pharmacy: [id number], 182, cm, 04/11/24 13:50:00 EDT, Height/Length Dosing, 92.8, kg, 04/11/24 13:50:00 EDT, Weight Dosing 2. Hypokalemia (E87.6: Hypokalemia) will start potassium Ordered: losartan, 100 mg = 1 tab(s), Oral, Daily, # 30 tab(s), Refills(s) 1, [id number], cm, 04/11/24 13:50:00 EDT, Height/Length Dosing, 92.8, kg, 04/11/24 13:50:00 EDT, Weight Dosing potassium chloride, 20 mEq = 1 tab(s), Oral, BID, # 60 tab(s), Refills(s) 1, Pharmacy: [facility]/pharmacy #[id number], 182, cm, 04/11/24 13:50:00 EDT, Height/Length Dosing, 92.8, kg, 04/11/24 13:50:00 EDT, Weight Dosing 3. Elevated liver enzymes (R74.8: Abnormal levels of other serum enzymes) discussed decreasing alcohol consumption Ordered: losartan, 100 mg = 1 tab(s), Oral, Daily, # 30 tab(s), Refills(s) 1, [facility] 182, cm, 04/11/24 13:50:00 EDT, Height/Length Dosing, 92.8, kg, 04/11/24 13:50:00 EDT, Weight Dosing potassium chloride, 20 mEq = 1 tab(s), Oral, BID, # 60 tab(s), Refills(s) 1, [id number] 182, cm, 04/11/24 13:50:00 EDT, Height/Length Dosing, 92.8, kg, 04/11/24 13:50:00 EDT, Weight Dosing 5. BMI 28.0-28.9,adult (Z68.28: Body mass index [BMI] 28.0-28.9, adult) BMI education complete Ordered: losartan, 100 mg = 1 tab(s), Oral, Daily, # 30 tab(s), Refills(s) 1, Pharmacy: [facility]/pharmacy #[id number], 182, cm, 04/11/24 13:50:00 EDT, Height/Length Dosing, 92.8, kg, 04/11/24 13:50:00 EDT, Weight Dosing potassium chloride, 20 mEq = 1 tab(s), Oral, BID, # 60 tab(s), Refills(s) 1, [id number] 182, cm, 04/11/24 13:50:00 EDT, Height/Length Dosing, 92.8, kg, 04/11/24 13:50:00 EDT, Weight Dosing 6. Smoker (F17.200: Nicotine dependence, unspecified, uncomplicated) consider not smoking Ordered: losartan, 100 mg = 1 tab(s), Oral, Daily, # 30 tab(s), Refills(s) 1, [facility] 182, cm, 04/11/24 13:50:00 EDT, Height/Length Dosing, 92.8, kg, 04/11/24 13:50:00 EDT, Weight Dosing potassium chloride, 20 mEq = 1 tab(s), Oral, BID, # 60 tab(s), Refills(s) 1, [facility] 182, cm, 04/11/24 13:50:00 EDT, Height/Length Dosing, 92.8, kg, 04/11/24 13:50:00 EDT, Weight Dosing Follow-up No qualifying data available Patient Education Hypertension, Adult Alcoholic Liver Disease, Tphs-wt-Vdvj Problem List/Past Medical History Ongoing Alcohol use Elevated ALT measurement Elevated liver enzymes Fatigue Hypertension Hypokalemia Lower extremity edema Screening for hyperlipidemia Shortness of breath Gjalm-Njuehggpo-Abbr e syndrome Historical No qualifying data Procedure/Surgical History Nicola Parkinson White syndrome. Medications hydrochlorothiazide- metoprolol 25 mg-100 mg oral tablet, 1 tab(s), Oral, BID, 2 refills losartan 100 mg Tab, 100 mg= 1 tab(s), Oral, Daily, 1 refills Potassium Chloride (Ast-Bmsh-Tsr M20) 20 mEq oral tablet, extended release, [...] Hypertension: Fa (more content not included)... Normal [facility] Comment on above: Result Comment: Elec tronically Signed By: Nohelia Pena.dionicio\Date and Time Signed: 04/11/24 14:12 EDT Patient [...] oz glass (more content not included)... Normal [facility] Ambulatory Visit Summaryon 0 03-21-2024 Ambulatory Visit Summary JAMES DEL RIO :1985 Visit Date:03/21/2024 Ambulatory Visit Instructions Your Diagnosis Hypertension Screening for hyperlipidemia Fatigue Shortness of breath Alcohol use Your Care Team Attending Physician - Nohelia Pena Primary Care Physician - Nohelia Pena This Is Your Medications List hydrochlorothiazide- metoprolol (hydrochlorothiazide -metoprolol 25 mg-100 mg oral tablet) Procedures Performed Nicola Parkinson White syndrome. Discharge Vitals Temperature (Temporal Artery) 36.8 ?C Heart Rate (Peripheral) 108 Respiratory Rate 16 Blood Pressure 180/118 Height 182 cm Height 72 in Weight 97.0 kg Weight 213.4 lb BMI 29.28 What to do next Scheduled Follow-Up Appointments Sunday 1:40 PM EDT With: Nohelia Pena Where: [facility] Family Medicine Aaliyah Normal [facility] CBC w/ Auto Diffon 4 Basophils/100 WBC (Bld) 0.2 % Normal 0.0-2.0 [facility] Comment on above: Performed By: #### 1 [id number], 8933412, 6659587, 7260790, 9431081 ####[facility] [address] [place] [address] Basophils/Leukocyte s Auto (Bld) [Pure # fraction] 0.0 E9/L Normal 0.0-0.2 [facility] Comment on above: Performed By: #### 1 [id number], 9224856, 0758746, 7415166, 2131715 ####[address] [address] Eosinophils (Bld) [#/Vol] 0.2 E9/L Normal 0.0-0.5 [facility] Comment on above: Performed By: #### 1 6686237, 6099188, 2905493, 2488572, 0002851 ####[place] [address] Eosinophils/100 WBC (Bld) 4.3 % Normal 0.0-8.0 [facility] Comment on above: Performed By: #### 1 0906014, 6149177, 3082797, 1932274, 0397972 ####[place] [address] Erythrocyte distribution width (RBC) [Ratio] 13.7 % Normal 10.9-14.2 [facility] Comment on above: Performed By: #### 1 9812818, 3448070, 1800381, 6992528, 7749747 ####[place] [address] Hematocrit (Bld) [Volume fraction] 46.0 % Normal 37.7-49.0 [facility] Comment on above: Performed By: #### 1 3547294, 5082130, 6363902, 4142508, 3175967 ####[place] [address] Hemoglobin (Bld) [Mass/Vol] 15.2 g/dL Normal 13.5-17.5 [facility] Comment on above: Performed By: #### 1 7326050, 9743883, 8145954, 2791962, 2268902 ####[address] [address] Lymphocytes (Bld) [#/Vol] 1.6 E9/L Normal 1.0-4.0 [facility] Comment on above: Performed By: #### 1 4653981, 2762897, 2928235, 4595844, 9042917 ####[address] [address] Lymphocytes/100 WBC (Bld) 29.2 % Normal 14.0-50.0 [facility] Comment on above: Performed By: #### 1 2012547, 2137688, 5543843, 8107746, 3936906 ####[address] [address] MCH (RBC) [Entitic mass] 36.3 pg High 27.0-34.0 [facility] Comment on above: Performed By: #### 1 6443049, 2410699, 6368161, 4670173, 9529982 ####[place] [address] MCHC (RBC) [Mass/Vol] 33.1 g/dL Normal 31.4-36.0 [facility] Comment on above: Performed By: #### 1 2663617, 3620266, 4107028, 7625310, 7233454 ####[address] [address] MCV (RBC) [Entitic vol] 109.6 fL High 80.0-100.0 [facility] Comment on above: Performed By: #### 1 9300375, 0107829, 2597411, 0331769, 4902183 ####[place] [address] Monocytes (Bld) [#/Vol] 0.6 E9/L Normal 0.2-1.0 [facility] Comment on above: Performed By: #### 1 3639373, 5639638, 1398045, 5669478, 3917459 ####[address] [address] Neutrophils (Bld) [#/Vol] 3.0 E9/L Normal 2.0-7.5 [facility] Comment on above: Performed By: #### 1 7294643, 6517925, 0576671, 2405817, 3383595 ####[address] [place] [address] Neutrophils/100 WBC (Bld) 55.7 % Normal 36.0-75.0 [facility] Comment on above: Performed By: #### 1 7202834, 7519963, 7787720, 0486900, 4737546 ####[address] [address] Platelet 213.0 E9/L Normal 150.0-500.0 [facility] Comment on above: Performed By: #### 1 9368436, 5794652, 5466841, 5831794, 6666219 ####[address] [address] Platelet mean volume (Bld) [Entitic vol] 8.2 fL Normal 6.4-10.8 [facility] Comment on above: Performed By: #### 1 3810264, 3549620, 6361736, 2797117, 2840718 ####[address] [address] RBC (Bld) [#/Vol] 4.2 E12/L Low 4.3-5.9 [facility] Comment on above: Performed By: #### 1 3937571, 3177509, 4326041, 4044670, 4151505 ####[address] [address] WBC corrected for nucl RBC Auto (Bld) [#/Vol] 5.3 E9/L Normal 4.0-11.0 [facility] Comment on above: Performed By: #### 1 1995225, 8524129, 3314173, 3324005, 7238600 ####[address] [address] CHEMISTRYOrdered By: Jose shore on 03-21-2024 Albumin [...] Normal >=59mL/min/1.73 m 2 Remisol Chem Urea nitrogen/Creatinine [Mass ratio] 11 mg/mg Normal 10 - 20 Remisol Chem CMPon 03-21-2024 Creatinine [Mass/Vol] 0.7 mg/dL Normal 0.5-1.3 [facility] Comment on above: Performed By: #### 1 1077230, 7039018, 8648913, 5095452, 1028211 ####[facility] [address] [place] [address] Urea nitrogen/Creatinine [Mass ratio] 11 No Units Normal - [facility] Comment on above: Performed By: #### 1 2085769, 9783160, 4319711, 2161300, 5404299 ####[facility] [address] [place] [address] Albumin [Mass/Vol] 4.3 g/dL Normal 3.3-5.0 [facility] Comment on above: Performed By: #### 1 2541529, 6439142, 3525831, 4670652, 1433189 ####[facility] [address] [place] [address] Albumin/Globulin (S) [Mass conc ratio] 1.2 Normal 1.1-2.2 [facility] Comment on above: Performed By: #### 1 0572675, 4278025, 1332754, 5334292, 4582834 ####[facility] [address] [place] [address] ALP [Catalytic activity/Vol] 125 Int._Unit/L High 21-98 [facility] Comment on above: Performed By: #### 1 8530540, 9428836, 3682118, 3800696, 6634527 ####[facility] [address] [place] [address] ALT No additional P-5'-P [Catalytic activity/Vol] 115 Int._Unit/L High 6-46 [facility] Comment on above: Performed By: #### 1 9086556, 7112945, 7710080, 9867532, 5637719 ####[facility] [address] [place] [address] Anion gap [Moles/Vol] 13 mmol/L Normal 6-16 [facility] Comment on above: Performed By: #### 1 5882610, 6233562, 9683477, 4479567, 3309930 ####[facility] [address] [place] [address] AST [Catalytic activity/Vol] 192 Int._Unit/L High 5-43 [facility] Comment on above: Performed By: #### 1 6404362, 4607088, 7435279, 2124691, 5764719 ####[facility] [address] [place] [address] Bilirubin [Mass/Vol] 2.4 mg/dL High 0.0-1.1 [facility] Comment on above: Performed By: #### 1 0066457, 4370618, 8869778, 8838707, 8210200 ####[facility] [address] [place] [address] Calcium [Mass/Vol] 8.9 mg/dL Normal 8.9-11.1 [facility] Comment on above: Performed By: #### 1 7854411, 3684898, 2982485, 9128330, 6019725 ####[facility] [address] [place] [address] Chloride [Moles/Vol] 99 mmol/L Low 101-111 [facility] Comment on above: Performed By: #### 1 6958452, 7151785, 8299225, 7432989, 7618577 ####[facility] [address] [place] [address] CO2 [Moles/Vol] 27 mmol/L Normal 21-31 [facility] Comment on above: Performed By: #### 1 8629129, 7242209, 0354465, 2654658, 9359621 ####[facility] [address] [place] [address] Globulin (S) [Mass/Vol] 3.5 g/dL Normal 1.4-4.0 [facility] Comment on above: Performed By: #### 1 9677072, 8374286, 1552861, 9052811, 0856835 ####[facility] [address] [place] [address] Glucose [Mass/Vol] 91 mg/dL Normal 55-199 [facility] Comment on above: Performed By: #### 1 8532603, 8171903, 0329907, 3902239, 1678419 ####[address] [place] [address] Potassium [Moles/Vol] 3.3 mmol/L Low 3.5-5.3 [facility] Comment on above: Performed By: #### 1 9679358, 7383319, 0440924, 8746601, 0372393 ####[facility] [address] [place] [address] Protein [Mass/Vol] 7.8 g/dL Normal 6.0-7.8 [facility] Comment on above: Performed By: #### 1 7159180, 4657060, 5008670, 3649068, 4017704 ####[address] [place] [address] Sodium [Moles/Vol] 136 mmol/L Normal 135-145 [facility] Comment on above: Performed By: #### 1 2348738, 6183584, 5402719, 5778241, 9463520 ####[facility] [address] [place] [address] Urea nitrogen [Mass/Vol] 8 mg/dL Normal 5-21 [facility] Comment on above: Performed By: #### 1 0685550, 5087223, 7059750, 6200965, 9338375 ####[facility] [address] [place] [address] Family Medicine Office/Clini c Noteon 03-21-2024 Family [...] check labs today. RTC 3 weeks. Ordered: hydrochlorothiazide- metoprolol, 1 tab(s), Oral, BID, 60 tab(s), Refill(s) 2, [id number], 182, cm, 03/21/24 13:11:00 EDT, Height/Length Dosing, 97, kg, 03/21/24 13:11:00 EDT, Weight Dosing CBC w/ Auto Diff Comprehensive Metabolic Panel Lab Specimen Collect [id number] Lipid Panel Thyroid Stimulating Hormone 2. Screening for hyperlipidemia (Z13.220: Encounter for screening for lipoid disorders) lipid panel in office today Ordered: hydrochlorothiazide- metoprolol, 1 tab(s), Oral, BID, 60 tab(s), Refill(s) 2, [facility], 182, cm, 03/21/24 13:11:00 EDT, Height/Length Dosing, 97, kg, 03/21/24 13:11:00 EDT, Weight Dosing CBC w/ Auto Diff Comprehensive Metabolic Panel Lab Specimen Collect [id number] Lipid Panel Thyroid Stimulating Hormone 3. Fatigue (R53.83: Other fatigue) pt and his girlfriend admits that he just does not have the energy that he used to. he tires out pretty easily. 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 pt never followed up with cardiology after that. Ordered: hydrochlorothiazide- metoprolol, 1 tab(s), Oral, BID, 60 tab(s), Refill(s) 2, [facility], 182, cm, 03/21/24 13:11:00 EDT, Height/Length Dosing, 97, kg, 03/21/24 13:11:00 EDT, Weight Dosing CBC w/ Auto Diff Comprehensive Metabolic Panel Lipid Panel Thyroid Stimulating Hormone 4. Shortness of breath (R06.02: Shortness of breath) pt is a heavy smoking. encouraged him to slow down Ordered: hydrochlorothiazide- metoprolol, 1 tab(s), Oral, BID, 60 tab(s), Refill(s) [...] slightly swollen no pitting noted today 7. 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 still has tachycardia. never had follow up with cardiology. Follow-up No qualifying data available Problem List/Past Medical History Ongoing Alcohol use Fatigue Hypertension Lower extremity edema Screening for hyperlipidemia Shortness of breath Famrh-Uvqezmiqm-Wkfx e syndrome Historical No qualifying data Procedure/Surgical History Nicola Parkinson White syndrome. Medications hydrochlorothiazide- metoprolol 25 mg-100 mg oral tablet, 1 tab(s), [...] SARSCoV2 mRNA(toziname (more content not included)... Normal [facility] Comment on above: Result Comment: Elec tronically Signed By: Nohelia Pena\.br\Date and Time Signed: 03/21/24 14:45 EDT [employer]son 03-21-2024 Forms [id number] #[id number] [facility] HEMATOLOGYOrdered By: SYSTEM SYSTEM on 03-21-2024 Basophils/100 WBC (Bld) 0.2 % Normal 0.0 - 2.0 % Remisol Heme Basophils/Leukocyte s Auto (Bld) [Pure # fraction] 0.0 E9/L [...] 03-21-2024 Cholesterol [Mass/Vol] 184 mg/dL Normal 120-200 [facility] Comment on above: Performed By: #### 1 2181213, 5366901, 7514896, 9045593, 3998660 ####[address] [address] [place] [address] Cholesterol in HDL [Mass/Vol] 36 mg/dL Invalid Interpretation Code [facility] Comment on above: Result Comment: '>= 60 LOW RISK' '<= 40 HIGH RISK' Performed By: #### 1 [id number], 3930516, 4544148, 7252186, 3844985 ####[facility] [address] [place] [address] Cholesterol in LDL [Mass/Vol] 155 mg/dL High <=129 [facility] Comment on above: Performed By: #### 1 [id number], 3551082, 7338523, 8305383, 5719244 ####[facility] [address] [place] [address] Cholesterol in VLDL [Mass/Vol] 15 mg/dL Normal 7-40 [facility] Comment on above: Performed By: #### 1 [id number], 2051066, 0164127, 1995546, 1176731 ####[facility] [address] [place] [address] Triglyceride [Mass/Vol] 76 mg/dL Normal <=149 [facility] Comment on above: Performed By: #### 1 [id number], 2976226, 4137991, 1055387, 0058214 ####[facility] [address] [place] [address] TSHon 03-21-2024 TSH Qn 1.72 m[IU]/L Normal 0.34-5.60 [facility] Comment on above: Performed By: #### 1 [id number], 3541052, 2137994, 3759808, 0472508 ####[facility] [address] [place] [address] eGFRon 03-21-2024 eGFR 121 mL/min/1.73 m2 Normal >=59 [facility] Comment on above: Order Comment: Order added by Discern Expert. Performed By: #### 1 [id number], 3602657, 7567760, 7927723, 1794330 ####[facility] [address] [place] [address] Cardiovascular Lab Reporton 10-24-2018 Cardiovascular Lab Report [facility] MR #: [id number] t of Physician: Kali Cedeno M.D.Division of Service Date: 10/23/2018Cardiology Birthdate: 1985Adult Cardiovascular Room #: 3AB [id number] [facility]lsfc[facility]7[address] [place], [place] [address]Ckteu Fax Cardiovascular Laboratory ReportINDICATION: James Del Rio is a 33-year-old man with supraventriculararrh ythmia. He is undergoing catheter ablation by Dr. Alberto Martell. I wascalled to do a transseptal puncture in order to gain access to the leftatrium to perform left-sided arrhythmia ablation. Note that the patienthad been consented for the procedure prior to the start of the ablationprocedure, in particular the consent included transeptal puncture.PROCEDURE:1 . Intracardiac echocardiography.2. Successful transseptal puncture performed.METHOD: The patient was on the kiln labourer electrophysiology table. He hadaccess sheath placed in the right common femoral vein. I usedmicropuncture technique to gain additional venous access in the left commonfemoral vein and an 11-Jordanian x 11 cm [place] sheath was advanced. AnAcuNav intracardiac echocardiography catheter was advanced through thatsheath to the right atrium and used to perform intracardiacechocard iography for identification of the atrial septum.I exchanged the 8-Jordanian venous sheath in the right common femoral vein tothe SL-1 transseptal sheath over a wire and the sheath was advanced to thesuperior vena cava. The BRK1 transseptal needle was advanced through thesheath. The assembly was brought out back to the interatrial septum.Tenting of the interatrial septum was confirmed by intracardiacechocard iography and fluoroscopy was performed to confirm adequateposition. [...] was no evidence of pericardial effusion by intracardiacechocard iography after the transseptal sheath, the patient was given fullheparinization to target and ACT of around 300.Electronically Signed by:Kali Cedeno M.D. 11/03/2018 07:00 A G eocatarina Cedeno M.D.Date Dict: 10/23/2018/06:27 P/Kali Cedeno M.D.Date Trans: 10/24/2018 05:58 A/mmoDN_JN:[id number]: Alberto Martell M.D. [address] [place] [address] [place], [place] [id number] [place] [facility] Cardiovascular Lab Report [facility] MR #: [id number] t of Physician: Alberto Martell M.D.Medicine Service Date: 10/23/2018Division of Birthdate: 1985Cardiology Room #: 3A [id number] [place] [address]Phone Fax Cardiovascular Laboratory ReportELECTROPHYSIOL OGIC STUDY AND CATHETER ABLATION REPORT .INDICATI ONS FOR ELECTROPHYSIOLOGIC STUDY: The patient is a 25-rfug-lsrgmsbckpqe , who has recurrent episodes of supraventricular tachycardia atrates of 220 bpm.. His EKG shows delta wave activity indicating thepresence of an accessory pathway.DESCRIPTION OF PROCEDURE: After written informed consent was obtained, hewas brought to the electrophysiology laboratory in the fasting state. Theright and left groins were prepped and draped in the usual manner. A 1%Xylocaine solution infiltrated for local anesthesia. Utilizingpercutaneou s technique, the right and left femoral veins [...] the atrial septum into the left atrium. 3-dimensionalnoncont act and contact mapping.was employed to localize the [...] ablation as above.6. fluoroscopy7. Conscious sedation.Alberto Martell M.D.[facility] Steam Crane Operatorpiano assembler and PediatricsDirector: Cardiac Electrophysiology ProgrammElectronical ly Signed by:Alberto Martell M.D. 11/15/2018 09:32 A B zachary Martell M.D.Date Dict: 10/23/2018/06:56 P/Alberto Martell M.D.Date Trans: 10/24/2018 03:38 A/mmoDN_JN:[id number] Normal [facility] CBC AUTO DIFFon 10-21-2018 Basophils Auto #/vol (Bld) 0.1 103/ul Normal 0.0-0.1 [facility] Comment on above: Performed By: #### C , JORDON ####[facility] [address] [place] [address] Jennifer Basophils/100 WBC Auto (Bld) 1.5 % Normal 0.2-2.0 [facility] Comment on above: Performed By: #### C CARLINE, NEIL ####[facility] [address] [place] [address] Jennifer Eosinophils Auto #/vol (Bld) 0.3 103/ul Normal 0.0-0.7 [facility] Comment on above: Performed By: #### C CARLINE, NEIL ####[facility] [address] [place] [address] Jennifer Eosinophils/100 WBC Auto (Bld) 4.9 % Normal 0.9-7.0 [facility] Comment on above: Performed By: #### C CARLINE, NEIL ####[facility] [address] [place] [address] Jennifer Erythrocyte distribution width Auto Ratio (RBC) 14.7 % Normal 11.0-15.0 [facility] Comment on above: Performed By: #### C CARLINE, NEIL ####[facility] [address] [place] [address] Jennifer Hematocrit Auto Volume Fraction (Bld) 47.9 % Normal 42.0-54.0 [facility] Comment on above: Performed By: #### C CARLINE, NEIL ####[facility] [address] [place] [address] Jennifer Hemoglobin mass conc (Bld) 16.0 g/dL Normal 14.0-18.0 [facility] Comment on above: Performed By: #### C CARLINE, NEIL ####[facility] [address] [place] [address] Jennifer IG # 0.07 10e3/ul Critically high 0.00-0.03 [facility] Comment on above: Performed By: #### C CARLINE, NEIL ####[facility] [address] [place] [address] Jennifer IG % 1.3 % Critically high 0.0-0.5 [facility] Comment on above: Performed By: #### C MP, CMADM ####[facility] [address] [place] [address] Jennifer Lymphocytes Auto #/vol (Bld) 1.2 103/ul Normal 1.2-3.8 [facility] Comment on above: Performed By: #### C MP, CMADM ####[facility] [address]mj[address] [place] [address] Jennifer Lymphocytes/100 WBC Auto (Bld) 21.8 % Normal 20.5-60.0 [facility] Comment on above: Performed By: #### C MP, CMADM ####[facility] [address] [place] [address] Jennifer MANUAL DIFF REQ NO Normal [facility] Comment on above: Performed By: #### C CARLNIE, CMADM ####[facility] [address] [place] [address] Jennifer MCH Auto Entitic mass (RBC) 29.3 pg Normal 25.9-34.0 [facility] Comment on above: Performed By: #### C CARLINE, CMADM ####[facility] [address] [place], [place] [address] Jennifer MCHC Auto mass conc (RBC) 33.4 g/dL Normal 29.9-35.2 [facility] Comment on above: Performed By: #### C MP, CMADM ####[facility] [address] [place], [place] [address] Jennifer MCV Auto Entitic volume (RBC) 87.7 fL Normal 80.0-94.0 [facility] Comment on above: Performed By: #### C MP, CMADM ####[facility] [address] [place], [place] [address] Jennifer Monocytes Auto #/vol (Bld) 0.6 103/ul Normal 0.3-0.8 [facility] Comment on above: Performed By: #### C MP, CMADM ####[facility] [address] [place] [address] Jennifer Monocytes/100 WBC Auto (Bld) 11.6 % Normal 1.7-12.0 [facility] Comment on above: Performed By: #### C CARLINE, NEIL ####[facility] [address] [place] [address] Jennifer Neutrophils Auto #/vol (Bld) 3.1 103/ul Normal 1.4-6.5 [facility] Comment on above: Performed By: #### C CARLINE, CMADM ####[facility] [address] [place] [address] Jennifer Neutrophils/100 WBC Auto (Bld) 58.9 % Normal 43.0-75.0 [facility] Comment on above: Performed By: #### C CARLINE, CMADM ####[facility] [address] [place] [address] Jennifer Platelet mean volume Auto Entitic volume (Bld) 9.2 fL Critically low 9.5-13.5 [facility] Comment on above: Performed By: #### C CARLINE, CMADM ####[facility] [address] [place] [address] Jennifer Platelets Auto #/vol (Bld) 376 103/ul Normal 150-450 [facility] Comment on above: Performed By: #### C CARLINE, CMADM ####[facility] [address] [place] [address] Jennifer RBC Auto #/vol (Bld) 5.46 106/ul Normal 4.70-6.10 [facility] Comment on above: Performed By: #### C CARLINE, CMADM ####[facility] [address] [place] [address] Jennifer WBC Auto #/vol (Bld) 5.3 103/ul Normal 4.0-11.0 [facility] Comment on above: Performed By: #### C CARLINE, CMADM ####[facility] [address] [place] [address] Jennifer PROF CHEM 8 (BAS METB)on Anion gap 3 molar conc 12.0 mmol/L Normal [facility] Comment on above: Performed By: #### C CARLINE, NEIL ####[facility] [address] [place], [place] [address]Koyvbt Jennifer Calcium mass conc 9.1 mg/dL Normal 8.4-10.2 [facility] Comment on above: Performed By: #### C CARLINE, NEIL ####[facility] [address] [place] [address] Jennifer Chloride molar conc 103 mmol/L Normal 98-107 [facility] Comment on above: Performed By: #### C CARLINE, NEIL ####[facility] [address] Jennifer CO2 molar conc 28.7 mmol/L Normal 22.0-30.0 [facility] Comment on above: Performed By: #### C CARLINE, NEIL ####[facility] [address] [place], [place] [address] Jennifer Creatinine mass conc 0.97 mg/dL Normal 0.66-1.25 [facility] Comment on above: Performed By: #### C NEIL CROWLEY ####[facility] [address] [place] [address] Jennifer EGFR-AF WALLISIAN >60 Normal >=60 [facility] Comment on above: Performed By: #### C CARLINE, CMASTEFANIE ####[facility] [address] [place] [address] Jennifer EGFR-NON AF WALLISIAN >60 Normal >=60 [facility] Comment on above: Performed By: #### C CARLINE, CMASTEFANIE ####[facility] [address] [place] [address] Jennifer Glucose mass conc 106 mg/dL Normal 74-106 [facility] Comment on above: Performed By: #### C CARLINE, NEIL ####[facility] [address] Jennifer Potassium molar conc 3.7 mmol/L Normal 3.4-5.0 [facility] Comment on above: Performed By: #### C CARLINE, NEIL ####[facility] [address] [place], [place] [address]Rpaqsy Jennifer Sodium molar conc 140 mmol/L Normal 137-145 [facility] Comment on above: Performed By: #### C CARLINE, CMADM ####[facility] [address] [place], [place] [address]Zbiuks Jennifer Urea nitrogen mass conc 9.0 mg/dL Normal 9.0-20.0 [facility] Comment on above: Performed By: #### C CARLINE, CMADM ####[facility] [address] [place], [place] [address]Vqbufv Jennifer Urea nitrogen/Creatinine mass ratio 9.3 mg/mg Normal [facility] Comment on above: Performed By: #### C CARLINE, CMADM ####[facility] [address] [place], [place] [address]Umzdua Jennifer Cardiovascular Lab Reporton 08-30-2018 Cardiovascular Lab Report [facility] MR #: [id number] t of Physician: Kali Cedeno M.D.Division of Service Date: 08/30/2018Cardiology Birthdate: 1985Adult Cardiovascular Room #: 5CD [id number] [address]Ojvxu Fax Cardiovascular Laboratory ReportINDICATION: James Del Rio [...] systolic dysfunction. Therefore, he was referred for coronaryangiogram.DC OCEDURE: Bilateral selective coronary angiography from the right radialaccess.METHOD: Procedure was explained to the patient with risks and benefits.He signed informed consent. He was brought to kiln labourer in a fasting state.The right wrist area was prepped and draped in usual fashion. Tato's testwas favorable. Access in the right radial artery was obtained usingmicropuncture technique, a 6-Jordanian x 11 cm Hydrophilic sheath wasadvanced. Verapamil was given through the sheath and heparin wasadministered intravenously. Bilateral selective coronary angiography wasthen performed using a 6-Jordanian Agustin radial catheter. Catheter wasremoved. Access sheath [...] is angiographically normal.SUMMARY OF FINDINGS: Normal coronary angiogram.RECOMMENDA TIONS: Medical therapy for systolic heart failure and furtherrecommendatio ns per inpatient Cardiology service.Electronical ly Signed by:Kali Cedeno M.D. 08/31/2018 11:26 P G tracy Cedeno M.D.Date Dict: 08/30/2018/10:19 A/Kali Cedeno M.D.Date Trans: 08/30/2018 09:25 P/mmoDN_JN:[id number]: Ralf Matthews D.O. [facility]5 [facility] [address] Normal [facility] LIVER BATTERYon 08-30-2018 Albumin mass conc 3.8 g/dL Normal 3.5-5.7 [facility] Comment on above: Order Comment: No: D o not add to previous draw Performed By: #### 1 0054 ####[facility] [place] [address], [facility] ALKALINE PHOSPH 32 IU/L Low 34-104 [facility] Comment on above: Order Comment: No: D o not add to previous draw Performed By: #### 1 0054 ####[facility] [place] [address], [facility] ALT enzyme act/vol 629 U/L Critically high 7-52 T [facility] Comment on above: Order Comment: No: D o not add to previous draw Performed By: #### 1 0054 ####[facility] [place] [address], [facility] AST enzyme act/vol 257 U/L High 13-39 [facility] Comment on above: Order Comment: No: D o not add to previous draw Performed By: #### 1 0054 ####[facility] [place] [address], [facility] Bilirubin mass conc 0.8 mg/dL Normal 0.3-1.0 [facility] Comment on above: Order Comment: No: D o not add to previous draw Performed By: #### 1 0054 ####[facility] [place] [address], [facility] Bilirubin.direct mass conc 0.2 mg/dL Normal 0.0-0.2 [facility] Comment on above: Order Comment: No: D o not add to previous draw Performed By: #### 1 0054 ####[facility] [place] [address], [facility] Protein mass conc 6.6 g/dL Normal 6.0-8.3 [facility] Comment on above: Order Comment: No: D o not add to previous draw Performed By: #### 1 0054 ####[facility] [place] [address], [facility] NM HIDA GALLBLADDER WITH EJE CTION FRACTIONon 10-11-2018 NM HIDA GALLBLADDER WITH EJECTION FRACTION [facility] [address]zrahlv[address] [place] [address] Patien t Name: JAMES DEL RIO : 1985Sex: MAge: Race: WhiteMRN: [id number]. Location: [id number] Status: IVisit #: [id number] Date: 08/28/2018 12:15:00 PMCompleted Date: 08/29/2018 03:24 PMRequesting Provider: EDWINA COLE Attending Provider: MICHELLE PELAYO Report Copy To: Signs & Symptoms: OTHERHistory: Patient history not availableComments: R/O Acute/chronic CholecystitisExam: NM HIDA GALLBLADDER WITH EJECTION FRACTIONAccession #: [id number] =NM HIDA GALLBLADDER WITH EJECTION FRACTION 08/29/2018 3:24 [...] dyskinesia. Electronically signed by:Lexi Calderon. Transcribed by: [email or web address], User Resident: Electronically Signed by: LEXI CALDERON @ 08/29/2018 04:22 PM Normal [facility] Comment on above: Order Comment: No: D o not add to previous draw BASIC METABOLIC PANELon 10- Calcium mass conc 8.3 mg/dL Low 8.6-10.3 [facility] Comment on above: Order Comment: No: D o not add to previous draw Performed By: #### 5 0103 ####[facility] [place] [address], [facility] Chloride molar conc 101 mmol/L Normal 98-107 [facility] Comment on above: Order Comment: No: D o not add to previous draw Performed By: #### 5 0103 ####[facility] [place] [address], [place] CO2 molar conc 26 mmol/L Normal 21-31 [facility] Comment on above: Order Comment: No: D o not add to previous draw Performed By: #### 5 0103 ####[facility] [place] [address], [place] Creatinine mass conc 1.01 mg/dL Normal 0.70-1.30 [facility] Comment on above: Order Comment: No: D o not add to previous draw Performed By: #### 5 0103 ####[facility] [place] [address], [place] GFR/1.73 sq M predicted among blacks MDRD vol rate/area (S/P/Bld) mL/min/{1.73_m2} Normal >60 [facility] Comment on above: Order Comment: No: D o not add to previous draw Performed By: #### 5 0103 ####[facility] [place] [address], [place] GFR/1.73 sq M predicted among non-blacks MDRD vol rate/area (S/P/Bld) mL/min/{1.73_m2} Normal >60 [facility] Comment on above: Order Comment: No: D o not add to previous draw Performed By: #### 5 0103 ####[facility] [place] [address], [facility] Glucose mass conc 82 mg/dL Normal 70-100 [facility] Comment on above: Order Comment: No: D o not add to previous draw Performed By: #### 5 0103 ####[facility] Potassium molar conc 4.1 mmol/L Normal 3.5-5.1 [facility] Comment on above: Order Comment: No: D o not add to previous draw Performed By: #### 5 0103 ####[facility] Sodium molar conc 133 mmol/L Low 136-145 [facility] Comment on above: Order Comment: No: D o not add to previous draw Performed By: #### 5 0103 ####[facility] Urea nitrogen mass conc 10 mg/dL Normal 7-25 [facility] Comment on above: Order Comment: No: D o not add to previous draw Performed By: #### 5 0103 ####[facility] CBC W/DIFFon 08-28-2018 ABS BASOPHILS 0.1 10*3/uL Normal 0.0-0.2 [facility] Comment on above: Order Comment: No: D o not add to previous draw Performed By: #### 5 0103 ####[facility] ABS IMM GRANS 0.0 10*3/uL Normal 0.0-0.2 [facility] Comment on above: Order Comment: No: D o not add to previous draw Performed By: #### 5 0103 ####[facility] [facility] [place] [address], [facility] ABS NEUTROPHILS 8.6 10*3/uL High 1.6-7.6 [facility] Comment on above: Order Comment: No: D o not add to previous draw Performed By: #### 5 0103 ####[facility] [facility] [place] [address], [facility] Basophils Auto #/vol (Bld) 0.6 % Normal 0.0-1.0 [facility] Comment on above: Order Comment: No: D o not add to previous draw Performed By: #### 5 0103 ####[facility] [facility] [place] [address], [facility] Eosinophils Auto #/vol (Bld) 0.4 10*3/uL Normal 0.0-0.5 [facility] Comment on above: Order Comment: No: D o not add to previous draw Performed By: #### 5 0103 ####[facility] [facility] [place] [address], [facility] Eosinophils/100 WBC Auto (Bld) 3.5 % Normal 0.0-6.0 [facility] Comment on above: Order Comment: No: D o not add to previous draw Performed By: #### 5 0103 ####[facility] [place] [address], [facility] Erythrocyte distribution width Auto Ratio (RBC) 13.4 % Normal 11.5-15.0 [facility] Comment on above: Order Comment: No: D o not add to previous draw Performed By: #### 5 0103 ####[facility] [place] [address], [facility] Hematocrit Auto Volume Fraction (Bld) 44.5 % Normal 39.0-50.0 [facility] Comment on above: Order Comment: No: D o not add to previous draw Performed By: #### 5 0103 ####[facility] Hemoglobin mass conc (Bld) 15.2 g/dL Normal 13.0-17.0 [facility] Comment on above: Order Comment: No: D o not add to previous draw Performed By: #### 5 0103 ####[facility] IMMATURE GRANS 0.4 % Normal 0.0-1.0 [facility] Comment on above: Order Comment: No: D o not add to previous draw Performed By: #### 5 0103 ####[facility] Lymphocytes Auto #/vol (Bld) 0.9 10*3/uL Low 1.2-4.0 [facility] Comment on above: Order Comment: No: D o not add to previous draw Performed By: #### 5 0103 ####[address] Lymphocytes/100 WBC Auto (Bld) 8.7 % Low 20.0-45.0 [facility] Comment on above: Order Comment: No: D o not add to previous draw Performed By: #### 5 0103 ####[facility] [place] [address] MCH Auto Entitic mass (RBC) 30.0 pg Normal 27.0-33.0 [facility] Comment on above: Order Comment: No: D o not add to previous draw Performed By: #### 5 0103 ####[facility] [place] [address] MCHC Auto mass conc (RBC) 34.2 g/dL Normal 32.0-35.0 [facility] Comment on above: Order Comment: No: D o not add to previous draw Performed By: #### 5 3 ####[facility] MCV Auto Entitic volume (RBC) 87.9 fL Normal 82.0-98.0 [facility] Comment on above: Order Comment: No: D o not add to previous draw Performed By: #### 5 3 ####[facility] Monocytes Auto #/vol (Bld) 0.8 10*3/uL Normal 0.1-1.0 [facility] Comment on above: Order Comment: No: D o not add to previous draw Performed By: #### 102 ####[facility] MONOS 7.4 % Normal 5.0-12.0 [facility] Comment on above: Order Comment: No: D o not add to previous draw Performed By: #### 5 3 ####[facility] Neutrophils/100 WBC Auto (Bld) 79.4 % High 40.0-72.0 [facility] Comment on above: Order Comment: No: D o not add to previous draw Performed By: #### 5 3 ####[facility] Nucleated RBC/100 WBC Ratio (Bld) 0 % Normal 0-0 [facility] Comment on above: Order Comment: No: D o not add to previous draw Performed By: #### 5 3 ####[facility] [place] [address], [facility] PLAT CNT 203 10*3/uL Normal 150-400 [facility] Comment on above: Order Comment: No: D o not add to previous draw Performed By: #### 5 3 ####[facility] [place] [address], [facility] RBC Auto #/vol (Bld) 5.06 10*6/uL Normal 4.20-5.70 [facility] Comment on above: Order Comment: No: D o not add to previous draw Performed By: #### 5 0103 ####[facility] [place] [address], [facility] WBC Auto #/vol (Bld) 10.78 10*3/uL High 4.00-10.60 [facility] Comment on above: Order Comment: No: D o not add to previous draw Performed By: #### 5 0103 ####[facility] [place] [address], [facility] LACTATE BLOODon 08-28-2018 Lactate molar conc 0.9 mmol/L Normal .5-2.2 [facility] Comment on above: Order Comment: No: D o not add to previous draw Performed By: #### 5 0103 ####[facility] [place] [address], [facility] MAGNESIUM BLOODon 08-28-2018 Magnesium mass conc 2.0 mg/dL Normal 1.9-2.7 [facility] Comment on above: Order Comment: No: D o not add to previous draw Performed By: #### 5 0103 ####[facility] [place] [address], [facility] PHOSPHORUS BLOODon 8 Phosphate mass conc 2.3 mg/dL Low 2.5-5.0 [facility] Comment on above: Order Comment: No: D o not add to previous draw Performed By: #### 5 0103 ####[facility] [place] [address], [facility] TROPONIN-Ion 08-28-2018 Troponin I.cardiac mass conc 0.01 ng/mL Normal 0.00-0.04 [facility] Comment on above: Order Comment: No: D o not add to previous draw Result Comment: REFE RENCE RANGES: 0.00 - 0.04 ng/ml NORMAL 0.05 - 0.50 ng/ml INDETERMINATE > 0.50 ng/ml CONSISTENT WITH AN M.I. Performed By: #### 5 0103 ####[facility] Troponin I.cardiac mass conc 0.02 ng/mL Normal 0.00-0.04 [facility] Comment on above: Result Comment: REFE RENCE RANGES: 0.00 - 0.04 ng/ml NORMAL 0.05 - 0.50 ng/ml INDETERMINATE > 0.50 ng/ml CONSISTENT WITH AN M.I. Performed By: #### 5 0103 ####[place] [address] [address] Troponin I.cardiac mass conc 0.03 ng/mL Normal 0.00-0.04 [facility] Comment on above: Order Comment: No: D o not add to previous draw Result Comment: REFE RENCE RANGES: 0.00 - 0.04 ng/ml NORMAL 0.05 - 0.50 ng/ml INDETERMINATE > 0.50 ng/ml CONSISTENT WITH AN M.I. Performed By: #### 5 0103 ####[place] [address] [address] *BLOOD CULTUREon 08-27-2018 Bacteria identified in Blood by Culture Clinical Report: (D) Specimen: BLOOD CULTURE Collected: 08/27/2018 20:56 Status: Final Last Updated: 09/02/2018 07:55 CULT RES (Final) No Growth Day 5 Normal [facility] Comment on above: Performed By: #### 5 0103 ####[facility] Performed By: #### 1 0054 ####[facility] AMYLASEon 08-27-2018 Amylase enzyme act/vol 50 U/L Normal 31-110 [facility] Comment on above: Performed By: #### A DAVI SAMUELA ####[facility] [address] [place] [address]Mendez Rodriguez BASIC METABOLIC PANELon 10- Calcium mass conc 8.3 mg/dL Low 8.6-10.3 [facility] Comment on above: Order Comment: No: D o not add to previous draw Performed By: #### 0 0071, 26324, 11989, 08429, 44242, 19803 ####[facility] [place] [address], [facility] Chloride molar conc 100 mmol/L Normal 98-107 [facility] Comment on above: Order Comment: No: D o not add to previous draw Performed By: #### 0 0071, 24168, 41079, 89083, 31354, 03256 ####[facility] [place] [address], [facility] CO2 molar conc 26 mmol/L Normal 21-31 [facility] Comment on above: Order Comment: No: D o not add to previous draw Performed By: #### 0 0071, 09572, 01805, 30234, 84184, 52707 ####[facility] [place] [address], [facility] Creatinine mass conc 1.01 mg/dL Normal 0.70-1.30 [facility] Comment on above: Order Comment: No: D o not add to previous draw Performed By: #### 0 0071, 45070, 80225, 29880, 61206, 87679 ####[facility] [place] [address], [facility] GFR/1.73 sq M predicted among blacks MDRD vol rate/area (S/P/Bld) mL/min/{1.73_m2} Normal >60 [facility] Comment on above: Order Comment: No: D o not add to previous draw Performed By: #### 0 0071, 14552, 08546, 70444, 90439, 58391 ####[facility] [place] [address], [facility] GFR/1.73 sq M predicted among non-blacks MDRD vol rate/area (S/P/Bld) mL/min/{1.73_m2} Normal >60 [facility] Comment on above: Order Comment: No: D o not add to previous draw Performed By: #### 0 0071, 03631, 71306, 61329, 43032, 59774 ####[facility] [place] [address], [facility] Glucose mass conc 85 mg/dL Normal 70-100 [facility] Comment on above: Order Comment: No: D o not add to previous draw Performed By: #### 0 0071, 62970, 66664, 53878, 47290, 60017 ####[facility] [place] [address], [facility] Potassium molar conc 3.7 mmol/L Normal 3.5-5.1 [facility] Comment on above: Order Comment: No: D o not add to previous draw Performed By: #### 0 0071, 80639, 45828, 62031, 45974, 53523 ####[facility] [place] [address], [facility] Sodium molar conc 135 mmol/L Low 136-145 [facility] Comment on above: Order Comment: No: D o not add to previous draw Performed By: #### 0 0071, 41695, 55958, 45090, 13481, 10168 ####[facility] [place] [address], [facility] Urea nitrogen mass conc 11 mg/dL Normal 7-25 [facility] Comment on above: Order Comment: No: D o not add to previous draw Performed By: #### 0 0071, 08150, 13367, 44903, 39653, 38312 ####[facility] BILIRUBIN CONJUGATED (DIRECT )on 08-27-2018 BILI, CONJUGATED 0.6 mg/dL Critically high 0.0-0.3 [facility] Comment on above: Result Comment: TEST REPEATED, CRITICAL VALUE VERIFIED Performed By: #### C NEIL CROWLEY ####[facility] Mze[address]ftako[address] Jennifer CARDIAC ALE 36-9on 018 CK enzyme act/vol 270 U/L Critically high 55-170 [facility] Comment on above: Result Comment: TEST REPEATED, CRITICAL VALUE VERIFIED Performed By: #### C NEIL CROWLEY ####[facility] [address] [place] [address] Jennifer CK.MB mass conc 2.42 ng/mL Critically high <=2.37 [facility] Comment on above: Result Comment: TEST REPEATED, CRITICAL VALUE VERIFIED Performed By: #### C NEIL CROWLEY ####[facility] [address] [place] [address] Jennifer INR Coag RelTime (Bld) SEE BELOW Normal [facility] Comment on above: Result Comment: <0.0 34 ng/ml NEGATIVE 0.034-0.119 INDETERMINATE 0.120 AMI CUT OFF Performed By: #### C NEIL CROWLEY ####[facility] [address] [place] [address] Jennifer TROP 0.078 ng/mL Critically high <=0.034 [facility] Comment on above: Result Comment: TEST REPEATED, CRITICAL VALUE VERIFIED Performed By: #### C NEIL CROWLEY ####[facility] Ameofborsu[address] Jennifer CK enzyme act/vol 292 U/L Critically high 55-170 [facility] Comment on above: Result Comment: TEST REPEATED CRITICAL VALUE VERIFIED Performed By: #### C NEIL CROWLEY ####[facility] Ejbxpcdadr[address] Jennifer CK.MB mass conc 3.00 ng/mL Critically high <=2.37 [facility] Comment on above: Result Comment: TEST REPEATED CRITICAL VALUE VERIFIED Performed By: #### C NEIL CROWLEY ####[facility] [address] [place] [address] Jennifer INR Coag RelTime (Bld) SEE BELOW Normal [facility] Comment on above: Result Comment: <0.0 34 ng/ml NEGATIVE 0.034-0.119 INDETERMINATE 0.120 AMI CUT OFF Performed By: #### C NEIL CROWLEY ####[facility] [address] [place] [address] Jennifer TROP 0.103 ng/mL Critically high <=0.034 [facility] Comment on above: Result Comment: TEST REPEATED CRITICAL VALUE VERIFIED Performed By: #### C NEIL CROWLEY ####[facility] [address] [place] [address] Jennifer CK enzyme act/vol 288 U/L Critically high 55-170 Th e [facility] Comment on above: Result Comment: TEST REPEATED, CRITICAL VALUE VERIFIED Performed By: #### C MREP ####[facility] [address] [place] [address] Jennifer CK.MB mass conc 2.67 ng/mL Critically high <=2.37 [facility] Comment on above: Result Comment: TEST REPEATED, CRITICAL VALUE VERIFIED Performed By: #### C MREP ####[facility] [address] [place] [address] Jennifer INR Coag RelTime (Bld) SEE BELOW Normal [facility] Comment on above: Result Comment: <0.0 34 ng/ml NEGATIVE 0.034-0.119 INDETERMINATE 0.120 AMI CUT OFF Performed By: #### C MREP ####[facility] [address] [place] [address] Jennifer TROP 0.094 ng/mL Critically high <=0.034 [facility] Comment on above: Result Comment: TEST REPEATED, CRITICAL VALUE VERIFIED Performed By: #### C MREP ####[facility] [address] [place] [address] Jennifer CARDIAC ALE ADMITon 018 CK enzyme act/vol 333 U/L Critically high 55-170 Th e [facility] Comment on above: Performed By: #### C CARLINE, NEIL ####[facility] [address] [place] [address] Jennifer CK.MB mass conc 2.85 ng/mL Critically high <=2.37 [facility] Comment on above: Performed By: #### C CARLINE, NEIL ####[facility] [address] [place] [address] Jennifer INR Coag RelTime (Bld) SEE BELOW Normal [facility] Comment on above: Result Comment: <0.0 34 ng/ml NEGATIVE 0.034-0.119 INDETERMINATE 0.120 AMI CUT OFF Performed By: #### C NEIL CROWLEY ####[facility] [address] [place] [address] Jennifer ONEIDA 98.0 ng/mL Normal <=121.0 [facility] Comment on above: Performed By: #### C NEIL CROWLEY ####[facility] [address] [place] [address] Jennifer TROP 0.109 ng/mL Critically high <=0.034 [facility] Comment on above: Performed By: #### C CARLINE, NEIL ####[facility] [address] [place] [address] Jennifer CBC AUTO DIFFon 08-27-2018 Basophils Auto #/vol (Bld) 0.1 103/ul Normal 0.0-0.1 [facility] Comment on above: Performed By: #### C BC ####[facility] [address] [place] [address] Jennifer Basophils/100 WBC Auto (Bld) 0.5 % Normal 0.2-2.0 [facility] Comment on above: Performed By: #### C BC ####[facility] [address] [place] [address] Jennifer Eosinophils Auto #/vol (Bld) 0.2 103/ul Normal 0.0-0.7 [facility] Comment on above: Performed By: #### C BC ####[facility] [address] [place] [address] Jennifer Eosinophils/100 WBC Auto (Bld) 1.3 % Normal 0.9-7.0 [facility] Comment on above: Performed By: #### C BC ####[facility] E[address] [place], [place] [address] Jennifer Erythrocyte distribution width Auto Ratio (RBC) 13.5 % Normal 11.0-15.0 [facility] Comment on above: Performed By: #### C BC ####[facility] I[address]ewm[address] [place], [place] [address] Jennifer Hematocrit Auto Volume Fraction (Bld) 49.4 % Normal 42.0-54.0 [facility] Comment on above: Performed By: #### C BC ####[facility] [address]ew[address] [place], [place] [address] Jennifer Hemoglobin mass conc (Bld) 16.6 g/dL Normal 14.0-18.0 [facility] Comment on above: Performed By: #### C BC ####[facility] Oz[address]iceqka[address] [place], [place] [address] Jennifer IG # 0.04 10e3/ul Critically high 0.00-0.03 [facility] Comment on above: Performed By: #### C BC ####[facility] [address] [place], [place] [address] Jennifer IG % 0.3 % Normal 0.0-0.5 [facility] Comment on above: Performed By: #### C BC ####[facility] [address]ns[address] [place], [place] [address] Jennifer Lymphocytes Auto #/vol (Bld) 1.8 103/ul Normal 1.2-3.8 [facility] Comment on above: Performed By: #### C BC ####[facility] Ozwrzapqni[address] [place], [place] [address] Jennifer Lymphocytes/100 WBC Auto (Bld) 13.8 % Critically low 20.5-60.0 [facility] Comment on above: Performed By: #### C BC ####[facility] [address] [place], [place] [address]Htgmma Jennifer MANUAL DIFF REQ NO Normal [facility] Comment on above: Performed By: #### C BC ####[facility] Ep[address]few[address] [place], [place] [address]Ixpehx Jennifer MCH Auto Entitic mass (RBC) 30.2 pg Normal 25.9-34.0 [facility] Comment on above: Performed By: #### C BC ####[facility] [address] [place] [address]Xmuulb Jennifer MCHC Auto mass conc (RBC) 33.6 g/dL Normal 29.9-35.2 [facility] Comment on above: Performed By: #### C BC ####[facility] [address] [place], [place] [address] Jennifer MCV Auto Entitic volume (RBC) 89.8 fL Normal 80.0-94.0 [facility] Comment on above: Performed By: #### C BC ####[facility] E[address] [place] [address]Jnrbod Jennifer Monocytes Auto #/vol (Bld) 1.0 103/ul Critically high 0.3-0.8 [facility] Comment on above: Performed By: #### C BC ####[facility] Cuz[address] [place] [address]Wwobdd Jennifer Monocytes/100 WBC Auto (Bld) 7.7 % Normal 1.7-12.0 [facility] Comment on above: Performed By: #### C BC ####[facility] Y[address] [place] [address]Fpbjwp Jennifer Neutrophils Auto #/vol (Bld) 9.9 103/ul Critically high 1.4-6.5 [facility] Comment on above: Performed By: #### C BC ####[facility] Rro[address]avd[address] [place], [place] [address] Jennifer Neutrophils/100 WBC Auto (Bld) 76.4 % Critically high 43.0-75.0 [facility] Comment on above: Performed By: #### C BC ####[facility] [address] [place] [address]Mendez Rodriguez Platelet mean volume Auto Entitic volume (Bld) 9.7 fL Normal 9.5-13.5 [facility] Comment on above: Performed By: #### C BC ####[facility] Q[address]otci[address] [place] [address] Jennifer Platelets Auto #/vol (Bld) 243 103/ul Normal 150-450 [facility] Comment on above: Performed By: #### C BC ####[facility] Qnbuycrcnj6279 [address] Jennifer RBC Auto #/vol (Bld) 5.50 106/ul Normal 4.70-6.10 [facility] Comment on above: Performed By: #### C BC ####[facility] [address] [place] [address] Jennifer WBC Auto #/vol (Bld) 13.0 103/ul Critically high 4.0-11.0 [facility] Comment on above: Performed By: #### C BC ####[facility] [address] [place], [place] [address]domin[address] Rodriguez CBC W/DIFFon 08-27-2018 ABS BASOPHILS 0.1 10*3/uL Normal 0.0-0.2 [facility] Comment on above: Performed By: #### 5 0103 ####[facility] ABS IMM GRANS 0.1 10*3/uL Normal 0.0-0.2 [facility] Comment on above: Performed By: #### 5 0103 ####[facility] ABS NEUTROPHILS 9.5 10*3/uL High 1.6-7.6 [facility] Comment on above: Performed By: #### 5 0103 ####[facility] Basophils Auto #/vol (Bld) 0.7 % Normal 0.0-1.0 [facility] Comment on above: Performed By: #### 5 0103 ####[facility]3000 [facility] Eosinophils Auto #/vol (Bld) 0.3 10*3/uL Normal 0.0-0.5 [facility] Comment on above: Performed By: #### 5 0103 ####[facility]3000 [facility] Eosinophils/100 WBC Auto (Bld) 2.5 % Normal 0.0-6.0 [facility] Comment on above: Performed By: #### 5 3 ####[facility]3000 [facility].[address] Erythrocyte distribution width Auto Ratio (RBC) 13.3 % Normal 11.5-15.0 [facility] Comment on above: Performed By: #### 5 3 ####[place] [address] [facility].[address] Hematocrit Auto Volume Fraction (Bld) 45.6 % Normal 39.0-50.0 [facility] Comment on above: Performed By: #### 5 3 ####[facility]3000 [facility].[address] Hemoglobin mass conc (Bld) 15.7 g/dL Normal 13.0-17.0 [facility] Comment on above: Performed By: #### 5 3 ####[facility]3000 [facility].[address] IMMATURE GRANS 0.5 % Normal 0.0-1.0 [facility] Comment on above: Performed By: #### 5 3 ####[facility] Lymphocytes Auto #/vol (Bld) 1.5 10*3/uL Normal 1.2-4.0 [facility] Comment on above: Performed By: #### 5 0103 ####[address] Lymphocytes/100 WBC Auto (Bld) 12.6 % Low 20.0-45.0 [facility] Comment on above: Performed By: #### 102 ####[address] MCH Auto Entitic mass (RBC) 30.1 pg Normal 27.0-33.0 [facility] Comment on above: Performed By: #### 102 ####[address] MCHC Auto mass conc (RBC) 34.4 g/dL Normal 32.0-35.0 [facility] Comment on above: Performed By: #### 102 ####[address] MCV Auto Entitic volume (RBC) 87.4 fL Normal 82.0-98.0 [facility] Comment on above: Performed By: #### 3 ####[address] Monocytes Auto #/vol (Bld) 0.8 10*3/uL Normal 0.1-1.0 [facility] Comment on above: Performed By: #### 5 3 ####[address] MONOS 6.2 % Normal 5.0-12.0 [facility] Comment on above: Performed By: #### 5 3 ####[address] [place] [address], [place] Neutrophils/100 WBC Auto (Bld) 77.5 % High 40.0-72.0 [facility] Comment on above: Performed By: #### 5 0103 ####[facility] [place] [address], [facility] Nucleated RBC/100 WBC Ratio (Bld) 0 % Normal 0-0 [facility] Comment on above: Performed By: #### 5 0103 ####[facility] [place] [address], [facility] PLAT CNT 224 10*3/uL Normal 150-400 [facility] Comment on above: Performed By: #### 5 0103 ####[facility] RBC Auto #/vol (Bld) 5.22 10*6/uL Normal 4.20-5.70 [facility] Comment on above: Performed By: #### 5 0103 ####[facility] [place] [address], [facility] WBC Auto #/vol (Bld) 12.18 10*3/uL High 4.00-10.60 [facility] Comment on above: Performed By: #### 5 0103 ####[facility]3000 [facility].[address] CONSULTATIONon 08-27-2018 CONSULTATION Alex Ortega, DO on 08/30/2018 08:10 AM EDT IFC Signed and Approved by: DR ALEX ORTEGA 08/30/2018 08:10:00 Normal [facility] CT ABD/PELVIS W CONon 2017 CT ABD/PELVIS W CON [address] [place] [address] Patient: JAMES DEL RIO Exam Date: 08/27/2018DOB: 1985 Gender:M : DR KATHERINE CABRERA . Admission #: [id number] : Order #: [id number] HERE TO VIEW EXAM RADIOLOGY REPORT PROCEDURE: [...] Funez M.D. on 08/27/2018 at 11:10 Normal [facility] ECHOCARDIO M/2D COMPLETEon 1 ECHOCARDIO M/2D COMPLETE [address] [place] [id number] Patient: JAMES DEL RIO Exam Date: 08/27/2018DOB: 1985 Gender:M : DR ALEX ORTEGA Admission #: [id number] : RALF MATTHEWS Order #: [id number] HERE TO VIEW EXAM ECHOCARDIOGRAM REPORT PROCEDURE: [...] regurgitation. Mild elevated right ventricular systolic pressure. Nkvq-ys-zfwnroiz mitral regurgitation. Adult Echocardiography Procedure ReportLeft Ventricle LVEDD (3.7 - 5.6 cm): 5.23 cmLVESD (2.2 - 4.0 cm): 4.66 cmLVIVS thickness (0.6 - 1.2 cm): 1.32 cmLVPW thickness (0.5 - 1.0 cm): 1.28 cme': 8.33 cm/sE - e': 7.50LVOT Area (cm2): 3.80 gi1Ypvn Velocity (LVOT): 59.40 cm/sMean Velocity (LVOT): 42.90 cm/sLVOT Diameter 2.20 cmLeft Ventricular Ejection Fraction: 23.70 %Left Ventricular Ejection Fraction (A2C): 38 %Left Ventricular Ejection Fraction (A4C): 35 %Left Atrium Left Atrium Systolic Dimension: 2.60 cmLeft Atrium Systolic Area(A4C): 17.70 kn0Kkrr Atrium Systolic Volume(A4C): 95499 qc0Pzucbr Valve MV E to A Ratio: 1.50Mitral Valve A-Wave Peak Velocity: 38.00 cm/sMitral Valve E-Wave Peak Velocity: 61.20 cm/sMitral Valve A-Wave Peak Velocity: 41.00 cm/sMitral Valve E-Wave Peak Velocity: 62.20 cm/sDeceleration Time: 154 msRight Ventricle RV Peak Systolic Pressure: 40 mm[Hg]Aorta AO Root Diam: 3.30 cmAortic Valve Peak Velocity (Antegrade Flow): 103.00 cm/sAoV Area (Peak Gunnar): 2.32 cm2AoV Area (VTI): 2.41 ly4Lrnehj Valve Cusp Separation: 2.50 cmPeak Velocity(Antegrade Flow): [...] Guadarrama M.D. on 08/28/2018 at 08:56 Normal [facility] ETHANOL (D ALC)on 08-27-20 18 ALC NOTE NOTE: 80 mg/dl is the legal limit for a blood alcohol level Normal [facility] Comment on above: Performed By: #### E TH ####[facility] [address] [place], [place] [address]Secrrb Jennifer Ethanol mass conc mg/dL Normal [facility] Comment on above: Performed By: #### E TH ####[facility] [address]ndonhqyez4[address] [place], [place] [address]Kqfjqz Jennifer LACTATE BLOODon 08-27-2018 Lactate molar conc 1.0 mmol/L Normal .5-2.2 [facility] Comment on above: Order Comment: No: D o not add to previous draw Performed By: #### 1 0054 ####[facility] [place] [address], [facility] LIPASEon 08-27-2018 Lipase enzyme act/vol 178.0 U/L Normal 23.0-300.0 [facility] Comment on above: Performed By: #### A MY, LIPA ####[facility] [address] [place], [place] [address]Wbzkgy Karen LIPASE BLOODon 08-27-2018 Lipase enzyme act/vol 20 Units/L Normal 11-82 [facility] Comment on above: Performed By: #### 0 0071, 22845, 50726, 84492, 94236, 40176 ####[facility] [place] [address], [facility] LIVER BATTERYon 08-27-2018 Albumin mass conc 3.6 g/dL Normal 3.5-5.7 [facility] Comment on above: Performed By: #### 0 0071, 99975, 31987, 06520, 71921, 74643 ####[facility] [place] [address], [facility] ALKALINE PHOSPH 32 IU/L Low 34-104 [facility] Comment on above: Performed By: #### 0 0071, 31849, 81648, 12546, 87497, 92499 ####[facility] [place] [address], [facility] ALT enzyme act/vol 789 U/L Critically high 7-52 T he [facility] Comment on above: Performed By: #### 0 0071, 10248, 58296, 57428, 43640, 61530 ####[facility] [place] [address], [facility] AST enzyme act/vol 753 U/L High 13-39 [facility] Comment on above: Performed By: #### 0 0071, 23966, 22921, 97479, 65476, 25374 ####[facility] [place] [address], [facility] Bilirubin mass conc 2.2 mg/dL High 0.3-1.0 [facility] Comment on above: Performed By: #### 0 0071, 05941, 81483, 89564, 91539, 51033 ####[facility] [place] [address], [facility] Bilirubin.direct mass conc 0.5 mg/dL High 0.0-0.2 [facility] Comment on above: Performed By: #### 0 0071, 46359, 07262, 72990, 40585, 57205 ####[facility] [place] [address], [facility] Protein mass conc 6.0 g/dL Normal 6.0-8.3 [facility] Comment on above: Performed By: #### 0 0071, 92196, 39908, 64698, 98391, 96832 ####[facility] MAGNESIUM BLOODon 08-27-2018 Magnesium mass conc 1.6 mg/dL Low 1.9-2.7 [facility] Comment on above: Order Comment: No: D o not add to previous draw Performed By: #### 0 0071, 16268, 06531, 08174, 25340, 47914 ####[facility] [place] [address], [facility] PHOSPHORUS BLOODon 8 Phosphate mass conc 3.6 mg/dL Normal 2.5-5.0 [facility] Comment on above: Order Comment: No: D o not add to previous draw Performed By: #### 0 0071, 21494, 50390, 71700, 71199, 19621 ####[facility] [place] [address], [facility] PORTABLE CHEST 1 VIEWon PORTABLE CHEST 1 VIEW [facility] Bbgpookcc9[address] [place] [address] Patien t Name: JAMES DEL RIO : 1985Sex: MAge: Race: WhiteMRN: [id number]. Location: [id number] Status: IVisit #: [id number] Date: 08/27/2018 8:50:00 PMCompleted Date: 08/27/2018 09:20 PMRequesting Provider: GAETANO LEACH Attending Provider: MICHELLE PELAYO Report Copy To: Signs & Symptoms: Acute Respiratory DistressHistory: Patient history not availableComments: R/O AspirationExam: PORTABLE CHEST 1 VIEWAccession #: [id number] =PORTABLE CHEST 1 VIEW 08/27/2018 9:20 PM EDT [...] pathology. Electronically signed by:Odalys Simpson. Transcribed by: [email or web address], User Resident: Electronically Signed by: ODALYS SIMPSON @ 08/28/2018 09:34 AM Normal [facility] Comment on above: Order Comment: R/O A spiration PROCALCITONINon 08-27-2018 Protein mass conc 0.08 ng/mL Normal 0.00-0.10 [facility] Comment on above: Order Comment: No: [...] indicated andinitial PCT<0.5ng/mL Performed By: #### 3 1488 ####[facility] [place] [address], [facility] PROF 14(COMP METB)on 018 Albumin mass conc 4.0 g/dL Normal 3.5-5.0 [facility] Comment on above: Performed By: #### C NEIL CROWLEY ####[facility] [address] [place] [address]Gerken Jennifer Albumin/Globulin mass ratio 1.3 {ratio} Normal [facility] Comment on above: Performed By: #### C NEIL CROWLEY ####[facility] [address]rbaz[address] [place], [place] [address]Xyicyz Jennifer ALP enzyme act/vol 47 U/L Normal 38-126 [facility] Comment on above: Performed By: #### C CARLINE, NEIL ####[facility] Txfbteofbn[address] [place], [place] [address]Gqqjid Jennifer ALT enzyme act/vol 1777 U/L Critically high 21-72 [facility] Comment on above: Result Comment: test repeated, critical value verified Performed By: #### C CARLINE, NEIL ####[facility] [address]ovl[address] [place], [place] [address]Dwzmdg Jennifer Anion gap 3 molar conc 12.8 mmol/L Normal [facility] Comment on above: Performed By: #### C NEIL CROWLEY ####[facility] [address] [place], [place] [address]Vzerax Jennifer AST enzyme act/vol 2222 U/L Critically high 17-59 [facility] Comment on above: Result Comment: TEST REPEATED, CRITICAL VALUE VERIFIED Performed By: #### C NEIL CROWLEY ####[facility] [address]qfpzg[address] [place], [place] [address]Brmbqt Jennifer Bilirubin Ql (U) 3.3 mg/dL Critically high 0.2-1.3 [facility] Comment on above: Performed By: #### C NEIL CROWLEY ####[facility] [address]mssspd[address] [place], [place] [address]Hxzehb Jennifer Calcium mass conc 8.8 mg/dL Normal 8.4-10.2 [facility] Comment on above: Performed By: #### C NEIL CROWLEY ####[facility] [address]ojmwarf[address] [place], [place] [address]Cwogvl Jennifer Chloride molar conc 97 mmol/L Critically low 98-107 [facility] Comment on above: Performed By: #### C NEIL CROWLEY ####[facility] [address] [place], [place] [address]Yrhlqi Jennifer CO2 molar conc 29.5 mmol/L Normal 22.0-30.0 [facility] Comment on above: Performed By: #### C MP, CMADM ####[facility] [address]fansx[address] [place], [place] [address]Qqxguv Jennifer Creatinine mass conc 1.60 mg/dL Critically high 0.66-1.25 [facility] Comment on above: Performed By: #### C CARLINE, CMADM ####[facility] [address]fnju[address] [place], [place] [address]Xebmqz Jennifer EGFR-AF WALLISIAN >60 Normal >=60 [facility] Comment on above: Performed By: #### C CARLINE, CMADM ####[facility] [address]ms[address] [place], [place] [address]Zvgqam Jennifer EGFR-NON AF WALLISIAN 50 mL/min/1.73m2 Critically low >=60 [facility] Comment on above: Performed By: #### C CARLINE, CMADM ####[facility] [address] [place] [address]Gerken Jennifer Globulin Calculated mass conc (S) 3.1 g/dL Normal [facility] Comment on above: Performed By: #### C CARLINE, CMADM ####[facility] Vfvtgcesgb[address] [place], [place] [address]Zhzhdx Jennifer Glucose mass conc 124 mg/dL Critically high 74-106 [facility] Comment on above: Performed By: #### C CARLINE, CMADM ####[facility] [address] [place] [address]Gerken Jennifer Potassium molar conc 4.3 mmol/L Normal 3.4-5.0 [facility] Comment on above: Performed By: #### C CARLINE, CMADM ####[facility] [address]jj[address] [place], [place] [address]Ksvvqd Jeninfer Protein mass conc 7.1 g/dL Normal 6.1-8.2 [facility] Comment on above: Performed By: #### C CARLINE, CMADM ####[facility] [address] [place] [address]Gerken Jennifer Sodium molar conc 135 mmol/L Critically low 137-145 [facility] Comment on above: Performed By: #### C CARLINE, CMASTEFANIE ####[facility] [address]wpcxiimv[address] [place], [place] [address]Tahgze Jennifer Urea nitrogen mass conc 17.0 mg/dL Normal 9.0-20.0 [facility] Comment on above: Performed By: #### C NEIL CROWLEY ####[facility] Ftgtjeapvt[address] [place], [place] [address]Qivjqi Jennifer Urea nitrogen/Creatinine mass ratio 10.6 mg/mg Normal [facility] Comment on above: Performed By: #### C NEIL CROWLEY ####[facility] [address] [place], [place] [address]Bahbnr Jennifer TOX PANEL URINEon 08-27-2018 50 THC Negative Normal NEGATIVE [facility] Comment on above: Order Comment: No: D o not add to previous draw Performed By: #### 3 1079 ####[facility] [place] [address], [facility] BARBITURATES Negative Normal NEGATIVE [facility] Comment on above: Order Comment: No: D o not add to previous draw Performed By: #### 3 1079 ####[facility] [place] [address], [facility] BENZODIAZEPINES Negative Normal NEGATIVE [facility] Comment on above: Order Comment: No: D o not add to previous draw Performed By: #### 3 1079 ####[facility] [place] [address], [facility] COCAINE Negative Normal NEGATIVE [facility] Comment on above: Order Comment: No: D o not add to previous draw Performed By: #### 3 1079 ####[facility] [place] [address], [place] METHADONE Negative Normal NEGATIVE [facility] Comment on above: Order Comment: No: D o not add to previous draw Performed By: #### 3 1079 ####[facility] [place] [address], [place] MONO AMPHET Negative Normal NEGATIVE [facility] Comment on above: Order Comment: No: D o not add to previous draw Performed By: #### 3 1079 ####[facility] [place] [address], [facility] OPIATES Negative Normal NEGATIVE [facility] Comment on above: Order Comment: No: D o not add to previous draw Performed By: #### 3 1079 ####[facility], [place] [address] [place] [address] PHENCYCLIDINE Negative Normal NEGATIVE [facility] Comment on above: Order Comment: No: D o not add to previous draw Performed By: #### 3 1079 ####[facility] [place] [address], [facility] Protein mass conc Negative Normal NEGATIVE [facility] Comment on above: Order Comment: No: D o not add to previous draw Performed By: #### 3 1079 ####[facility] [facility], [place] [address] [place] [address] TRICYCLICS Negative Normal NEGATIVE [facility] Comment on above: Order Comment: No: D o not add to previous draw Performed By: #### 3 1079 ####[facility] [facility].[address] TROPONIN-Ion 08-27-2018 Troponin I.cardiac mass conc 0.04 ng/mL Normal 0.00-0.04 [facility] Comment on above: Order Comment: No: D o not add to previous draw Result Comment: REFE RENCE RANGES: 0.00 - 0.04 ng/ml NORMAL 0.05 - 0.50 ng/ml INDETERMINATE > 0.50 ng/ml CONSISTENT WITH AN M.I. Performed By: #### 0 0071, 23202, 92688, 30925, 21773, 23927 ####[facility] [place] [address], [facility] US GALLBLADDERon 08-27-2018 US GALLBLADDER [address] [place] [address] Patient: JAMES DEL RIO Exam Date: 08/27/2018DOB: 1985 Gender:M : DR KATHERINE CABRERA . Admission #: [id number] : Order #: [id number] HERE TO VIEW EXAM RADIOLOGY REPORT PROCEDURE: ULTRASOUND GALLBLADDER COMPARISON: None. INDICATIONS: Acute loss of appetite; acute nausea, vomiting, and right upper quadrant pain TECHNIQUE: Sonographic evaluation of the right upper quadrant of the abdomen was performed. FINDINGS:GALLBLADDER : Positive sonographic Love's sign. Thickened wall up [...] FUNEZ M.D. ON 08/27/2018 AT 08:22 Normal [facility] XR CHEST 1 Von 08-27-2018 XR CHEST [address] [place] [id number] Patient: JAMES DEL RIO Exam Date: 08/27/2018DOB: 1985 Gender:M : DR ALE BURNETT Admission #: [id number] : Order #: [id number] HERE TO VIEW EXAM RADIOLOGY REPORT PROCEDURE: [...] Cecily Funez M.D. on 08/27/2018 at 08:12 Normal [facility] Vital Signs Date Time Vital Sign Value Performing Clinician Faci lity 12-31-2024 14:34-0500 Blood Pressure Location Mary Vázquez [facility] 12-31-2024 14:34-0500 Diastolic blood pressure 61 mm[Hg] Mary Vázquez [facility] 12-31-2024 14:34-0500 Heart rate 112 /min Mary Vázquez [facility] 12-31-2024 14:34-0500 Systolic blood pressure 108 mm[Hg] Mary Lunali [facility] Encounters Encounter Date Encounter Type Care Provider Facility Start: 09-09-2025 ambulatory BUMPER OPERATOR Nohelia L Lazarus Facil ity: [facility] Start: 06-17-2025 End: 06-17-2025 ambulatory BUMPER OPERATOR Nohelia L Lazarus Facility:[facility] [place] Start: 05-27-2025 End: 05-27-2025 ambulatory BUMPER OPERATOR Nohelia L Lazarus Facility:[facility] Start: 04-01-2025 End: 04-01-2025 Telephone encounter Yuli Todd RN [facility] Comment on above: Follow Up Start: 03-25-2025 End: 03-25-2025 ambulatory Nohelia L Lazarus Facility:[facility] [place] Start: 03-18-2025 End: 03-18-2025 Telephone encounter Yuli Todd RN [facility] Comment on above: Referral - Liver Txp ; Follow Up Start: 03-09-2025 End: 03-09-2025 Telephone encounter Madi Leonard RN [facility] Comment on above: Patient Update Start: 03-05-2025 End: 03-09-2025 Telephone encounter Madi Leonard RN [facility] Comment on above: Patient Update Start: 03-04-2025 End: 03-04-2025 Telephone encounter Liver Txp Coordinator Work Phone: Transplant Center Comment on above: Reminder Call; Liver Eval Start: 02-16-2025 End: 02-16-2025 Telephone encounter Yuli Todd RN [facility] Comment on above: [facility] Start: 02-03-2025 ambulatory [facility] Start: 01-28-2025 End: 01-28-2025 ambulatory Mary Vázquez Facility:[facility] Start: 01-28-2025 End: 01-28-2025 Patient encounter procedure Mary Vázquez [facility] Start: 01-28-2025 End: 01-28-2025 ambulatory Mary Vázquez Facility:[facility] Start: 01-26-2025 End: 02-04-2025 Telephone encounter Yuli Todd RN [facility] Comment on above: Referral - Liver Txp (Intake) Start: 01-15-2025 End: 01-15-2025 Telephone encounter Liver Txp Coordinator Work Phone: Transplant Center Comment on above: Referral - Liver Txp Laennec's cirrhosis (HCC) (Primary Dx) Start: 01-15-2025 ambulatory Mary Vázquez Facilit y:[facility] Start: 01-09-2025 End: 01-09-2025 ambulatory Mary Vázquez Facility:[facility] Start: 01-09-2025 End: 01-09-2025 Patient encounter procedure Mary Vázquez [facility] Start: 12-31-2024 End: 12-31-2024 ambulatory Mary Vázquez Facility:[facility] Start: 12-31-2024 End: 12-31-2024 Patient encounter procedure Mary Vázquez [facility] Start: 12-29-2024 End: 12-29-2024 ambulatory Nohelia L Lazarus Facility:[facility] [place] Start: 12-16-2024 End: 12-16-2024 ambulatory Nohelia L Lazarus Facility:[facility] Start: 12-15-2024 End: 12-15-2024 ambulatory Mary Vázquez Facility:[facility] Start: 12-15-2024 End: 12-15-2024 Patient encounter procedure Mary Vázquez [facility] Start: 11-28-2024 ambulatory Mary Vázquez Facilit y:[facility] Start: 11-26-2024 End: 11-26-2024 Lab Drop off Nohelia L Lazarus [facility] Start: 11-26-2024 End: 11-26-2024 ambulatory Nohelia L Lazarus Facility:[facility] [place] Start: 11-24-2024 End: 11-24-2024 ambulatory Nohelia L Lazarus Facility:[facility] Start: 08-27-2024 ambulatory Nohelia L Lazarus Facility: [facility] [place] Start: 08-11-2024 End: 08-11-2024 ambulatory Nohelia L Lazarus Facility:[facility] Start: 08-06-2024 End: 08-06-2024 Lab Drop off Nohelia L Lazarus [facility] Start: 08-06-2024 End: 08-06-2024 ambulatory Nohelia L Lazarus Facility:[facility] Start: 05-26-2024 End: 05-26-2024 ambulatory Nohelia L Lazarus Facility:[facility] Start: 05-21-2024 End: 05-21-2024 ambulatory Nohelia L Lazarus Facility:[facility] Start: 05-09-2024 End: 05-09-2024 ambulatory Nohelia L Lazarus Facility:[facility] [place] Start: 05-05-2024 End: 05-05-2024 ambulatory Nohelia L Lazarus Facility:[facility] Start: 04-11-2024 End: 04-11-2024 ambulatory Nohelia L Lazarus Facility:[facility] Start: 03-21-2024 End: 03-21-2024 Lab Drop off Nohelia L Lazarus [facility] Start: 03-21-2024 End: 03-21-2024 ambulatory Nohelia L Lazarus Facility:[facility] Start: 03-17-2024 ambulatory Nohelia Lazarus Facility:[facility] Start: 10-23-2018 End: 10-24-2018 Patient encounter procedure ALBERTO EVAN Facility:[facility] Start: 10-21-2018 End: 10-22-2018 Patient encounter procedure ALBERTO EVAN Facility: Start: 09-03-2018 End: 09-04-2018 Patient encounter procedure ALBERTO EVAN Facility:[facility] Start: 08-27-2018 End: 08-30-2018 Evaluation and management of inpatient PROVIDER UNKNOWN Facility:[facility] Start: 08-27-2018 End: 08-27-2018 Evaluation and management of inpatient NONE LISTED REQUEST Facility: Procedures Date Procedure Procedure Detail Performing Clinician Start: 08-30-2018 FLUOROSCOPY OF MULTI PLE CORONARY ARTERIES USING OTH CONTRAST KALI Petersen-Parkinson-Kamla burgos pattern (disorder) Nohelia Lazarus Plan of Treatment Date Care Activity Detail Author Start: 07-20-2025 Influenza vaccination Influenza Vaccine (Season Ended) [facility] Start: 03-13-2025 End: 03-13-2025 Social Work 03/13/2025 1:00 PM EDT Social Work [facility] [address] [place] [address] Alena Villanueva LISW Partial Liver EVAL [facility] Center Comment on above: Partial Liver EVAL Start: 03-11-2025 End: 06-10-2025 Basic metabolic 2000 panel - Serum or Plasma BASIC METABOLIC PANEL Lab Routine Alcoholic cirrhosis of liver without ascites (HCC) Liver transplant candidate Expected: 03/11/2025, Expires: 06/10/2025 [facility] Comment on above: Expected: 03/11/2025, Expires: Start: 03-11-2025 End: 06-10-2025 CBC W Auto Differential panel - Blood COMPLETE BLOOD COUNT AND DIFFERENTIAL Lab Routine Alcoholic cirrhosis of liver without ascites (HCC) Liver transplant candidate Expected: 03/11/2025, Expires: 06/10/2025 [facility] Comment on above: Expected: 03/11/2025, Expires: Start: 03-11-2025 End: 06-10-2025 Hepatic function 2000 panel - Serum or Plasma HEPATIC FUNCTION PNL Lab Routine Alcoholic cirrhosis of liver without ascites (HCC) Liver transplant candidate Expected: 03/11/2025, Expires: 06/10/2025 [facility] Comment on above: Expected: 03/11/2025, Expires: Start: 03-11-2025 End: 06-10-2025 PHOSPHATIDYLETHANOL (PETH) PHOSPHATIDYLETHANOL (PETH) Lab Routine Alcoholic cirrhosis of liver without ascites (HCC) Liver transplant candidate Expected: 03/11/2025, Expires: 06/10/2025 [facility] Work Phone: Comment on above: Expected: 03/11/2025, Expires: Start: 03-11-2025 End: 06-10-2025 PT panel - Platelet poor plasma by Coagulation assay PROTHROMBIN TIME Lab Routine Alcoholic cirrhosis of liver without ascites (HCC) Liver transplant candidate Expected: 03/11/2025, Expires: 06/10/2025 [facility] Comment on above: Expected: 03/11/2025, Expires: Start: 03-11-2025 End: 06-10-2025 TOXICOLOGY PANEL BLD TOXICOLOGY PANEL BLD Lab Routine Alcoholic cirrhosis of liver without ascites (HCC) Liver transplant candidate Expected: 03/11/2025, Expires: 06/10/2025 [facility] Comment on above: Expected: 03/11/2025, Expires: Start: 03-11-2025 End: 06-10-2025 TOXICOLOGY SCREEN, ROUTINE URINE TOXICOLOGY SCREEN, ROUTINE URINE Lab Routine Alcoholic cirrhosis of liver without ascites (HCC) Liver transplant candidate Expected: 03/11/2025, Expires: 06/10/2025 [facility] Comment on above: Expected: 03/11/2025, Expires: Start: 03-11-2025 End: 03-11-2025 Patient encounter procedure [facility] Comment on above: Partial Liver Eval Partial Eval ------- Dr. Solares 03/11/25 at 1pm Start: 03-05-2025 End: 03-05-2025 ambulatory 03/05/2025 10:00 AM EDT [facility] [address] [address] Coordinator, Liver Txp [address] [place] [address] Partial Liver eval Transplant Center Comment on above: Partial Liver eval Start: 07-20-2024 Covid-19 Vaccine ( season) Covid-19 Vaccine ( season) [facility] Start: 07-20-2024 Influenza vaccination Influenza Vaccine (#1) [facility] Start: 2021 Lipid panel Lipid Screening [facility] Start: 2005 Hepatitis A Vaccine (1 of 2 - Risk 2-dose series) Hepatitis A Vaccine (1 of 2 - Risk 2-dose series) [facility] Start: 2005 Hepatitis B Vaccine (1 of 3 - 19+ 3-dose series) Hepatitis B Vaccine (1 of 3 - 19+ 3-dose series) [facility] Start: 2005 Pneumococcal vaccination Pneumococcal Vaccine (1 of 2 - PCV) [facility] Start: 2005 Urine microalbumin profile DTaP,Tdap,Td Vaccine (1 - Tdap) [facility] Start: 2004 Anxiety Screening Anxiety Screening [facility] Start: 2004 Depression Screening Depression Screening [facility] Start: 2004 Hepatitis C screening Hepatitis C Screening [facility] Start: 2004 HIV screening HIV Screening [facility] Immunizations Immunization Date Immunization Notes Care Provider Fa cili 08-28-2022 influenza virus vaccine, unspecified formulation Nohelia Lazarus [facility] 02-01-2022 SARS-CoV-2 mRNA (vcvkzaswihj-fhye-cqyc ose) vaccine Nohelia Lazarus [facility] 09-02-2021 SARS-CoV-2 (COVID-19 ) mRNA BNT-162b2 vax Nohelia Lazarus [facility] 08-12-2021 SARS-CoV-2 (COVID-19 ) mRNA BNT-162b2 vax Nohelia Qiu [facility] NEGATED: Highlighted row has not occurred!12-31-2024 influenza virus vaccine, unspecified formulation Mary Vázquez [facility] Payers Date Payer Category Payer [employer] BLUE CARD PPO OOS Member Subscriber Plan / Payer (Effective 2025-Present) Name: James Del Rio Relation to Subscriber: Self Name: James Del Rio Payer ID: [id number] (NAIC) Type: PPO Address: [facility] [id number] [place] [id number] 1985 Unknown [id number] 2.16840.1.791000.3.579. 2.593 1986 Unknown [id number] 2.840.1.686264.3.579. 2.593 1986 Unknown [id number] 2.0.1.849520.3.579. 2.647 1986 Unknown [id number] 2.16840.1.018730.3.579. 2.647 1986 Unknown [id number] 2.16840.1.892914.3.579. 2.647 1986 Unknown [id number] 2.16840.1.738573.3.579. 2.727 1986 Unknown [id number] 2.16840.1.647134.3.579. 2.727 1986 Unknown [id number] 2.16.840.1.896855.3.579. 2 1986 Unknown [id number] 2.16.840.1.377906.3.579. 2 1986 Unknown [id number] 2.16.840.1.893152.3.579. 2 1986 Unknown [id number] 2.16.840.1.040604.3.579. 2 1986 Unknown [id number] 2.16.840.1.496401.3.579. 2 1986 Unknown [id number] 2.16.840.1.326741.3.579. 2 1986 Unknown [id number] 2.16.840.1.639914.3.579. 2 1986 Unknown [id number] 2.16840.1.139084.3.579. 2 1986 Unknown [id number] 2.16840.1.178205.3.579. 2 1986 Unknown [id number] 2.16840.1.771427.3.579. 2 1986 Unknown [id number] 2.16.840.1.404108.3.579. 2 1986 Unknown [id number] 2.16.840.1.644751.3.579. 2 1986 Unknown [id number] 2.16.840.1.450718.3.579. 2 1986 Unknown [id number] 2.16.840.1.570084.3.579. 2 1986 Unknown [id number] 2.16.840.1.417110.3.579. 2 1986 Unknown [id number] 2.16.840.1.849692.3.579. 2 1986 Unknown [id number] 2.16.840.1.494603.3.579. 2.727 1986 Unknown [id number] 2.16.840.1.901089.3.579. 2.7 1986 Unknown [id number] 2.16.840.1.087986.3.579. 2.7 1986 Unknown [id number] 2.16.840.1.681478.3.579. 2. 1986 Unknown [id number] 2.16.840.1.684606.3.579. 2. 1986 Unknown [id number] 2.16.840.1.592729.3.579. 2. 1986 Unknown [id number] 2.16.840.1.173134.3.579. 2. 1986 Unknown [id number] 2.16.840.1.074075.3.579. 2 1986 Unknown [id number] 2.16.840.1.475680.3.579. 2.7 1986 Unknown [id number] 2.16.840.1.962168.3.579. 2 1986 Unknown [id number] 2.16.840.1.088939.3.579. 2.727 1959 Unknown [id number] Social History Date Type Detail Facility Start: 03-21-2024 End: 01-28-2025 Tobacco smoking status Heavy tobacco smoker (finding) [facility] Start: 03-05-2025 Sex Assigned At Male F [facility] Tobacco smoking status Never [facility] Tobacco smoking status NHIS Tobacco smoking consumption unknown [facility] Start: 1985 Sex assigned at Not on file [facility] Start: 03-05-2025 History of Social function [facility] Functional Status Date Assessment Result Facility 12-31-2024 Functional Status N/A [facility] Clinical Notes 08-06-2024 to 04-01-2025 Telephone Encounter - Yuli Todd RN - 04/01/2025 11:06 AM EDTTelephone Encounter - Yuli Todd RN - 04/01/2025 11:06 AM EDTTelephone Encounter - Yuli Todd RN - 03/18/2025 12:58 PM EDT Note Date & Type Note Facility 04-01-2025 Telephone encounter Note Call to pt's to f/u if pt wants to come to [facility] for eval. Had to leave a message with my contact information for return call. Yuli Todd RN [facility] 04-01-2025 Miscellaneous Notes Call to pt's to f/u if pt wants to come to [facility] for eval. Had to leave a message with my contact information for return call. Yuli Todd RN documented in this encounter [facility] 03-18-2025 Telephone encounter Note I called pt's , she states that they want to wait until after next set of labs to see if the MELD goes down. She states it went from 25 to 16 so they aren't sure if he will still need to come if it goes down further. He is getting labs beginning of March (03/25/25). She will call me back after labs to let me know decision. Yuli Todd RN [facility] 03-18-2025 Miscellaneous Notes I called pt's , she states that they want to wait until after next set of labs to see if the MELD goes down. She states it went from 25 to 16 so they aren't sure if he will still need to come if it goes down further. He is getting labs beginning of March (03/25/25). She will call me back after labs to let me know decision. Yuli Todd, RN documented in this encounter [facility] 03-09-2025 Telephone encounter Note I called patient to consent him for his liver evaluation that was starting the following week. His answered- patient was in the background on the phone with someone else. She stated he couldn't talk and she didn't even know if he was going to come to appt next week- she will have him call me back. [facility] 03-09-2025 Miscellaneous Notes I called patient to consent him for his liver evaluation that was starting the following week. His answered- patient was in the background on the phone with someone else. She stated he couldn't talk and she didn't even know if he was going to come to appt next week- she will have him call me back. documented in this encounter [facility] 03-09-2025 Telephone encounter Note I called patient again today for consent and to see if he was coming to appt on Sun. Had to leave message. I asked that he call our office back to confirm. [facility] 03-09-2025 Miscellaneous Notes I called patient again today for consent and to see if he was coming to appt on Sun. Had to leave message. I asked that he call our office back to confirm. documented in this encounter [facility] 03-04-2025 Telephone encounter Note Called patient regarding liver transplant evaluation appointment reminder, left message on voicemail [facility] 03-04-2025 Miscellaneous Notes Called patient regarding liver transplant evaluation appointment reminder, left message on voicemail documented in this encounter [facility] 02-16-2025 Telephone encounter Note mychart code , pt had not signed up. I sent another email for him to sign up and also called his to let her know that another link was sent, had to leave vm for her. Yuli Todd RN [facility] 02-16-2025 Miscellaneous Notes mychart code , pt had not signed up. I sent another email for him to sign up and also called his to let her know that another link was sent, had to leave vm for her. Yuli Todd RN documented in this encounter [facility] 01-30-2025 Telephone encounter Note I spoke with Spouse and obtained all necessary information. Partial eval will be scheduled due to recent ETOH (6 wks ago) and downtrending MELD. Spouse instructed to review liver transplant information online at [email or web address] or paper information sent to pt and to have someone accompany them to appointments. All questions answered. Contact information provided and advised to call our office with any questions/concerns or schedule changes. Information sent for him to sign up for swathi. Will schedule partial eval to include class, lab, hepatology and SW. Dr. Solares on 03/11/25 1pm along with lab. Zoom education class: 03/05/25 Yuli Todd RN [facility] 01-30-2025 Miscellaneous Notes I spoke with Spouse and obtained all necessary information. Partial eval will be scheduled due to recent ETOH (6 wks ago) and downtrending MELD. Spouse instructed to review liver transplant information online at [email or web address] or paper information sent to pt and to have someone accompany them to appointments. All questions answered. Contact information provided and advised to call our office with any questions/concerns or schedule changes. Information sent for him to sign up for mychart. Will schedule partial eval to include class, lab, hepatology and SW. Dr. Solares on 03/11/25 1pm along with lab. Zoom education class: 03/05/25 Yuli Todd RN Did not receive a call back from pt's yesterday. I called again today and had to leave a vm. Only 1 number listed and no MyChart. Will await a return call. Yuli Todd RN [facility] Liver Transplant Medical Intake This is a 39 year old male with ETOH cirrhosis referred for OLT evaluation by Dr. Vázquez. MELD: 25 (pt's states MELD is down to 16) Was the pt declined at another transplant center due to cardiovascular disease: N/A Pt has a PCP: Yes Liver Biopsy: no Complications of liver disease: Jaundice, LE edema, and Fatigue Cardiac History / Cardiac Surgical History: Yes, Htn, SVT, Zaaoz-Msesneufw-Medaw Syndrome Pertinent Health History: Kidney: None Last Cr: 0.9 Last eGFR: 112 (if GFR <40 get Cystatin C and nephrology consult) Dialysis? no Pulmonary: None Neuro: None Cancer: None Psych: None Other pertinent history: Yes, Qbysn-Nofpedwbb-Eemaa Syndrome Medications: Beta Petra: No Pharmacy updated in [facility] if beta petra needed: Yes Anticoagulation: no Patient taking pain meds: no If yes, does pt follow with pain management? N/A ALLERGIES Not on File Substance History: Smoking: Yes - Amount: <1/2 PPD, # of years: 15-20, Last use: current Cough: No Hoarseness: No ETOH: Yes: Last Drink: 6 weeks-fireball 1/2 gallon Q2 days, Rehab: AA many yrs I advised pt to abstain from alcohol: Yes I advised pt to enroll in a chemical dependency program: Yes Drugs: Yes: Last Use: MJ-20+ yrs ago, cocaine 8yrs ago, Rehab: No I advised pt to abstain from drug use: Yes I advised pt to enroll in a chemical dependency program: No Comments: Yes, states that he will not go to rehab Yuli Todd RN documented in this encounter [facility] 01-27-2025 Telephone encounter Note Did not receive a call back from pt's yesterday. I called again today and had to leave a . Only 1 number listed and no MyChart. Will await a return call. Yuli Todd RN [facility] 01-26-2025 Telephone encounter Note [facility] Liver Transplant Medical Intake This is a 39 year old male with ETOH cirrhosis referred for OLT evaluation by Dr. Vázquez. MELD: 25 (pt's states MELD is down to 16) Was the pt declined at another transplant center due to cardiovascular disease: N/A Pt has a PCP: Yes Liver Biopsy: no Complications of liver disease: Jaundice, LE edema, and Fatigue Cardiac History / Cardiac Surgical History: Yes, Htn, SVT, Vakrl-Pccidrnkr-Ewsiq Syndrome Pertinent Health History: Kidney: None Last Cr: 0.9 Last eGFR: 112 (if GFR <40 get Cystatin C and nephrology consult) Dialysis? no Pulmonary: None Neuro: None Cancer: None Psych: None Other pertinent history: Yes, Zptln-Pznktseqo-Ugaud Syndrome Medications: Beta Petra: No Pharmacy updated in Epic if beta petra needed: Yes Anticoagulation: no Patient taking pain meds: no If yes, does pt follow with pain management? N/A ALLERGIES Not on File Substance History: Smoking: Yes - Amount: <1/2 PPD, # of years: 15-20, Last use: current Cough: No Hoarseness: No ETOH: Yes: Last Drink: 6 weeks-fireball 1/2 gallon Q2 days, Rehab: AA many yrs I advised pt to abstain from alcohol: Yes I advised pt to enroll in a chemical dependency program: Yes Drugs: Yes: Last Use: MJ-20+ yrs ago, cocaine 8yrs ago, Rehab: No I advised pt to abstain from drug use: Yes I advised pt to enroll in a chemical dependency program: No Comments: Yes, states that he will not go to rehab Yuli Todd RN [facility] 01-15-2025 Telephone encounter Note LIVER TRANSPLANT REFERRAL James Del Rio [id number] Diagnosis: ETOH MELD Na: 25 (Check EPIC labs and Care Everywhere to calculate the MELD Score. Look for a CMP [Total Bilirubin/Albumin/Creatinine, Sodium] and the INR. If unable to calculate the MELD notify the Intake Txp Coordinator.) If MELD is >/= 25, please route to Intake Txp Coordinators (Leighton) with high priority and send to immediately. Patient's Age: 39 (If the patient is 73 yrs or older, route this referral to the Intake Txp Coord, Leighton, to review) Is pt being referred for Special Access Clinic? No (Special Access Clinic referrals will only come via fax specifying that this is a special access patient) -IF YES, ROUTE TO TXP COORDINATOR YULI Todd Who is referring the patient for transplant? Dr. Mary Thorpe MD: Mary Vázquez PCP: Yes - Name: Nohelia Qiu Is the pt on dialysis? No Is the pt referred for dual organ? NO Are you willing to accept blood product transfusion during surgery if needed? Yes. If NO, explain why and route referral to intake coordinators (Leighton). Ale as QB, do not send to FC until approved by coordinators Request records/images stat including having the patient fax over the advanced directive form with the blood product information if Jehovah Witness How long does it take you to drive to [facility]? 1 hour Who will accompany you to your transplant evaluation? spouse Have you ever been evaluated for liver transplant? No Do you have a potential living donor? No OUT OF STATE MEDICAID PATIENTS: APC - run the Medicaid through [facility] to determine if the coverage is Out of Network (OON) with [facility]. If the Medicaid is OON, inform the patient that their PCP will need to send a referral to the Out of State Medicaid for a Transplant Evaluation. Have you been seen at another Transplant Center that was in-network with your Out of State (OOS) Medicaid and denied a Transplant Evaluation? No Has your PCP sent in a referral for transplant to your (OOS) Medicaid director of casework? No If the patient has Medicare A/B as their primary insurance please ask the patient for their secondary insurance coverage. MyCHART [facility] the [facility]? No - Obtain their email address AND send MyChart sign up information: Email address: [email or web address] (ENSURE THAT RECORDS ARE OBTAINED FROM REFERRING PHYSICIAN OFFICE) Have you ever been seen by: -Cardiology? no -Nephrology? no -Psychiatry? no Care Everywhere: List the facilities that records have been requested from [facility] Be sure to obtain consent from pt to obtain records in care everywhere if it is required [facility]: List the facilities or physicians that records have been requested from Khoa Nguyen Provide a list of facilities where image requests have been made from [facility] yes (If imaging records are available in Care Everywhere, still request the outside images via [facility]) A nurse will call for medical intake: -who should she call (Name/relationship to pt)? Spouse - Mayte -what phone number? [phone] Phone number to office provided to pt: Yes Additional Comments about patient/evaluation: n/a Job Ledbetter [facility] 01-15-2025 Miscellaneous Notes LIVER TRANSPLANT REFERRAL James Del Rio [id number] Diagnosis: ETOH MELD Na: 25 (Check EPIC labs and Care Everywhere to calculate the MELD Score. Look for a CMP [Total Bilirubin/Albumin/Creatinine, Sodium] and the INR. If unable to calculate the MELD notify the Intake Txp Coordinator.) If MELD is >/= 25, please route to Intake Txp Coordinators (Leighton) with high priority and send to immediately. Patient's Age: 39 (If the patient is 73 yrs or older, route this referral to the Intake Txp Coord, Leighton, to review) Is pt being referred for Special Access Clinic? No (Special Access Clinic referrals will only come via fax specifying that this is a special access patient) -IF YES, ROUTE TO TXP COORDINATOR YULI Todd Who is referring the patient for transplant? Dr. Mary Thorpe MD: Mary Vázquez PCP: Yes - Name: Nohelia Qiu Is the pt on dialysis? No Is the pt referred for dual organ? NO Are you willing to accept blood product transfusion during surgery if needed? Yes. If NO, explain why and route referral to intake coordinators (Yuli and Jayleen). Ale as QB, do not send to FC until approved by coordinators Request records/images stat including having the patient fax over the advanced directive form with the blood product information if Jehovah Witness How long does it take you to drive to [facility]? 1 hour Who will accompany you to your transplant evaluation? spouse Have you ever been evaluated for liver transplant? No Do you have a potential living donor? No OUT OF STATE MEDICAID PATIENTS: APC - run the Medicaid through [facility] to determine if the coverage is Out of Network (OON) with [facility]. If the Medicaid is OON, inform the patient that their PCP will need to send a referral to the Out of State Medicaid for a Transplant Evaluation. Have you been seen at another Transplant Center that was in-network with your Out of State (OOS) Medicaid and denied a Transplant Evaluation? No Has your PCP sent in a referral for transplant to your (OOS) Medicaid director of casework? No If the patient has Medicare A/B as their primary insurance please ask the patient for their secondary insurance coverage. MyCHART Is the patient signed up for [employer]? No - Obtain their email address AND send [employer] sign up information: Email address: [email or web address] (ENSURE THAT RECORDS ARE OBTAINED FROM REFERRING PHYSICIAN OFFICE) Have you ever been seen by: -Cardiology? no -Nephrology? no -Psychiatry? no Care Everywhere: List the facilities that records have been requested from [facility] Be sure to obtain consent from pt to obtain records in care everywhere if it is required [facility]: List the facilities or physicians that records have been requested from [facility] Provide a list of facilities where image requests have been made from [facility] yes (If imaging records are available in Care Everywhere, still request the outside images via [facility]) A nurse will call for medical intake: -who should she call (Name/relationship to pt)? Spouse - Mayte -what phone number? [phone] Phone number to office provided to pt: Yes Additional Comments about patient/evaluation: n/a Job Ledbetter documented in this encounter [facility] 11-26-2024 Evaluation + Plan note Diagnostic Tests PendingAcute Hepatitis A B C Panel 11/26/24 [facility] 08-06-2024 Evaluation + Plan note Diagnostic Tests PendingComprehensive Metabolic Panel 08/06/24 [facility] Evaluation + Plan note Future Appointments Appointment Date:04/11/2024 01:40:00 PM Scheduled Provider:Nohelia Pena Location:[facility] [place] Appointment Type:[facility] Evaluation + Plan note Future Appointments Appointment Date:12/31/2024 02:00:00 PM Scheduled Provider:Mary Vázquez MD Location:[facility] Appointment Type:BADH New Patient [facility] Evaluation + Plan note Future Appointments Appointment Date:01/28/2025 02:45:00 PM Scheduled Provider:Mary Vázquez MD Location:[facility] Appointment Type:[facility] Follow Up Appointment Date:03/25/2025 04:40:00 PM Scheduled Provider:Nohelia Pena Location:[facility] Appointment Type: Open Future Scheduled TestsMRI Cholangiogram Pancreatography (mrcp) 12/31/24 [facility] Evaluation + Plan note Future Appointments Appointment Date:01/28/2025 02:45:00 PM Scheduled Provider:Mary Vázquez MD Location:[facility] Appointment Type:[facility] Follow Up Appointment Date:03/25/2025 04:40:00 PM Scheduled Provider:Nohelia Pena Location:[facility] Appointment Type: Open Diagnostic Tests UuwbyuxVqcer-2-Turixiqckyn 12/31/24ANA w/Reflex if POS 12/31/24Antimitochondrial Antibody, Quantitative 12/31/24Ceruloplasmin 12/31/24Hepatitis A Virus (HAV) Antibody, Total 12/31/24IgA, Quant. 12/31/24IgG, Quant. 12/31/24Smooth Muscle Antibody Screen 12/31/24t-Transglutaminase IgA 12/31/24Hepatitis B Surface Antibody 12/31/24Alpha Fetoprotein Tumor Marker 12/31/24 Future Scheduled TestsMRI Cholangiogram Pancreatography (mrcp) 12/31/24 [facility] Evaluation + Plan note Future Appointments Appointment Date:01/28/2025 02:45:00 PM Scheduled Provider:Mary Vázquez MD Location:[facility] Digestive [facility] Appointment Type:[facility] Follow Up Appointment Date:03/25/2025 04:40:00 PM Scheduled Provider:Nohelia Pena Location:[facility] Appointment Type: Open [facility] Evaluation + Plan note Future Appointments Appointment Date:03/25/2025 04:00:00 PM Scheduled Provider:Nohelia Pena Location:[facility] Appointment Type: Open Diagnostic Tests PendingAlpha Fetoprotein Tumor Marker 01/28/25 Future Scheduled TestsAlpha Fetoprotein Tumor Marker 07/31/25CBC w/ Auto Diff 07/31/25Comprehensive Metabolic Panel 07/31/25PT 07/31/25 [facility] Evaluation note Diagnosis Laennec's cirrhosis (HCC)- Primary Alcoholic cirrhosis of liver [facility] Diagnosis Alcoholic cirrhosis of liver without ascites (HCC)- Primary Alcoholic cirrhosis of liver Liver transplant candidate [facility] N[facility] No data available for this section [facility] instructions No data available for this section [facility] No data available for this section [facility] Summary Purpose Family History [...] Records FoundNo Advanced Directives Records FoundNo Advanced Directiv es Records FoundNo Advanced Directives Records FoundNo Advanced Directives Records FoundNo AdvancedDirectives Records Found Hospital Course Note MR[id number] Name[facility] James Del Rio Admitted: 08/27/2018 Discharged: 08/30/2018 Date of : 1985 Physician: Danis Martinez MD DISCHARGE SUMMARYPRIMARY CARE PHYSICIAN: None.CONSULTING PHYSICIAN:[facility]. [facility]. [facility].FINAL DIAGNOSES:1. Tachycardia with Xrmzm-Vzhkyrnzo-Dtjre changes on EKG. Evaluated by Cardiology with status post cardiac catheterization, negative for any obstructive coronary artery disease with low EF.2. Alcohol abuse, not in withdrawal now.3. Elevated LFTs related to alcohol abuse.4. Abdominal pain, resolved.HOSPITAL COURSE: This is a 33-year-old male with past medical history ofheavy alcohol abuse/polysubstance abuse who came to the hospital withnausea, vomiting, dizziness, lightheadedness. On EKG, initial evaluationrevealed Qdrqk-Comtjmnzv-Zueou syndrome, so the patient was admitted toICU, [...] and content) DATE CREATED AUTHOR 10/29/2018 [facility] DATE CREATED AUTHOR AUTHOR'S ORGANIZ ATION 11/16/2018 [facility] DATE CREATED AUTHOR AUTHOR'S ORGANIZ ATION 08/10/2024 [facility] DATE CREATED AUTHOR AUTHOR'S ORGANIZ ATION 11/30/2024 [facility] DATE CREATED AUTHOR AUTHOR'S ORGANIZ ATION 12/01/2024 [facility] DATE CREATED AUTHOR AUTHOR'S ORGANIZ ATION 12/02/2024 [facility] DATE CREATED AUTHOR AUTHOR'S ORGANIZ ATION 12/03/2024 [facility] DATE CREATED AUTHOR AUTHOR'S ORGANIZ ATION 01/03/2025 [facility] DATE CREATED AUTHOR AUTHOR'S ORGANIZ ATION 01/04/2025 [facility] DATE CREATED AUTHOR AUTHOR'S ORGANIZ ATION 01/31/2025 [facility] DATE CREATED AUTHOR AUTHOR'S ORGANIZ ATION 02/06/2025 [facility] DATE CREATED AUTHOR AUTHOR'S ORGANIZ ATION 03/27/2025 [facility] DATE CREATED AUTHOR AUTHOR'S ORGANIZ ATION 04/16/2025 [facility] DATE CREATED AUTHOR AUTHOR'S ORGANIZ ATION 06/18/2025 [facility] Patient Care team informatio n (unrecognized section and content) Personnel Name: Nohelia Pena Address: Address: [address] [place] [address]- Personnel Name: Nohelia Pena Address: Address: [address] [place] [address]- Personnel Name: Nohelia Pena Address: Address: [address] [place] [address]- Personnel Name: Nohelia Pena Address: Address: [address] [place] [address]- Personnel Name: Nohelia Pena Address: Address: [address] [place] [address]- Personnel Name: Nohelia Pena Address: Address: [address] [place] [address]- Personnel Name: Nohelia Pena Address: Address: [address] [place] [address]- Personnel Name: Nohelia Pena Address: Address: [address] [place] [address]- Source Comments (unrecognize d section and content) In the event this informatio n is protected by the [facility] of Alcohol and Drug Abuse Patient Records regulations: The Federal rules restrict any use of the information to criminally investigate or prosecute any alcohol or drug abuse patient.[facility] HospitalIn the event this information is protected by the Federal Confidentiality of Alcohol and Drug Abuse Patient Records regulations: The Federal rules restrict any use of the information to criminally investigate or prosecute any alcohol or drug abuse patient.[facility] HospitalIn the event this information is protected by the Federal Confidentiality of Alcohol and Drug Abuse Patient Records regulations: The Federal rules restrict any use of the information to criminally investigate or prosecute any alcohol or drug abuse patient.[facility] HospitalIn the event this information is protected by the Federal Confidentiality of Alcohol and Drug Abuse Patient Records regulations: The Federal rules restrict any use of the information to criminally investigate or prosecute any alcohol or drug abuse patient.[facility] HospitalIn the event this information is protected by the Federal Confidentiality of Alcohol and Drug Abuse Patient Records regulations: The Federal rules restrict any use of the information to criminally investigate or prosecute any alcohol or drug abuse patient.[facility] HospitalIn the event this information is protected by the Federal Confidentiality of Alcohol and Drug Abuse Patient Records regulations: The Federal rules restrict any use of the information to criminally investigate or prosecute any alcohol or drug abuse patient.[facility] HospitalIn the event this information is protected by the Federal Confidentiality of Alcohol and Drug Abuse Patient Records regulations: The Federal rules restrict any use of the information to criminally investigate or prosecute any alcohol or drug abuse patient.[facility] HospitalIn the event this information is protected by the Federal Confidentiality of Alcohol and Drug Abuse Patient Records regulations: The Federal rules restrict any use of the information to criminally investigate or prosecute any alcohol or drug abuse patient.[facility] HospitalIn the event this information is protected by the Federal Confidentiality of Alcohol and Drug Abuse Patient Records regulations: The Federal rules restrict any use of the information to criminally investigate or prosecute any alcohol or drug abuse patient.[facility] Reason for Visit (unrecogniz ed section and content) Reason Comments Referral - Liver Txp Reason Comments Referral - Liver Txp Intake Reason Comments Follow Up mychart Reason Comments Reminder Call Liver Eval Reason Comments Patient Update Reason Comments Referral - Liver Txp Follow Up Reason Comments Follow Up FOR RECORDS PERTAINING TO PATIENTS WHO ARE [...] BE BASED ON THE PRIMARY CLINICAL RECORDS. [facility] provides no warranty or guarantee of the accuracy or completeness of information in this document.
--- NOTE | 2025-07-02 05:06 | ED.CHESTPAI1 ---
HPI - Chest Pain General Chief Complaint: Chest Pain Stated Complaint: chest pain Time Seen by Provider: 07/02/25 04:55 Source: patient Mode of arrival: walk-in History of Present Illness HPI narrative: presents complaining of chest pain. Points to the xiphoid lesion. Pain associated with nausea . No pain in his back . Is short of breath/hurts to breathe. Past history of WPW. Daily cigarette smoker and history of HTN took nexium and ASA at home before coming in Related Data Home Medications ?Medication ?Instructions ?Recorded ?Confirmed hydrochlorothiazide 12.5 mg capsule 12.5 mg PO DAILY PRN edema 12/16/24 07/02/25 losartan 100 mg tablet 100 mg PO DAILY 12/16/24 07/02/25 potassium chloride 20 mEq 20 meq PO BID 12/16/24 07/02/25 tablet,extended release(part/cryst) dextroamphetamine-amphetamine 10 10 mg PO DAILY 07/02/25 07/02/25 mg tablet dextroamphetamine-amphetamine ER 25 mg PO DAILY 07/02/25 07/02/25 25 mg 24hr capsule,extend release Allergies Allergy/AdvReac Type Severity Reaction Status Date / Time No Known Drug Allergies Allergy Verified 07/02/25 04:50 Review of Systems ROS Status of ROS 10 or more systems reviewed and unremarkable except as noted in history and below PFSH PFS Social History Little interest or pleasure in doing things: not at all Feeling down, depressed, or hopeless: not at all Exam Constitutional Vital Signs, click to edit/add: Last Vital Signs Temp 97.5 F L 07/02/25 04:46 Pulse 74 07/02/25 11:30 Resp 18 07/02/25 11:30 BP 110/64 07/02/25 11:30 Pulse Ox 99 07/02/25 11:30 O2 Del Method Room Air 07/02/25 11:30 Common normals: oriented x3, alert and well nourished General appearance: in distress (mild) HENMT Common normals: normocephalic and head/scalp atraumatic Eye Common normals: PERRL and EOMs intact bilaterally Respiratory Common normals: normal respiratory effort, no retractions, no use of accessory muscles and clear to auscultation bilaterally Cardio Common normals: regular rate, regular rhythm, S1 normal heart sound and S2 normal heart sound GI Common normals: Normal to inspection, nondistended, normoactive bowel sounds present and soft to palpation Other: subxiphoid tenderness Extremity Common normals: normal to inspection and full ROM Neuro Common normals: oriented x3, CN's II-XII intact bilaterally, moves all extremities and no focal motor deficits Psych Appearance: grossly normal Course Vital Signs Vital signs: Vital Signs Pulse Oximetry 100 07/02/25 04:45 Temperature 97.5 F L 07/02/25 04:46 Pulse Rate 74 07/02/25 11:30 Respiratory Rate 18 07/02/25 11:30 Blood Pressure 110/64 07/02/25 11:30 Pulse Oximetry 99 07/02/25 11:30 Oxygen Delivery Method Room Air 07/02/25 11:30 MDM - Chest Pain MDM Narrative Medical decision making narrative: patient presents with epigastric chest pain. was given nitro SL and thinks it may have help some but not certain. Trop and d-dimer neg. cxray without acute findings per my interpretation. GB US ordered. Care transferred at change of shift Lab Data Labs: Lab Results 07/02/25 Range/Units 04:55 WBC 7.2 (4.0-11.0) 10^3/uL RBC 3.96 L (4.70-6.10) 10^6/uL Hgb 12.4 L (14.0-18.0) g/dL Hct 36.5 L (42.0-54.0) % MCV 92.2 (80.0-94.0) fL MCH 31.3 (25.9-34.0) pg MCHC 34.0 (29.9-35.2) g/dL RDW 13.5 (11.0-15.0) % Plt Count 177 (150-450) 10^3/uL MPV 10.8 (9.5-13.5) fL Neut % (Auto) 61.9 (43.0-75.0) % Lymph % (Auto) 27.6 (20.5-60.0) % [place] % (Auto) 5.6 (1.7-12.0) % Eos % (Auto) 3.3 (0.9-7.0) % Baso % (Auto) 1.3 (0.2-2.0) % Neut # (Auto) 4.4 (1.4-6.5) 10^3/uL Lymph # (Auto) 2.0 (1.2-3.8) 10^3/uL [place] # (Auto) 0.4 (0.3-0.8) 10^3/uL Eos # (Auto) 0.2 (0.0-0.7) 10^3/uL Baso # (Auto) 0.1 (0.0-0.1) 10^3/uL Abs Immat Gran (auto) 0.02 (0.00-0.03) 10^3/uL Imm/Tot Granulo (auto) 0.3 (0.0-0.5) % PT 14.0 H (9.0-11.6) sec INR 1.36 D-Dimer 0.19 (<=0.59) mg/L FEU Sodium 135 L (136-145) mmol/L Potassium 3.5 (3.5-5.1) mmol/L Chloride 103 (98-107) mmol/L Carbon Dioxide 27.5 (21.0-32.0) mmol/L Anion Gap 8.0 BUN 16.0 (7.0-18.0) mg/dL Creatinine 0.93 (0.70-1.30) mg/dL Est GFR ( Amer) >60 (>=60 mL/min/1.73m^2) Est GFR (Non-Af Amer) >60 (>=60 mL/min/1.73m^2) BUN/Creatinine Ratio 17.2 Glucose 126 H (74-106) mg/dL Calcium 9.7 (8.5-10.1) mg/dL Total Bilirubin 3.3 H (0.2-1.0) mg/dL AST 69 H (15-37) U/L ALT 86 H (16-63) U/L Alkaline Phosphatase 102 (46-116) U/L Troponin I High Sens 5.2 (4.0-76.1) pg/mL NT-Pro-B Natriuret Pep 29.0 (<=450.0) pg/mL Total Protein 7.7 (6.4-8.2) g/dL Albumin 3.6 (3.4-5.0) g/dL Globulin 4.1 g/dL Albumin/Globulin Ratio 0.9 Lipase 58.0 (16.0-77.0) U/L Discharge Plan Discharge Chief Complaint: Chest Pain Clinical Impression: Acute cholecystitis Patient Disposition: [facility] Time of Disposition Decision: 09:56 Discharge Location: [facility] Condition: Fair Mode of Transportation: EMS Discharge Date/Time: 07/02/25 11:30
--- NOTE | 2025-07-02 05:14 | PC.NURSE ---
patient with hx of WPW comes to ED with complaints of epigasrtric chest pain starting almost 2 hours ago. patient thinks hes having a heart attack. patient does not want to speak states he feels short of breath while speaking patients s/o with him answering questions. when asked if he can rate his pain and describe it patient is making hand gesters. patient oxygen saturation 100 percent. skin pwd. patient denies any radiation of pain. patient was able to ambulate back to ed room. patient took two aspirin prior to leaving the house. unknown dosage.
[2025-07-02] MEDS: NITROGLYCERIN 0.4 MG BOTTLE PO (05:20)
[2025-07-02 05:23] LABS: Hematocrit 36.5 % (42.0-54.0); Hemoglobin 12.4 g/dL (14.0-18.0); Immature Granulocytes Abs Auto 0.02 10^3/uL (0.00-0.03); Immature Granulocytes Pct Auto 0.3 % (0.0-0.5); Lymphocytes Absolute Auto 2.0 10^3/uL (1.2-3.8); Mean Corpuscular HGB Conc 34.0 g/dL (29.9-35.2); Mean Corpuscular Hemoglobin 31.3 pg (25.9-34.0); Mean Corpuscular Volume 92.2 fL (80.0-94.0); Platelet Count 177 10^3/uL (150-450); Red Blood Count 3.96 10^6/uL (4.70-6.10); White Blood Count 7.2 10^3/uL (4.0-11.0)
[2025-07-02 05:38] LABS: Alanine Aminotransferase 86 U/L (16-63); Albumin Globulin Ratio 0.9; Albumin Level 3.6 g/dL (3.4-5.0); Alkaline Phosphatase 102 U/L (46-116); Anion Gap 8.0; Aspartate Amino Transferase 69 U/L (15-37); Blood Urea Nitrogen 16.0 mg/dL (7.0-18.0); Calcium 9.7 mg/dL (8.5-10.1); Carbon Dioxide 27.5 mmol/L (21.0-32.0); Chloride 103 mmol/L (98-107); Estimated GFR (African America >60 (>=60 mL/min/1.73m^2); Estimated GFR (Non-African Ame >60 (>=60 mL/min/1.73m^2); Globulin 4.1 g/dL; Glucose 126 mg/dL (74-106); Potassium 3.5 mmol/L (3.5-5.1); Sodium 135 mmol/L (136-145); Total Protein 7.7 g/dL (6.4-8.2)
[2025-07-02 05:44] LABS: Lipase 58.0 U/L (16.0-77.0); NT Pro B Type Natriuretic Pept 29.0 pg/mL (<=450.0)
--- NOTE | 2025-07-02 05:45 | ECG_ITS ---
[facility] Test Date: 2025-07-02 Pat Name: XAVIER GUERRA Department: Room: - Gender: Male Gaming Host: : 1985 Requested By: [id number] Order Number: [id number] Reading MD: KALI RIDER M.D. Measurements Intervals Mcdonough Rate: 52 P: -66809 SC: -77662 QRS: 71 QRSD: 100 T: 80 QT: 452 QTc: 431 Interpretive Statements Sinus rhythm alternating with ectopic atrial rhythm abnormal ECG Compared to ECG 12/16/2024 14:07:02 No significant changes Electronically Signed On 07-02-2025 19:30:14 EDT by KALI RIDER M.D.
--- NOTE | 2025-07-02 06:42 | US_ITS ---
The [place] [id number] Patient Name: XAVIER GUERRA MRN: [id number] date: 1985 Sex: M Assigned Patient Location: ED.MAIN Current Patient Location: ED.MAIN Accession/Order Number: [id number] Exam Date: 07/02/2025 07:55 Report Date: 07/02/2025 07:59 At the request of: JOHN GILLILAND MD Procedure: US right upper quadrant Ultrasound right upper quadrant INDICATION: Epigastric pain for one day COMPARISON: Ultrasound 12/02/2024 FINDINGS: Diffusely increased parenchymal echotexture of the liver suggestive of fatty infiltration. Normal hepatopedal flow within the portal vein. Gallbladder demonstrates 4.1 mm of wall thickness. Linear echogenic foci identified suggestive cholelithiasis versus sludge. Trace pericholecystic fluid. Love's sign is reportedly negative. Common bile duct 5 mm. Pancreas grossly unremarkable as visualized. Right kidney demonstrates no hydronephrosis measuring 10.0 x 6.2 x 7.0 cm in size. US/US right upper quadrant IMPRESSION: Gallbladder wall thickening with biliary sludge versus gallstones and trace fluid. Consider HIDA scan. Impression dictated by: Fredrick Rosales M.D. 07/02/2025 7:59 AM Dictation Location: [place] [address] Electronically authenticated by: [id number] Y Date: 07/02/2025 07:59
[2025-07-02 07:21] LABS: INR 1.36; Prothrombin Time 14.0 sec (9.0-11.6)
--- NOTE | 2025-07-02 09:57 | ED.GENADUL1 ---
HPI HPI - General Adult General Chief complaint: Chest Pain Stated complaint: chest pain Time Seen by Provider: 07/02/25 04:55 Source: patient Mode of arrival: walk-in History of Present Illness HPI narrative: 40-year-old male presents to the emergency department and was initially seen by Dr. Harris and signed out to me after discussing the case with him thoroughly. Please see his full history and physical exam. Related Data Home Medications ?Medication ?Instructions ?Recorded ?Confirmed hydrochlorothiazide 12.5 mg capsule 12.5 mg PO DAILY PRN edema 12/16/24 07/02/25 losartan 100 mg tablet 100 mg PO DAILY 12/16/24 07/02/25 potassium chloride 20 mEq 20 meq PO BID 12/16/24 07/02/25 tablet,extended release(part/cryst) dextroamphetamine-amphetamine 10 10 mg PO DAILY 07/02/25 07/02/25 mg tablet dextroamphetamine-amphetamine ER 25 mg PO DAILY 07/02/25 07/02/25 25 mg 24hr capsule,extend release Allergies Allergy/AdvReac Type Severity Reaction Status Date / Time No Known Drug Allergies Allergy Verified 07/02/25 04:50 Opioid HPI Opioid Management Most Recent Opioid Data: Last Pain Scale 4 Today, 05:12 PFSH PFSH Social History Little interest or pleasure in doing things: not at all Feeling down, depressed, or hopeless: not at all Exam Constitutional Vital Signs, click to edit/add: Last Vital Signs Temp 97.5 F L 07/02/25 04:46 Pulse 62 07/02/25 08:30 Resp 20 07/02/25 08:30 BP 97/63 07/02/25 08:30 Pulse Ox 99 07/02/25 08:30 O2 Del Method Room Air 07/02/25 04:46 Course Vital Signs Vital signs: Vital Signs Pulse Oximetry 100 07/02/25 04:45 Temperature 97.5 F L 07/02/25 04:46 Pulse Rate 62 07/02/25 08:30 Respiratory Rate 20 07/02/25 08:30 Blood Pressure 97/63 07/02/25 08:30 Pulse Oximetry 99 07/02/25 08:30 Oxygen Delivery Method Room Air 07/02/25 04:46 Medical Decision Making MDM Narrative Medical decision making narrative: Gallbladder ultrasound per radiologist suggest acute cholecystitis with a small amount of pericholecystic fluid and gallbladder wall thickening. LFTs are mildly elevated but he has a history of cirrhosis. I discussed the case with Dr. Price at [facility] and he suggested that the patient should be transferred to tertiary [facility]. I have spoken to Dr. Wolf at [facility] and he accepts the patient. The intention is to transfer the patient emergency department to emergency department. The patient is stable and agreeable for transfer. Findings are discussed with the patient and his family. Differential Diagnosis Differential Diagnosis: Acute cholecystitis, pancreatitis, hepatitis, colitis Lab Data Lab results reviewed: Yes I reviewed the patient's lab results Labs: Lab Results 07/02/25 Range/Units 04:55 WBC 7.2 (4.0-11.0) 10^3/uL RBC 3.96 L (4.70-6.10) 10^6/uL Hgb 12.4 L (14.0-18.0) g/dL Hct 36.5 L (42.0-54.0) % MCV 92.2 (80.0-94.0) fL MCH 31.3 (25.9-34.0) pg MCHC 34.0 (29.9-35.2) g/dL RDW 13.5 (11.0-15.0) % Plt Count 177 (150-450) 10^3/uL MPV 10.8 (9.5-13.5) fL Neut % (Auto) 61.9 (43.0-75.0) % Lymph % (Auto) 27.6 (20.5-60.0) % [place] % (Auto) 5.6 (1.7-12.0) % Eos % (Auto) 3.3 (0.9-7.0) % Baso % (Auto) 1.3 (0.2-2.0) % Neut # (Auto) 4.4 (1.4-6.5) 10^3/uL Lymph # (Auto) 2.0 (1.2-3.8) 10^3/uL [place] # (Auto) 0.4 (0.3-0.8) 10^3/uL Eos # (Auto) 0.2 (0.0-0.7) 10^3/uL Baso # (Auto) 0.1 (0.0-0.1) 10^3/uL Abs Immat Gran (auto) 0.02 (0.00-0.03) 10^3/uL Imm/Tot Granulo (auto) 0.3 (0.0-0.5) % PT 14.0 H (9.0-11.6) sec INR 1.36 D-Dimer 0.19 (<=0.59) mg/L FEU Sodium 135 L (136-145) mmol/L Potassium 3.5 (3.5-5.1) mmol/L Chloride 103 (98-107) mmol/L Carbon Dioxide 27.5 (21.0-32.0) mmol/L Anion Gap 8.0 BUN 16.0 (7.0-18.0) mg/dL Creatinine 0.93 (0.70-1.30) mg/dL Est GFR ( Amer) >60 (>=60 mL/min/1.73m^2) Est GFR (Non-Af Amer) >60 (>=60 mL/min/1.73m^2) BUN/Creatinine Ratio 17.2 Glucose 126 H (74-106) mg/dL Calcium 9.7 (8.5-10.1) mg/dL Total Bilirubin 3.3 H (0.2-1.0) mg/dL AST 69 H (15-37) U/L ALT 86 H (16-63) U/L Alkaline Phosphatase 102 (46-116) U/L Troponin I High Sens 5.2 (4.0-76.1) pg/mL NT-Pro-B Natriuret Pep 29.0 (<=450.0) pg/mL Total Protein 7.7 (6.4-8.2) g/dL Albumin 3.6 (3.4-5.0) g/dL Globulin 4.1 g/dL Albumin/Globulin Ratio 0.9 Lipase 58.0 (16.0-77.0) U/L Imaging Data Gallbladder ultrasound: Radiologist's impression: ITS Impressions Upper Quadrant Ultrasound 07/02/25 06:42 IMPRESSION: Gallbladder wall thickening with biliary sludge versus gallstones and trace fluid. Consider HIDA scan. Impression dictated by: Fredrick Rosales M.D. 07/02/2025 7:59 AM Dictation Location: [facility] Electronically authenticated by: [id number] Y Date: 07/02/2025 07:59 Discharge Plan Discharge Chief Complaint: Chest Pain Clinical Impression: Acute cholecystitis Patient Disposition: [facility] Time of Disposition Decision: 09:56 Discharge Location: [facility] Condition: Fair Mode of Transportation: EMS
[2025-07-02] MEDS: PIPERACILLIN SODIUM/TAZOBACTAM 3.375 GM in 0.9 % SODIUM CHLORIDE 50 ML IV (10:26)
== END 2025-07-02 11:30 | disposition short-term general hospital (02) ==
PROVIDERS: Internal Medicine; Emergency Provider Emergency Medicine; PCP Nurse Practitioner
DX: K81.0 Acute cholecystitis (principal); R07.89 Other chest pain
CPT/HCPCS: 36415; 71045; 76705; 80053; 83690; 83880; 84484; 85025; 85378; 85610; 93005; 96365; 99285; J2543